=== PATIENT | female | born 1945 | race Caucasian/White ===

== ENCOUNTER → 2016-11-13 | Outpatient (CLI) | payer MEDICARE, BC ==
[~2016-11-13] MED LIST: CATHETER FLUSH 10 ML SYR IV PRN
--- OUTSIDE RECORDS SUMMARY | 2016-11-13 11:45 | XMS REPORT | Continuity of Care Document ---
Author Author [facility] Organization [facility] Address Unknown Phone Unavailable Allergies Active Description Code Type Severity Reaction Onset Reported/Identified Relationship to Patient Clinical Status Yes No Known Drug Allergies [id number] Drug Allergy Unknown N/ A 07/09/2014 Medications Problems Date Dx Coded Attending Type Code Diagnosis Diagnosed By 08/10/2014 CAEASR HOLT MD Ot 786.09 08/10/2014 CAESAR HOLT MD Ot V72.81 12/24/2015 CAESAR HOLT MD Ot 786.09 12/24/2015 CAESAR HOLT MD Ot V72.81 12/24/2015 CARIDAD DE LEÓN MD Ot I73.9 01/15/2016 GENET CARTWRIGHT, CARIDAD Ot I73.9 PERIPHERAL VASCULAR DISEASE, UNSPECIFIED 01/23/2016 CARIDAD DE LEÓN MD Ot I73.9 PERIPHERAL VASCULAR DISEASE, UNSPECIFIED Procedures Results Encounters ACCT No. Visit Date/Time Discharge Status Pt. Type Provider Facility Loc./Unit Complaint [id number] 07/09/2014 07:36:00 2013 23:59:59 CLS Outpatient CAESAR HOLT MD [facility] CARD [id number] 12/24/2015 11:02:00 ACT Outpatient AZUL DE LEÓN MD [facility] RAD
--- NOTE | 2016-11-13 14:14 | Diagnostic Imaging Report ---
Clinical indication: Patient with diarrhea. COMPARISON: None. PROCEDURE: The patient was administered 5.21 millicuries of technetium 99m Choletec. After 60 minutes of the images, one can of Ensure was drink followed by another 60 minutes of imaging. A nuclear medicine hepatobiliary scan with ejection fraction was performed. FINDINGS: There is prompt uptake and excretion of radiotracer by the liver. Activity is visible in the gallbladder by 20 minutes and the small bowel by 70 minutes. Ejection fraction of the gallbladder is calculated at 80% (normal >35%). The gallbladder visibly empties on the scans following the ingestion of Ensure. IMPRESSION: Normal hepatobiliary scan with normal gallbladder ejection fraction. Dictated by: Dictated on workstation # [id number]
== END ==
LOC: CARD 11:42
PROVIDERS: ATTEND Registered Nurse
DX: R19.7 Diarrhea, unspecified (principal); R10.13 Epigastric pain
CPT/HCPCS: 78227

== ENCOUNTER → 2019-10-27 | Outpatient (CLI) | payer MEDICARE, BC ==
[~2019-10-27] MED LIST changes: +HOLD METFORMIN - RECEIVED CONTRAST 20 ML VIAL IV SCH; +IOHEXOL 350 MG/ML 100 ML (OMNIPAQUE 350) VIAL IV ONE; +NS 100 ML (IVPB) BAG IV ONE; +RT-ALBUTEROL SULF 2.5 MG/3 ML PRE-MIX VIAL INH ONE; +RT-ALBUTEROL SULF 2.5 MG/3 ML PRE-MIX VIAL ONE
[2019-10-27 11:27] LABS: BUN/CREATININE RATIO 14; CREATININE SERUM 0.59 MG/DL (0.60-1.30); GFR ESTIMATED > 60
[2019-10-27 12:09] LABS: ABG BASE EXCESS 3.8 MMOL/L (-2.5-2.5); ABG OXYGEN SATURATION 94 % (94-100); ABG PCO2 41 MMHG (35-45); ABG PH 7.45 (7.37-7.43); ABG PO2 60 MMHG (79-93); ABG TCO2 29.2 MMOL/L (21.0-31.0); ALLENS TEST YES-POS; INSPIRED O2 ROOM AIR; PATIENT TEMP 35.9; VENTILATOR NO
--- NOTE | 2019-10-27 13:03 | NUR ---
Despite several different efforts; RT was unable to perform the O2 qualification due to the patients extremely cold extremities. Poor perfusion at this time; Patricia Palacios said that we would try the test at her next appointment.
--- NOTE | 2019-10-27 14:48 | Diagnostic Imaging Report ---
PROCEDURE: CT chest with contrast only. TECHNIQUE: Multiple contiguous axial images were obtained through the chest after administration of intravenous contrast. Auto Exposure Controls were utilized during the CT exam to meet ALARA standards for radiation dose reduction. DATE: October 27, 2019. COMPARISON: None. INDICATION: 74-year-old female, history of chronic obstructive pulmonary disease. Dyspnea. FINDINGS: There are areas of subcentimeter reticulo-nodularity in the left upper lobe. Comparison CT imaging is not available to assess for possible stability. There is a noncalcified left lower lobe pulmonary nodule measuring 8 mm in size on axial image 102. There is an additional 4 mm left lower lobe pulmonary nodule on axial image 89. There is some subtle subcentimeter reticulo-nodularity in the superior aspect of the left lower lobe. There are predominantly linear opacities in the right upper lobe anteriorly, right middle lobe, and right lower lobe consistent with scarring and/or atelectasis. This is also present in the left lower lobe. There is no additional focal airspace consolidation. There is no pneumothorax. There is nonspecific opacification in the right mainstem bronchus on axial image 76. There is also mild nonspecific opacification along the dependent aspect of the upper trachea on axial image 32 and adjacent sequential images. There is no pneumothorax. There is no pleural effusion. There are coronary artery calcifications and additional areas of atherosclerotic disease. The heart is not enlarged. There is no pericardial effusion. Evaluation for pulmonary embolus is limited given timing of the contrast bolus. There is no large central pulmonary embolus. The main pulmonary artery diameter is within normal limits. There is no identified abnormally enlarged mediastinal, hilar, or axillary lymph node which specifically meets CT size criteria for adenopathy. There is fluid in the distal esophagus. There does appear to be mild wall thickening near the level of the gastroesophageal junction. There is also apparent wall thickening of the proximal stomach. There are degenerative changes of the spine. There is no identified acute bony abnormality. IMPRESSION: CT CHEST. 1. Subcentimeter reticular nodularity in the left upper lobe and superior aspect of the left lower lobe of uncertain exact age. This is nonspecific although may be infectious or inflammatory in etiology. Recommend comparison with prior CT imaging of the chest if available to assess for long-term stability. 2. 8 mm and 4 mm left lower lobe pulmonary nodules. If comparison CT chest imaging is not available to assess for potential long-term stability, follow-up CT chest in 3 months to evaluate for stability is recommended. 3. Nonspecific opacification within the right mainstem bronchus and in the dependent trachea. 4. Wall thickening at the level of the gastroesophageal junction and also at the level of the proximal stomach. This is nonspecific. This could be infectious or inflammatory although a malignant etiology is also considered. Further evaluation with upper endoscopy is suggested. There is some abnormal fluid within the distal esophagus. Dictated by: Dictated on workstation # [id number]
== END ==
LOC: RT 10:08
PROVIDERS: ATTEND Nurse Practitioner Family
DX: J44.9 Chronic obstructive pulmonary disease, unspecified (principal); Z72.0 Tobacco use
CPT/HCPCS: 36415; 36600; 71260; 82565; 82805; 84520; 94060; 94726; 94729

== ENCOUNTER 2019-12-06 05:56 | Outpatient (CLI) | payer MEDICARE, BC ==
[~2019-12-06] VITALS: Ht 162.6 cm; Wt 43.6 kg
[2019-12-06] MEDS ORDERED: EZET10TA17 PO (09:49)
[2019-12-06] MEDS ORDERED: OXYB15TA19 PO (09:49)
[2019-12-06] MEDS ORDERED: ATOR20TA66 PO (09:49)
[2019-12-06] MEDS ORDERED: ASPI-586 PO (09:49)
== END 2019-12-06 09:56 | disposition home or self-care (01) ==
LOC: PREOP 05:56
PROVIDERS: ATTEND Internal Medicine Critical Care Medicine
DX: Z01.818 Encounter for other preprocedural examination (principal)

== ENCOUNTER 2019-12-07 06:58 | Day surgery (SDC) | payer MEDICARE, BC ==
[~2019-12-07] VITALS: Ht 162.6 cm; Wt 43.6 kg
[2019-12-07] VITALS (17 sets, daily range): BP systolic 95–127; BP diastolic 50–68
[~2019-12-07 06:58] MED LIST changes: +ASPI-586 PO; +ATOR20TA66 PO; -CATHETER FLUSH 10 ML SYR IV PRN; +EZET10TA17 PO; -HOLD METFORMIN - RECEIVED CONTRAST 20 ML VIAL IV SCH; -IOHEXOL 350 MG/ML 100 ML (OMNIPAQUE 350) VIAL IV ONE; -NS 100 ML (IVPB) BAG IV ONE; +OXYB15TA19 PO; -RT-ALBUTEROL SULF 2.5 MG/3 ML PRE-MIX VIAL INH ONE; -RT-ALBUTEROL SULF 2.5 MG/3 ML PRE-MIX VIAL ONE
[2019-12-07] MEDS ORDERED: LIDOCAINE JELLY 2% 6 ML SYRINGE MM ONE (06:59)
[2019-12-07] MEDS ORDERED: LIDOCAINE PF 2% 5 ML (XYLOCAINE) VIAL INJ ONE (06:59)
[2019-12-07] MEDS ORDERED: LIDOCAINE PF 1% 2 ML AMP IJ ONE (06:59)
[2019-12-07] MEDS ORDERED: NS IV 500 ML 500 ML ONE (07:11)
[2019-12-07] MEDS ORDERED: NS IV 500 ML 500 ML IV PRN (07:11)
[2019-12-07] MEDS ORDERED: fentaNYL INJECTION 100 MCG/2 ML AMP IVP ONE (07:15)
[2019-12-07] MEDS ORDERED: MIDAZOLAM 5 MG/5 ML (VERSED) VIAL ONE ×2 (07:37)
[2019-12-07] MEDS ORDERED: fentaNYL INJECTION 100 MCG/2 ML AMP ONE ×2 (07:37)
[2019-12-07] MEDS: MIDAZOLAM 5 MG/5 ML (VERSED) VIAL IV PRN ×3 (08:54→09:01)
--- NOTE | 2019-12-07 09:43 | Diagnostic Imaging Report ---
EXAMINATION: Chest 1 view HISTORY: STATUS POST BRONCHOSCOPY COMPARISON: CT chest on 10/27/2019. FINDINGS: The lung volumes are hyperexpanded. Hazy opacities are seen throughout the right lung. No focal consolidations. No prominent pulmonary nodules or pulmonary masses. No large pleural effusion or pneumothorax. The cardiac silhouette is unremarkable. There is calcified aortic atherosclerotic plaque. No acute osseous abnormalities. IMPRESSION: 1. Hazy opacities throughout the right lung, which may represent atelectasis or asymmetric edema. No focal consolidations or pulmonary masses. 2. No large pneumothorax or pleural effusions. 3. Hyperexpanded lungs, which can be seen with COPD. Dictated by: Dictated on workstation # [id number]
--- NOTE | 2019-12-07 10:06 | Pulmonary Procedures ---
Pulmonary Procedures Date of Procedure Date of Service: Dec 07, 2019 Bronch Bronchoscopy with brush of nasra RML bronchoalveolar lavage (BAL), bilateral bronchial washes and, using fleuroscopy a RLL brushes were obtained. Preop DX lung nodule Postop DX: same - No endobronchial mass Complications: none After informed consent obtained and formal time out pt was sedated using Fentanyl and Versed. Bronchoscope was advanced through the nare and vocal cords. 1% lidocaine was used to anesthetize vocal cords, epiglottis, nasra, and left/right main stem bronchus. An anatomical tour was undertaken down to the segmental bronchi bilaterally. No endobronchial lesions noted. Bronchoscopy with brush of nasra RML bronchoalveolar lavage (BAL), bilateral bronchial washes and, using fleuroscopy a RLL brushes were obtained.. Pt tolerated procedure well. No complications noted. Stat CXR is pending. RICKY SMITH DO Dec 07, 2019 10:06
--- OUTSIDE RECORDS SUMMARY | 2019-12-09 03:20 | XMS REPORT ---
Author Author [employer] Organization [employer] Address [address] [address] Care Team Providers Care Bacteriologist Fishery Name Role Phone DE LEÓN, AMINA-MICHAEL Unavailable Unavailable DE LEÓN, AMINA-MICHAEL Unavailable Unavailable DE LEÓN, AMINA-MICHAEL Unavailable Unavailable RENEE, BOOKER Unavailable Unavailable RENEE, BOOKER Unavailable Unavailable RENEE, BOOKER Unavailable Unavailable RENEE, BOOKER Unavailable Unavailable RENEE, BOOKER Unavailable Unavailable RENEE, BOOKER Unavailable Unavailable RENEE, BOOKER H NET LEAD ARCHITECT Unavailable Unavailable KIRIT, CASH Unavailable Unavailable GENET CARTWRIGHT, AMINA-MICHAEL Unavailable Unavailable RENEE HERNANDEZ, BOOKER H Unavailable Unavailable JONATHON CARTWRIGHT, CAESAR Rojas Unavailable Unavailable ARON COATS APRN Unavailable Unavailable Allergies Normalized Allergy Reported Date of Reaction(s) Care Provider Facility Allergy Type classification allergen Allergy Onset DA (2 Unclassified No Known Drug 07-09-2014 - no information BOOKER RENEE Not Available sources.) Allergies (12652) no information Unclassified NO KNOWN DRUG UNKNOWN, NO BOOKER F DEVON Not Available (21 sources.) ALLERGIES KNOWN DRUG ([id number]) ALLERGIES Medications No Information Problems Active Problems Problem Normalized Date of Normalized Normalized Provider Fac ility Classification Problem(s) Problem Problem Problem Sta tus Onset/Resoluti Duration on Acute Acute Episodic Active [facility] bronchitis (18 bronchitis, [facility] of sources.) unspecified [place] Translations: [facility] ([id number]) [ ACUTE BRONCHITIS, ACUTE BRONCHITIS, UNSPECIFIED] Other upper Acute Episodic Active AMINA-MICHAEL DE LEÓN Hospita l respiratory sinusitis, [facility] of infections (9 unspecified [place] sources.) Translations: [facility] (81192) [ ACUTE SINUSITIS, UNSPECIFIED, ACUTE SINUSITIS, UNSPECIFIED] Residual Altered mental Episodic Active AMINA-MICHAEL DE LEÓN Hos pital codes; status [facility] of unclassified [place] (14 sources.) [facility] ([id number]) Chronic Chronic 11-21-2019 - Chronic [facility] obstructive obstructive [facility] of pulmonary pulmonary [place] disease and disease, [facility] (89565) bronchiectasis unspecified (20 sources.) Translations: [ CHRONIC AIRWAY OBSTRUCTION, NOT ELSEWHERE CLASSIFIED, OBSTRUCTIVE CHRONIC BRONCHITIS, WITHOUT EXACERBATION, CHRONIC AIRWAY OBSTRUCTION, NOT ELSEWHERE CLASSIFIED ] Other lower Cough Episodic Active [facility]osp[facility] respiratory [facility] of disease (4 [place] sources.) [facility] ([id number]) Other lower Cough Episodic Active [facility]osp[facility] respiratory [facility] of disease (4 [place] sources.) [facility] (62400) Other Diarrhea, Episodic Active [facility] Via gastrointestin unspecified , [facility] (8 sources.) [place] ([id number]) Other nervous Difficulty in Chronic Active [facility] system walking [facility] of disorders (4 [place] sources.) [facility] (68201) Other nervous Difficulty in Chronic Active [facility] system walking, not [facility] of disorders (4 elsewhere [place] sources.) classified [facility] (51920) Other Encounter for Episodic Active SABRINA BETH Not A vailable aftercare (2 other (02031) sources.) orthopedic aftercare Other Encounter for Episodic Active AMINA-MICHAEL DE LEÓN [facility] ital screening for screening [facility] of suspected mammogram for [place] conditions malignant [facility] (56497) (not mental neoplasm of disorders or breast infectious Translations: disease) (17 [ OTHER sources.) SCREENING MAMMOGRAM, ENCOUNTER FOR SCREENING MAMMOGRAM FOR MALIGNANT NEOPLASM OF BREAST] Abdominal pain Epigastric Episodic Active [facility] Via (8 sources.) pain , [facility] (81523) Other lower Hypoxemia Episodic Active AMINA-MICHAEL DE LEÓN Hospit al respiratory [facility] of disease (9 [place] sources.) [facility] (91795) Other lower Hypoxemia Episodic 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 [facility] of sources.) intraepithelia [place] l lesion on [facility] (99556) cytologic smear of cervix (LGSIL) Translations: [ PAPANICOLAOU SMEAR OF CERVIX WITH LOW GRADE SQUAMOUS INTRAEPITHELIA L LESION (LGSIL), LOW GRADE SQUAMOUS INTRAEPITHELIA L LESION ON CYTOLOGIC SMEAR OF CERVIX (LGSIL)] Mood disorders Major Chronic Active [facility]OOKER DURAN Hosp ital (6 sources.) depressive [facility] of disorder, [place] single [facility] (57292) episode, unspecified Translations: [ DEPRESSIVE DISORDER, NOT ELSEWHERE CLASSIFIED] Substance-rela Nicotine Chronic Active AMINA-MICHAEL DE LEÓN Hosp ital miranda disorders dependence, [facility] of (22 sources.) other tobacco [place] product, [facility] (67600) uncomplicated Translations: [ TOBACCO USE DISORDER, TOBACCO USE DISORDER, NICOTINE DEPENDENCE, UNSPECIFIED, UNCOMPLICATED] Fracture of Nondisplaced Episodic Active AMINA-MICHAEL DE LEÓN Hos pital lower limb (14 bicondylar [facility] of sources.) fracture of [place] left tibia, [facility] (69833) subsequent encounter for closed fracture with routine healing Translations: [ AFTERCARE FOR HEALING TRAUMATIC FRACTURE OF LOWER LEG, NONDISPLACED BICONDYLAR FRACTURE OF LEFT TIBIA, INIT, OTH FRACTURE OF UPPER AND LOWER END OF LEFT FIBULA, INIT, CLOSED FRACTURE OF UPPER END OF FIBULA, CLOSED FRACTURE OF UPPER END OF TIBIA, OTH FX UPR & LOW END L FIBULA, SUBS FOR CLOS FX W ROUTN HEAL, NONDISP BICONDYLAR FX L TIBIA, SUBS FOR CLOS FX W ROUTN HEAL, UNSPECIFIED FRACTURE OF RIGHT LOWER LEG, SUBSEQUENT ENCOUNTER FOR CLOSED FRACTURE WITH ROUTINE HEALING, AFTERCARE FOR HEALING TRAUMATIC FRACTURE OF LOWER LEG] Nonspecific Other chest Episodic Active AMINA-MICHAEL DE LEÓN Hosp ital chest pain (3 pain [facility] of sources.) Translations: [place] [ UNSPECIFIED [facility] (66796) CHEST PAIN] Malaise and Other fatigue Episodic Active AMINA-MICHAEL DE LEÓN Ho spital fatigue (19 Translations: [facility] of sources.) [ OTHER [place] MALAISE AND [facility] (22291) FATIGUE, OTHER MALAISE AND FATIGUE] Other Other Episodic Active SABRINA BETH Not Availa ble aftercare (2 orthopedic (09237) sources.) aftercare Other lower Other Episodic Active [facility] Via respiratory respiratory MD JONATHON Shefali disease (9 abnormalities Hospital - sources.) [place] ([address]) Other Pain in joint, Episodic Active MAINA-MICHAEL DE LEÓN Hos pital non-traumatic lower leg [facility] of joint [place] disorders (2 County ([address]) sources.) Other Pain in left Episodic Active AMINA-MICHAEL DE LEÓN Hospi amairani non-traumatic knee [facility] of joint [place] disorders (2 [place] (86209) sources.) 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 , MD Meehan atherosclerosi disease, Hospital - s (6 sources.) unspecified [place] ([address]) Other lower Shortness of Episodic Active BOOKER RENEE Hos pital respiratory breath [facility] of disease (8 [place] sources.) [facility] (97363) Other lower Shortness of Episodic Active BOOKER RENEE Hos pital respiratory breath [facility] of disease (5 [place] sources.) [facility] (42172) Residual Tobacco use 11-21-2019 - Episodic Active BOOKER ELIEZER A Hospital codes; [facility] of unclassified [place] (5 sources.) [facility] (13631) Viral Zoster without Episodic Active [facility] Hos pital infection (4 complications [facility] of sources.) Translations: [place] [ HERPES [facility] (88389) ZOSTER WITHOUT MENTION OF COMPLICATION] Past or Other Problems Problem Normalized Date of Normalized Normalized Provider Fac ility Classification Problem(s) Problem Problem Problem Sta tus Onset/Resoluti Duration on Unclassified Chest pain no information no information [facility] (2 sources.) [facility] of [facility] (22557) Mood disorders Major no information no information [facility] (14 sources.) depressive [facility] of disorder, [place] single [facility] (12495) episode, unspecified Procedures No Information Immunizations No Information Results Test Name Value Interpretation Reference Range Date Time Fa cility (Normalized) (Normalized) (Medline Reference) No panel information on 2019-08-31 Albumin BCG dye 4.0 (no code) 08-31-2019 Hospital [Mass/Vol] 05:220500 [facility] (81637) ALP [Catalytic 64 U/L (no code) 44 - 147 U/L 08-31-2019 Hosp ital activity/Vol] 05:220500 [facility] of [facility] (53556) ALT [Catalytic 17 U/L (no code) 4 - 40 U/L 08-31-2019 Hospit al activity/Vol] 05:22-0500 [facility] (13600) Anion gap 13 mmol/L (no code) 3 - 11 mmol/L 08-31-2019 Hospital [Moles/Vol] 05:22-0500 [facility] of [facility] (82568) AST [Catalytic 30 U/L (no code) 10 - 34 U/L 08-31-2019 Hospi amairani activity/Vol] 05: [facility] (11310) Basophils (Bld) 0.1 10*3/uL (no code) 0 - 0.3 10*3/uL 08-31-2019 Hospital [#/Vol] 05: [facility] (06901) Basophils/100 0.90 % (no code) 0.5 - 1 % 08-31-2019 Hospital WBC (Bld) 05: [facility] (51130) Bilirubin 0.6 mg/dL (no code) 0.1 - 1.2 mg/dL 08-31-2019 Hospit al [Mass/Vol] 05: [facility] (68986) Calcium 10.0 mg/dL (no code) 8.5 - 10.2 mg/dL 08-31-2019 Hosp ital [Mass/Vol] 05: [facility] (88784) Chloride 103 mmol/L (no code) 95 - 106 mmol/L 08-31-2019 Hospi amairani [Moles/Vol] 05: [facility] (39408) Cholesterol 161 mg/dL (no code) 180 - 200 mg/dL 08-31-2019 Hosp ital [Mass/Vol] 05: [facility] (52480) Cholesterol in 70 mg/dL (no code) 08-31-2019 Hospital HDL [Mass/Vol] 05: [facility] (71912) Cholesterol in 77 mg/dL (no code) 0 - 100 mg/dL 08-31-2019 Hos pital LDL [Mass/Vol] 05: [facility] (06430) Cholesterol in 14 mg/dL (no code) 08-31-2019 Hospital VLDL [Mass/Vol] 05: [facility] (59650) Cholesterol.tota 2.3 {ratio} (L) 08-31-2019 Hospital l/Cholesterol in 05: [facility] of HDL [Mass ratio] [facility] (06500) Creatinine 0.62 mg/dL (no code) 08-31-2019 Hospital [Mass/Vol] 05: [facility] (98381) Electrocardiogra Complete (no code) 08-31-2019 Hospital ms recorded 05: [facility] (56607) Eosinophils 0.1 10*3/uL (no code) 0.05 - 0.5 08-31-2019 Hospita l (Bld) [#/Vol] 10*3/uL 05: [facility] (47344) Eosinophils/100 1.6 % (no code) 1 - 4 % 08-31-2019 Hospit al WBC (Bld) 05: [facility] (02937) Erythrocyte 13.6 % (no code) 11.6 - 14.6 % 08-31-2019 Hospit al distribution 05: [facility] of width (RBC) [facility] [Ratio] (12893) GFR/1.73 sq 94 (no code) 90 - 120 08-31-2019 Hospital M.predicted MDRD mL/min/{1.73_m2} mL/min/{1.73_m2} 05: [facility] of (S/P/Bld) [Vol [facility] rate/Area] (83416) Globulin (S) 3.1 g/dL (no code) 2 - 3.5 g/dL 08-31-2019 Hospit al [Mass/Vol] 05: [facility] (64835) Glucose 101 mg/dL (no code) 60 - 125 mg/dL 08-31-2019 Hospita l [Mass/Vol] 05: [facility] (98794) HCO3 (P) 30 (no code) 08-31-2019 Hospital [Moles/Vol] 05: [facility] #1 [facility] (08338) Hematocrit (Bld) 43.7 % (no code) 36.1 - 50.3 % 08-31-2019 H ospital [Volume 05: [facility] of fraction] [facility] (96082) Hemoglobin (Bld) 14.6 g/dL (no code) 12.1 - 17.2 g/dL 08-31-2019 Hospital [Mass/Vol] 05: [facility] (34803) Lymphocytes 1.09 10*3/uL (no code) 0.9 - 2.9 08-31-2019 Hospita l (Bld) [#/Vol] 10*3/uL 05: [facility] (27394) Lymphocytes/100 19.7 % (no code) 20 - 40 % 08-31-2019 Hospit al WBC (Bld) 05: [facility] (06335) MCH (RBC) 32.9 pg (H) 27 - 31 pg 08-31-2019 Hospital [Entitic mass] 05: [facility] (95672) MCHC (RBC) 33.4 g/dL (no code) 32 - 36 g/dL 08-31-2019 Hospital [Mass/Vol] 05: [facility] (89026) MCV (RBC) 98.4 fL (H) 80 - 100 fL 08-31-2019 Hospital [Entitic vol] 05: [facility] (06151) Monocytes (Bld) 0.6 10*3/uL (no code) 0.3 - 0.9 08-31-2019 Hosp ital [#/Vol] 10*3/uL 05: [facility] (11534) Monocytes/100 11.2 % (no code) 2 - 8 % 08-31-2019 Hospital WBC (Bld) 05: [facility] (38769) Neutrophils 3.67 10*3/uL (no code) 1.7 - 7 10*3/uL 08-31-2019 H ospital (Bld) [#/Vol] 05: [facility] (03248) Neutrophils/100 66.6 % (no code) 40 - 60 % 08-31-2019 Hospit al WBC (Bld) 05: [facility] (91827) Osmolality Calc 290 (no code) 08-31-2019 Hospital [Osmolality] 05: [facility] (33665) Platelet mean 9.3 fL (no code) 7.2 - 11.7 fL 08-31-2019 Hosp ital volume (Bld) 05: [facility] of [Entitic vol] [facility] (80937) Platelets (Bld) 189 10*3/uL (no code) 150 - 450 08-31-2019 Hosp ital [#/Vol] 10*3/uL 05: [facility] (47297) Potassium 4.5 mmol/L (no code) 3.7 - 5.2 mmol/L 08-31-2019 Hosp ital [Moles/Vol] 05: [facility] (36037) Protein 7.1 g/dL (no code) 6.4 - 8.3 g/dL 08-31-2019 Hospita l [Mass/Vol] 05: [facility] (57772) RBC (Bld) 4.44 10*6/uL (no code) 4.2 - 6.1 08-31-2019 Hospital [#/Vol] 10*6/uL 05: [facility] (03663) Sodium 141 mmol/L (no code) 135 - 145 mmol/L 08-31-2019 Hosp ital [Moles/Vol] 05: [facility] (88803) Triglyceride 72 mg/dL (no code) 0 - 150 mg/dL 08-31-2019 Hospi amairani [Mass/Vol] 05: [facility] (78194) TSH Qn 2.02 (no code) 08-31-2019 Hospital 05: [facility] (34516) Urea nitrogen 8 mg/dL (no code) 7 - 20 mg/dL 08-31-2019 Hospi amairani [Mass/Vol] 05: [facility] (92108) WBC (Bld) 5.52 10*3/uL (no code) 3.5 - 10.5 08-31-2019 Hospital [#/Vol] 10*3/uL 05:220500 [facility] (68720) No panel information on 2018-06-15 Human papilloma no information (no code) 06-15-2018 [facility] ([id number]) virus 22:56-0400 16+18+31+33+35+3 9+45+51+52+56+58 +59+66+68 DNA [Presence] in Cervix by Probe with signal amplification No panel information on 2018-06-13 [employer] Cyto Comment (no code) 06-13-2018 [facility] (0 0000) stain ID Nom [id number] (Cervical or vaginal smear or scraping) Cytology report TNP (no code) 06-13-2018 [facility] (0 0000) Cyto stain.thin 19:04-0400 prep Doc (Cervical or vaginal smear or scraping) Diagnosis ICD Comment (no code) 06-13-2018 [facility] (000 00) code [id number] [Identifier] Microscopic . (no code) 06-13-2018 [facility] ([id number] ) observation 19:04-0400 [Identifier] in Unspecified specimen by Other stain Note: Comment (no code) 06-13-2018 [facility] ([id number] ) 19:04-0400 Pathology report Comment (no code) 06-13-2018 [facility] ( 72643) final diagnosis 19:04-0400 Narrative Statement of Comment (no code) 06-13-2018 [facility] (0000 0) adequacy Cyto 19:04-0400 stain Interp (Cervical or vaginal smear or scraping) No panel information on 2018-06-09 Albumin mass 4.2 g/dL (no code) 3.4 - 5.4 g/dL 06-09-2018 no i nformation conc 09:50-0400 ALP enzyme 57 U/L (no code) 44 - 147 U/L 06-09-2018 no infor mation act/vol 09:50-0400 ALT enzyme 16 U/L (no code) 4 - 40 U/L 06-09-2018 no informa tion act/vol 09:50-0400 Anion gap 3 14 mmol/L (no code) 3 - 11 mmol/L 06-09-2018 no inf ormation molar conc 09:50-0400 AST enzyme 27 U/L (no code) 10 - 34 U/L 06-09-2018 no inform ation act/vol 09:50-0400 Basophils Auto 0.1 10*3/uL (no code) 0 - 0.3 10*3/uL 06-09-2018 no information #/vol (Bld) 09:50-0400 Basophils/100 1.00 % (no code) 0.5 - 1 % 06-09-2018 no infor mation WBC Auto (Bld) 09:50-0400 Bilirubin Ql (U) 0.5 (no code) 06-09-2018 no inform ation 09:50-0400 Calcium mass 9.8 mg/dL (no code) 8.5 - 10.2 mg/dL 06-09-2018 no information conc 09:50-0400 Chloride molar 103 mmol/L (no code) 95 - 106 mmol/L 06-09-2018 no information conc 09:50-0400 Cholesterol in 66 mg/dL (no code) 06-09-2018 no informat ion HDL mass conc 09:50-0400 Cholesterol in 80 mg/dL (no code) 0 - 100 mg/dL 06-09-2018 no information LDL mass conc 09:50-0400 Cholesterol in 14 mg/dL (no code) 06-09-2018 no informat ion VLDL mass conc 09:50-0400 Cholesterol mass 160 mg/dL (no code) 180 - 200 mg/dL 06-09-2018 no information conc 09:50-0400 Cholesterol.tota 2.4 {ratio} (L) 06-09-2018 no inform ation l/Cholesterol in 09:50-0400 HDL mass ratio CO2 molar conc 27 mmol/L (no code) 23 - 29 mmol/L 06-09-2018 no information 09:50-0400 Creatinine mass 0.62 mg/dL (no code) 06-09-2018 no informa tion conc 09:50-0400 Eosinophils Auto 0.1 10*3/uL (no code) 0.05 - 0.5 06-09-2018 no information #/vol (Bld) 10*3/uL 09:50-0400 Eosinophils/100 2.0 % (no code) 1 - 4 % 06-09-2018 no inf ormation WBC Auto (Bld) 09:50-0400 Erythrocyte 14.3 % (no code) 11.6 - 14.6 % 06-09-2018 no inf ormation distribution 09:50-0400 width Auto Ratio (RBC) GFR/1.73 sq M 94 (no code) 90 - 120 06-09-2018 no infor mation predicted among mL/min/{1.73_m2} mL/min/{1.73_m2} 09:50-040 0 non-blacks MDRD vol rate/area (S/P/Bld) Globulin 3.1 g/dL (no code) 2 - 3.5 g/dL 06-09-2018 no inform ation Calculated mass 09:50-040 conc (S) Glucose mass 97 mg/dL (no code) 60 - 125 mg/dL 06-09-2018 no i nformation conc 09:50-0400 Hematocrit Auto 44.0 % (no code) 36.1 - 50.3 % 06-09-2018 no information Volume Fraction 09:50-0400 (Bld) Hemoglobin mass 14.7 g/dL (no code) 12.1 - 17.2 g/dL 06-09-2018 no information conc (Bld) 09:50-0400 Lymphocytes Auto 2.14 10*3/uL (no code) 0.9 - 2.9 06-09-2018 no information #/vol (Bld) 10*3/uL 09:50-0400 Lymphocytes/100 31.0 % (no code) 20 - 40 % 06-09-2018 no inf ormation WBC Auto (Bld) 09:50-0400 MCH Auto Entitic 31.6 pg (H) 27 - 31 pg 06-09-2018 no i nformation mass (RBC) 09:50-0400 MCHC Auto mass 33.4 g/dL (no code) 32 - 36 g/dL 06-09-2018 no i nformation conc (RBC) 09:50-0400 MCV Auto Entitic 94.6 fL (no code) 80 - 100 fL 06-09-2018 no information volume (RBC) 09:50-0400 Monocytes Auto 0.6 10*3/uL (no code) 0.3 - 0.9 06-09-2018 no in formation #/vol (Bld) 10*3/uL 09:50-0400 Monocytes/100 9.3 % (no code) 2 - 8 % 06-09-2018 no infor mation WBC Auto (Bld) 09:50-0400 Neutrophils Auto 3.91 10*3/uL (no code) 1.7 - 7 10*3/uL 06-09-20 18 no information #/vol (Bld) 09:50-0400 Neutrophils/100 56.7 % (no code) 40 - 60 % 06-09-2018 no inf ormation WBC Auto (Bld) 09:50-040 Osmolality 289 mosm/kg (no code) 275 - 295 06-09-2018 no inform ation mosm/kg 09:50-040 Platelet mean 9.2 fL (no code) 7.2 - 11.7 fL 06-09-2018 no i nformation volume Auto 09:50-0400 Entitic volume (Bld) Platelets Auto 180 10*3/uL (no code) 150 - 450 06-09-2018 no in formation #/vol (Bld) 10*3/uL 09:50040 Potassium molar 4.2 mmol/L (no code) 3.7 - 5.2 mmol/L 06-09-2018 no information conc 09:50040 Protein mass 7.3 g/dL (no code) 6.4 - 8.3 g/dL 06-09-2018 no i nformation conc 09:50-040 RBC Auto #/vol 4.65 10*6/uL (no code) 4.2 - 6.1 06-09-2018 no i nformation (Bld) 10*6/uL 09:50040 Sodium molar 140 mmol/L (no code) 135 - 145 mmol/L 06-09-2018 n o information conc 09:50-0400 T4 free mass 0.95 ng/dL (no code) 0.9 - 2.2 ng/dL 06-09-2018 no information conc 09:50-040 Thyrotropin Qn 4.32 (no code) 06-09-2018 no informat ion 09:50-040 Triglyceride 71 mg/dL (no code) 0 - 150 mg/dL 06-09-2018 no in formation mass conc 09:50-040 Urea nitrogen 11 mg/dL (no code) 7 - 20 mg/dL 06-09-2018 no in formation mass conc 09:50-0400 WBC Auto #/vol 6.90 10*3/uL (no code) 3.5 - 10.5 06-09-2018 no information (Bld) 10*3/uL 09:50-0400 No panel information on 2016-11-17 Occult blood no information (no code) 11-17-2016 Not Availa ble panel - Stool by 10:22-0500 ([id number]) Immunoassay Vital Signs No Information Interventions No Information Plan of Treatment No Information Goals No Information Social History No Information Functional Status No Information Mental Status No Information Encounters Encounter Normalized Encounter Encounter Diagnosis Care Provi barak Organization Date Type 06-09-2018 Patient encounter no information no name (no phone) no organization name - (no phone) 06-10-2018 06-08-2018 Patient encounter no information no name (no phone) no organization name - (no phone) 06-09-2018 02-14-2018 Patient encounter no information no name (no phone) no organization name - (no phone) 03-22-2018 12-27-2017 Patient encounter no information no name (no phone) no organization name - (no phone) 02-08-2018 12-24-2017 Patient encounter no information no name (no phone) no organization name - (no phone) 12-26-2017 10-27-2019 Patient encounter no information [facility] Via Shefali procedure [employer]IDENT [employer]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 (no phone) [facility] (no phone) 10-03-2019 Patient encounter no information no name (no phone) no organization name - procedure (no phone) 10-03-2019 09-08-2019 Patient encounter no information no name (no phone) no organization name - procedure (no phone) 09-08-2019 08-31-2019 Patient encounter no information no name (no phone) no organization name - procedure (no phone) 08-31-2019 08-29-2019 Patient encounter no information no name (no phone) no organization name - procedure (no phone) 08-29-2019 10-03-2018 Patient encounter no information no name (no phone) no organization name - procedure (no phone) 10-04-2018 09-30-2018 Patient encounter no information no name (no phone) no organization name - procedure (no phone) 10-01-2018 03-09-2018 Patient encounter no information no name (no phone) no organization name - procedure (no phone) 03-10-2018 01-26-2018 Patient encounter no information no name (no phone) no organization name - procedure (no phone) 01-27-2018 01-12-2018 Patient encounter no information no name (no phone) no organization name - procedure (no phone) 01-13-2018 01-05-2018 Patient encounter no information no name (no phone) no organization name - procedure (no phone) 01-06-2018 11-17-2016 Patient encounter no information no name (no phone) no organization name - procedure (no phone) 11-18-2016 11-13-2016 Patient encounter no information no name (no phone) no organization name procedure (no phone) 11-13-2016 Patient encounter no information no name (no phone) no organization name procedure (no phone) 10-29-2016 Patient encounter no information no name (no phone) no organization name - procedure (no phone) 10-30-2016 12-24-2015 Patient encounter no information no name (no phone) no organization name procedure (no phone) 07-09-2014 Patient encounter no information no name (no phone) no organization name procedure (no phone) no information Pre-operative no name (no phone) no organiza tion name cardiovascular (no phone) examination Medical Equipment No Information Payers Normalized Payer Value Medicare no information Additional Source Comments This clinical document has been generated using [employer] software that has been certified by the Office of the National Coordinator for Health Information Technology (ONC [id number]) and the National Committee for Python Web Developer (NCQA, as an eMeasure certified technology). FOR RECORDS PERTAINING TO PATIENTS WHO ARE OR HAVE BEEN ENROLLED IN A CHEMICAL D EPENDENCY/SUBSTANCE ABUSE PROGRAM, SOME INFORMATION MAY BE OMITTED. This clinica l summary was aggregated from multiple sources. Caution should be exercised in using it in the provision of clinical care. This summary normalizes information from multiple sources, and as a consequence, information in this document may ma terially change the coding, format and clinical context of patient data. In rachel tion, data may be omitted in some cases. CLINICAL DECISIONS SHOULD BE BASED ON T HE PRIMARY CLINICAL RECORDS. [employer] provides no warranty or guara ntee of the accuracy or completeness of information in this document.The [facility] information is based on time limited clinical information
--- OUTSIDE RECORDS SUMMARY | 2019-12-09 03:20 | XMS REPORT | Continuity of Care Document ---
Author Organization Unknown Address Unknown Phone Unavailable Allergies Active Description Code Type Severity Reaction Onset Reported/Identified Relationship to Patient Clinical Status Yes No Known Drug Allergies [id number] Drug Allergy Unknown N/A 07/09/2014 Medications There is no data. Problems Date Dx Coded Attending Type Code Diagnosis Diagnosed By 08/10/2014 CAESAR HOLT MD Ot 786.09 08/10/2014 CAESAR HOLT MD Ot V72.81 12/24/2015 CAESAR HOLT MD Ot 786.09 12/24/2015 CAESAR HOLT MD Ot V72.81 12/24/2015 GENET CARTWRIGHT, CARIDAD Ot I73.9 01/15/2016 GENET CARTWRIGHT, CARIDAD Ot I73.9 PERIPHERAL VASCULAR DISEASE, UNSPECIFIED 01/23/2016 GENET CARTWRIGHT, CARIDAD Ot I73.9 PERIPHERAL VASCULAR DISEASE, UNSPECIFIED 11/13/2016 JONATHON CARTWRIGHT, CAESAR Rojas Ot 786.09 RESPIRATORY ABNORM NEC 11/13/2016 JONATHON CARTWRIGHT, CAESAR Rojas Ot V72.81 TXVJ-GLL-PMAROVCQH CARDIOVASCULAR 11/13/2016 GENET CARTWRIGHT, CARIDAD Ot I73.9 PERIPHERAL VASCULAR DISEASE, UNSPECIFIED 11/16/2016 RENEE, BOOKER H ACADEMIC MANAGER Ot R10.13 EPIGASTRIC PAIN 11/16/2016 RENEE, BOOKER H ACADEMIC MANAGER Ot R19.7 DIARRHEA, UNSPECIFIED 11/17/2016 RENEE, BOOKER H ACADEMIC MANAGER Ot R10.13 EPIGASTRIC PAIN 11/17/2016 RENEE, BOOKER H ACADEMIC MANAGER Ot R19.7 DIARRHEA, UNSPECIFIED 12/04/2016 RENEE, BOOKER H ACADEMIC MANAGER Ot R10.13 EPIGASTRIC PAIN 12/04/2016 RENEE, BOOKER H ACADEMIC MANAGER Ot R19.7 DIARRHEA, UNSPECIFIED 12/09/2016 RENEE, BOOKER H ACADEMIC MANAGER Ot R10.13 EPIGASTRIC PAIN 12/09/2016 RENEE, BOOKER H ACADEMIC MANAGER Ot R19.7 DIARRHEA, UNSPECIFIED 2019 CAESAR HOLT MD P Ot 786.09 RESPIRATORY ABNORM NEC 2019 JONATHON CARTWRIGHT, CAESAR P Ot V72.81 NNMP-NIO-VVIVQEJEY CARDIOVASCULAR 2019 GENET CARTWRIGHT, CARIDAD Ot I73.9 PERIPHERAL VASCULAR DISEASE, UNSPECIFIED 2019 RENEE, BOOKER H ACADEMIC MANAGER Ot R10.13 EPIGASTRIC PAIN 2019 RENEE, BOOKER H ACADEMIC MANAGER Ot R19.7 DIARRHEA, UNSPECIFIED 10/26/2019 JONATHON CARTWRIGHT, CAESAR P Ot 786.09 RESPIRATORY ABNORM NEC 10/26/2019 JONATHON CARTWRIGHT, CAESAR P Ot V72.81 GCRX-MYI-AYKGRPXEV CARDIOVASCULAR 10/26/2019 GENET CARTWRIGHT, CARIDAD Ot I73.9 PERIPHERAL VASCULAR DISEASE, UNSPECIFIED 10/26/2019 RENEE, BOOKER H ACADEMIC MANAGER Ot R10.13 EPIGASTRIC PAIN 10/26/2019 RENEE, BOOKER H ACADEMIC MANAGER Ot R19.7 DIARRHEA, UNSPECIFIED 10/26/2019 JONATHON CARTWRIGHT, CAESAR P Ot 786.09 RESPIRATORY ABNORM NEC 10/26/2019 JONATHON CARTWRIGHT, CAESAR P Ot V72.81 HFPM-RUL-PWRGWVLWJ CARDIOVASCULAR 10/26/2019 GENET CARTWRIGHT, CARIDAD Ot I73.9 PERIPHERAL VASCULAR DISEASE, UNSPECIFIED 10/26/2019 RENEE, BOOKER H ACADEMIC MANAGER Ot R10.13 EPIGASTRIC PAIN 10/26/2019 RENEE, BOOKER H ACADEMIC MANAGER Ot R19.7 DIARRHEA, UNSPECIFIED 10/27/2019 JONATHON CARTWRIGHT, CAESAR P Ot 786.09 RESPIRATORY ABNORM NEC 10/27/2019 JONATHON CARTWRIGHT, CAESAR P Ot V72.81 INID-GER-BSYBTWGHG CARDIOVASCULAR 10/27/2019 GENET CARTWRIGHT, CARIDAD Ot I73.9 PERIPHERAL VASCULAR DISEASE, UNSPECIFIED 10/27/2019 RENEE, BOOKER H ACADEMIC MANAGER Ot R10.13 EPIGASTRIC PAIN 10/27/2019 RENEE, BOOKER H ACADEMIC MANAGER Ot R19.7 DIARRHEA, UNSPECIFIED 10/27/2019 JONATHON CARTWRIGHT, CAESAR P Ot 786.09 RESPIRATORY ABNORM NEC 10/27/2019 JONATHON CARTWRIGHT, CAESAR P Ot V72.81 TOFT-AXS-JHJWCWZWR CARDIOVASCULAR 10/27/2019 CARIDAD DE LEÓN MD Ot I73.9 PERIPHERAL VASCULAR DISEASE, UNSPECIFIED 10/27/2019 RENEE, BOOKER H ACADEMIC MANAGER Ot R10.13 EPIGASTRIC PAIN 10/27/2019 RENEE, BOOKER Fofana ACADEMIC MANAGER Ot R19.7 DIARRHEA, UNSPECIFIED 10/30/2019 JONATHON CARTWRIGHT, CAESAR Rojas Ot 786.09 RESPIRATORY ABNORM NEC 10/30/2019 JONATHON CARTWRIGHT, CAESAR Rojas Ot V72.81 JUOT-DSQ-LIJBLAMOB CARDIOVASCULAR 10/30/2019 GENET CARTWRIGHT, CARIDAD Ot I73.9 PERIPHERAL VASCULAR DISEASE, UNSPECIFIED 10/30/2019 BOOKER DURAN ACADEMIC MANAGER Ot R10.13 EPIGASTRIC PAIN 10/30/2019 BOOKER DURAN ACADEMIC MANAGER Ot R19.7 DIARRHEA, UNSPECIFIED 11/01/2019 ARON COATS APRN Ot J44.9 CHRONIC OBSTRUCTIVE PULMONARY DISEASE, U 11/01/2019 ARON COATS APRN Ot Z72.0 TOBACCO USE 11/21/2019 ARON COATS APRN Ot J44.9 CHRONIC OBSTRUCTIVE PULMONARY DISEASE, U 11/21/2019 ARON COATS APRN Ot Z72.0 TOBACCO USE Procedures There is no data. Results Test Result Range Arterial blood gas measurement - 0 12:03 Blood pCO2 41 mm[Hg] 35-45 Blood pO2 60 mm[Hg] 79-93 Arterial blood bicarbonate measurement (moles/volume) 28 mmol/L 23-27 Arterial blood base excess by calculation 3.8 mmol /L -2.5-2.5 Arterial blood oxygen saturation measurement 94 % 94-100 * Inhaled oxygen flow rate ROOM AIR NRG Arterial blood pH measurement with patient temperature correction 7.45 7.37-7.43 Arterial blood carbon dioxide, total measurement (mole s/volume) 29.2 mmol/L 21.0-31.0 Body site RT RAD NRG Assessment of wrist artery patency prior to arterial p uncture YES-POS NRG Setting of ventilation mode NO NR G Measurement of body temperature 35.9 NRG Sputum Gram stain - 12/07/19 09:08 Sputum Gram stain NO BACTERIA SEEN NRG Bacteria identification in bronchial spe cimen by aerobe culture - 12/07/19 09:08 QUANTITY OF GROWTH . NRG Bacteria identification in bronchial specimen by aerob e culture USUAL RESP NRG FTX;REPORTABLE 10,000 CFU/ML NRG Mycobacterium species detection by organ ism specific culture - 12/07/19 09:08 Encounters ACCT No. Visit Date/Time Discharge Status Pt. Type Provider Facility Loc./Unit Complaint [id number] 12/07/2019 06:58:00 020 10:40:00 DIS Outpatient RICKY SMITH DO [facility] ENDO DYSPNEA/HYPOXEMIA/COPD [id number] 12/06/2019 05:56:00 09:56:00 DIS Outpatient RICKY SMITH DO [facility] PREOP BRONCHOSCOPY [id number] 10/27/2019 10:08:00 020 23:59:59 CLS Outpatient ARON COATS APRN [facility] RT COPD,DYSPNEA,HYPOXEMIA,TOBACCO USER [id number] 11/13/2016 11:42:00 017 23:59:59 CLS Outpatient BOOKER DURAN [facility] CARD DIARRHEA [id number] 12/24/2015 11:02:00 016 23:59:59 CLS Outpatient GENET CARTWRIGHT, CARIDAD [facility] RAD PVD, [id number] 07/09/2014 07:36:00 014 23:59:59 CLS Outpatient JONATHON CARTWRIGHT, CAESAR Rojas [facility] CARD PREOP CLEARANCE ,DYSPNEA
== END 2019-12-07 10:40 | disposition home or self-care (01) ==
LOC: ENDO 06:58
PROVIDERS: ATTEND Internal Medicine Critical Care Medicine
DX: R91.8 Other nonspecific abnormal finding of lung field (principal); J43.9 Emphysema, unspecified; R06.00 Dyspnea, unspecified; R09.02 Hypoxemia; Z79.899 Other long term (current) drug therapy; Z79.82 Long term (current) use of aspirin; F17.290 Nicotine dependence, other tobacco product, uncomplicated
CPT/HCPCS: 71045; 87015; 87070; 87101; 87116; 87205; 87206; 88112; 88305; 88312

== ENCOUNTER 2020-07-09 05:07 | Inpatient (IN) | payer MEDICARE, BC ==
[~2020-07-09] VITALS: Ht 165 cm; Wt 51.9 kg
[~2020-07-09 05:07] MED LIST changes: +ACETAMINOPHEN 500 MG TAB (TYLENOL) PO PRN; +ALPRAZolam 0.25 MG (XANAX) TAB PO PRN; +BISACODYL 10 MG SUPP (DULCOLAX) PR PRN; +CALCIUM CARBONATE 500 MG (TUMS) TAB.CHEW PO PRN; +DOCUSATE SODIUM 100 MG (COLACE) CAP PO PRN; +FLEET ENEMA ADULT 1 EA BTL PR PRN; +HYDROcodone/APAP 5 MG/325 MG (LORTAB) TAB PO PRN; +LACTULOSE SYRUP 10GM/15ML (ENULOSE) 30ML UDC PO PRN; +LOPERAMIDE 2 MG (IMODIUM) TABLET PO PRN; +MELATONIN 3 MG TABLET PO PRN; +ONDANSETRON 4 MG (ZOFRAN) ORAL DISSOLVE TAB PO PRN; +diphenhydrAMINE 25 MG TAB (BENADRYL) PO PRN; +guaiFENesin/CODEINE (ROBITUSSIN AC) 10ML UDC PO PRN
[2020-07-09] MEDS ORDERED: SENNA W/DOCUSATE (SENOKOT S) TABLET PO SCH (09:00)
[2020-07-09] MEDS ORDERED: DOCUSATE SODIUM 100 MG (COLACE) CAP PO SCH (09:00)
[2020-07-09] MEDS ORDERED: polyethylene glycoL POWDER 17 GM (MIRALAX) PACK PO SCH (09:00)
--- NOTE | 2020-07-09 10:00 | NUR ---
TO ROOM 224 PER W/C FROM [facility] PER PRIVATE CAR. PT. STATES " MY HIP HURT SO BAD GETTING INTO THE CAR TO COME HERE." PT HERE AND ASSESSED PT. DR. NICOLE NOTIFIED OF PTS. COMPLAINT.
--- NOTE | 2020-07-09 10:47 | NUR ---
PORTABLE X-RAY DONE OF RIGHT HIP.
[2020-07-09] MEDS ORDERED: OXYC-556 PO (11:20)
[2020-07-09] MEDS ORDERED: ASPI-999 PO (11:20)
[2020-07-09] MEDS ORDERED: POTA-53 PO (11:20)
[2020-07-09] MEDS ORDERED: POLY17PO6 PO (11:20)
[2020-07-09] MEDS ORDERED: BACL5TAB PO (11:20)
[2020-07-09] MEDS ORDERED: NICO-533 TD (11:20)
[2020-07-09] MEDS ORDERED: LACT20SO2 PO (11:20)
[2020-07-09] MEDS ORDERED: SERT50TA9 PO (11:23)
[2020-07-09] MEDS ORDERED: ACETAMINOPHEN 325 MG TABLET PO PRN (11:30)
--- NOTE | 2020-07-09 11:42 | NUR ---
THE MED REC HAS BEEN ENTERED USING THE DISCHARGE ORDERS FROM [facility]
--- NOTE | 2020-07-09 12:14 | NUR ---
C/O OF PAIN IN RIGHT HIP AND RIGHT BACK AREA. LORTAB 5MG/325MG AND XANAX 0.25 MG GIVEN PO FOR PAIN AND ANXIETY.
[2020-07-09 12:30] VITALS: BP 114/55
[2020-07-09] MEDS ORDERED: HYDROmorphone 2 MG/ML VIAL (DILAUDID) IVP ONE (12:30)
--- NOTE | 2020-07-09 12:30 | NUR ---
[place] CATH INSERTED WITH # 16 . CELESTE. WELL. 200 CC CLEAR LIGHT VERONICA URINE RETURNED.
--- NOTE | 2020-07-09 12:45 | NUR ---
REPORT CALLED TO RIGO CHATMAN AT [facility].
[2020-07-09] MEDS ORDERED: HYDROmorphone 2 MG/ML VIAL (DILAUDID) ONE (12:54)
--- NOTE | 2020-07-09 12:58 | Progress Note ---
ARON MACKENZIE MED STUDENT 07/09/20 1258: Progress Note HPI: Jessica Ornelas is a 74 YO female transferred to inpatient rehab from [place] s/p right hip replacement on 07/04. The day before, pt was walking down the steps in her garage when she missed a step, fell, and hit her head and right hip. CT head was negative, but hip x-ray showed right intertrochanteric fracture. Pt had ORIF by Dr. Chávez. Pt transferred to rehab today to improve strength and mobility. However, pt had difficulty transferring to her wheelchair in [place] and now feels worsened pain in her right hip. She says before, she was able to ambulate with a walker with no difficulty, but can now hardly move her right leg without having pain. Denies any other complaints or pain; no SOB, CP, or abdominal pain. Prior to her fall, pt lived alone and had no problems getting around. Her house is one floor, but has steps in the garage and leading up to the porch. PMHx: COPD, HLD, depression PE: alert, WD/WN, no acute distress, heart RRR, no respiratory distress, abdomen soft and nontender, RLE is shortened compared to LLE, right knee is swollen com pared to left, has pain with right hip abduction Assessment: S/p right hip fracture with ORIF pelvis x-ray obtained, pt's right hip is dislocated Plan: Pain management Consult Dr. Chávez for hip dislocation CHERRI NICOLE DO 07/09/202046: Supervisory-Addendum Brief Verification & Attestation Participated in pt care: history, MDM, physical Personally performed: exam, history, MDM, supervision of care Care discussed with: Medical Student Procedures: n/a Results interpretation: Verified all documentation Verification and Attestation of Medical Student E/M Service A medical student performed and documented this service in my presence. I reviewed and verified all information documented by the medical student and made modifications to such information, when appropriate. I personally performed the physical exam and medical decision making. Cherri Nicole, Jul 09, 2020,20:47 ARON MACKENZIE MED STUDENT Jul 09, 2020 12:58 CHERRI NICOLE DO Jul 09, 2020 20:47
[2020-07-09] MEDS ORDERED: ENOXAPARIN 40 MG/0.4 ML (LOVENOX) SYR SC SCH (13:00)
--- NOTE | 2020-07-09 13:04 | NUR ---
SALINE LOCK STARTED WITH # 24 ANGIO AFTER X 4 ATTEMPT'S , DILAUDID 0.25 GIVEN IV SLOWLY FOR CONT. PAIN IN RIGHT HIP. Addendum: 07/09/20 at 1454 by SHLOMO BARCLAY RN SALINE LOCK TO RIGHT WRIST
--- NOTE | 2020-07-09 13:08 | Occupational Therapy Eval ---
OT Evaluation-General/PLF Medical Diagnosis Admission Date Jul 09, 2020 at 10:00 Medical Diagnosis: s/p R MARTY Onset Date: Jul 04, 2020 Therapy Diagnosis Therapy Diagnosis: weakness, decreased functional mobility, decreased ADL status Height/Weight Height (Feet): 5 Height (Inches): 6.00 Weight (Pounds): 120 Precautions Precautions/Isolations: Standard Precautions Weight Bear Status Weight Bearing Restriction: Weight Bearing/Tolerated Location Restriction: R LE Referral Physician: Jonathon Referral Reason: Evaluation/Treatment Medical History Additional Medical History hiatal hernia with repair, hysterectomy, hyperlipidemia, overactive bladder, depression Current History pt missed a step in the garage while taking out the trash, she landed on her R hip and fell back on the concrete hitting her forehead, no LOC. X-ray shows intertrochanteric fx, surgical repair 07/04/2020 Reviewed History: Yes Social History Home: Single Level Current Living Status: Alone Entry Into Home: Stairs With Railing Steps Into Home: 3 ADL-Prior Level of Function SCALE: Activities may be completed with or without assistive devices. 1-Luflazbhnq-knsrggf completes the activity by him/herself with no assistance from a helper. 5-Set-up or Clean-up Assistance-helper sets up or cleans up; patient completes activity. Carlos assists only prior to or following the activity. 4-Supervision or Touching Assistance-helper provides verbal cues and/or touching/steadying and/or contact guard assistance as patient completes activity. Assistance may be provided throughout the activity or intermittently. 3-Partial/Moderate Assistance-helper does LESS THAN HALF the effort. Carlos lifts, holds or supports trunk or limbs, but provides less than half the effort. 2-Substantial/Maximal Assistance-helper does MORE THAN HALF the effort. Carlos lifts or holds trunk or limbs and provides more than half the effort. 0-Nfxhrxvnv-cujaif does ALL the effort. Patient does none of the effort to complete the activity. Or, the assistance of 2 or more helpers is required for the patient to complete the activity. If activity was not attempted, code reason: 7-Patient Refused. 9-Not Applicable-not attempted and the patient did not perform the activity before the current illness, exacerbation or injury. 10-Not Attempted due to Environmental Limitations-(lack of equipment, weather restraints, etc.). 88-Not Attempted due to Medical Conditions or Safety Concerns. ADL PLOF Comments Pt indicates she was independent with all ADLS and functional mobility at [facility], she lives alone but her granddaughter lives next door and she has family around who are able to help her if needed. Pt owns a BSC, w/c, and FWW but did not use at [facility] Self Care: Independent Functional Cognition: Independent DME/Equipment: Bath Chair, Shower DME/Equipment Comments BSC, w/c, FWW OT Current Status Subjective Pt agreeable to OT evaluation and tx. She reports 7/10 hip pain in R side, indicating she "tweaked" it as she was getting into the w/c at [place], prior to transferring into the car for transfer. Pt indicates she feels like she sat on something hard in the w/c. Mental Status/Objective Patient Orientation: Person, Place, Time, Situation Current Glasses/Contacts: Yes Hearing Aids: Yes Dentures/Partials: No Hand Dominance: Right Upper Extremity ROM WFL, BUE shoulder flexion to approx 160 degrees, pt able to touch back of head Upper Extremity Coordination WFL Upper Extremity Sensation WFL, pt reports occasional tingling in fingertips. Upper Extremity Strength grossly 4-/5 ADL-Treatment Eating (QC): 6 (pt reports no difficulty with eating) Oral Hygiene (QC): 7 Shower/Bathe Self (QC): 7 Upper Body Dressing (QC): 7 Lower Body Dressing (QC): 7 On/Off Footwear (QC): 1 (Based on clinical judgement and hip precautions, pt would require total assist donning/doffing footwear.) Toileting Hygiene (QC): 7 Other Treatments Pt transferred from car to w/c with 2 person assistance. Pt reports she feels like she "tweaked" her hip/leg as she was getting into the w/c in [place] prior to transfer to [facility]. Pt indicates she has been able to walk pretty well and to put some weight through her RLE, but is now unable to. Pt taken to her room on ARU. OT educated pt about ARU expectations and the rehab process as well as the purpose and benefits of OT. Pt verbalized understanding. Pt's nurse present to take vitals. Nurse indicates pt's BP was low, asking for pt to transfer to bed. Pt stated she felt somewhat dizzy, but would like to go to the bathroom and participate in ADL session. OT informed pt about low BP, encouraging pt to transfer to bed. Pt required assist x2 to transfer into bed, with assistance moving R foot. Max A transfer sit to supine. Pt indicates she feels better laying down. OT assisted pt with locating her phone and various objects out of bags and to position to comfort. Post OT tx, pt laying in bed, call light in reach and all needs met, nurse present. Education OT Patient Education: Correct positioning, Modified ADL techniques, Progress toward Goal/Update tx plan, Purpose of tx/functional activities, Rehab process, Safety issues, Transfer techniques Teaching Recipient: Patient Teaching Methods: Discussion Response to Teaching: Verbalize Understanding OT Ware Finisher Goals Ware Finisher Goals Time Frame: Aug 02, 2020 Eating (QC): 6 Oral Hygiene (QC): 6 Toileting Hygiene (QC): 6 Shower/Bathe Self (QC): 6 Upper Body Dressing (QC): 6 Lower Body Dressing (QC): 6 On/Off Footwear (QC): 6 Additional Goals: 1-Demonstrate ADL Tasks, 2-Verbalize Understanding, 3- ImproveStrength/Latosha 1=Demonstrate adherence to instructed precautions during ADL tasks. 2=Patient will verbalize/demonstrate understanding of assistive devices/modifications for ADL. 3=Patient will improve strength/tolerance for activity to enable patient to perform ADL's. OT Education/Plan Problem List/Assessment Assessment: Decreased Activ Tolerance, Decreased UE Strength, Dependent Transfers, Impaired Bed Mobility, Impaired Funct Balance, Impaired I ADL's, Impaired Self-Care Skills Discharge Recommendations Plan/Recommendations: Continue POC Equpiment Recommendations-D/C: Hip Kit Treatment Plan/Plan of Care Treatment,Training & Education: Yes Patient would benefit from OT for education, treatment and training to promote independence in ADL's, mobility, safety and/or upper extremity function for ADL's. Plan of Care: ADL Retraining, Functional Mobility, Group Exercise/Act as Ind, UE Funct Exercise/Act Treatment Duration: Aug 02, 2020 Frequency: At least 5 of 7 days/Wk (IRF) Estimated Hrs Per Day: 1.5 hours per day Time/GCodes Start Time: 10:00 Stop Time: 10:50 Total Time Billed (hr/min): 50 Billed Treatment Time 1, EVM (20'), FA 2 (30') ENA CHAVIRA OT Jul 09, 2020 13:08
--- NOTE | 2020-07-09 13:10 | NUR ---
EMS NOTIFIED TO TRANSFER PT.
--- NOTE | 2020-07-09 13:30 | NUR ---
CONT. TO C/O OF PAIN IN RIGHT HIP. PT. STATES " I THINK IT'S WORSE THAN IT WAS WHEN I BROKE IT."
--- NOTE | 2020-07-09 13:42 | Diagnostic Imaging Report ---
INDICATION: Pain COMPARISON: None available TECHNIQUE: 3 radiographs of the pelvis and right hip dated 07/09/2020. FINDINGS: A longstem right total hip arthroplasty is in place. There is superior and posterior dislocation of the prosthetic right hip. No acute fracture. Moderate degenerative changes within the left hip. Additional scattered osseous degenerative changes. The colon appears dilated with gas. Soft tissue gas is noted within the medial right thigh soft tissues. Surgical clips are overlying the right hip. IMPRESSION: Superior and posterior dislocation of a prosthetic right total hip arthroplasty. Scattered degenerative changes, including moderate degenerative changes within the left hip. Gas dilated bowel. This is only partially visualized. Ileus or bowel obstruction not totally excluded. Recommend clinical correlation. If there is clinical concern for the bowel or gastrointestinal tract, then dedicated radiographs of abdomen would be recommended. Report was faxed/called to Stephanie/aviation ordnance officer of Dr. Holt by ivana at 1:40PM. Dictated by: Dictated on workstation # [id number]
--- NOTE | 2020-07-09 13:45 | NUR ---
TRANSFERRED TO [facility] PER EMS.
--- NOTE | 2020-07-09 14:31 | Physical Therapy Evaluation ---
PT Evaluation-General Medical Diagnosis Admission Date Jul 09, 2020 at 10:00 Medical Diagnosis: s/p R MARTY Onset Date: Jul 04, 2020 Therapy Diagnosis Therapy Diagnosis: Impaired mobility, strength, and ROM Height/Weight Height (Feet): 5 Height (Inches): 6.00 Weight (Pounds): 120 Precautions Precautions/Isolations: Standard Precautions Weight Bear Status Left Lower Extremity: Left Full Weight Bearing Referral Physician: Jonathon Reason for Referral: Evaluation/Treatment Medical History Pertinent Medical History: COPD Additional Medical History depression, HLD Reviewed History: Yes Social History Home: Single Level Current Living Status: Alone Entry Into Home: Stairs With Railing PT Steps Into Home: 3 Prior Prior Level of Function SCALE: Activities may be completed with or without assistive devices. 4-Uuvwyhxnbg-cjedsni completes the activity by him/herself with no assistance from a helper. 5-Set-up or Clean-up Assistance-helper sets up or cleans up; patient completes activity. [place] assists only prior to or following the activity. 4-Supervision or Touching Assistance-helper provides verbal cues and/or touching/steadying and/or contact guard assistance as patient completes activity. Assistance may be provided throughout the activity or intermittently. 3-Partial/Moderate Assistance-helper does LESS THAN HALF the effort. [place] lifts, holds or supports trunk or limbs, but provides less than half the effort. 2-Substantial/Maximal Assistance-helper does MORE THAN HALF the effort. [place] lifts or holds trunk or limbs and provides more than half the effort. 2-Cfftwezsj-rxbwei does ALL the effort. Patient does none of the effort to complete the activity. Or, the assistance of 2 or more helpers is required for the patient to complete the activity. If activity was not attempted, code reason: 7-Patient Refused. 9-Not Applicable-not attempted and the patient did not perform the activity before the current illness, exacerbation or injury. 10-Not Attempted due to Environmental Limitations-(lack of equipment, weather restraints, etc.). 88-Not Attempted due to Medical Conditions or Safety Concerns. Bed Mobility: 6 Transfers (B,C,W/C): 6 Gait: 6 Stairs: 6 Wheelchair Mobility: 9 Indoor Mobility (Ambulation): Independent Stairs: Independent Prior Devices Use: None PT Evaluation-Current Subjective Pt present laying supine in bed. Pt agrees to PT. Pt reports unrated pain in R hip, that becomes unbearable with movement. Pt/Family Goals Return home Objective Patient Orientation: Person, Place, Time, Eyes Open, Situation ROM/Strength ROM Lower Extremities Unable to assess due to pain Strength Lower Extremities LLE knee ext/flex 4+/5 in supine RLE unable to assess due to pain Sensory Vision: Wears Glasses Hearing: Functional Hand Dominance: Right Sensation Right Lower Extremit: Intact Sensation Left Lower Extremity: Intact Sensation Lower Extremities BLE sensation intact to light touch L2-S2 Transfers Roll Left to Right (QC): 2 Sit to Lying (QC): 88 Lying to Sitting/Side of Bed(Q: 88 Sit to Stand (QC): 88 Chair/Ggy-hy-Lcahb Xfer(QC): 88 Toilet Transfer (QC): 88 Car Transfer (QC): 88 Pt required max assist to roll to side. Pt unable to sit EOB due to pain. Gait Does the Patient Walk?: No and Walking Goal IS indicated Walk 10 feet (QC): 88 Walk 50 ft with 2 Turns(QC): 88 Walk 150 ft (QC): 88 Walking 10ft/uneven surface-QC: 88 Wheelchair Training Does the Pt Use a Wheelchair?: No Wheel 50 ft with 2 turns (QC): 88 Wheel 150 ft (QC): 88 Stairs 1 Step (curb) (QC): 88 4 Steps (QC): 88 12 Steps (QC): 88 Balance Picking up an Object (QC): 88 Treatment B supine quad sets and ankle pumps x20 Assessment/Needs Pt reports feeling a "twinge" when transferring into the car to come to this facility from another hospital; pt has been feeling increased pain since. Pt is unable to withstand pain in R hip with PROM, due to this patient remained supine throughout evaluation. X-ray was taken to check for possible shifting of artifi cial hip, a full PT evaluation was determined to be safer to complete after X- ray images are evaluated. Patient ended up having a displaced total hip and has to go back to the facility where she had surgery. Patient will be discharged at this time. Rehab Potential: Poor PT Doughnut Maker Goals Nursing Home Goals Roll Left & Right (QC): 88 Sit to Lying (QC): 88 Lying-Sitting on Side/Bed(QC): 88 Sit to Stand (QC): 88 Chair/Ajt-ex-Sqczu Xfer(QC): 88 Toilet Transfer (QC): 88 Car Transfer (QC): 88 Does the Patient Walk: No and Walking Goal NOT indicated Walk 10 feet (QC): 88 Walk 50ft with 2 Turns (QC): 88 Walk 150 ft (QC): 88 Walking 10ft on Uneven Surface: 88 1 Step (curb) (QC): 88 4 Steps (QC): 88 12 Steps (QC): 88 Picking up an Object (QC): 88 Wheel 50 feet with 2 turns (QC: 88 Wheel 150 feet: 88 PT Plan Problem List Problem List: Activity Tolerance, Functional Strength, Safety, Balance, Gait, Transfer, Bed Mobility, ROM Treatment/Plan Treatment Plan: Discontinue PT Treatment Duration: Jul 09, 2020 Frequency: Estimated Hrs Per Day: Other Patient and/or Family Agrees t: Yes Safety Risks/Education Patient Education: Reviewed Precautions, Correct Positioning, Safety Issues Teaching Recipient: Patient Teaching Methods: Demonstration, Discussion Response to Teaching: Reinforcement Needed Discharge Recommendations Plan DC Time/GCodes Time In: 1100 Time Out: 1145 Total Billed Treatment Time: 45 Total Billed Treatment 1 visit NIYAH 15' FA 30' LISA GUTIERREZ PT Jul 09, 2020 14:31
--- NOTE | 2020-07-09 20:41 | PM&R Post Admission Assessment ---
PM&R HP Date of Visit: Jul 09, 2020 Time of Visit: 10:15 History of Present Illness CC: Right hip fracture with debility HPI: This is a 74yoWF clinic patient of Tita Conti who presents to the IRF for recovery following right hip fracture s/p repair by Dr Chávez. Patient had an uneventful ride over from [facility] to [facility] in private vehicle but somehow had a bit of pain when getting out of the car and it appeared that her right leg was shorter and rotated per PT who requested an xray and confirmed dislocation. Patient was transferred back to [facility] to Dr Chávez. I updated daughter. HPI: Jessica Ornelas is a 74 YO female transferred to inpatient rehab from [place] s/p right hip replacement on 07/04. The day before, pt was walking down the steps in her garage when she missed a step, fell, and hit her head and right hip. CT head was negative, but hip x-ray showed right intertrochanteric fracture. Pt had ORIF by Dr. Chávez. Pt transferred to rehab today to improve strength and mobility. However, pt had difficulty transferring to her wheelchair in [place] and now feels worsened pain in her right hip. She says before, she was able to ambulate with a walker with no difficulty, but can now hardly move her right leg without having pain. Denies any other complaints or pain; no SOB, CP, or abdominal pain. Prior to her fall, pt lived alone and had no problems getting around. Her house is one floor, but has steps in the garage and leading up to the porch. PMHx: COPD, HLD, depression PE: alert, WD/WN, no acute distress, heart RRR, no respiratory distress, abdomen soft and nontender, RLE is shortened compared to LLE, right knee is swollen compared to left, has pain with right hip abduction Assessment: S/p right hip fracture with ORIF pelvis x-ray obtained, pt's right hip is dislocated Plan: Pain management Consult Dr. Chávez for hip dislocation ARON MACKENZIE MED STUDENT Past Ooyihkm-Nvwaxy-Szdhdd Hx Past Med/Social Hx: Reviewed Nursing Past Med/Soc Hx, Reviewed and Corrections made Patient Social History Marrital Status: Employed/Student: retired Alcohol Use: Denies Use Alcohol Beverage of Choice: Beer Recreational Drug Use: No Smoking Status: Current Everyday Smoker Type Used: Cigarettes 2nd Hand Smoke Exposure: No Physical Abuse Screen: No Sexual Abuse: No Recent Foreign Travel: No Contact w/other who traveled: No Recent Hopitalizations: No Recent Infectious Disease Expo: No Immunizations Up To Date Date of Pneumonia Vaccine: Jun 27, 2018 Date of Influenza Vaccine: Jun 27, 2019 Seasonal Allergies Seasonal Allergies: No Past Medical History Surgeries: Hysterectomy Respiratory: COPD Cardiac: High Cholesterol Musculoskeletal: Arthritis Psychosocial: Anxiety, Depression History of Blood Disorders: No Prior Level of Function Bed Mobility: 6 Transfers: 6 Gait: 6 Stairs: 6 Wheelchair Mobility: 9 Indoor Mobility (Ambulation): Independent Stairs: Independent Prior Devices Use: None Self Care: Independent Functional Cognition: Independent Current Level of Fuctioning Roll Left to Right: 2 Sit to Lyin Lying to Sitting/Side of Bed: 88 Sit to Stand: 88 Chair/Cqc-gi-Sohmw Xfer: 88 Car Transfer: 88 Does the Patient Walk: No and Walking Goal IS indicated Walk 10 feet: 88 Walk 50 ft with 2 Turns: 88 Walk 150 ft: 88 Walking 10ft on uneven surface: 88 Does the Pt Use a Wheelchair: No Wheel 50 ft with 2 turns: 88 Wheel 150 ft: 88 1 Step (curb): 88 4 Steps: 88 12 Steps: 88 Picking up an Object: 88 Eatin (pt reports no difficulty with eating) Oral Hygiene: 7 Shower/Bathe Self: 7 Upper Body Dressin Lower Body Dressin On/Off Footwear: 1 (Based on clinical judgement and hip precautions, pt would require total assist donning/doffing footwear.) Toileting Hygiene: 7 PM&R Allergy/Meds/Data Review Allergies Coded Allergies: No Known Drug Allergies (Unverified , 07/09/14) Home Medications Scheduled Aspirin (Aspirin), 81 MG PO DAILY, (Reported) Atorvastatin Calcium (Atorvastatin Calcium), 20 MG PO 1200, (Reported) Ezetimibe (Zetia), 10 MG PO HS, (Reported) Lactulose (Lactulose), 20 GM PO BID, (Reported) Nicotine (Nicotine Patch), 14 MG TD DAILY, (Reported) Oxybutynin Chloride (Oxybutynin Chloride ER), 15 MG PO 1200, (Reported) Polyethylene Glycol 3350 (Miralax), 17 GM PO DAILY, (Reported) Potassium Chloride (K-Tab ER), 20 MEQ PO BID, (Reported) Sertraline HCl (Sertraline HCl), 100 MG PO 1200, (Reported) Scheduled PRN Baclofen (Baclofen), 5 MG PO Q6H PRN for MUSCLE SPASMS, (Reported) Oxycodone HCl/Acetaminophen (Oxycodone-Acetaminophen 10-325), 1 EACH PO Q4H PRN for PAIN-MODERATE (5-7), (Reported) Current Medications Current Medications Reviewed Review of Systems Constitutional: see HPI Musculoskeletal: joint pain Physical Exam Physical Exam Vital Signs Vital Signs - First Documented 07/09/20 07/09/20 10:30 12:30 Temp 37.7 Pulse 82 Resp 18 B/P (MAP) 114/55 Pulse Ox 92 O2 Delivery Room Air Capillary Refill : Height, Weight, BMI Height: 5'6.00" Weight: 120lbs. oz. 54.088136yf; 19.06 BMI Method: General Appearance: No Apparent Distress, WD/WN, Anxious Eyes: Bilateral Eye Normal Inspection, Bilateral Eye PERRL HEENT: PERRL/EOMI, Normal ENT Inspection, Pharynx Normal Neck: Full Range of Motion, Normal Inspection, Non Tender, Supple, Carotid Bruit Respiratory: Chest Non Tender, Lungs Clear, Normal Breath Sounds, No Accessory Muscle Use, No Respiratory Distress Cardiovascular: Regular Rate, Rhythm, No Edema, No Gallop, No JVD, No Murmur, Normal Peripheral Pulses Gastrointestinal: Normal Bowel Sounds, No Organomegaly, No Pulsatile Mass, Non Tender, Soft Back: Normal Inspection, No CVA Tenderness, No Vertebral Tenderness Extremity: Normal Capillary Refill, Normal Inspection, Normal Range of Motion (right leg with rotation noted and shortened), Non Tender, No Calf Tenderness, No Pedal Edema Neurologic/Psychiatric: Alert, Oriented x3, No Motor/Sensory Deficits, Normal Mood/Affect Skin: Normal Color, Warm/Dry Lymphatic: No Adenopathy PM&R Medical Assessment & Plan REHAB/MEDICAL ASSESSMENT AND PLAN: REHAB IMPAIRMENT GROUP: Right hip fracture ETIOLOGIC DIAGNOSIS: Right hip fracture The comorbidities that impact the patients function and/or functional outcome by: dislocated right hip requires transfer back to [facility] REHAB PLAN: The patient is being admitted to our comprehensive inpatient rehabilitation faci lity and can tolerate the intensity of service consisting of at least: 180 minutes of therapy a day, 5 out of 7 days a week Rehab treatment will consist of: dislocated right hip requires transfer back to [facility] The patient/family has a good understanding of our discharge process and will benefit from an interdisciplinary inpatient rehabilitation program. The patient has potential to make improvement and is in need of at least two of the following multidisciplinary therapies including but not limited to physical, occupational, speech, and prosthetics and orthotics. Additionally the patient will need services from respiratory, nutritional services, wound care, psychology, etc. (Customize this to each patient). Given the patients complex condition and risk of further medical complications, rehabilitation services cannot be safely or effectively provided at a lower level of care such as a fpc facility. BARRIERS TO DISCHARGE: dislocated right hip requires transfer back to [facility] ESTIMATED LOS: dislocated right hip requires transfer back to [facility] DISPOSITION: dislocated right hip requires transfer back to [facility] RELEVANT CHANGES SINCE PREADMISSION SCREENING: I have compared the patients medical and functional status at the time of the preadmission screening and there are: no changes PROGNOSIS: REHABILITATION GOALS: 1. dislocated right hip requires transfer back to [facility] All the above goals were reviewed with the patient and he/she is in agreement. By signing this document, I acknowledge that I have personally performed a full physical examination on this patient within 24 hours of admission to this inpatient rehabilitation facility and have determined the patient to be able to tolerate the above course of treatment at an intensive level for a reasonable period of time. I will be completing a detailed individualized Plan of Care for this patient by day #4 of the patients stay based upon the Preadmission Screen, the Post-Admission Evaluation, and the therapy evaluations. Admission Dx/Comorbidities: (1) Hip dislocation, right ICD Codes: S73.004A - Unspecified dislocation of right hip, initial encounter (2) Closed right hip fracture ICD Codes: S72.001A - Fracture of unspecified part of neck of right femur, initial encounter for closed fracture AVANI NICOLE DO Jul 09, 2020 20:40
== END 2020-07-09 13:45 | disposition critical access hospital (66) | DRG 560 ==
PROVIDERS: ADMIT Internal Medicine; ATTEND Internal Medicine
DX: S72.141D Displaced intertrochanteric fracture of right femur, subsequent encounter for closed fracture with routine healing (principal); T84.020A Dislocation of internal right hip prosthesis, initial encounter; J44.9 Chronic obstructive pulmonary disease, unspecified; E78.5 Hyperlipidemia, unspecified; E78.00 Pure hypercholesterolemia, unspecified; F32.9 Major depressive disorder, single episode, unspecified; F17.210 Nicotine dependence, cigarettes, uncomplicated; M19.91 Primary osteoarthritis, unspecified site; F41.9 Anxiety disorder, unspecified; Z90.710 Acquired absence of both cervix and uterus; W10.9XXD Fall (on) (from) unspecified stairs and steps, subsequent encounter; Y92.008 Other place in unspecified non-institutional (private) residence as the place of occurrence of the external cause

== ENCOUNTER 2020-07-12 09:40 | Inpatient (IN) | payer MEDICARE, BC ==
[~2020-07-12] VITALS: Ht 162 cm; Wt 50.5 kg
[~2020-07-12 09:40] MED LIST changes: -ALPRAZolam 0.25 MG (XANAX) TAB PO PRN; +ASPI-999 PO; +BACL5TAB PO; -HYDROcodone/APAP 5 MG/325 MG (LORTAB) TAB PO PRN; +LACT20SO2 PO; -MELATONIN 3 MG TABLET PO PRN; +NICO-533 TD; +OXYC-556 PO; +POLY17PO6 PO; +POTA-53 PO; +SERT50TA9 PO
--- NOTE | 2020-07-12 09:40 | NUR ---
VENUS VELASQUEZ admitted to room 224-1, with an admitting diagnosis of RIGHT HIP FRACTURE , on 07/12/20 from [facility] via EMS, accompanied by EMS STAFF. VENUS VELASQUEZ introduced to surroundings, call light, bed controls, phone, TV, temperature control, lights, meal times, smoking policy, visitor policy, side rail policy, bathrooms and showers. Patient Rights given to patient in the handbook.VENUS VELASQUEZ verbalizes understanding that [facility] is not responsible for the loss or damage to any personal effects or valuables that are kept in the patients posession during their hospitalization. The following Patient Care Plans were discussed with the PATIENT: Discharge Planning, FALLS and FRACTURES. VENUS VELASQUEZ verbalizes understanding of Interdisciplinary Patient Education. Patient and/or family were informed about the Rapid Response Team and its purpose. Patient received Patient Rights Booklet, which includes Privacy Act Statement and Data Collection Information Summary.
[2020-07-12] MEDS: ALPRAZolam 0.25 MG (XANAX) TAB PO PRN ×2 (09:55→16:57)
[2020-07-12 09:56] VITALS: BP 160/69
--- NOTE | 2020-07-12 10:44 | PM&R Post Admission Assessment ---
PM&R Date of Visit: Jul 12, 2020 Time of Visit: 10:45 History of Present Illness CC: Right hip fracture s/p repair then dislocation of hardware transferring out of car upon arrival to IRF HPI: This is a 74yoWF clinic patient of Tita Conti who once again was admitted to [facility] IRF from [facility] after she suffered a right hip hardware dislocation upon arrival to IRF on Wednesday thus requiring transfer back to [facility] to Dr Chávez who was able to reduce the dislocation in the ER without any incision or open procedure. She once again suffered from hypotension requiring aggressive IVF administration then hgb checked 6 hours after surgery revealing hgb 5.9 requiring 1 unit of blood that evening of 07/09 then another the following morning 07/10. She did have overload at [facility] due to fluid administration requiring 1 dose of Lasix 20mg IV with good UOP. Upon arrival she began coughing and experiencing productive sputum and hypoxia and CXR revealed bilateral PNA with pulmonary edema with elevated BNP prompting consult to Dr Guicho myers ECHO revealed nl EF but increased PAP at [address] Brewster who ordered CT angiogram and USG right leg with no evidence of PE or DVT respectively. IV abx ad ministered without IVF due to overload status and the fact no sepsis noted with normal PCT and Lactic acid. Heavy smoking history is a huge factor in frail status and lung compromise. CC/HPI: from 07/09/20 before transferred back to [facility] CC: Right hip fracture with debility HPI: This is a 74yoWF clinic patient of Tita Conti who presents to the IRF for recovery following right hip fracture s/p repair by Dr Chávez. Patient had an uneventful ride over from [facility] to [facility] in private vehicle but somehow had a bit of pain when getting out of the car and it appeared that her right leg was shorter and rotated per PT who requested an xray and confirmed dislocation. Patient was transferred back to [facility] to Dr Chávez. I updated daughter. HPI: Jessica Ornelas is a 74 YO female transferred to inpatient rehab from [place] s/p right hip replacement on 07/04. The day before, pt was walking down the steps in her garage when she missed a step, fell, and hit her head and right hip. CT head was negative, but hip x-ray showed right intertrochanteric fracture. Pt had ORIF by Dr. Chávez. Pt transferred to rehab today to improve strength and mobility. However, pt had difficulty transferring to her wheelchair in [place] and now feels worsened pain in her right hip. She says before, she was able to ambulate with a walker with no difficulty, but can now hardly move her right leg without having pain. Denies any other complaints or pain; no SOB, CP, or abdominal pain. Prior to her fall, pt lived alone and had no problems getting around. Her house is one floor, but has steps in the garage and leading up to the porch. PMHx: COPD, HLD, depression PE: alert, WD/WN, no acute distress, heart RRR, no respiratory distress, abdomen soft and nontender, RLE is shortened compared to LLE, right knee is swollen compared to left, has pain with right hip abduction Assessment: S/p right hip fracture with ORIF pelvis x-ray obtained, pt's right hip is dislocated Plan: Pain management Consult Dr. Chávez for hip dislocation ARON MACKENZIE MED STUDENT Past Skqehuq-Kjnewk-Wielep Hx Past Med/Social Hx: Reviewed Nursing Past Med/Soc Hx, Reviewed and Corrections made Patient Social History Marrital Status: Employed/Student: retired Alcohol Use: Occasionally Uses Alcohol Beverage of Choice: Beer Smoking Status: Current Everyday Smoker Type Used: Cigarettes 2nd Hand Smoke Exposure: No Recent Foreign Travel: No Contact w/other who traveled: No Recent Hopitalizations: No Recent Infectious Disease Expo: No Immunizations Up To Date Date of Pneumonia Vaccine: Jun 27, 2018 Date of Influenza Vaccine: Jun 27, 2019 Seasonal Allergies Seasonal Allergies: No Past Medical History Surgeries: Hysterectomy Respiratory: COPD Cardiac: High Cholesterol Musculoskeletal: Arthritis Psychosocial: Anxiety, Depression History of Blood Disorders: No PM&R Allergy/Meds/Data Review Allergies Coded Allergies: No Known Drug Allergies (Unverified , 07/09/14) Home Medications Scheduled Aspirin (Aspirin), 81 MG PO DAILY, (Reported) Atorvastatin Calcium (Atorvastatin Calcium), 20 MG PO 1200, (Reported) Ezetimibe (Zetia), 10 MG PO HS, (Reported) Lactulose (Lactulose), 20 GM PO BID, (Reported) Nicotine (Nicotine Patch), 14 MG TD DAILY, (Reported) Oxybutynin Chloride (Oxybutynin Chloride ER), 15 MG PO 1200, (Reported) Polyethylene Glycol 3350 (Miralax), 17 GM PO DAILY, (Reported) Potassium Chloride (K-Tab ER), 20 MEQ PO BID, (Reported) Sertraline HCl (Sertraline HCl), 100 MG PO 1200, (Reported) Scheduled PRN Baclofen (Baclofen), 5 MG PO Q6H PRN for MUSCLE SPASMS, (Reported) Oxycodone HCl/Acetaminophen (Oxycodone-Acetaminophen 10-325), 1 EACH PO Q4H PRN for PAIN-MODERATE (5-7), (Reported) Current Medications Current Medications Reviewed Review of Systems Constitutional: see HPI, malaise, weakness Respiratory: cough, dyspnea on exertion, short of breath, wheezing Musculoskeletal: joint pain Psychiatric/Neurological: Anxiety Physical Exam Physical Exam Vital Signs Vital Signs - First Documented 07/12/20 09:56 Temp 36.1 Pulse 94 Resp 22 B/P (MAP) 160/69 Pulse Ox 91 O2 Flow Rate 5.00 Capillary Refill : Height, Weight, BMI Height: 5'6.00" Weight: 120lbs. oz. [id number]; 23.05 BMI Method: General Appearance: WD/WN, Anxious, Chronically ill, Mild Distress, Thin Eyes: Bilateral Eye Normal Inspection, Bilateral Eye PERRL HEENT: PERRL/EOMI, Normal ENT Inspection, Pharynx Normal Neck: Full Range of Motion, Normal Inspection, Non Tender, Supple, Carotid Bruit Respiratory: Chest Non Tender, No Accessory Muscle Use, No Respiratory Distress, Decreased Breath Sounds Cardiovascular: Regular Rate, Rhythm, No Edema, No Gallop, No JVD, No Murmur, Normal Peripheral Pulses Gastrointestinal: Normal Bowel Sounds, No Organomegaly, No Pulsatile Mass, Non Tender, Soft Back: Normal Inspection, No CVA Tenderness, No Vertebral Tenderness Extremity: Normal Capillary Refill, Normal Inspection, Normal Range of Motion, Non Tender, No Calf Tenderness, No Pedal Edema Neurologic/Psychiatric: Alert, Oriented x3, No Motor/Sensory Deficits, Normal Mood/Affect, chiller tender II-XII Norm as Tested, Abnormal Gait Skin: Normal Color, Warm/Dry Lymphatic: No Adenopathy PM&R Medical Assessment & Plan REHAB/MEDICAL ASSESSMENT AND PLAN: REHAB IMPAIRMENT GROUP: Right hip fracture then right hip hardware dislocation ETIOLOGIC DIAGNOSIS: Right hip fracture then right hip hardware dislocation The comorbidities that impact the patients function and/or functional outcome by: acute pneumonia with hypoxia upon arrival to IRF, volume overload, frail status, transfusion 4 units blood REHAB PLAN: The patient is being admitted to our comprehensive inpatient rehabilitation facility and can tolerate the intensity of service consisting of at least: 180 minutes of therapy a day, 5 out of 7 days a week Rehab treatment will consist of: PT OT will initiate aggressive therapy but monitor for dislocation of the hardware at same time while increasing independence of ADL's The patient/family has a good understanding of our discharge process and will be nefit from an interdisciplinary inpatient rehabilitation program. The patient has potential to make improvement and is in need of at least two of the following multidisciplinary therapies including but not limited to physical, occupational, speech, and prosthetics and orthotics. Additionally the patient will need services from respiratory, nutritional services, wound care, psychol ogy, etc. (Customize this to each patient). Given the patients complex condition and risk of further medical complications, rehabilitation services cannot be safely or effectively provided at a lower level of care such as a fdc facility. BARRIERS TO DISCHARGE: Frail status and pulmonary compromise ESTIMATED LOS: 7 days DISPOSITION: Home RELEVANT CHANGES SINCE PREADMISSION SCREENING: I have compared the patients medical and functional status at the time of the preadmission screening and there are: no changes PROGNOSIS: Good REHABILITATION GOALS: 1. PT OT will initiate aggressive therapy but monitor for dislocation of the hardware at same time while increasing independence of ADL's All the above goals were reviewed with the patient and he/she is in agreement. By signing this document, I acknowledge that I have personally performed a full physical examination on this patient within 24 hours of admission to this inpatient rehabilitation facility and have determined the patient to be able to tolerate the above course of treatment at an intensive level for a reasonable period of time. I will be completing a detailed individualized Plan of Care for this patient by day #4 of the patients stay based upon the Preadmission Screen, the Post-Admission Evaluation, and the therapy evaluations. Admission Dx/Comorbidities: (1) Closed right hip fracture ICD Codes: S72.001A - Fracture of unspecified part of neck of right femur, initial encounter for closed fracture (2) Pneumonia ICD Codes: J18.9 - Pneumonia, unspecified organism (3) Pulmonary edema ICD Codes: J81.1 - Chronic pulmonary edema (4) Pulmonary hypertension ICD Codes: I27.20 - Pulmonary hypertension, unspecified (5) Anxiety ICD Codes: F41.9 - Anxiety disorder, unspecified (6) Osteoporosis ICD Codes: M81.0 - Age-related osteoporosis without current pathological fracture (7) Hyperlipemia ICD Codes: E78.5 - Hyperlipidemia, unspecified (8) Frailty ICD Codes: R54 - Age-related physical debility (9) Elevated brain natriuretic peptide (BNP) level ICD Codes: R79.89 - Other specified abnormal findings of blood chemistry (10) COPD (chronic obstructive pulmonary disease) ICD Codes: J44.9 - Chronic obstructive pulmonary disease, unspecified (11) Hypoxia ICD Codes: R09.02 - Hypoxemia (12) Anemia due to acute blood loss ICD Codes: D62 - Acute posthemorrhagic anemia (13) Transfusion history ICD Codes: Z92.89 - Personal history of other medical treatment (14) Gallagher catheter in place ICD Codes: Z97.8 - Presence of other specified devices (15) Hip dislocation, right ICD Codes: S73.004A - Unspecified dislocation of right hip, initial encounter (16) Dyspnea ICD Codes: R06.00 - Dyspnea, unspecified Assessment/Plan Assessment and Plan Assess & Plan/Chief Complaint Assessment: s/p right hip fracture 07/04/20 s/p repair by Dr Chávez then dislocation of hardware 07/09/20 requiring transfer back to [facility] s/p spinal anesthesia but reduction only required Acute blood loss anemia s/p 2 units transfused 07/05/20 then again 07/09/20 Severe hypotension due to volume depletion requiring aggressive IVF administration at [facility] Acute pneumonia upon arrival to IRF today requiring septic w/u which was negative and empiric abx for HAP COPD Current and heavy smoker 60 years Osteoporosis HLP Gallagher cath in place due to inability to ambulate with hip brace to prevent dislocation Pulmonary HTN 90 on ECHO negative USG right leg and negative PE on CT angiogram Anxiety Plan: IRF protocol Empiric abx Cardiology and Pulmonology appreciated Very frail status Anxiety treatment AVANI NICOLE DO Jul 12, 2020 10:44
[2020-07-12] MEDS: DOCUSATE SODIUM 100 MG (COLACE) CAP PO SCH ×2 (10:48→21:36)
[2020-07-12] MEDS: SENNA W/DOCUSATE (SENOKOT S) TABLET PO SCH ×2 (10:48→21:37)
[2020-07-12] MEDS: polyethylene glycoL POWDER 17 GM (MIRALAX) PACK PO SCH ×2 (10:48→21:30)
[2020-07-12 11:02] LABS: BASOPHILS % (AUTO) 0 % (0-10); EOSINOPHILS % (AUTO) 0 % (0-10); HEMATOCRIT 30 % (35-52); HEMOGLOBIN 9.6 g/dL (11.5-16.0); LYMPHOCYTES # (AUTO) 0.3 10^3/uL (1.0-4.0); LYMPHOCYTES % (AUTO) 2 % (12-44); MEAN CORPUSCULAR HEMOGLOBIN 31 pg (25-34); MEAN CORPUSCULAR HGB CONC 32 g/dL (32-36); MEAN CORPUSCULAR VOLUME 98 fL (80-99); MEAN PLATELET VOLUME 8.6 fL (9.0-12.2); MONOCYTES # (AUTO) 0.5 10^3/uL (0.0-1.0); MONOCYTES % (AUTO) 3 % (0-12); NEUTROPHILS # (AUTO) 14.7 10^3/uL (1.8-7.8); NEUTROPHILS % (AUTO) 94 % (42-75); PLATELET COUNT 392 10^3/uL (130-400); WHITE BLOOD COUNT 15.7 10^3/uL (4.3-11.0)
[2020-07-12 11:16] LABS: ALBUMIN 2.6 GM/DL (3.2-4.5); CHLORIDE 95 MMOL/L (98-107); POTASSIUM 4.4 MMOL/L (3.6-5.0); SODIUM 136 MMOL/L (135-145)
[2020-07-12 11:18] LABS: CALCIUM 8.1 MG/DL (8.5-10.1)
[2020-07-12 11:19] LABS: GLUCOSE 119 MG/DL (70-105); TOTAL PROTEIN 5.4 GM/DL (6.4-8.2)
[2020-07-12 11:20] LABS: ANISOCYTOSIS SLIGHT; BAND NEUTROPHILS 4 %; BASOPHILS % (MANUAL) 0 %; BILIRUBIN,TOTAL 0.8 MG/DL (0.1-1.0); CARBON DIOXIDE 34 MMOL/L (21-32); EOSINOPHILS % (MANUAL) 0 %; LYMPHOCYTES % (MANUAL) 2 %; MONOCYTES % (MANUAL) 3 %; NEUTROPHILS % (MANUAL) 91 %; POLYCHROMASIA SLIGHT
[2020-07-12 11:22] LABS: ALKALINE PHOSPHATASE 59 U/L (40-136); CREATININE SERUM 0.46 MG/DL (0.60-1.30); GFR ESTIMATED > 60
[2020-07-12 11:23] LABS: BUN/CREATININE RATIO 22
[2020-07-12 11:25] LABS: ALANINE AMINOTRANSFERASE 24 U/L (0-55)
[2020-07-12] MEDS ORDERED: SALIVA STIMULANT MOUTH SPRAY (BIOTENE) 1.5 OZ MM PRN (11:30)
--- NOTE | 2020-07-12 11:45 | Diagnostic Imaging Report ---
INDICATION: Hypoxia. Time of exam: 11:29 AM Comparison is made with prior chest from 12/07/2019. Patient has developed bibasilar infiltrates, greatest on the left, completely obscuring the left hemidiaphragm. There appears to be a small amount of pleural fluid in the left base as well. Mid and upper lung browne are clear. There is no pneumothorax. IMPRESSION: Development of bibasilar infiltrates and left effusion since examination from 12/07/2019. Dictated by: Dictated on workstation # [id number]
[2020-07-12 12:00] VITALS: BP 101/53
[2020-07-12] MEDS ORDERED: VANCOMYCIN INJECTION 0.1 MG in NS (IVPB) 250 ML IV SCH (12:00)
[2020-07-12] MEDS ORDERED: NS IV 1000 ML 1,000 ML IV SCH (12:00)
[2020-07-12] MEDS ORDERED: NS IV ONE (12:00)
--- NOTE | 2020-07-12 12:00 | Physical Therapy Evaluation ---
PT Evaluation-General Medical Diagnosis Admission Date Jul 12, 2020 at 09:40 Medical Diagnosis: R MARTY Onset Date: Jul 04, 2020 Therapy Diagnosis Therapy Diagnosis: Impaired mobility Height/Weight Height (Feet): 5 Height (Inches): 6.00 Weight (Pounds): 120 Precautions Precautions/Isolations: Standard Precautions Weight Bear Status Right Lower Extremity: Right Weight Bearing/Tolerated Referral Physician: Jonathon Reason for Referral: Evaluation/Treatment Medical History Pertinent Medical History: COPD Additional Medical History depression, HLD Reviewed History: Yes Social History Home: Single Level Current Living Status: Alone Entry Into Home: Stairs With Railing PT Steps Into Home: 3 Prior Prior Level of Function SCALE: Activities may be completed with or without assistive devices. 1-Umfubqkajh-eluqnbs completes the activity by him/herself with no assistance from a helper. 5-Set-up or Clean-up Assistance-helper sets up or cleans up; patient completes activity. [place] assists only prior to or following the activity. 4-Supervision or Touching Assistance-helper provides verbal cues and/or touching/steadying and/or contact guard assistance as patient completes activity. Assistance may be provided throughout the activity or intermittently. 3-Partial/Moderate Assistance-helper does LESS THAN HALF the effort. [place] lifts, holds or supports trunk or limbs, but provides less than half the effort. 2-Substantial/Maximal Assistance-helper does MORE THAN HALF the effort. [place] l ifts or holds trunk or limbs and provides more than half the effort. 9-Dootfmbta-qtfaov does ALL the effort. Patient does none of the effort to complete the activity. Or, the assistance of 2 or more helpers is required for the patient to complete the activity. If activity was not attempted, code reason: 7-Patient Refused. 9-Not Applicable-not attempted and the patient did not perform the activity before the current illness, exacerbation or injury. 10-Not Attempted due to Environmental Limitations-(lack of equipment, weather restraints, etc.). 88-Not Attempted due to Medical Conditions or Safety Concerns. Bed Mobility: 6 Transfers (B,C,W/C): 6 Gait: 6 Stairs: 6 Indoor Mobility (Ambulation): Independent Stairs: Independent PT Evaluation-Current Subjective Pt presents supine in bed alongside OT working on bathing. Pt agrees to PT. Pt reports 3/10 pain in right hip. Will be co-treating with OT after PT evaluation due to poor patient mobility, strength, endurance, the need to coordinate UE and LE during activity. Patient now has a brace on her right leg and torso that has to stay on all the time except for bathing, has it due to a dislocation after her MARTY, and it limits her hip mobility. Pt/Family Goals Return home Objective Patient Orientation: Person, Place, Time, Eyes Open, Situation Attachments: Oxygen Hip brace ROM/Strength ROM Lower Extremities WFL Hip precautions; hip not to flex past 70 degrees Strength Lower Extremities R Hip not assessed due to precautions B Knee flex/ext: 5/5 Sensory Vision: Wears Glasses Hearing: Functional Sensation Right Lower Extremit: Intact Sensation Left Lower Extremity: Intact Sensation Lower Extremities BLE sensation intact to light touch L2-S2 Transfers Roll Left & Right (QC): 3 Sit to Lying (QC): 2 Lying to Sitting/Side of Bed(Q: 3 Sit to Stand (QC): 3 Chair/Fge-gi-Onfvh Xfer(QC): 3 Toilet Transfer (QC): 3 Car Transfer (QC): 88 (Unable to assess due to hip flexion precautions) Gait Does the Patient Walk?: Yes Mode of Locomotion: Walk Anticipated Mode of Locomotion: Both Walk 10 feet (QC): 4 Walk 50 ft with 2 Turns(QC): 4 Walk 150 ft (QC): 88 Walking 10ft/uneven surface-QC: 4 Distance: 120'x2 Gait Assistive Device: FWW Comments/Gait Description Pt has antalgic gait. Pt moves slowly but is able to surpass previous walking distance on her last admission. Wheelchair Training Does the Pt Use a Wheelchair?: Yes Distance: 150' Wheel 50 ft with 2 turns (QC): 4 Wheel 150 ft (QC): 4 Type of Wheelchair: Manual SBA, patient is able to maneuver around tight corners in wheelchair. Stairs #of Steps: 1 1 Step (curb) (QC): 3 4 Steps (QC): 88 12 Steps (QC): 88 Walking Assistive Device: Walker Pt is aware of step-to pattern to ascend/descend stairs properly. Pt requires min assist with step; pt struggles to reach foot onto top of step and then needed min assist to lift weight onto step. Balance Sitting Static: Normal Sitting Dynamic: Good Standing Static: Good Standing Dynamic: Good Picking up an Object (QC): 88 Treatment Bathing, ADL's. PT performed bed mobility and transfers, ambulation, WC mobility, standing and balance during ADL's, positioning and safety during bathing and dressing, OT performed bathing, dressing, ADL's, assist with UE positioning and safety during activity. Assessment/Needs Pt is limited in mobility by R hip; pt wearing brace to prevent dislocation. Pt ambulating, but is antalgic and needs cueing on proper weight shifting. Pt struggles with bed mobility as she is unable to activate movement in LEs. Co-treated with OT due to patient's limitation in mobility, strength, ability to coordinated UE and LE movements and follow precautions. Rehab Potential: Fair PT Short Term Goals Short Term Goals Time Frame: Jul 19, 2020 Roll Left & Right: 3 Sit to lyin Lying to sitting on side of be: 3 Chair/vzs-qh-ihevp transfer: 3 Walk 10 feet: 4 Walk 50 feet with two turns: 4 Walk 150 feet: 4 1 step (curb): 3 PT Group Home Goals Data Reporting Analyst Goals PT Group Home Goals Time Frame: Jul 26, 2020 Roll Left & Right (QC): 4 Sit to Lying (QC): 4 Lying-Sitting on Side/Bed(QC): 4 Sit to Stand (QC): 4 Chair/Sus-lc-Gcgow Xfer(QC): 4 Toilet Transfer (QC): 4 Car Transfer (QC): 88 Does the Patient Walk: Yes Walk 10 feet (QC): 5 Walk 50ft with 2 Turns (QC): 5 Walk 150 ft (QC): 5 Walking 10ft on Uneven Surface: 5 1 Step (curb) (QC): 4 4 Steps (QC): 4 12 Steps (QC): 88 Picking up an Object (QC): 88 Does the Pt use WC or Scooter?: Yes Wheel 50 feet with 2 turns (QC: 6 Type: Manual Wheel 150 feet: 6 PT Plan Problem List Problem List: Activity Tolerance, Functional Strength, Safety, Balance, Gait, Transfer, Bed Mobility, ROM Treatment/Plan Treatment Plan: Continue Plan of Care Treatment Plan: Bed Mobility, Education, Functional Activity Lat[place]ha, Functional Strength, Group Therapy, Gait, Safety, Therapeutic Exercise, Transfers Treatment Duration: Jul 26, 2020 Frequency: At least 5 of 7 days/Wk (IRF) Estimated Hrs Per Day: 1.5 hours per day Patient and/or Family Agrees t: Yes Safety Risks/Education Patient Education: Gait Training, Transfer Techniques, Steps, Reviewed Precautions, Correct Positioning, W/C Management, Reviewed Don/Doff Brace, Safety Issues Teaching Recipient: Patient Teaching Methods: Demonstration, Discussion Response to Teaching: Reinforcement Needed Discharge Recommendations Plan Pt will work on bed mobility, gait and balance training, transfers, therapeutic exercises to improve strength and ROM Therapy Discharge Recommendati: Scheduled Assistance Time/GCodes Time In: 1100 Time Out: 1199 Total Billed Treatment Time: 60 Total Billed Treatment 1visit EVM 10' GT 20' FA 30' Evaluated [id number], co-treated with OT [id number]. PT assisted patient with transfers, gait, and balance, while OT assisted with dressing, bathing, and ADLs. LISA GUTIERREZ PT Jul 12, 2020 12:00
--- NOTE | 2020-07-12 12:19 | NUR ---
CR 0.46; CR CL ~42; WT 60.5 KG; PHARMACY TO DOSE VANCO X 3 DAYS; START VANCO 1250 MG IV Q24H X 3 DAYS Addendum: 07/12/20 at 1229 by JEOVANY SAUCEDA [facility] HOU VANCO 25 MG/KG IV BOLUS; WILL CHANGE VANCO TO 1500 MG IV BOLUS THEN 1250 MG IV Q24H
[2020-07-12 12:27] LABS: ABG BASE EXCESS 8.1 MMOL/L (-2.5-2.5); ABG OXYGEN SATURATION 93 % (94-100); ABG PCO2 49 MMHG (35-45); ABG PH 7.44 (7.37-7.43); ABG PO2 62 MMHG (79-93); ABG TCO2 34.4 MMOL/L (21.0-31.0)
[2020-07-12] MEDS ORDERED: VANCOMYCIN 1500 MG/NS 500 ML IVPB IV NR ×2 (12:30)
[2020-07-12] MEDS ORDERED: VANCOMYCIN 1250 MG/NS 250 ML IVPB IV SCH ×2 (12:30)
[2020-07-12 12:34] LABS: ALLENS TEST YES-POS; INSPIRED O2 4L; PATIENT TEMP 96.3; VENTILATOR NO
--- NOTE | 2020-07-12 12:44 | Occupational Therapy Eval ---
OT Evaluation-General/PLF Medical Diagnosis Admission Date Jul 12, 2020 at 09:40 Medical Diagnosis: R MARTY Onset Date: Jul 04, 2020 Therapy Diagnosis Therapy Diagnosis: decreased ADL status, impaired functional mobility, weakness Height/Weight Height (Feet): 5 Height (Inches): 6.00 Weight (Pounds): 120 Precautions Precautions/Isolations: Standard Precautions Comments Hip abduction brace on at all times except bathing Weight Bear Status Weight Bearing Restriction: Weight Bearing/Tolerated Location Restriction: R LE Referral Physician: Jonathon Referral Reason: Evaluation/Treatment Medical History Pertinent Medical History: COPD Additional Medical History hyperlipidemia, overactive bladder, depression, hiatal hernia repair, hy sterectomy, cataract sx, Hysterectomy, COPD, high cholesterol, arthritis, anxiety/depression Current History 07/04/2020 s/p R MARTY. Pt transferred to [facility] 07/09, pt found to have dislocated prosthesis in R hip, transferred back to [facility]. 07/09 pt had closed reduction surgery on hip. Reviewed History: Yes Social History Home: Single Level Current Living Status: Alone Entry Into Home: Stairs With Railing Steps Into Home: 3 ADL-Prior Level of Function SCALE: Activities may be completed with or without assistive devices. 0-Kjzdmahevl-uthqint completes the activity by him/herself with no assistance from a helper. 5-Set-up or Clean-up Assistance-helper sets up or cleans up; patient completes activity. [place] assists only prior to or following the activity. 4-Supervision or Touching Assistance-helper provides verbal cues and/or touchin g/steadying and/or contact guard assistance as patient completes activity. Assistance may be provided throughout the activity or intermittently. 3-Partial/Moderate Assistance-helper does LESS THAN HALF the effort. [place] lifts, holds or supports trunk or limbs, but provides less than half the effort. 2-Substantial/Maximal Assistance-helper does MORE THAN HALF the effort. [place] lifts or holds trunk or limbs and provides more than half the effort. 1-Mqbeheygx-wdtkrl does ALL the effort. Patient does none of the effort to complete the activity. Or, the assistance of 2 or more helpers is required for the patient to complete the activity. If activity was not attempted, code reason: 7-Patient Refused. 9-Not Applicable-not attempted and the patient did not perform the activity before the current illness, exacerbation or injury. 10-Not Attempted due to Environmental Limitations-(lack of equipment, weather restraints, etc.). 88-Not Attempted due to Medical Conditions or Safety Concerns. ADL PLOF Comments Pt reports being independent with all ADLs and functional mobility at OF, without AD/AE. Pt owns a walker, w/c, and BSC but did not use them at prior level. Pt has a walk in shower and a shower chair. She has a granddaughter that lives next door to her and family close by that can assist her if needed. Self Care: Independent Functional Cognition: Independent DME/Equipment: Bath Chair, Bedside Commode, Reachers, Shower, Sock Aid DME/Equipment Comments Pt owns w/c, BSC, FWW, sock aide, long handled shoe horn, technician biological health OT Current Status Subjective Pt laying in bed at start of session, agreeable to OT evaluation and tx. Pt indicates she has "minimal" pain in her R hip but does not verbalize a pain rating. Mental Status/Objective Patient Orientation: Person, Place, Time, Situation Attachments: Gallagher Catheter Current Glasses/Contacts: Yes Hearing Aids: No Dentures/Partials: Yes Hand Dominance: Right Upper Extremity ROM WFL, BUE shoulder flexion to approx 160 degrees Upper Extremity Coordination WFL Upper Extremity Sensation pt reports occasional tingling in fingertips, especially when cold Upper Extremity Strength grossly 4-/5 MMT ADL-Treatment Eating (QC): 6 (Pt reports independence with eating, no difficulties using utensils, bringing food to mouth, and eating.) Oral Hygiene (QC): 4 (CGA standing at sink) Shower/Bathe Self (QC): 2 (Max A, pt able to wash BUEs, chest and periarea, required assistance with buttocks, and LEs.) Upper Body Dressing (QC): 2 (Max A to don/doff sinker puller shirt and manage around brace) Lower Body Dressing (QC): 2 (Pt able to assist with pant hike in stand at FWW, but requires assist for thoroughness, assist with threading BLEs into pants due to hip precautions) On/Off Footwear (QC): 1 (Pt unable to don/doff gripper socks due to hip precautions) Toileting Hygiene (QC): 2 (Pt able to manage pants down/up, but assistance still required due to pants/underwear getting caught on brace, Pt able to complete pericare but assist with buttocks.) increase time required with all ADLs. Other Treatments [id number] OT evaluation/tx: Pt laying in bed, OT educated pt on benefits/purpose of OT, she verbalized understanding. Pt then participates in UE screening and provides information about PLOF and home setup. Pt agreeable to completing sponge bath, requiring assistance doffing shirt in order to wash/dry upper body. Pt then required assistance with donning sinker puller shirt. Pt able to recall 1/3 hip precautions stating she cannot bend too far forward. Pt states she is not supposed to bend forward past 70 degrees instead of the previous 90 degree restriction. OT educated pt on all hip precautions. [id number] OT/PT cotreat: OT/PT cotreat due to skill of 2 clinicians which a facility rehab director cannot perform in order to coordinate UE/LEs with tasks, decrease fall risk, and skilled cues in order for pt to maintain hip precautions. OT focused on ADLs, UE placement, cues for sequencing and safety while PT focused on LE placement, transfers, gross overall movements, and safety. Pt transferred supine to sit EOB with max A, requiring assistance with bringing both legs out of bed, and slight assistance with trunk. Pt then stood from EOB in order to complete lower body dressing/bathing. Pt used FWW to perform functional mobility towards therapy gym, [facility], requiring a couple of standing rest breaks. Pt ambulated with slow gait. Once in gym, pt sat at edge of mat, requesting a rest break and a drink of water. X-ray arrived for chest x-ray, pt transferred from mat to w/c and taken back to room. OT/PT assisted pt with positioning in w/c for x-ray. Then pt self-propelled w/c into restroom, stood at FWW and stood at sink to complete oral care, pt indicates fatigue with task. Pt used FWW to return to bed, then transferred supine with max A. Pt required assistance with BLEs and assistance with trunk positioning. Post OT/PT cotreat, pt laying in bed, call light in reach and all needs met, nurse present. Education OT Patient Education: Correct positioning, Energy conservation, Modified ADL techniques, Progress toward Goal/Update tx plan, Purpose of tx/functional activities, Reviewed precautions, Rehab process Teaching Recipient: Patient Teaching Methods: Discussion Response to Teaching: Verbalize Understanding OT Short Term Goals Short Term Goals Time Frame: Jul 24, 2020 Toileting hygiene: 3 Shower/bathe self: 3 Upper body dressin Lower body dressin OT Smocking Machine Operator Goals Longterm Goals Time Frame: Aug 02, 2020 Eating (QC): 6 Oral Hygiene (QC): 6 Toileting Hygiene (QC): 6 Shower/Bathe Self (QC): 6 Upper Body Dressing (QC): 6 Lower Body Dressing (QC): 6 On/Off Footwear (QC): 6 Additional Goals: 1-Demonstrate ADL Tasks, 2-Verbalize Understanding, 3- ImproveStrength/Latosha 1=Demonstrate adherence to instructed precautions during ADL tasks. 2=Patient will verbalize/demonstrate understanding of assistive devices/modifications for ADL. 3=Patient will improve strength/tolerance for activity to enable patient to perform ADL's. OT Education/Plan Problem List/Assessment Assessment: Decreased Activ Tolerance, Decreased UE Strength, Impaired Bed Mobility, Impaired Funct Balance, Impaired I ADL's, Impaired Self-Care Skills Pt would benefit from skilled OT in order to increase safety and independence with ADLs and functional mobility, and for education on AE for lower body dressing. Discharge Recommendations Plan/Recommendations: Continue POC Treatment Plan/Plan of Care Treatment,Training & Education: Yes Patient would benefit from OT for education, treatment and training to promote independence in ADL's, mobility, safety and/or upper extremity function for ADL's. Plan of Care: ADL Retraining, Functional Mobility, Group Exercise/Act as Ind, UE Funct Exercise/Act Treatment Duration: Aug 02, 2020 Frequency: At least 5 of 7 days/Wk (IRF) Estimated Hrs Per Day: 1.5 hours per day Rehab Potential: Good Time/GCodes Start Time: 10:20 Stop Time: 12:00 Total Time Billed (hr/min): 90 Billed Treatment Time 5912-0807 OT evaluation/tx (40') [id number] PT evaluation [id number] OT/PT cotreat (50') 1, EVM (10'), ADL3 (45'), FA 2 (35') ENA CHAVIRA OT Jul 12, 2020 12:44
[2020-07-12] MEDS ORDERED: FUROSEMIDE 40 MG/4 ML INJ (LASIX) IVP NR (12:45)
[2020-07-12] MEDS: CEFEPIME INJECTION 1,000 MG in WATER (STERILE) FOR INJECTION 10 ML IV SCH ×2 (14:15→21:36)
--- NOTE | 2020-07-12 14:21 | ST Cognitive Linguistic Eval ---
Speech Evaluation-General Medical Diagnosis R MARTY Onset Date: Jul 04, 2020 Therapy Diagnosis Therapy Diagnosis: Cognitive-communication Referral Referring Physician: Dr. Holt Medical History Pertinent Medical History: COPD Reviewed History: No Social History Current Living Status: Alone Speech PLF-Current Status Prior Level of Function Patient lives alone where she is independent for her daily needs. Subjective Patient was pleasant and cooperative with the cognitive assessment. Language Eval: Auditory Comprehends Simple Yes/No Ques: Functional Indent/Objects Multiple Paula: Functional Ident/Pics in Multiple Paula: Functional Follows 1-Step Commands: Functional Follows Complex Directions: Functional Follows General Conversations: Functional Language Eval: Verbal Language Completes Spontaneous Greeting: Functional Produces Auto, Serial Info: Functional Imitates Simple Words/Phrases: Functional Word Finding: Functional Requests Basic Needs: Functional States Basic Personal Info: Functional Expresses Complex Ideas: Functional Objective Cognitive Domain Attention: WNL Memory: Mild Problem Solving: Functional Executive Functions: WNL Visuospatial Skills: WNL Composite Severity Rating: WNL Clock Drawing Severity Rating: WNL Objective Formal/Standardized Tests [facility] Mental Status ([facility]) Results 27/30, within normal range of function Oral Motor/Speech Production Within normal limits Impression Patient is a pleasant 74 y/o woman who was admitted to the ARU s/p fractured hip. Patient was given the UMS at bedside with a score of 27/30 obtained. The patient does not require further ST services at this time. Speech Patient Assess Expression of Ideas/Wants: Expression (4) Understanding Verbal Content: Understands (4) Brief Interview-Mental Status: Yes Repetition of Three Words: Three (3) Temporal Orientation: Year: Correct (3) Temporal Orientation: Month: Accurate within 5 days(2) Temporal Orientation: Day: Correct (1) Recall : Wear to say "Sock": Yes,after cueing (1) Recall : Color: Yes, after cueing (1) Recall : Bed: Yes,after cueing (1) Memory/Recall Ability: Current season, That he or she is in a hsp/hsp unit Speech-Plan Patient/Family Goals Patient/Family Goals: Patient plans on returning to her home with services for support of her of her daily needs. Treatment Plan Speech Therapy Treatment Plan: Discontinue ST Treatment Duration: Jul 12, 2020 Frequency: 1 time per week Estimated Hrs Per Day: .25 hour per day Rehab Potential: Fair Barriers to Learning: Patient's recent change in health, age Pt/Family Agrees to Plan: Yes Safety Risks/Education Teaching Recipient: Patient Teaching Methods: Discussion Response to Teaching: Verbalize Understanding Education Topics Provided: Safety within her room, communication of wants/needs Time Speech Therapy Time In: 14:00 Speech Therapy Time Out: 14:15 Total Billed Time: 15 Billed Treatment Time 1, ALYX Garcia Jul 12, 2020 14:20
--- NOTE | 2020-07-12 14:49 | Consultation-Cardiology ---
HPI-Cardiology Cardiology Consultation: Date of Consultation 07/12/20 Time Seen by a Provider: 14:30 Date of Admission 07-12-2020 Attending Physician Cherri Nicole DO Admitting Physician Amarilis,Local Physician Consulting Physician ROMULO NG HPI: Chief Complaint: Dyspnea Elevated BNP HTN Ms. Velasquez is a 74 year old female who has been admitted to IRF 224 from [facility]. She reports she missed a step at home causing her to fall and break her right hip. She denies any syncope or near syncope. She reports chronic dyspnea, which is somewhat worse today. She reports she has COPD and wears oxygen at night. Review of Systems-Cardiology Review of Systems Constitutional: No chills, No fever, No malaise Eyes: No vision change Ears/Nose/Throat: No recent hearing loss Respiratory: As described under HPI Cardiovascular: As described under HPI Gastrointestinal: no symptoms reported Genitourinary: no symptoms reported Musculoskeletal: other (right hip fracture) Skin: No rash on exposed areas, No ulcerations on exposed areas Psychiatric/Neurological: anxiety; No focal weakness, No syncope Hematologic: No bleeding abnormalities BUW-Qdzkcg-Sikueg Hx Patient Social History Type Used: Cigarettes 2nd Hand Smoke Exposure: No Recent Foreign Travel: No Recent Infectious Disease Expo: No Immunizations Up To Date Date of Pneumonia Vaccine: Jun 27, 2018 Date of Influenza Vaccine: Jun 27, 2019 Past Medical History PMH As described under Assessment. Family Medical History Family Medical History: Reported family h/o father having CAD and mother having a CVA. Allergies and Home Medications Allergies Coded Allergies: No Known Drug Allergies (Unverified , 07/09/14) Home Medications Aspirin 81 Mg Tab.chew, 81 MG PO DAILY, (Reported) Atorvastatin Calcium 20 Mg Tablet, 20 MG PO 1200, (Reported) Baclofen 5 Mg Tablet, 5 MG PO Q6H PRN for MUSCLE SPASMS, (Reported) Ezetimibe 10 Mg Tablet, 10 MG PO HS, (Reported) Lactulose 20 Gm/30 Ml Solution, 20 GM PO BID, (Reported) HOLD FOR LOOSE STOOLS Nicotine 1 Each Patch.dysq, 14 MG TD DAILY, (Reported) Oxybutynin Chloride 15 Mg Tab.er.24, 15 MG PO 1200, (Reported) Oxycodone HCl/Acetaminophen 1 Each Tablet, 1 EACH PO Q4H PRN for PAIN-MODERATE (5-7), (Reported) Polyethylene Glycol 3350 17 Gm Powd.pack, 17 GM PO DAILY, (Reported) HOLD FOR LOOSE STOOLS Potassium Chloride 20 Meq Tablet.er, 20 MEQ PO BID, (Reported) Sertraline HCl 50 Mg Tablet, 100 MG PO 1200, (Reported) TAKES 2 (50MG) TABS Patient Home Medication List Home Medication List Reviewed: Yes Physical Exam-Cardiology Physical Exam Vital Signs/I&O 07/15/20 06:15 Temp 36.1 Pulse 71 Resp 14 B/P (MAP) 104/54 (71) Pulse Ox 95 O2 Delivery Nasal Cannula O2 Flow Rate 4.00 07/15/20 00:00 Intake Total 2212 ml Output Total 2325 ml Balance -113 ml Capillary Refill : Constitutional: AAO x 3, well-developed, other (thin) HEENT: PERRL, hearing is well preserved, oral hygience is good Neck: No carotid bruit; carotid pulses are 2 + bilaterally Respiratory: No accessory muscle use, No respiratory distress; chest expansion is symmetric, chest is bilaterally symmetric, crackles (bi-basilar), rhonchi (scattered), other (prolonged expiratory phase) Cardiovascular: regular rate-rhythm; No JVD; S1 and S2, systolic murmur, other (bounding heart tones) Gastrointestinal: No tender; soft, round, audible bowel sounds Extremities: other (mild RLE swelling) Neurologic/Psychiatric: oriented x 3, grossly intact (moves extremities) Skin: No rash on exposed areas, No ulcerations on exposed areas Data Review Labs Laboratory Tests 07/15/20 05:49: White Blood Count 13.6H, Red Blood Count 2.39L, Hemoglobin 7.4L, Hematocrit 23L, Mean Corpuscular Volume 98, Mean Corpuscular Hemoglobin 31, Mean Corpuscular Hemoglobin Concent 32, Red Cell Distribution Width 14.5, Platelet Count 422H, Mean Platelet Volume 8.6L, Immature Granulocyte % (Auto) 1, Neutrophils (%) (Auto) 82H, Lymphocytes (%) (Auto) 8L, Monocytes (%) (Auto) 7, Eosinophils (%) (Auto) 2, Basophils (%) (Auto) 1, Neutrophils # (Auto) 11.1H, Lymphocytes # (Auto) 1.1, Monocytes # (Auto) 0.9, Eosinophils # (Auto) 0.2, Basophils # (Auto) 0.1, Immature Granulocyte # (Auto) 0.2H, Sodium Level 139, Potassium Level 3.7, Chloride Level 96L, Carbon Dioxide Level 37H, Anion Gap 6, Blood Urea Nitrogen 12, Creatinine 0.40L, Estimat Glomerular Filtration Rate > 60, BUN/Creatinine Ratio 30, Glucose Level 81, Calcium Level 8.2L, Corrected Calcium 9.7, Total Bilirubin 0.6, Aspartate Amino Transf (AST/SGOT) 42H, Alanine Aminotransferase (ALT/SGPT) 25, Alkaline Phosphatase 55, Total Protein 4.6L, Albumin 2.1L Microbiology 07/12/20 Gram Stain - Final, Resulted 07/12/20 Sputum Culture - Preliminary, Resulted Haemophilus influenza Usual upper respiratory [place] 07/12/20 Blood Culture - Preliminary, Resulted No growth Radiology NAME: VENUS VELASQUEZ MED REC#: [id number] PT STATUS: ADM IN : 1945 PHYSICIAN: CHERRI NICOLE DO ADMIT DATE: 07/12/20/[facility] Draft Date of Exam:07/12/20 CHEST 1 VIEW, AP/PA ONLY INDICATION: Hypoxia. Time of exam: 11:29 AM Comparison is made with prior chest from 12/07/2019. Patient has developed bibasilar infiltrates, greatest on the left, completely obscuring the left hemidiaphragm. There appears to be a small amount of pleural fluid in the left base as well. Mid and upper lung browne are clear. There is no pneumothorax. IMPRESSION: Development of bibasilar infiltrates and left effusion since examination from 12/07/2019. Dictated on workstation # [id number] Dict: 07/12/20 1142 Trans: 07/12/20 1145 DENISHA [id number] Interpreted by: AMARI GODWIN MD Electronically signed by: A/P-Cardiology Assessment/Admission Diagnosis Progressive dyspnea of undetermined etiology S/P non-syncopal fall leading to right hip fracture - s/p repair by Dr. Chávez at [facility] COPD HLD Tobaccoism - cessation advised Oxygen dependant Post op anemia - improved Anxiety Discussion and Recomendations BP at time of admission was elevated, spoke with nurse and BP has improved to 100 systolic, which is her normal baseline Echocardiogram to eval structure and function Monitor lab and treat electrolytes as indicated Continue home medications Further recs will be based on her hospital course We would like to thank Dr. Nicole for this consult Continue PT/OT Clinical Quality Measures DVT/VTE Risk/Contraindication: Contraindications-Pharm: Other *list below* Other: severe anemia requiring blood transfusions ROMULO STORY Jul 12, 2020 14:49
--- NOTE | 2020-07-12 14:52 | Physical Therapy Daily Note ---
PT Daily Note-Current Subjective Pt presents supine in bed with nurse present in room. Pt agrees to PT. Pt reports 2/10 pain in R hip. Appearance At conclusion of PT treatment pt remains in bed with access to call button, needs met, and nurse present in room. Mental Status Patient Orientation: Person, Place, Time, Eyes Open, Situation Attachments: Gallagher Catheter, IV Transfers SCALE: Activities may be completed with or without assistive devices. 8-Okdiawpkbq-vrdsest completes the activity by him/herself with no assistance from a helper. 5-Set-up or Clean-up Assistance-helper sets up or cleans up; patient completes activity. [place] assists only prior to or following the activity. 4-Supervision or Touching Assistance-helper provides verbal cues and/or touching/steadying and/or contact guard assistance as patient completes activity. Assistance may be provided throughout the activity or intermittently. 3-Partial/Moderate Assistance-helper does LESS THAN HALF the effort. [place] lifts, holds or supports trunk or limbs, but provides less than half the effort. 2-Substantial/Maximal Assistance-helper does MORE THAN HALF the effort. [place] lifts or holds trunk or limbs and provides more than half the effort. 1-Bvvvcorac-nzqdyx does ALL the effort. Patient does none of the effort to complete the activity. Or, the assistance of 2 or more helpers is required for the patient to complete the activity. If activity was not attempted, code reason: 7-Patient Refused. 9-Not Applicable-not attempted and the patient did not perform the activity before the current illness, exacerbation or injury. 10-Not Attempted due to Environmental Limitations-(lack of equipment, weather restraints, etc.). 88-Not Attempted due to Medical Conditions or Safety Concerns. Weight Bearing Right Lower Extremity: Right Weight Bearing/Tolerated Exercises Supine Ex: Ankle pumps, Glut sets, Short Arc Quads Supine Reps: 20 Treatments LE strengthening Assessment Current Status: Good Progress Pt had difficulty lifting knee off of bed, but once pillow placed under knee is able to complete SAQs. Pt is fatigued by 20 reps on R side. PT Short Term Goals Short Term Goals Time Frame: Jul 19, 2020 Roll Left & Right: 3 Sit to lyin Lying to sitting on side of be: 3 Chair/aos-ef-hxukx transfer: 3 Walk 10 feet: 4 Walk 50 feet with two turns: 4 Walk 150 feet: 4 1 step (curb): 3 PT Labor Contractor Goals Labor Contractor Goals PT Labor Contractor Goals Time Frame: Jul 26, 2020 Roll Left & Right (QC): 4 Sit to Lying (QC): 4 Lying-Sitting on Side/Bed(QC): 4 Sit to Stand (QC): 4 Chair/Htw-gu-Lnsmq Xfer(QC): 4 Toilet Transfer (QC): 4 Car Transfer (QC): 88 Does the Patient Walk: Yes Walk 10 feet (QC): 5 Walk 50ft with 2 Turns (QC): 5 Walk 150 ft (QC): 5 Walking 10ft on Uneven Surface: 5 1 Step (curb) (QC): 4 4 Steps (QC): 4 12 Steps (QC): 88 Picking up an Object (QC): 88 Does the Pt use WC or Scooter?: Yes Wheel 50 feet with 2 turns (QC: 6 Type: Manual Wheel 150 feet: 6 PT Plan Problem List Problem List: Activity Tolerance, Functional Strength, Safety, Balance, Gait, Transfer, Bed Mobility, ROM Treatment/Plan Treatment Plan: Continue Plan of Care Treatment Plan: Bed Mobility, Education, Functional Activity Latosha, Functional Strength, Group Therapy, Gait, Safety, Therapeutic Exercise, Transfers Treatment Duration: Jul 26, 2020 Frequency: At least 5 of 7 days/Wk (IRF) Estimated Hrs Per Day: 1.5 hours per day Patient and/or Family Agrees t: Yes Safety Risks/Education Patient Education: Reviewed Precautions, Correct Positioning, Safety Issues Teaching Recipient: Patient Teaching Methods: Demonstration, Discussion Response to Teaching: Reinforcement Needed Time/GCodes Time In: 1430 Time Out: 1445 Total Billed Treatment Time: 15 Total Billed Treatment 1 visit EX LISA HURST PT Jul 12, 2020 14:52
[2020-07-12] MEDS ORDERED: CATHETER FLUSH 10 ML SYR IV PRN (15:00)
[2020-07-12] MEDS ORDERED: APIXABAN 5 MG (ELIQUIS) TABLET PO ONE (15:30)
--- NOTE | 2020-07-12 15:58 | Consultation-Cardiology ---
HPI-Cardiology Cardiology Consultation: Date of Consultation 07/12/20 Time Seen by a Provider: 15:45 Date of Admission Attending Physician Cherri Holt DO Admitting Physician No,Local Physician Consulting Physician PERICO PARK MD, MA, FACP, FACC, [facility] [place], CCDS Physician requesting consult: Dr Holt HPI: Chief Complaint: Reason for cardiology consultation: Elevated BNP HPI Ms. Ornelas is a 74 year old female who has been [place] to [facility] [place] [facility] [place] She reports she missed a step at home causing her to fall and break her right hip. She denies any syncope or near syncope. She reports chronic dyspnea that has brooks worsening for the last 2 or 3 weeks. She reports she has COPD and wears oxygen at night. She does not report cp Review of Systems-Cardiology Review of Systems Constitutional: No chills, No fever, No malaise Eyes: No vision change Ears/Nose/Throat: No recent hearing loss Respiratory: As described under HPI Cardiovascular: As described under HPI Gastrointestinal: no symptoms reported Genitourinary: no symptoms reported Musculoskeletal: other (right hip fracture) Skin: No rash on exposed areas, No ulcerations on exposed areas Psychiatric/Neurological: anxiety; No focal weakness, No syncope Hematologic: No bleeding abnormalities NIA-Vwazbx-Qzzjxi Hx Patient Social History Type Used: Cigarettes 2nd Hand Smoke Exposure: No Recent Foreign Travel: No Recent Infectious Disease Expo: No Immunizations Up To Date Date of Pneumonia Vaccine: Jun 27, 2018 Date of Influenza Vaccine: Jun 27, 2019 Past Medical History PMH As described under Assessment. Family Medical History Family Medical History: Reported family h/o father having CAD and mother having a CVA. Allergies and Home Medications Allergies Coded Allergies: No Known Drug Allergies (Unverified , 07/09/14) Home Medications Aspirin 81 Mg Tab.chew, 81 MG PO DAILY, (Reported) Atorvastatin Calcium 20 Mg Tablet, 20 MG PO 1200, (Reported) Baclofen 5 Mg Tablet, 5 MG PO Q6H PRN for MUSCLE SPASMS, (Reported) Ezetimibe 10 Mg Tablet, 10 MG PO HS, (Reported) Lactulose 20 Gm/30 Ml Solution, 20 GM PO BID, (Reported) HOLD FOR LOOSE STOOLS Nicotine 1 Each Patch.dysq, 14 MG TD DAILY, (Reported) Oxybutynin Chloride 15 Mg Tab.er.24, 15 MG PO 1200, (Reported) Oxycodone HCl/Acetaminophen 1 Each Tablet, 1 EACH PO Q4H PRN for PAIN-MODERATE (5-7), (Reported) Polyethylene Glycol 3350 17 Gm Powd.pack, 17 GM PO DAILY, (Reported) HOLD FOR LOOSE STOOLS Potassium Chloride 20 Meq Tablet.er, 20 MEQ PO BID, (Reported) Sertraline HCl 50 Mg Tablet, 100 MG PO 1200, (Reported) TAKES 2 (50MG) TABS Patient Home Medication List Home Medication List Reviewed: Yes Physical Exam-Cardiology Physical Exam Vital Signs/I&O 07/12/20 07/12/20 09:56 12:00 Temp 36.1 36.0 Pulse 94 94 Resp 22 22 B/P (MAP) 160/69 101/53 (69) Pulse Ox 91 91 O2 Flow Rate 5.00 4.00 Capillary Refill : Constitutional: AAO x 3, well-developed, other (thin) HEENT: PERRL, hearing is well preserved, oral hygience is good Neck: No carotid bruit; carotid pulses are 2 + bilaterally Respiratory: No accessory muscle use, No respiratory distress; chest expansion is symmetric, chest is bilaterally symmetric, crackles (bi-basilar), rhonchi (scattered), other (prolonged expiratory phase) Cardiovascular: regular rate-rhythm; No JVD; S1 and S2, systolic murmur (3/6 MSM, worse with Valsalva), other (bounding heart tones) Gastrointestinal: No tender; soft, round, audible bowel sounds Extremities: other (mild RLE swelling) Neurologic/Psychiatric: oriented x 3, grossly intact (moves extremities) Skin: No rash on exposed areas, No ulcerations on exposed areas Data Review Labs Laboratory Tests 07/12/20 10:56: White Blood Count 15.7H, Red Blood Count 3.06L, Hemoglobin 9.6L, Hematocrit 30L, Mean Corpuscular Volume 98, Mean Corpuscular Hemoglobin 31, Mean Corpuscular Hemoglobin Concent 32, Red Cell Distribution Width 14.7H, Platelet Count 392, Mean Platelet Volume 8.6L, Immature Granulocyte % (Auto) 1, Neutrophils (%) (Auto) 94H, Lymphocytes (%) (Auto) 2L, Monocytes (%) (Auto) 3, Eosinophils (%) (Auto) 0, Basophils (%) (Auto) 0, Neutrophils # (Auto) 14.7H, Lymphocytes # (Auto) 0.3L, Monocytes # (Auto) 0.5, Eosinophils # (Auto) 0.0, Basophils # (Auto) 0.0, Immature Granulocyte # (Auto) 0.1, Neutrophils % (Manual) 91, Lymphocytes % (Manual) 2, Monocytes % (Manual) 3, Eosinophils % (Manual) 0, Basophils % (Manual) 0, Band Neutrophils 4, Polychromasia SLIGHT, Anisocytosis SLIGHT, Sodium Level 136, Potassium Level 4.4, Chloride Level 95L, Carbon Dioxide Level 34H, Anion Gap 7, Blood Urea Nitrogen 10, Creatinine 0.46L, Estimat Glomerular Filtration Rate > 60, BUN/Creatinine Ratio 22, Glucose Level 119H, Calcium Level 8.1L, Corrected Calcium 9.2, Total Bilirubin 0.8, Aspartate Amino Transf (AST/SGOT) 41H, Alanine Aminotransferase (ALT/SGPT) 24, Alkaline Phosphatase 59, B-Type Natriuretic Peptide 259.3H, Total Protein 5.4L, Albumin 2.6L, Procalcitonin 0.04 07/12/20 12:07: Lactic Acid Level 1.65 07/12/20 12:18: Blood Gas Puncture Site RR, Blood Gas Patient Temperature 96.3, Arterial Blood pH 7.44H, Arterial Blood Partial Pressure CO2 49H, Arterial Blood Partial Pressure O2 62L, Arterial Blood HCO3 33H, Arterial Blood Total CO2 34.4H, Arterial Blood Oxygen Saturation 93L, Arterial Blood Base Excess 8.1H, Payam Test YES-POS, Blood Gas Ventilator Setting NO, Blood Gas Inspired Oxygen 4L A/P-Cardiology Assessment/Admission Diagnosis Progressive shortness of breath, multifactorial (see below) Pulmonary hypertension, moderately severe, etiology undetermined, cannot exclude perioperative PE (following recent hip surgery) LVOT obstruction. Echo of 07/12/20 shows: mild LVH, systolic anterior motion of mitral valve apparatus, LVOT tract gradient of 110 mmHg, grade 2 diastolic dysfunction, LVEF 55-65%, PASP 85-90 mmHg S/P non-syncopal fall leading to right hip fracture - s/[place]. Chávez [place] [facility] R leg swelling after hip surgery of Jun 2020 COPD, oxygen dependent HLD Tobaccoism - cessation advised Post op anemia - improved Anxiety Discussion and Recomendations R leg venous Doppler to eval for DVT Eliquis for DVT prophylaxis CCB for HCM, if tolerated by bp We would like to thank Dr. Holt for this consult Continue PT/OT I had a detailed discussion with the pt regarding her CV issues and our treatment plan Clinical Quality Measures DVT/VTE Risk/Contraindication: Contraindications-Pharm: Other *list below* Other: severe anemia requiring blood transfusions PERICO PARK MD [facility] Jul 12, 2020 15:58
[2020-07-12] MEDS: RT-ALBUTEROL SULF 2.5 MG/3 ML PRE-MIX VIAL INH SCH ×2 (16:04→19:32)
--- NOTE | 2020-07-12 16:07 | NUR ---
PATIENT DID NOT GET HER 1400 SCHEDULED TX BECAUSE SHE WAS BUSY HAVING A TEST PERFORMED AT THIS TIME
--- NOTE | 2020-07-12 16:25 | Pulmonary Consultation ---
History of Present Illness History of Present Illness Date Seen by Provider: Jul 12, 2020 Time Seen by Provider: 16:25 Date of Admission History of Present Illness 74yo with hx of COPD ( uses oxygen at night) and heavy tobacco use admitted to IRF after hip fracture s/p repair, hardware dislocation s/p repair. Pt was dx with acute pneumonia and placed on Abx. I am consulted for pulmonary management. Allergies and Home Medications Allergies Coded Allergies: No Known Drug Allergies (Unverified , 07/09/14) Home Medications Aspirin 81 Mg Tab.chew, 81 MG PO DAILY, (Reported) Atorvastatin Calcium 20 Mg Tablet, 20 MG PO 1200, (Reported) Baclofen 5 Mg Tablet, 5 MG PO Q6H PRN for MUSCLE SPASMS, (Reported) Ezetimibe 10 Mg Tablet, 10 MG PO HS, (Reported) Lactulose 20 Gm/30 Ml Solution, 20 GM PO BID, (Reported) HOLD FOR LOOSE STOOLS Nicotine 1 Each Patch.dysq, 14 MG TD DAILY, (Reported) Oxybutynin Chloride 15 Mg Tab.er.24, 15 MG PO 1200, (Reported) Oxycodone HCl/Acetaminophen 1 Each Tablet, 1 EACH PO Q4H PRN for PAIN-MODERATE (5-7), (Reported) Polyethylene Glycol 3350 17 Gm Powd.pack, 17 GM PO DAILY, (Reported) HOLD FOR LOOSE STOOLS Potassium Chloride 20 Meq Tablet.er, 20 MEQ PO BID, (Reported) Sertraline HCl 50 Mg Tablet, 100 MG PO 1200, (Reported) TAKES 2 (50MG) TABS Past Molvpww-Apelkx-Tkthmi Hx Patient Social History Alcohol Beverage of Choice: Beer Type Used: Cigarettes 2nd Hand Smoke Exposure: No Recent Foreign Travel: No Contact w/Someone Who Travel: No Recent Infectious Disease Expo: No Recent Hopitalizations: No Immunizations Up To Date Date of Pneumonia Vaccine: Jun 27, 2018 Date of Influenza Vaccine: Jun 27, 2019 Seasonal Allergies Seasonal Allergies: No Past Medical History Surgeries: Yes (hiatal hernia,abd. hernia repair) Hysterectomy Respiratory: Yes (Hypoxemia, WEARS 02 AT NIGHT) Pneumonia, COPD Cardiac: Yes High Cholesterol Neurological: No Genitourinary: No Gastrointestinal: No Musculoskeletal: Yes Arthritis Endocrine: No HEENT: No (cataracts removed, detentures) Cancer: No Psychosocial: No Anxiety, Depression Integumentary: No Blood Disorders: No Review of Systems Time Seen by Provider: 07:05 Sepsis Event Evaluation Height, Weight, BMI Height: 5'6.00" Weight: 120lbs. oz. 54.390540sx; 23.05 BMI Method: Exam Exam Vital Signs Date Time Temp Pulse Resp B/P (MAP) Pulse Ox O2 Delivery O2 Flow Rate FiO2 07/12/20 12:00 36.0 94 22 101/53 (69) 91 4.00 07/12/20 09:56 36.1 94 22 160/69 91 5.00 Height & Weight Height: 5'6.00" Weight: 120lbs. oz. 54.698157ok; 23.05 BMI Method: General Appearance: Anxious HEENT: PERRL/EOMI, Normal ENT Inspection Neck: Full Range of Motion, Normal Inspection, Non Tender Respiratory: Chest Non Tender, No Accessory Muscle Use, No Respiratory Distress, Decreased Breath Sounds Capillary Refill: Less Than 3 Seconds Gastrointestinal: normal bowel sounds, non tender, soft Extremity: Normal Capillary Refill, Normal Inspection, No Pedal Edema Neurologic/Psychiatric: Alert, Oriented x3 Skin: Normal Color, Warm/Dry Lymphatic: No Adenopathy Results Lab Laboratory Tests 07/12/20 10:56 Assessment/Plan Assessment/Plan S/p Right hip fracture 07/04/20 -s/p dislocation of hardware 07/09/20 and repair Acute blood loss s/p total 4 units Acute pneumonia -Continue Abx COPD hx HX of heavy tobacco use Pulmonary HTN per echo -CTA of chest -- negative for PE however does show bilateral infiltrates and effusions. RICKY SMITH DO Jul 12, 2020 16:25
--- NOTE | 2020-07-12 16:40 | Diagnostic Imaging Report ---
EXAMINATION: US Right Lower Extremity Venous Duplex. TECHNIQUE: Multiple real-time grayscale images were obtained over the right lower extremity in various projections. Additional spectral analysis and color Doppler duplex images were also obtained. HISTORY: Right lower extremity edema. COMPARISON: None available. FINDINGS: The right common femoral vein, deep femoral vein, superficial femoral vein and popliteal vein are patent with normal mi scale and doppler appearance. There is normal respiratory variation and augmentation. IMPRESSION: 1. No DVT of the right lower extremity. Dictated by: Dictated on workstation # [id number]
[2020-07-12] MEDS ORDERED: BACLOFEN 10 MG (LIORESAL) TAB PO PRN (17:00)
[2020-07-12] MEDS ORDERED: IOHEXOL 350 MG/ML 100 ML (OMNIPAQUE 350) VIAL IV ONE (17:15)
[2020-07-12] MEDS ORDERED: NS 100 ML (IVPB) BAG IV ONE (17:15)
[2020-07-12] MEDS ORDERED: HOLD METFORMIN - RECEIVED CONTRAST 20 ML VIAL IV SCH (17:15)
--- NOTE | 2020-07-12 17:29 | Diagnostic Imaging Report ---
PROCEDURE: CT angiography of the chest with contrast. TECHNIQUE: Multiple contiguous axial images were obtained through the chest after uneventful bolus administration of intravenous contrast. 3D reconstructed CTA MIP acquisitions were also performed. Auto Exposure Controls were utilized during the CT exam to meet ALARA standards for radiation dose reduction. INDICATION: Shortness of breath. FINDINGS: There are bilateral pleural effusions layering out to depths of 3 cm. There is bilateral basilar atelectasis and/or infiltrate, greater on the left than on the right. There is no right ventricular strain. Pulmonary emboli. There is some aortic atherosclerosis but no aneurysm or dissection. IMPRESSION: Bilateral pleural effusions with bibasilar infiltrate and/or atelectasis. No evidence for a pulmonary embolism. Dictated by: Dictated on workstation # [id number]
[2020-07-12 17:30] VITALS: BP 133/58
[2020-07-12] MEDS: oxyCODONE/APAP 10/325MG (PERCOCET 10) TABLET PO PRN (18:19)
[2020-07-12] MEDS: ACETAMINOPHEN 325 MG TABLET PO PRN (18:20)
[2020-07-12] MEDS: LACTOBACILLUS ACIDOPHILUS (PROBIOTIC) CAPSULE PO SCH (18:23)
[2020-07-12] MEDS: LACTULOSE SYRUP 10GM/15ML (ENULOSE) 30ML UDC PO SCH (21:30)
[2020-07-12] MEDS: OXYBUTYNIN (DITROPAN) 5 MG TAB PO SCH (21:37)
[2020-07-12] MEDS: eZETimibe 10 MG (ZETIA) TABLET PO SCH (21:37)
[2020-07-12] MEDS: APIXABAN 5 MG (ELIQUIS) TABLET PO SCH (21:37)
[2020-07-13] MEDS: CEFEPIME INJECTION 1,000 MG in WATER (STERILE) FOR INJECTION 10 ML IV SCH ×3 (04:27→20:03)
[2020-07-13 06:15] VITALS: BP 105/54
--- NOTE | 2020-07-13 07:05 | PM&R Progress Note ---
Subjective HPI/CC On Admission Date Seen by Provider: Jul 13, 2020 Time Seen by Provider: 12:00 Subjective/Events-last exam Baseline is usually SBP 95 IV Lasix given today with good UOP by Dr Brewster No worsened hypotension from IV Lasix noted Up in chair today and much improved Elevated wbc noted and covered for PNA currently broad spectrum for HAP COVID swabbed negative COughing up purulent sputum, sputum culture pending Acapella helping BM extra large Checked meds and labs Conferred with RN Reviewed therapy notes Review of Systems General: Fatigue Pulmonary: Dyspnea, Cough Musculoskeletal: leg pain Neurological: Weakness Focused Exam Lactate Level 07/12/20 12:07: Lactic Acid Level 1.65 Objective Exam Vital Signs Vital Signs Date Time Temp Pulse Resp B/P (MAP) Pulse Ox O2 Delivery O2 Flow Rate FiO2 07/14/20 07:11 91 Nasal Cannula 4.00 07/14/20 05:20 37.0 72 16 98/51 (67) Capillary Refill : Less Than 3 SecondsLess Than 3 Seconds General Appearance: No Apparent Distress, WD/WN, Anxious, Chronically ill, Thin HEENT: PERRL/EOMI, Normal ENT Inspection, Pharynx Normal Neck: Full Range of Motion, Normal Inspection, Non Tender, Supple, Carotid Bruit Respiratory: Chest Non Tender, No Accessory Muscle Use, No Respiratory Distress, Decreased Breath Sounds Cardiovascular: Regular Rate, Rhythm, No Edema, No Gallop, No JVD, No Murmur, Normal Peripheral Pulses Gastrointestinal: Normal Bowel Sounds, No Organomegaly, No Pulsatile Mass, Non Tender, Soft Back: Normal Inspection, No CVA Tenderness, No Vertebral Tenderness Extremity: Normal Capillary Refill, Normal Inspection, Normal Range of Motion, Non Tender, No Calf Tenderness, No Pedal Edema Neurologic/Psychiatric: Alert, Oriented x3, No Motor/Sensory Deficits, Normal 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 FIM Transfers Therapy Code Descriptions/Definitions Functional Apison Measure: 0=Not Assessed/NA 4=Minimal Assistance 1=Total Assistance 5=Supervision or Setup 2=Maximal Assistance 6=Modified Apison 3=Moderate Assistance 7=Complete IndependenceSCALE: Activities may be completed with or without assistive devices. 1-Orvulyrlte-manjcbh completes the activity by him/herself with no assistance from a helper. 5-Set-up or Clean-up Assistance-helper sets up or cleans up; patient completes activity. Reading assists only prior to or following the activity. 4-Supervision or Touching Assistance-helper provides verbal cues and/or touching/steadying and/or contact guard assistance as patient completes activity. Assistance may be provided throughout the activity or intermittently. 3-Partial/Moderate Assistance-helper does LESS THAN HALF the effort. Reading lifts, holds or supports trunk or limbs, but provides less than half the effort. 2-Substantial/Maximal Assistance-helper does MORE THAN HALF the effort. Reading lifts or holds trunk or limbs and provides more than half the effort. 8-Rypqctoze-aquhbi does ALL the effort. Patient does none of the effort to complete the activity. Or, the assistance of 2 or more helpers is required for the patient to complete the activity. If activity was not attempted, code reason: 7-Patient Refused. 9-Not Applicable-not attempted and the patient did not perform the activity before the current illness, exacerbation or injury. 10-Not Attempted due to Environmental Limitations-(lack of equipment, weather restraints, etc.). 88-Not Attempted due to Medical Conditions or Safety Concerns. Roll Left to Right (QC): 3 Sit to Lying (QC): 2 Sit to Stand (QC): 3 Chair/Zng-ns-Rrewi Xfer(QC): 3 Car Transfer (QC): 88 (Unable to assess due to hip flexion precautions) Gait Training Does the Patient Walk?: Yes Walk 10 feet (QC): 4 Walk 50 ft with 2 Turns(QC): 4 Walk 150 ft (QC): 88 Walking 10ft/uneven surface-QC: 4 Gait Assistive Device: FWW Wheelchair Training Does the Pt Use a Wheelchair?: Yes Distance: 150' Wheel 50 ft with 2 turns (QC): 4 Wheel 150 ft (QC): 4 Type of Wheelchair: Manual Stair Training #of Steps: 1 1 Step (curb) (QC): 3 4 Steps (QC): 88 12 Steps (QC): 88 Balance Picking up an Object (QC): 88 ADL-Treatment Eating (QC): 6 (Pt reports independence with eating, no difficulties using utensils, bringing food to mouth, and eating.) Oral Hygiene (QC): 4 (CGA standing at sink) Shower/Bathe Self (QC): 2 (Max A, pt able to wash BUEs, chest and periarea, required assistance with buttocks, and LEs.) Upper Body Dressing (QC): 2 (Max A to don/doff basting puller shirt and manage around brace) Lower Body Dressing (QC): 2 (Pt able to assist with pant hike in stand at FWW, but requires assist for thoroughness, assist with threading BLEs into pants due to hip precautions) On/Off Footwear (QC): 1 (Pt unable to don/doff gripper socks due to hip precautions) Toileting Hygiene (QC): 2 (Pt able to manage pants down/up, but assistance still required due to pants/underwear getting caught on brace, Pt able to complete pericare but assist with buttocks.) Assessment/Plan Assessment and Plan Assess & Plan/Chief Complaint Assessment: s/p right hip fracture 07/04/20 s/p repair by Dr Chávez then dislocation of hardware 07/09/20 requiring [place] [facility] [place]/p spinal anesthesia but reduction only required Acute blood loss anemia s/p 2 units transfused 07/05/20 then again 07/09/20 Severe hypotension due to volume depletion requiring aggressive IVF administration at [facility] [place] Acute pneumonia upon arrival to IRF today requiring septic w/u which was negative and empiric abx for HAP COPD Current and heavy smoker 60 years Osteoporosis HLP Gallagher cath in place due to inability to ambulate with hip brace to prevent dislocation Pulmonary HTN 90 on ECHO negative USG right leg and negative PE on CT angiogram Anxiety Plan: IRF protocol Empiric abx Cardiology and Pulmonology appreciated Very frail status Anxiety treatment 07/13/20: Abx for HAP COVID negative IV Lasix (1) Closed right hip fracture (2) Pneumonia (3) Pulmonary edema (4) Pulmonary hypertension (5) Anxiety (6) Osteoporosis (7) Hyperlipemia (8) Frailty (9) Elevated brain natriuretic peptide (BNP) level (10) COPD (chronic obstructive pulmonary disease) (11) Hypoxia (12) Anemia due to acute blood loss (13) Transfusion history (14) Gallagher catheter in place (15) Hip dislocation, right (16) Dyspnea AVANI NICOLE DO Jul 13, 2020 07:05
--- NOTE | 2020-07-13 07:05 | Individualized Plan of Care ---
Individualized Plan of Care Rehab Nursing IPOC Order Admission Date Jul 12, 2020 at 09:40 Current Orders Orders Admission Order(Inpt,Obs,Sdc) (07/12/20 05:37) Vital Signs: Per Unit Policy ( 08,16,00 (07/12/20 05:37) López Silver 09,21 (07/12/20 05:37) Sequential Compression Device Q4H (07/12/20 05:37) Instrumentation Instructor-Inpt Rehab Con (07/12/20 05:37) Rehab Nursing Orders-Ipoc (07/12/20 05:37) Physical Therapy Rehab Orders (07/12/20 05:37) Occupational Therapy Rehab Ord (07/12/20 05:37) Speech Therapy Rehab Orders (07/12/20 05:37) Cbc With Automated Diff (07/13/20 06:00) Comprehensive Metabolic Panel (07/13/20 06:00) General/Regular (07/12/20 Breakfast) Intake & Output 06,14,22 (07/12/20 05:37) Precautions (Aru) (07/12/20 05:37) Rehab-Intensity Of Therapy (07/12/20 05:37) Initiate Admission Nursing Pro .admission (07/12/20 05:37) Acetaminophen Tablet (Tylenol Tablet) (07/12/20 05:45) Alprazolam Tablet (Xanax Tablet) (07/12/20 05:45) Calcium Carbonate Chew Tablet (Antacid C (07/12/20 05:45) Diphenhydramine Tablet (Benadryl Tablet) (07/12/20 05:45) Docusate Sodium Capsule (Colace Capsule) (07/12/20 09:00) Docusate Sodium Capsule (Colace Capsule) (07/12/20 05:45) Bisacodyl Suppository (Dulcolax Supposit (07/12/20 05:45) Lactulose Oral Solution (Enulose Oral So (07/12/20 05:45) Na Phos/Na Biphos Enema (Fleet Enema Daniel (07/12/20 05:45) Guaifenesin/Codeine Syrup (Robitussin Ac (07/12/20 05:45) Loperamide Tablet (Imodium Tablet) (07/12/20 05:45) Melatonin Tablet (Melatonin Tablet) (07/12/20 05:45) Polyethylene Glycol Powder Pkt (Miralax (07/12/20 09:00) Ondansetron Oral Dissolve Tab (Zofran (07/12/20 05:45) Senna S Tablet (Senokot S Tablet) (07/12/20 09:00) Code/Resuscitation (07/12/20 05:37) Initiate Admission Nursing Pro .admission (07/12/20 05:37) Vte Contraindication (07/12/20 05:37) Admission Arrival Bed Request (07/12/20 09:45) Acetaminophen Tablet/Caplet (Tylenol T (07/12/20 10:00) Albuterol Pre-Mix Nebs (Rt) (Proventil (07/12/20 10:45) Chest 1 View, Ap/Pa Only (07/12/20 10:41) Cbc With Automated Diff (07/12/20 10:41) Comprehensive Metabolic Panel (07/12/20 10:41) BNP (07/12/20 10:41) Arterial Blood Gas (07/12/20 12:18) Arterial Blood Draw (07/12/20 10:41) Svn Small Volume Nebulizer (07/12/20 10:41) Manual Differential (07/12/20 10:56) Echo W Doppler/Color Flow (07/12/20 11:04) Procalcitonin (Pct) (07/12/20 11:05) Blood Culture (07/12/20 11:05) Saliva Stimulant Mouth Disney (Biotene Mo (07/12/20 11:30) Consult Cardiology (07/12/20 11:40) Lactic Acid Analyzer (07/12/20 11:45) Vital Signs Adult Sepsis Patie Q15M (07/12/20 11:48) Ns Iv 1000 Ml (Sodium Chloride 0.9%) (07/12/20 12:00) Remove Rings In Anticipation O (07/12/20 11:48) Add [facility] Sepsis Care Plan .admit (07/12/20 11:48) Vancomycin Injection (Vancomycin Injecti (07/12/20 12:00) Cefepime Injection (Maxipime Injection) (07/12/20 12:00) Ns Iv 1000 Ml (Sodium Chloride 0.9%) (07/12/20 12:00) Venous Access Request Order (07/12/20 11:55) Sputum Culture (07/12/20 11:55) Arterial Blood Draw (07/12/20 ) Vancomycin Injection (Vancomycin Injecti (07/12/20 12:30) Vancomycin Injection (Vancomycin Injecti (07/13/20 14:30) Ensure High Protein (07/12/20 Lunch) Furosemide Injection (Lasix Injection) (07/12/20 12:45) Amb Us Guide Vascular Access (07/12/20 ) Patient Visit (07/12/20 ) Speech Sound Lang Comp (07/12/20 ) General/Regular (07/12/20 Lunch) Sodium Chloride Flush (Catheter Flush Sy (07/12/20 15:00) Patient Visit (07/12/20 ) Pt Eval Moderate Complexity (07/12/20 ) Gait Training, Ea 15 Min (07/12/20 ) Functional Activities, Ea 15 (07/12/20 ) Dys2 Mechanically Altered (07/12/20 Dinner) Apixaban Tablet (Eliquis Tablet) (07/12/20 15:30) Apixaban Tablet (Eliquis Tablet) (07/12/20 21:00) Us Venous Lower Ext Rt (07/12/20 15:28) Diltiazem Cd 24 Hr Capsule (Cardizem Cd (07/13/20 09:00) Ct Angio Chest W (07/12/20 15:49) Staple/Suture Removal (07/18/20 16:42) Aspirin Chewable Tablet (Baby Aspirin Ch (07/13/20 09:00) Atorvastatin Tablet (Lipitor Tablet) (07/13/20 12:00) Ezetimibe Tablet (Zetia Tablet) (07/12/20 21:00) Lactulose Oral Solution (Enulose Oral So (07/12/20 21:00) Oxycodone/Acet 10/325mg Tablet (Percocet (07/12/20 17:00) Polyethylene Glycol Powder Pkt (Miralax (07/13/20 09:00) Sertraline Tablet (Zoloft Tablet) (07/13/20 12:00) Baclofen Tablet (Lioresal Tablet) (07/12/20 17:00) Nicotine Patch (Nicoderm Patch) (07/13/20 09:00) Patch Removal (Patch Removal) (07/13/20 08:59) Oxybutynin Tablet (Ditropan Tablet) (07/12/20 21:00) Iohexol Injection (Omnipaque 350 Mg/Ml 1 (07/12/20 17:15) Received Contrast (Hold Metformin- Contr (07/12/20 17:15) Ns (Ivpb) (Sodium Chloride 0.9% Ivpb Bag (07/12/20 17:15) Lactobacillus Acidophilus Cap (Acidophil (07/12/20 18:00) Ambulate 08,12,20 (07/12/20 18:46) Dvt/Vte Risk - Notifiy Physici Q4H (07/12/20 18:46) Edu Tobacco/Smoking Cessation .prn (07/12/20 19:45) Furosemide Injection (Lasix Injection) (07/13/20 09:00) Manual Differential (07/13/20 06:49) Chest 1 View, Ap/Pa Only (07/13/20 08:14) Exercise Therap, Ea 15 Min (07/12/20 ) Patient Visit (07/13/20 ) Gait Training, Ea 15 Min (07/13/20 ) Covid 19 Inhouse Test (07/13/20 11:52) Cbc With Automated Diff (07/14/20 07:58) Comprehensive Metabolic Panel (07/14/20 07:58) Iron Test (Fe) (07/14/20 08:57) Rehab Nursing Orders: Ongoing Assess. of Cognitive Status, Ongoing Assess. of Function Status, Bladder Management, Bladder Scan, Bladder Training, Bowel Management, Bowel Training, Disease Management & Educaiton, DVT Prophylaxis, Fall Prevention, Fluid/Electrolyte/Nutrition Mgmt, Infection Prevention, Medication Management & Education, Management of Risks & Complications, Management of Skin Intergrity, Nutrition Management, Pain Management, Patient/ Family Support, Safety Management Intensity of Therapy to be met Patient to be seen: Min.3h per day/5 of 7d PT IPOC Problem List: Activity Tolerance, Functional Strength, Safety, Balance, Gait, Transfer, Bed Mobility, ROM Treatment Plan: Continue Plan of Care Bed Mobility, Education, Functional Activity Latosha, Functional Strength, Group Therapy, Gait, Safety, Therapeutic Exercise, Transfers Treatment Duration: Jul 26, 2020 Frequency: At least 5 of 7 days/Wk (IRF) Estimated Hrs Per Day: 1.5 hours per day OT IPOC Problems: Decreased Activ Tolerance, Decreased UE Strength, Impaired Bed Mobility, Impaired Funct Balance, Impaired I ADL's, Impaired Self-Care Skills OT Treatment, Training and Edu: Yes OT Problems Pt would benefit from skilled OT in order to increase safety and independence with ADLs and functional mobility, and for education on AE for lower body dressing. Plan of Care: ADL Retraining, Functional Mobility, Group Exercise/Act as Ind, UE Funct Exercise/Act Treatment Duration: Aug 02, 2020 Frequency: At least 5 of 7 days/Wk (IRF) Estimated Hrs Per Day: 1.[address] IPOC Speech Therapy Treatment Plan: Discontinue ST Treatment Duration: Jul 12, 2020 Frequency: 1 time per week Estimated Hrs Per Day: .25 hour per day Instrumentation Instructor/Case Mgmt Instrumentation Instructor/Case Managemen: Discharge Planning Dietitian/Printing Specialist Dietitian/Printing Specialist to monitor nutritional status and make changes and/or recommendations as needed and work with speech pathology on dietary upgrades as the occur. Physician IPOC Medical Issues being managed closely and that require the 24 hour availability of a physician: Complex case considering PHTN with PNA HAP requiring close monitoring of hypoxia and IV diuresis with Cardiology and Pulmonology consultation. Medical Issues: Bowel/Bladder Function, DVT Prophylaxis, Falls Precautions, Fluid/Electrolyte/Nutrition Balance, Infection Protection, Pain Management Brief Synthesis of Preadmission Screen, Post-Admission Evaluation, and Therapy Evaluations: PT OT will slowly help regain function of ambulation and fall risk prevention in order to prevent right hip dislocation recurrence in order to return to live independently Medical Prognosis: Good Anticipated Length of Stay: 14 days AVANI NICOLE DO Jul 13, 2020 07:05
--- NOTE | 2020-07-13 07:09 | Pulmonary Progress Note ---
Subjective Time Seen by a Provider: 07:08 Subjective/Events-last exam No complications noted. Sepsis Event Evaluation Height, Weight, BMI Height: 5'6.00" Weight: 120lbs. oz. 54.929861nk; 23.05 BMI Method: Focused Exam Lactate Level 07/12/20 12:07: Lactic Acid Level 1.65 Exam Exam Vital Signs Date Time Temp Pulse Resp B/P (MAP) Pulse Ox O2 Delivery O2 Flow Rate FiO2 07/12/20 20:00 95 Nasal Cannula 4.00 07/12/20 19:54 95 Nasal Cannula 4.00 07/12/20 19:32 95 Nasal Cannula 4.00 07/12/20 18:50 36.4 07/12/20 18:20 38.2 07/12/20 17:30 38.2 99 16 133/58 (83) 94 07/12/20 12:00 36.0 94 22 101/53 (69) 91 4.00 07/12/20 09:56 36.1 94 22 160/69 91 5.00 l I & O 07/13/20 07:00 Intake Total 640 ml Output Total 850 ml Balance -210 ml Height & Weight Height: 5'6.00" Weight: 120lbs. oz. 54.345770vl; 23.05 BMI Method: General Appearance: Anxious HEENT: PERRL/EOMI, Normal ENT Inspection Neck: Full Range of Motion, Normal Inspection, Non Tender Respiratory: Chest Non Tender, No Accessory Muscle Use, No Respiratory Distress, Decreased Breath Sounds Cardiovascular: Regular Rate, Rhythm, No Edema, No Gallop, No JVD, No Murmur, Normal Peripheral Pulses Capillary Refill: Less Than 3 Seconds Gastrointestinal: normal bowel sounds, non tender, soft Extremity: Normal Capillary Refill, Normal Inspection, No Pedal Edema Neurologic/Psychiatric: Alert, Oriented x3 Skin: Normal Color, Warm/Dry Lymphatic: No Adenopathy Results Lab Laboratory Tests 07/12/20 10:56 Assessment/Plan Assessment/Plan S/p Right hip fracture 07/04/20 -s/p dislocation of hardware 07/09/20 and repair Acute blood loss s/p total 4 units Acute pneumonia -Continue Abx stage 2 diastolic disfunction with acute pulmonary edema -LVOT obstruction. Echo of 07/12/20 shows: mild LVH, systolic anterior motion of mitral valve apparatus, LVOT tract gradient of 110 mmHg, grade 2 diastolic dysfunction, LVEF 55-65%, PASP 85-90 mmHg Bilateral pleural effusions with elevated BNP -Start Lasix daily COPD hx HX of heavy tobacco use Pulmonary HTN per echo -CTA of chest -- negative for PE however does show bilateral infiltrates and effusions. RICKY SMITH DO Jul 13, 2020 07:09
[2020-07-13 07:22] LABS: BASOPHILS # (AUTO) 0.1 10^3/uL (0.0-0.1); BASOPHILS % (AUTO) 0 % (0-10); EOSINOPHILS # (AUTO) 0.1 10^3/uL (0.0-0.3); EOSINOPHILS % (AUTO) 0 % (0-10); HEMATOCRIT 29 % (35-52); HEMOGLOBIN 9.6 g/dL (11.5-16.0); LYMPHOCYTES # (AUTO) 0.8 10^3/uL (1.0-4.0); LYMPHOCYTES % (AUTO) 4 % (12-44); MEAN CORPUSCULAR HEMOGLOBIN 32 pg (25-34); MEAN CORPUSCULAR HGB CONC 33 g/dL (32-36); MEAN CORPUSCULAR VOLUME 98 fL (80-99); MEAN PLATELET VOLUME 8.8 fL (9.0-12.2); MONOCYTES # (AUTO) 0.9 10^3/uL (0.0-1.0); MONOCYTES % (AUTO) 4 % (0-12); NEUTROPHILS % (AUTO) 91 % (42-75); PLATELET COUNT 404 10^3/uL (130-400)
[2020-07-13 07:30] LABS: ALBUMIN 2.5 GM/DL (3.2-4.5); CHLORIDE 96 MMOL/L (98-107); POTASSIUM 3.9 MMOL/L (3.6-5.0); SODIUM 136 MMOL/L (135-145)
[2020-07-13 07:31] LABS: CALCIUM 8.3 MG/DL (8.5-10.1)
[2020-07-13 07:32] LABS: GLUCOSE 79 MG/DL (70-105); TOTAL PROTEIN 5.3 GM/DL (6.4-8.2)
[2020-07-13 07:33] LABS: CARBON DIOXIDE 31 MMOL/L (21-32)
[2020-07-13 07:36] LABS: ALKALINE PHOSPHATASE 61 U/L (40-136); CREATININE SERUM 0.43 MG/DL (0.60-1.30); GFR ESTIMATED > 60
[2020-07-13 07:37] LABS: BUN/CREATININE RATIO 23
[2020-07-13 07:39] LABS: ALANINE AMINOTRANSFERASE 22 U/L (0-55)
[2020-07-13 08:07] LABS: BAND NEUTROPHILS 6 %; LYMPHOCYTES % (MANUAL) 5 %; MONOCYTES % (MANUAL) 4 %; NEUTROPHILS % (MANUAL) 82 %; RBC MORPH NORMAL
[2020-07-13 08:30] VITALS: BP 95/51
[2020-07-13] MEDS: LACTOBACILLUS ACIDOPHILUS (PROBIOTIC) CAPSULE PO SCH ×3 (08:49→18:49)
[2020-07-13] MEDS: DOCUSATE SODIUM 100 MG (COLACE) CAP PO SCH ×2 (08:50→20:06)
[2020-07-13] MEDS: FUROSEMIDE 40 MG/4 ML INJ (LASIX) IVP SCH (08:50)
[2020-07-13] MEDS: OXYBUTYNIN (DITROPAN) 5 MG TAB PO SCH ×3 (08:50→20:06)
[2020-07-13] MEDS: APIXABAN 5 MG (ELIQUIS) TABLET PO SCH ×2 (08:50→20:06)
[2020-07-13] MEDS: ASPIRIN 81 MG CHEW (CHILDREN'S ASA) PO SCH (08:50)
[2020-07-13] MEDS: SENNA W/DOCUSATE (SENOKOT S) TABLET PO SCH ×2 (08:50→20:10)
[2020-07-13] MEDS: NICOTINE PATCH REMOVAL TP SCH (08:51)
[2020-07-13] MEDS: NICOTINE 14 MG (NICODERM) PATCH TD SCH (08:51)
[2020-07-13] MEDS: ALPRAZolam 0.25 MG (XANAX) TAB PO PRN (08:57)
[2020-07-13] MEDS: oxyCODONE/APAP 10/325MG (PERCOCET 10) TABLET PO PRN ×2 (08:57→18:55)
[2020-07-13] MEDS: polyethylene glycoL POWDER 17 GM (MIRALAX) PACK PO SCH ×3 (09:00→20:10)
[2020-07-13] MEDS: dilTIAZem120 MG (CARDIZEM CD) CAP PO SCH (09:08)
[2020-07-13] MEDS: LACTULOSE SYRUP 10GM/15ML (ENULOSE) 30ML UDC PO SCH ×2 (09:08→20:10)
--- NOTE | 2020-07-13 09:15 | Diagnostic Imaging Report ---
Indication: Dyspnea, follow-up pneumonia. Comparison: 07/12/2020. Discussion: Single portable upright view of the chest was obtained. Small right pleural effusion is slightly increased. Moderate left pleural effusion is stable. Nonspecific infiltrates within the lung bases are stable on the left and increased on the right. No pneumothorax or osseous abnormality. Heart borders are obscured. Impression: 1. Moderate left pleural effusion is stable. Right pleural effusion is increased though still remains small. 2. Worsening right basilar infiltrates. Dictated by: Dictated on workstation # [id number]
[2020-07-13] MEDS: RT-ALBUTEROL SULF 2.5 MG/3 ML PRE-MIX VIAL INH SCH ×3 (09:33→21:00)
--- NOTE | 2020-07-13 10:49 | Physical Therapy Daily Note ---
PT Daily Note-Current Subjective Agrees to PT. Agrees to sit up in the chair. Mental Status Patient Orientation: Person, Place, Time, Situation Transfers SCALE: Activities may be completed with or without assistive devices. 8-Gcihnwazis-kjjchvt completes the activity by him/herself with no assistance from a helper. 5-Set-up or Clean-up Assistance-helper sets up or cleans up; patient completes activity. [place] assists only prior to or following the activity. 4-Supervision or Touching Assistance-helper provides verbal cues and/or touching/steadying and/or contact guard assistance as patient completes activity. Assistance may be provided throughout the activity or intermittently. 3-Partial/Moderate Assistance-helper does LESS THAN HALF the effort. [place] lifts, holds or supports trunk or limbs, but provides less than half the effort. 2-Substantial/Maximal Assistance-helper does MORE THAN HALF the effort. [place] lifts or holds trunk or limbs and provides more than half the effort. 7-Lrmartiwl-cpylhs does ALL the effort. Patient does none of the effort to complete the activity. Or, the assistance of 2 or more helpers is required for the patient to complete the activity. If activity was not attempted, code reason: 7-Patient Refused. 9-Not Applicable-not attempted and the patient did not perform the activity before the current illness, exacerbation or injury. 10-Not Attempted due to Environmental Limitations-(lack of equipment, weather restraints, etc.). 88-Not Attempted due to Medical Conditions or Safety Concerns. Lying to Sitting/Side of Bed(Q: 4 Sit to Stand (QC): [address] throughout entire treatment. Weight Bearing Right Lower Extremity: Right Weight Bearing/Tolerated Gait Training Walk 150 ft (QC): 4 Gait Assistive Device: FWW Slow gait with decresed step length; safe and steady without LOB noted. Treatments Pt up in chair post treatment, placed cushion in chair for comfort and to elevate seat. Oxygen in situ during and post treatment. Needs met post treatment. Assessment Current Status: Good Progress Improved transfers. Gait progressing as well. Tolerated well. PT Short Term Goals Short Term Goals Time Frame: Jul 19, 2020 Roll Left & Right: 3 Sit to lyin Lying to sitting on side of be: 3 Chair/kvv-xs-bbtuv transfer: 3 Walk 10 feet: 4 Walk 50 feet with two turns: 4 Walk 150 feet: 4 1 step (curb): 3 PT Longterm Goals Butcher All Round Goals PT Butcher All Round Goals Time Frame: Jul 26, 2020 Roll Left & Right (QC): 4 Sit to Lying (QC): 4 Lying-Sitting on Side/Bed(QC): 4 Sit to Stand (QC): 4 Chair/Fqz-yc-Isffz Xfer(QC): 4 Toilet Transfer (QC): 4 Car Transfer (QC): 88 Does the Patient Walk: Yes Walk 10 feet (QC): 5 Walk 50ft with 2 Turns (QC): 5 Walk 150 ft (QC): 5 Walking 10ft on Uneven Surface: 5 1 Step (curb) (QC): 4 4 Steps (QC): 4 12 Steps (QC): 88 Picking up an Object (QC): 88 Does the Pt use WC or Scooter?: Yes Wheel 50 feet with 2 turns (QC: 6 Type: Manual Wheel 150 feet: 6 PT Plan Problem List Problem List: Activity Tolerance, Functional Strength, Safety Treatment/Plan Treatment Plan: Continue Plan of Care Treatment Plan: Bed Mobility, Education, Functional Activity Latosha, Functional Strength, Group Therapy, Gait, Safety, Therapeutic Exercise, Transfers Treatment Duration: Jul 26, 2020 Frequency: At least 5 of 7 days/Wk (IRF) Estimated Hrs Per Day: 1.5 hours per day Patient and/or Family Agrees t: Yes Safety Risks/Education Patient Education: Safety Issues Teaching Recipient: Patient Teaching Methods: Discussion Response to Teaching: Reinforcement Needed Discharge Recommendations Therapy Discharge Recommendati: Post Acute PT Time/GCodes Time In: 1020 Time Out: 1045 Total Billed Treatment Time: 25 Total Billed Treatment visit GT 25 MARILIN CENTENO PT Jul 13, 2020 10:49
--- NOTE | 2020-07-13 11:53 | Progress Note - Cardiology ---
Cardiology SOAP Progress Note Subjective: No cp or palp or syncope Shortness of breath with mild to mod activity No focal weakness Gen weakness R leg swelling since surgery No n/v/d Objective: I&O/Vital Signs 07/13/20 07/13/20 06:15 09:33 Temp 36.8 Pulse 75 Resp 20 B/P (MAP) 105/54 (71) Pulse Ox 97 92 O2 Delivery Nasal Cannula Nasal Cannula O2 Flow Rate 4.00 4.00 07/13/20 00:00 Intake Total 640 ml Output Total 850 ml Balance -210 ml Weight (Pounds): 120 Weight (Calculated Kilograms): 54.428864 Constitutional: AAO x 3, well-developed, other (thin) Respiratory: No accessory muscle use, No respiratory distress; chest expansion is symmetric, chest is bilaterally symmetric, crackles (bi-basilar), rhonchi (scattered), other (prolonged expiratory phase) Cardiovascular: regular rate-rhythm; No JVD; S1 and S2, systolic murmur (3/6 MSM, worse with Valsalva), other (bounding heart tones) Gastrointestional: No tender; soft, round, audible bowel sounds Extremities: other (mild RLE swelling) Neurologic/Psychiatric: oriented x 3, grossly intact (moves extremities) Skin: No rash on exposed areas, No ulcerations on exposed areas Results/Procedures: Labs Laboratory Tests 07/12/20 12:07: Lactic Acid Level 1.65 07/12/20 12:18: Blood Gas Puncture Site RR, Blood Gas Patient Temperature 96.3, Arterial Blood pH 7.44H, Arterial Blood Partial Pressure CO2 49H, Arterial Blood Partial P ressure O2 62L, Arterial Blood HCO3 33H, Arterial Blood Total CO2 34.4H, Arterial Blood Oxygen Saturation 93L, Arterial Blood Base Excess 8.1H, Payam Test YES-POS, Blood Gas Ventilator Setting NO, Blood Gas Inspired Oxygen 4L 07/13/20 06:49: White Blood Count 23.0H, Red Blood Count 2.98L, Hemoglobin 9.6L, Hematocrit 29L, Mean Corpuscular Volume 98, Mean Corpuscular Hemoglobin 32, Mean Corpuscular Hemoglobin Concent 33, Red Cell Distribution Width 14.7H, Platelet Count 404H, Mean Platelet Volume 8.8L, Immature Granulocyte % (Auto) 1, Neutrophils (%) (Auto) 91H, Lymphocytes (%) (Auto) 4L, Monocytes (%) (Auto) 4, Eosinophils (%) (Auto) 0, Basophils (%) (Auto) 0, Neutrophils # (Auto) 21.0H, Lymphocytes # (Auto) 0.8L, Monocytes # (Auto) 0.9, Eosinophils # (Auto) 0.1, Basophils # (Auto) 0.1, Immature Granulocyte # (Auto) 0.2H, Neutrophils % (Manual) 82, Lymphocytes % (Manual) 5, Monocytes % (Manual) 4, Band Neutrophils 6, Blood Morphology Comment NORMAL, Sodium Level 136, Potassium Level 3.9, Chloride Level 96L, Carbon Dioxide Level 31, Anion Gap 9, Blood Urea Nitrogen 10, Creatinine 0.43L, Estimat Glomerular Filtration Rate > 60, BUN/Creatinine Ratio 23, Glucose Level 79, Calcium Level 8.3L, Corrected Calcium 9.5, Total Bilirubin 1.0, Aspartate Amino Transf (AST/SGOT) 40H, Alanine Aminotransferase (ALT/SGPT) 22, Alkaline Phosphatase 61, Total Protein 5.3L, Albumin 2.5L Microbiology 07/12/20 Gram Stain - Final, Resulted 07/12/20 Sputum Culture, Resulted Pending A/P: Assessment: Progressive shortness of breath, multifactorial (see below) Pulmonary hypertension, moderately severe, etiology undetermined, no evidence of PE on pulm CT angio of 07/12/20 LVOT obstruction. Echo of 07/12/20 shows: mild LVH, systolic anterior motion of mitral valve apparatus, LVOT tract gradient of 110 mmHg, grade 2 diastolic dysfunction, LVEF 55-65%, PASP 85-90 mmHg S/P non-syncopal fall leading to right hip fracture - s/p repair by Dr. Chávez at [facility] in Jun 2020 R leg swelling after hip surgery of Jun 2020, no evidence of DVT on leg venous Doppler of 07/12/20 COPD, oxygen dependent HLD Tobaccoism - cessation advised Post op anemia - improved Anxiety Plan: * I reviewed and discussed her CV issues with the patient and with Dr Holt * Continue CCB for HCM and LVOT obstruction * Continue apixaban for DVT prophylaxis * Pulm consult for pulm htn * Diuretics as needed * Monitor labs [facility] PARK [facility] Jul 13, 2020 11:53
[2020-07-13] MEDS: SERTRALINE 50 MG (ZOLOFT) TABLET PO SCH (12:15)
[2020-07-13] MEDS: VANCOMYCIN 1250 MG/NS 250 ML IVPB IV SCH ×2 (15:27)
[2020-07-13 17:38] VITALS: BP 91/54
[2020-07-13] MEDS: ACETAMINOPHEN 325 MG TABLET PO PRN (18:57)
--- NOTE | 2020-07-13 19:20 | NUR ---
bedside report received from [facility]AT[facility], assume care of pt
[2020-07-13 20:00] VITALS: BP 98/53
--- NOTE | 2020-07-13 20:03 | NUR ---
pt took Colace & refused Senokot, miralax & Enulose, v/s 36.3-71-20-95%-98/53, states feel better today than yesterday
[2020-07-13] MEDS: eZETimibe 10 MG (ZETIA) TABLET PO SCH (20:06)
[2020-07-14] MEDS: CEFEPIME INJECTION 1,000 MG in WATER (STERILE) FOR INJECTION 10 ML IV SCH ×3 (04:14→20:05)
[2020-07-14 05:20] VITALS: BP 98/51
[2020-07-14] MEDS: RT-ALBUTEROL SULF 2.5 MG/3 ML PRE-MIX VIAL INH SCH ×3 (07:08→19:56)
[2020-07-14 08:44] LABS: BASOPHILS # (AUTO) 0.1 10^3/uL (0.0-0.1); BASOPHILS % (AUTO) 0 % (0-10); EOSINOPHILS # (AUTO) 0.1 10^3/uL (0.0-0.3); EOSINOPHILS % (AUTO) 1 % (0-10); HEMATOCRIT 25 % (35-52); HEMOGLOBIN 8.1 g/dL (11.5-16.0); LYMPHOCYTES % (AUTO) 6 % (12-44); MEAN CORPUSCULAR HEMOGLOBIN 31 pg (25-34); MEAN CORPUSCULAR HGB CONC 32 g/dL (32-36); MEAN CORPUSCULAR VOLUME 98 fL (80-99); MEAN PLATELET VOLUME 8.4 fL (9.0-12.2); MONOCYTES # (AUTO) 0.8 10^3/uL (0.0-1.0); MONOCYTES % (AUTO) 5 % (0-12); NEUTROPHILS # (AUTO) 15.5 10^3/uL (1.8-7.8); NEUTROPHILS % (AUTO) 88 % (42-75); PLATELET COUNT 396 10^3/uL (130-400); WHITE BLOOD COUNT 17.6 10^3/uL (4.3-11.0)
--- NOTE | 2020-07-14 08:57 | PM&R Progress Note ---
Subjective HPI/CC On Admission Date Seen by Provider: Jul 14, 2020 Time Seen by Provider: 12:30 Subjective/Events-last exam 07/14/20: Coughing is productive 0945 she was dyspneic but received her Lasix and now doing well Anxiety is an issue Declines Lactulose Large BM when she goes QOD Updated daughter on the phone when I saw her today as I have daily Baseline is usually SBP 95 IV Lasix given today with good UOP by Dr Brewster No worsened hypotension from IV Lasix noted Up in chair today and much improved Elevated wbc noted and covered for PNA currently broad spectrum for HAP COVID swabbed negative COughing up purulent sputum, sputum culture pending Acapella helping BM extra large Checked meds and labs Conferred with RN Reviewed therapy notes Review of Systems Pulmonary: Dyspnea, Cough Musculoskeletal: leg pain Focused Exam Lactate Level 07/12/20 12:07: Lactic Acid Level 1.65 Objective Exam Vital Signs Vital Signs Date Time Temp Pulse Resp B/P (MAP) Pulse Ox O2 Delivery O2 Flow Rate FiO2 07/14/20 09:00 Nasal Cannula 4.00 07/14/20 07:11 91 07/14/20 05:20 37.0 72 16 98/51 (67) Capillary Refill : Less Than 3 SecondsLess Than 3 Seconds General Appearance: No Apparent Distress, WD/WN, Anxious, Chronically ill, Thin HEENT: PERRL/EOMI, Normal ENT Inspection, Pharynx Normal Neck: Full Range of Motion, Normal Inspection, Non Tender, Supple, Carotid Bruit Respiratory: Chest Non Tender, No Accessory Muscle Use, No Respiratory Distres s, Decreased Breath Sounds Cardiovascular: Regular Rate, Rhythm, No Edema, No Gallop, No JVD, No Murmur, Normal Peripheral Pulses Gastrointestinal: Normal Bowel Sounds, No Organomegaly, No Pulsatile Mass, Non Tender, Soft Back: Normal Inspection, No CVA Tenderness, No Vertebral Tenderness Extremity: Normal Capillary Refill, Normal Inspection, Normal Range of Motion, Non Tender, No Calf Tenderness, No Pedal Edema Neurologic/Psychiatric: Alert, Oriented x3, No Motor/Sensory Deficits, Normal Mood/Affect, curing oven tender II-XII Norm as Tested, Abnormal Gait Skin: Normal Color, Warm/Dry Lymphatic: No Adenopathy Results/Procedures Lab Laboratory Tests 07/14/20 08:33 Patient resulted labs reviewed. FIM Transfers Therapy Code Descriptions/Definitions Functional [place] Measure: 0=Not Assessed/NA 4=Minimal Assistance 1=Total Assistance 5=Supervision or Setup 2=Maximal Assistance 6=Modified [place] 3=Moderate Assistance 7=Complete IndependenceSCALE: Activities may be completed with or without assistive devices. 2-Xfgdjpwfzh-eazfoou completes the activity by him/herself with no assistance from a helper. 5-Set-up or Clean-up Assistance-helper sets up or cleans up; patient completes activity. [place] assists only prior to or following the activity. 4-Supervision or Touching Assistance-helper provides verbal cues and/or touching/steadying and/or contact guard assistance as patient completes activity. Assistance may be provided throughout the activity or intermittently. 3-Partial/Moderate Assistance-helper does LESS THAN HALF the effort. [place] lifts, holds or supports trunk or limbs, but provides less than half the effort. 2-Substantial/Maximal Assistance-helper does MORE THAN HALF the effort. [place] lifts or holds trunk or limbs and provides more than half the effort. 8-Fqgrtywus-cufwtf does ALL the effort. Patient does none of the effort to complete the activity. Or, the assistance of 2 or more helpers is required for the patient to complete the activity. If activity was not attempted, code reason: 7-Patient Refused. 9-Not Applicable-not attempted and the patient did not perform the activity before the current illness, exacerbation or injury. 10-Not Attempted due to Environmental Limitations-(lack of equipment, weather restraints, etc.). 88-Not Attempted due to Medical Conditions or Safety Concerns. Roll Left to Right (QC): 3 Sit to Lying (QC): 2 Sit to Stand (QC): 4 Chair/Cyz-ql-Sdmas Xfer(QC): 3 Car Transfer (QC): 88 (Unable to assess due to hip flexion precautions) Gait Training Does the Patient Walk?: Yes Walk 10 feet (QC): 4 Walk 50 ft with 2 Turns(QC): 4 Walk 150 ft (QC): 4 Walking 10ft/uneven surface-QC: 4 Gait Assistive Device: FWW Wheelchair Training Does the Pt Use a Wheelchair?: Yes Distance: 150' Wheel 50 ft with 2 turns (QC): 4 Wheel 150 ft (QC): 4 Type of Wheelchair: Manual Stair Training #of Steps: 1 1 Step (curb) (QC): 3 4 Steps (QC): 88 12 Steps (QC): 88 Balance Picking up an Object (QC): 88 ADL-Treatment Eating (QC): 6 (Pt reports independence with eating, no difficulties using utensils, bringing food to mouth, and eating.) Oral Hygiene (QC): 4 (CGA standing at sink) Shower/Bathe Self (QC): 2 (Max A, pt able to wash BUEs, chest and periarea, required assistance with buttocks, and LEs.) Upper Body Dressing (QC): 2 (Max A to don/doff caul puller shirt and manage around brace) Lower Body Dressing (QC): 2 (Pt able to assist with pant hike in stand at FWW, but requires assist for thoroughness, assist with threading BLEs into pants due to hip precautions) On/Off Footwear (QC): 1 (Pt unable to don/doff gripper socks due to hip precautions) Toileting Hygiene (QC): 2 (Pt able to manage pants down/up, but assistance still required due to pants/underwear getting caught on brace, Pt able to complete pericare but assist with buttocks.) Assessment/Plan Assessment and Plan Assess & Plan/Chief Complaint Assessment: s/p right hip fracture 07/04/20 s/p repair by Dr Chávez then dislocation of hardware 07/09/20 requiring transfer back [place] [facility] [place]/p spinal anesthesia but reduction only required Acute blood loss anemia s/p 2 units transfused 07/05/20 then again 07/09/20 Severe hypotension due to volume depletion requiring aggressive IVF administration at [facility] [place] Acute pneumonia upon arrival to [facility] today requiring septic w/u which was negative and empiric abx for HAP COPD Current and heavy smoker 60 years Osteoporosis HLP Gallagher cath in place due to inability to ambulate with hip brace to prevent dislocation Pulmonary HTN 90 on ECHO negative USG right leg and negative PE on CT angiogram Anxiety Plan: IRF protocol Empiric abx Cardiology and Pulmonology appreciated Very frail status Anxiety treatment 07/13/20: Abx for HAP COVID negative IV Lasix 07/14/20: IV Lasix IV abx O2 Nebs COVID negative BM regimen (1) Closed right hip fracture (2) Pneumonia (3) Pulmonary edema (4) Pulmonary hypertension (5) Anxiety (6) Osteoporosis (7) Hyperlipemia (8) Frailty (9) Elevated brain natriuretic peptide (BNP) level (10) COPD (chronic obstructive pulmonary disease) (11) Hypoxia (12) Anemia due to acute blood loss (13) Transfusion history (14) Gallagher catheter in place (15) Hip dislocation, right (16) Dyspnea AVANI NICOLE DO Jul 14, 2020 08:57
[2020-07-14 08:58] LABS: ALBUMIN 2.3 GM/DL (3.2-4.5)
[2020-07-14 08:59] LABS: CHLORIDE 93 MMOL/L (98-107); POTASSIUM 3.7 MMOL/L (3.6-5.0); SODIUM 135 MMOL/L (135-145)
[2020-07-14 09:01] LABS: GLUCOSE 126 MG/DL (70-105)
[2020-07-14 09:02] LABS: CARBON DIOXIDE 33 MMOL/L (21-32)
[2020-07-14 09:03] LABS: BILIRUBIN,TOTAL 0.7 MG/DL (0.1-1.0)
[2020-07-14 09:04] LABS: ALKALINE PHOSPHATASE 55 U/L (40-136)
[2020-07-14 09:05] LABS: CREATININE SERUM 0.48 MG/DL (0.60-1.30); GFR ESTIMATED > 60
[2020-07-14 09:06] LABS: BUN/CREATININE RATIO 25
[2020-07-14 09:07] LABS: ALANINE AMINOTRANSFERASE 22 U/L (0-55)
[2020-07-14] MEDS: LACTOBACILLUS ACIDOPHILUS (PROBIOTIC) CAPSULE PO SCH ×3 (09:49→17:34)
[2020-07-14] MEDS: dilTIAZem120 MG (CARDIZEM CD) CAP PO SCH (09:50)
[2020-07-14] MEDS: FUROSEMIDE 40 MG/4 ML INJ (LASIX) IVP SCH (09:50)
[2020-07-14] MEDS: ASPIRIN 81 MG CHEW (CHILDREN'S ASA) PO SCH (09:50)
[2020-07-14] MEDS: SENNA W/DOCUSATE (SENOKOT S) TABLET PO SCH ×2 (09:50→20:16)
[2020-07-14] MEDS: APIXABAN 5 MG (ELIQUIS) TABLET PO SCH (09:51)
[2020-07-14] MEDS: DOCUSATE SODIUM 100 MG (COLACE) CAP PO SCH ×2 (09:51→20:06)
[2020-07-14] MEDS: OXYBUTYNIN (DITROPAN) 5 MG TAB PO SCH ×3 (09:51→20:05)
[2020-07-14] MEDS: polyethylene glycoL POWDER 17 GM (MIRALAX) PACK PO SCH ×3 (09:52→20:16)
[2020-07-14] MEDS: LACTULOSE SYRUP 10GM/15ML (ENULOSE) 30ML UDC PO SCH ×2 (09:52→20:16)
[2020-07-14] MEDS: NICOTINE 14 MG (NICODERM) PATCH TD SCH (09:53)
[2020-07-14] MEDS: NICOTINE PATCH REMOVAL TP SCH (10:13)
--- NOTE | 2020-07-14 12:22 | Progress Note - Cardiology ---
Cardiology SOAP Progress Note Subjective: Weakness, malaise, tiredness Shortness of breath with mild activity No cp or palp or syncope Objective: I&O/Vital Signs 07/14/20 07/14/20 05:20 07:11 Temp 37.0 Pulse 72 Resp 16 B/P (MAP) 98/51 (67) Pulse Ox 92 91 O2 Delivery Nasal Cannula Nasal Cannula O2 Flow Rate 4.00 4.00 07/14/20 00:00 Intake Total 1747 ml Output Total 2750 ml Balance -1003 ml Weight (Pounds): 120 Weight (Calculated Kilograms): 54.356427 Constitutional: AAO x 3, well-developed, other (thin) Respiratory: No accessory muscle use, No respiratory distress; chest expansion is symmetric, chest is bilaterally symmetric, crackles (bi-basilar), rhonchi (scattered), other (prolonged expiratory phase) Cardiovascular: regular rate-rhythm; No JVD; S1 and S2, systolic murmur (3/6 MSM, worse with Valsalva), other (bounding heart tones) Gastrointestional: No tender; soft, round, audible bowel sounds Extremities: other (mild RLE swelling) Neurologic/Psychiatric: oriented x 3, grossly intact (moves extremities) Skin: No rash on exposed areas, No ulcerations on exposed areas Results/Procedures: Labs Laboratory Tests 07/13/20 13:45: Coronavirus 2019 ([facility]) Negative 07/14/20 08:33: White Blood Count 17.6H, Red Blood Count 2.58L, Hemoglobin 8.1L, Hematocrit 25L, Mean Corpuscular Volume 98, Mean Corpuscular Hemoglobin 31, Mean Corpuscular Hemoglobin Concent 32, Red Cell Distribution Width 14.6H, Platelet Count 396, Mean Platelet Volume 8.4L, Immature Granulocyte % (Auto) 1, Neutrophils (%) (Auto) 88H, Lymphocytes (%) (Auto) 6L, Monocytes (%) (Auto) 5, Eosinophils (%) (Auto) 1, Basophils (%) (Auto) 0, Neutrophils # (Auto) 15.5H, Lymphocytes # (Auto) 1.0, Monocytes # (Auto) 0.8, Eosinophils # (Auto) 0.1, Basophils # (Auto) 0.1, Immature Granulocyte # (Auto) 0.2H, Sodium Level 135, Potassium Level 3.7, Chloride Level 93L, Carbon Dioxide Level 33H, Anion Gap 9, Blood Urea Nitrogen 12, Creatinine 0.48L, Estimat Glomerular Filtration Rate > 60, BUN/Creatinine Ratio 25, Glucose Level 126H, Calcium Level 8.0L, Corrected Calcium 9.4, Total Bilirubin 0.7, Aspartate Amino Transf (AST/SGOT) 36H, Alanine Aminotransferase (ALT/SGPT) 22, Alkaline Phosphatase 55, Total Protein 5.0L, Albumin 2.3L Microbiology 07/12/20 Gram Stain - Final, Resulted 07/12/20 Sputum Culture - Preliminary, Resulted Haemophilus influenza Usual upper respiratory [place] 07/12/20 Blood Culture - Preliminary, Resulted No growth Laboratory Tests 07/13/20 06:49 07/14/20 08:33 A/P: Assessment: Progressive shortness of breath, multifactorial (see below) Pulmonary hypertension, moderately severe, etiology undetermined, no evidence of PE on pulm CT angio of 07/12/20 LVOT obstruction. Echo of 07/12/20 shows: mild LVH, systolic anterior motion of mitral valve apparatus, LVOT tract gradient of 110 mmHg, grade 2 diastolic dysfunction, LVEF 55-65%, PASP 85-90 mmHg S/P non-syncopal fall leading to right hip fracture - s/p repair by Dr. Chávez [place] [facility] [place] Post op anemia - worsening R leg swelling after hip surgery of Jun 2020, no evidence of DVT on leg venous Doppler of 07/12/20 COPD, oxygen dependent HLD Tobaccoism - cessation advised Anxiety Plan: * Reduce apixaban because of worsening anemia. Consider transfusion of H&H continue to worsen. Anemia being evaluated and managed by Dr Holt * Monitor labs PERICO PARK MD FACP [facility] Jul 14, 2020 12:22
[2020-07-14] MEDS: SERTRALINE 50 MG (ZOLOFT) TABLET PO SCH (14:16)
[2020-07-14] MEDS: VANCOMYCIN 1250 MG/NS 250 ML IVPB IV SCH ×2 (15:15)
[2020-07-14] MEDS: ALPRAZolam 0.25 MG (XANAX) TAB PO PRN (15:15)
[2020-07-14 18:11] VITALS: BP 104/56
--- NOTE | 2020-07-14 19:13 | NUR ---
bedside report received from IGGY CHATMAN, assume care of pt
[2020-07-14] MEDS: eZETimibe 10 MG (ZETIA) TABLET PO SCH (20:05)
--- NOTE | 2020-07-14 20:05 | NUR ---
pt took Colace, refused Senokot, miralax & Enulose, c/o rt hip pain level 7/10 on numeric scale, Percocet 10 1 tab given
[2020-07-14] MEDS: APIXABAN 2.5 MG (ELIQUIS) TABLET PO SCH (20:06)
[2020-07-14] MEDS: oxyCODONE/APAP 10/325MG (PERCOCET 10) TABLET PO PRN (20:07)
--- NOTE | 2020-07-14 21:00 | NUR ---
resting quietly in bed, pain level 0/10 on CNPI scale
[2020-07-15] MEDS: CEFEPIME INJECTION 1,000 MG in WATER (STERILE) FOR INJECTION 10 ML IV SCH ×3 (04:09→20:39)
[2020-07-15 06:06] LABS: BASOPHILS # (AUTO) 0.1 10^3/uL (0.0-0.1); BASOPHILS % (AUTO) 1 % (0-10); EOSINOPHILS # (AUTO) 0.2 10^3/uL (0.0-0.3); EOSINOPHILS % (AUTO) 2 % (0-10); HEMATOCRIT 23 % (35-52); HEMOGLOBIN 7.4 g/dL (11.5-16.0); LYMPHOCYTES # (AUTO) 1.1 10^3/uL (1.0-4.0); LYMPHOCYTES % (AUTO) 8 % (12-44); MEAN CORPUSCULAR HEMOGLOBIN 31 pg (25-34); MEAN CORPUSCULAR HGB CONC 32 g/dL (32-36); MEAN CORPUSCULAR VOLUME 98 fL (80-99); MEAN PLATELET VOLUME 8.6 fL (9.0-12.2); MONOCYTES # (AUTO) 0.9 10^3/uL (0.0-1.0); MONOCYTES % (AUTO) 7 % (0-12); NEUTROPHILS # (AUTO) 11.1 10^3/uL (1.8-7.8); NEUTROPHILS % (AUTO) 82 % (42-75); PLATELET COUNT 422 10^3/uL (130-400); WHITE BLOOD COUNT 13.6 10^3/uL (4.3-11.0)
[2020-07-15 06:15] VITALS: BP 104/54
[2020-07-15 06:18] LABS: ALBUMIN 2.1 GM/DL (3.2-4.5); CHLORIDE 96 MMOL/L (98-107); POTASSIUM 3.7 MMOL/L (3.6-5.0); SODIUM 139 MMOL/L (135-145)
[2020-07-15 06:20] LABS: CALCIUM 8.2 MG/DL (8.5-10.1)
[2020-07-15 06:21] LABS: GLUCOSE 81 MG/DL (70-105); TOTAL PROTEIN 4.6 GM/DL (6.4-8.2)
[2020-07-15 06:22] LABS: CARBON DIOXIDE 37 MMOL/L (21-32)
[2020-07-15 06:23] LABS: BILIRUBIN,TOTAL 0.6 MG/DL (0.1-1.0)
[2020-07-15 06:24] LABS: ALKALINE PHOSPHATASE 55 U/L (40-136); GFR ESTIMATED > 60
[2020-07-15 06:25] LABS: BUN/CREATININE RATIO 30
[2020-07-15 06:27] LABS: ALANINE AMINOTRANSFERASE 25 U/L (0-55)
--- NOTE | 2020-07-15 07:36 | Pulmonary Progress Note ---
Subjective Time Seen by a Provider: 07:33 Subjective/Events-last exam No complications noted. Sepsis Event Evaluation Height, Weight, BMI Height: 5'6.00" Weight: 120lbs. oz. 54.337770jo; 23.05 BMI Method: Focused Exam Lactate Level 07/12/20 12:07: Lactic Acid Level 1.65 Exam Exam Vital Signs Date Time Temp Pulse Resp B/P (MAP) Pulse Ox O2 Delivery O2 Flow Rate FiO2 07/15/20 06:15 36.1 71 14 104/54 (71) 95 Nasal Cannula 4.00 07/14/20 20:10 Nasal Cannula 4.00 07/14/20 20:00 37.2 07/14/20 19:56 92 Nasal Cannula 4.00 07/14/20 18:11 37.0 84 20 104/56 (72) 95 Nasal Cannula 4.00 07/14/20 09:00 Nasal Cannula 4.00 I & O 07/15/20 07:00 Intake Total 2762 ml Output Total 3475 ml Balance -713 ml Height & Weight Height: 5'6.00" Weight: 120lbs. oz. 54.830421ay; 23.05 BMI Method: General Appearance: No Apparent Distress, WD/WN, Anxious, Chronically ill, Thin HEENT: PERRL/EOMI, Normal ENT Inspection, Pharynx Normal Neck: Full Range of Motion, Normal Inspection, Non Tender, Supple, Carotid Bruit Respiratory: Chest Non Tender, No Accessory Muscle Use, No Respiratory Distress, Decreased Breath Sounds Cardiovascular: Regular Rate, Rhythm, No Edema, No Gallop, No JVD, No Murmur, Normal Peripheral Pulses Capillary Refill: Less Than 3 Seconds Gastrointestinal: normal bowel sounds, non tender, soft Extremity: Normal Capillary Refill, Normal Inspection, Normal Range of Motion, Non Tender, No Calf Tenderness, No Pedal Edema Neurologic/Psychiatric: Alert, Oriented x3, No Motor/Sensory Deficits, Normal Mood/Affect, check services clerk II-XII Norm as Tested, Abnormal Gait Skin: Normal Color, Warm/Dry Lymphatic: No Adenopathy Results Lab Laboratory Tests 07/14/20 08:33 07/15/20 05:49 Assessment/Plan Assessment/Plan S/p Right hip fracture 07/04/20 -s/p dislocation of hardware 07/09/20 and repair Acute blood loss s/p total 4 units Acute pneumonia with H Influenza -Currently on Omnicef -CXR reviewed stage 2 diastolic disfunction with acute pulmonary edema -LVOT obstruction. Echo of 07/12/20 shows: mild LVH, systolic anterior motion of mitral valve apparatus, LVOT tract gradient of 110 mmHg, grade 2 diastolic dysfunction, LVEF 55-65%, PASP 85-90 mmHg Bilateral pleural effusions with elevated BNP -Lasix daily Anemia -Check occult stool COPD hx HX of heavy tobacco use Pulmonary HTN per echo -CTA of chest -- negative for PE however does show bilateral infiltrates and effusions. RICKY SMITH DO Jul 15, 2020 07:36
[2020-07-15 08:07] VITALS: BP 102/52
--- NOTE | 2020-07-15 08:07 | NUR ---
DR. SMITH HERE NEW ORDERS TO START TITRATING O2, KEEP O2 SATS BETWEEN 90-94%.
--- NOTE | 2020-07-15 08:11 | PM&R Progress Note ---
Subjective HPI/CC On Admission Date Seen by Provider: Jul 15, 2020 Time Seen by Provider: 10:00 Subjective/Events-last exam 07/15/20: Hemoccult is pending WC 13.6, Hgb 7.4, Iron level at 20 so will initiate IV iron infusions Albumin at 2.1 Titrating down O2 at 96% today so can titrate down After rounds she had bleeding from the surgical site and considering hgb 7.4 Dr Chávez contacted and he wanted Bactrim but already on broad spectrum abx no need for that and 2 units of blood and considering how overloaded she has been will give 1 unit and I updated Dr Chávez on all of these changes. 07/14/20: Coughing is productive 0945 she was dyspneic but received her Lasix and now doing well Anxiety is an issue Declines Lactulose Large BM when she goes QOD Updated daughter on the phone when I saw her today as I have daily Baseline is usually SBP 95 IV Lasix given today with good UOP by Dr Brewster No worsened hypotension from IV Lasix noted Up in chair today and much improved Elevated wbc noted and covered for PNA currently broad spectrum for HAP COVID swabbed negative COughing up purulent sputum, sputum culture pending Acapella helping BM extra large Checked meds and labs Conferred with RN Reviewed therapy notes Review of Systems General: Fatigue, Malaise Neurological: Weakness Focused Exam Lactate Level Objective Exam Vital Signs Vital Signs Date Time Temp Pulse Resp B/P (MAP) Pulse Ox O2 Delivery O2 Flow Rate FiO2 07/15/20 20:30 93 Nasal Cannula 2.00 07/15/20 19:26 37.1 78 22 98/51 Capillary Refill : Less Than 3 SecondsLess Than 3 Seconds General Appearance: No Apparent Distress, WD/WN, Anxious, Chronically ill, Thin HEENT: PERRL/EOMI, Normal ENT Inspection, Pharynx Normal Neck: Full Range of Motion, Normal Inspection, Non Tender, Supple, Carotid Bruit Respiratory: Chest Non Tender, No Accessory Muscle Use, No Respiratory Distress, Decreased Breath Sounds Cardiovascular: Regular Rate, Rhythm, No Edema, No Gallop, No JVD, No Murmur, Normal Peripheral Pulses Gastrointestinal: Normal Bowel Sounds, No Organomegaly, No Pulsatile Mass, Non Tender, Soft Back: Normal Inspection, No CVA Tenderness, No Vertebral Tenderness Extremity: Normal Capillary Refill, Normal Inspection, Normal Range of Motion, Non Tender, No Calf Tenderness, No Pedal Edema Neurologic/Psychiatric: Alert, Oriented x3, No Motor/Sensory Deficits, Normal Mood/Affect, operator helper II-XII Norm as Tested, Abnormal Gait Skin: Normal Color, Warm/Dry Lymphatic: No Adenopathy Results/Procedures Lab Laboratory Tests 07/15/20 05:49 Patient resulted labs reviewed. FIM Transfers Therapy Code Descriptions/Definitions Functional [place] Measure: 0=Not Assessed/NA 4=Minimal Assistance 1=Total Assistance 5=Supervision or Setup 2=Maximal Assistance 6=Modified [place] 3=Moderate Assistance 7=Complete IndependenceSCALE: Activities may be completed with or without assistive devices. 7-Srikmgyqwy-oodzdrv completes the activity by him/herself with no assistance from a helper. 5-Set-up or Clean-up Assistance-helper sets up or cleans up; patient completes activity. [place] assists only prior to or following the activity. 4-Supervision or Touching Assistance-helper provides verbal cues and/or touching/steadying and/or contact guard assistance as patient completes activity. Assistance may be provided throughout the activity or intermittently. 3-Partial/Moderate Assistance-helper does LESS THAN HALF the effort. [place] lifts, holds or supports trunk or limbs, but provides less than half the effort. 2-Substantial/Maximal Assistance-helper does MORE THAN HALF the effort. [place] lifts or holds trunk or limbs and provides more than half the effort. 0-Hagmvrqxj-ttgcsp does ALL the effort. Patient does none of the effort to complete the activity. Or, the assistance of 2 or more helpers is required for the patient to complete the activity. If activity was not attempted, code reason: 7-Patient Refused. 9-Not Applicable-not attempted and the patient did not perform the activity before the current illness, exacerbation or injury. 10-Not Attempted due to Environmental Limitations-(lack of equipment, weather restraints, etc.). 88-Not Attempted due to Medical Conditions or Safety Concerns. Roll Left to Right (QC): 3 Sit to Lying (QC): 2 Sit to Stand (QC): 4 Chair/Qxp-ev-Flbac Xfer(QC): 3 Car Transfer (QC): 88 (Unable to assess due to hip flexion precautions) Gait Training Does the Patient Walk?: Yes Walk 10 feet (QC): 4 Walk 50 ft with 2 Turns(QC): 4 Walk 150 ft (QC): 4 Walking 10ft/uneven surface-QC: 4 Gait Assistive Device: FWW Wheelchair Training Does the Pt Use a Wheelchair?: Yes Distance: 150' Wheel 50 ft with 2 turns (QC): 4 Wheel 150 ft (QC): 4 Type of Wheelchair: Manual Stair Training #of Steps: 1 1 Step (curb) (QC): 3 4 Steps (QC): 88 12 Steps (QC): 88 Balance Picking up an Object (QC): 88 ADL-Treatment Eating (QC): 6 (Pt reports independence with eating, no difficulties using utensils, bringing food to mouth, and eating.) Oral Hygiene (QC): 4 (CGA standing at sink) Shower/Bathe Self (QC): 2 (Max A, pt able to wash BUEs, chest and periarea, required assistance with buttocks, and LEs.) Upper Body Dressing (QC): 2 (Max A to don/doff candy puller shirt and manage around brace) Lower Body Dressing (QC): 2 (Pt able to assist with pant hike in stand at FWW, but requires assist for thoroughness, assist with threading BLEs into pants due to hip precautions) On/Off Footwear (QC): 1 (Pt unable to don/doff gripper socks due to hip precautions) Toileting Hygiene (QC): 2 (Pt able to manage pants down/up, but assistance still required due to pants/underwear getting caught on brace, Pt able to complete pericare but assist with buttocks.) Assessment/Plan Assessment and Plan Assess & Plan/Chief Complaint Assessment: s/p right hip fracture 07/04/20 s/p repair by Dr Chávez then dislocation of mckeon rdware 07/09/20 requiring transfer back to [facility] [place] s/p spinal anesthesia but reduction only required Acute blood loss anemia s/p 2 units transfused 07/05/20 then again 07/09/20 Severe hypotension due to volume depletion requiring aggressive IVF administration at [facility] [place] Acute pneumonia upon arrival to IRF today requiring septic w/u which was negative and empiric abx for HAP COPD Current and heavy smoker 60 years Osteoporosis HLP Gallagher cath in place due to inability to ambulate with hip brace to prevent d islocation Pulmonary HTN 90 on ECHO negative USG right leg and negative PE on CT angiogram Anxiety Plan: IRF protocol Empiric abx Cardiology and Pulmonology appreciated Very frail status Anxiety treatment 07/13/20: Abx for HAP COVID negative IV Lasix 07/14/20: IV Lasix IV abx O2 Nebs COVID negative BM regimen 07/15/20: Check stools for blood Hemoglobin 7.4 monitor closely IV iron infusions Increase nutrition Titrate oxygen down Transfuse 1 unit of blood today Hold OAC (1) Closed right hip fracture (2) Pneumonia (3) Pulmonary edema (4) Pulmonary hypertension (5) Anxiety (6) Osteoporosis (7) Hyperlipemia (8) Frailty (9) Elevated brain natriuretic peptide (BNP) level (10) COPD (chronic obstructive pulmonary disease) (11) Hypoxia (12) Anemia due to acute blood loss (13) Transfusion history (14) Gallagher catheter in place (15) Hip dislocation, right (16) Dyspnea AVANI NICOLE DO Jul 15, 2020 08:10
[2020-07-15] MEDS: SENNA W/DOCUSATE (SENOKOT S) TABLET PO SCH ×2 (08:42→20:38)
[2020-07-15] MEDS: IRON SUCROSE 200 MG/10 ML (VENOFER) VIAL IV SCH (08:42)
[2020-07-15] MEDS: PANTOPRAZOLE 40 MG (PROTONIX) TAB PO SCH (08:42)
[2020-07-15] MEDS: APIXABAN 2.5 MG (ELIQUIS) TABLET PO SCH (08:42)
[2020-07-15] MEDS: DOCUSATE SODIUM 100 MG (COLACE) CAP PO SCH ×2 (08:42→20:39)
[2020-07-15] MEDS: ASPIRIN 81 MG CHEW (CHILDREN'S ASA) PO SCH (08:42)
[2020-07-15] MEDS: OXYBUTYNIN (DITROPAN) 5 MG TAB PO SCH ×3 (08:42→20:39)
[2020-07-15] MEDS: FUROSEMIDE 40 MG/4 ML INJ (LASIX) IVP SCH (08:42)
[2020-07-15] MEDS: LACTULOSE SYRUP 10GM/15ML (ENULOSE) 30ML UDC PO SCH ×2 (08:43→20:35)
[2020-07-15] MEDS: LACTOBACILLUS ACIDOPHILUS (PROBIOTIC) CAPSULE PO SCH ×3 (08:43→17:19)
[2020-07-15] MEDS: NICOTINE PATCH REMOVAL TP SCH (08:43)
[2020-07-15] MEDS: polyethylene glycoL POWDER 17 GM (MIRALAX) PACK PO SCH ×3 (08:43→20:35)
[2020-07-15] MEDS: dilTIAZem120 MG (CARDIZEM CD) CAP PO SCH (08:43)
[2020-07-15] MEDS: NICOTINE 14 MG (NICODERM) PATCH TD SCH (08:44)
[2020-07-15] MEDS: oxyCODONE/APAP 10/325MG (PERCOCET 10) TABLET PO PRN ×2 (08:55→18:51)
[2020-07-15] MEDS: ALPRAZolam 0.25 MG (XANAX) TAB PO PRN ×2 (08:55→17:19)
--- NOTE | 2020-07-15 09:44 | Progress Note - Cardiology ---
Cardiology SOAP Progress Note Subjective: Sitting up in recliner at the bedside. Feels SOB is unchanged from before. No c/o CP. Objective: I&O/Vital Signs 07/15/20 07/15/20 07/15/20 07/15/20 06:15 08:07 08:55 09:00 Temp 36.1 Pulse 71 74 Resp 14 B/P (MAP) 104/54 (71) 102/52 (69) Pulse Ox 95 94 92 O2 Delivery Nasal Cannula Nasal Cannula Nasal Cannula Nasal Cannula O2 Flow Rate 4.00 3.00 2.00 2.00 07/15/20 07/15/20 07/15/20 07/15/20 09:50 12:00 14:21 16:04 Temp 37.5 Pulse 78 Resp 20 B/P (MAP) 91/50 (64) Pulse Ox 93 91 92 94 O2 Delivery Nasal Cannula Nasal Cannula Nasal Cannula O2 Flow Rate 2.00 2.00 2.00 07/14/20 23:59 Intake Total 2212 ml Output Total 2325 ml Balance -113 ml Weight (Pounds): 120 Weight (Calculated Kilograms): 54.661850 Constitutional: AAO x 3, well-developed, other (thin) Respiratory: No accessory muscle use, No respiratory distress; chest expansion is symmetric, chest is bilaterally symmetric, crackles (bi-basilar), rhonchi (scattered), other (prolonged expiratory phase) Cardiovascular: regular rate-rhythm; No JVD; S1 and S2, systolic murmur (3/6 MSM, worse with Valsalva), other (bounding heart tones) Gastrointestional: No tender; soft, round, audible bowel sounds Extremities: other (mild RLE swelling) Neurologic/Psychiatric: oriented x 3, grossly intact (moves extremities) Skin: No rash on exposed areas, No ulcerations on exposed areas Results/Procedures: Labs Laboratory Tests 07/15/20 05:49: White Blood Count 13.6H, Red Blood Count 2.39L, Hemoglobin 7.4L, Hematocrit 23L, Mean Corpuscular Volume 98, Mean Corpuscular Hemoglobin 31, Mean Corpuscular Hemoglobin Concent 32, Red Cell Distribution Width 14.5, Platelet Count 422H, Mean Platelet Volume 8.6L, Immature Granulocyte % (Auto) 1, Neutrophils (%) (Auto) 82H, Lymphocytes (%) (Auto) 8L, Monocytes (%) (Auto) 7, Eosinophils (%) (Auto) 2, Basophils (%) (Auto) 1, Neutrophils # (Auto) 11.1H, Lymphocytes # (Auto) 1.1, Monocytes # (Auto) 0.9, Eosinophils # (Auto) 0.2, Basophils # (Auto) 0.1, Immature Granulocyte # (Auto) 0.2H, Sodium Level 139, Potassium Level 3.7, Chloride Level 96L, Carbon Dioxide Level 37H, Anion Gap 6, Blood Urea Nitrogen 12, Creatinine 0.40L, Estimat Glomerular Filtration Rate > 60, BUN/Creatinine Ratio 30, Glucose Level 81, Calcium Level 8.2L, Corrected Calcium 9.7, Total Bilirubin 0.6, Aspartate Amino Transf (AST/SGOT) 42H, Alanine Aminotransferase (ALT/SGPT) 25, Alkaline Phosphatase 55, Total Protein 4.6L, Albumin 2.1L Microbiology 07/12/20 Gram Stain - Final, Resulted 07/12/20 Sputum Culture - Preliminary, Resulted Haemophilus influenza Staphylococcus aureus Usual upper respiratory [place] 07/12/20 Blood Culture - Preliminary, Resulted No growth A/P: Assessment: Progressive shortness of breath, multifactorial (see below) Pulmonary hypertension, moderately severe, etiology undetermined, no evidence of PE on pulm CT angio of 07/12/20 LVOT obstruction. Echo of 07/12/20 shows: mild LVH, systolic anterior motion of mitral valve apparatus, LVOT tract gradient of 110 mmHg, grade 2 diastolic dysfunction, LVEF 55-65%, PASP 85-90 mmHg S/P non-syncopal fall leading to right hip fracture - s/p repair by Dr. Chávez at [facility] [place] in Jun 2020 Post op anemia - worsening R leg swelling after hip surgery of Jun 2020, no evidence of DVT on leg venous Doppler of 07/12/20 COPD, oxygen dependent HLD Tobaccoism - cessation advised Anxiety Plan: * Continue reduced apixaban because of worsening anemia. * Consider transfusion of H&H continue to worsen. Anemia being evaluated and managed by Dr oHlt - receiving iron infusion today * Monitor labs ROMULO STORY Jul 15, 2020 09:44
[2020-07-15] MEDS: RT-ALBUTEROL SULF 2.5 MG/3 ML PRE-MIX VIAL INH SCH ×3 (09:49→18:34)
--- NOTE | 2020-07-15 09:58 | Physical Therapy Daily Note ---
PT Daily Note-Current Subjective Pt. up in recliner and states her pain is better right at this moment but she has "really been through it". Pt. c/o of SOB with mask on and requests no mask for this Rx. Nurse present, initiating iron infusion and states hgb is 7.4. Upon standing pt. c/o some dizziness and in reclined position in attempt to do there ex in chair pt. c/o SOB with O2 sats dropping from 94% to 84% Pain Location: No Pain Reported Appearance pitting edema bilat LEs Mental Status Patient Orientation: Normal For Age Attachments: Oxygen (2L), Gallagher Catheter, Other-See Comments (right hip immo blizer , infusion pump) Transfers SCALE: Activities may be completed with or without assistive devices. 6-Typezpwxwd-tminsrq completes the activity by him/herself with no assistance from a helper. 5-Set-up or Clean-up Assistance-helper sets up or cleans up; patient completes activity. [place] assists only prior to or following the activity. 4-Supervision or Touching Assistance-helper provides verbal cues and/or touching/steadying and/or contact guard assistance as patient completes activity. Assistance may be provided throughout the activity or intermittently. 3-Partial/Moderate Assistance-helper does LESS THAN HALF the effort. [place] lifts, holds or supports trunk or limbs, but provides less than half the effort. 2-Substantial/Maximal Assistance-helper does MORE THAN HALF the effort. [place] lifts or holds trunk or limbs and provides more than half the effort. 7-Ltlvayizs-cbcmjz does ALL the effort. Patient does none of the effort to complete the activity. Or, the assistance of 2 or more helpers is required for the patient to complete the activity. If activity was not attempted, code reason: 7-Patient Refused. 9-Not Applicable-not attempted and the patient did not perform the activity before the current illness, exacerbation or injury. 10-Not Attempted due to Environmental Limitations-(lack of equipment, weather restraints, etc.). 88-Not Attempted due to Medical Conditions or Safety Concerns. Sit to Stand (QC): 5 (x4 trials) Weight Bearing Right Lower Extremity: Right Weight Bearing/Tolerated Gait Training Does the Patient Walk?: Yes Walk 10 feet (QC): 4 Gait Persons Needed: 1 Gait Assistive Device: FWW short bouts in room chair to bed as pt. has low hgb and declines wearing mask at this time. gait CGA slow, heavy wt bearing on FWW Exercises Supine Ex: Ankle pumps, Quad Set, Glut sets, Heel Slides (left only), Scooting (up in chair using LLE and UEs x 3 trials), Straight leg raise (assisted on left only), Hip abd/add (left only ) Supine Reps: 12 Seated Therapy Exercises: Ankle pumps, Sit to stand, Long arc quads, Hip flexion (left only), Hip abd/add (left only) Seated Reps: 12 Treatments sit to stands, LE exercises, positioning educ and seated and reclined LLE exercises. O2 sats sitting at 2L 98%, pt. in reclined position at approx 40deg had low O2 sats at 82% and was sat back up with sats raising to 97% quickly Assessment Current Status: Fair Progress poor tolerance for reclined position, dizzy with standing PT Short Term Goals Short Term Goals Time Frame: Jul 19, 2020 Roll Left & Right: 3 Sit to lyin Lying to sitting on side of be: 3 Chair/qxw-sg-rvjey transfer: 3 Walk 10 feet: 4 Walk 50 feet with two turns: 4 Walk 150 feet: 4 1 step (curb): 3 PT Longterm Goals Longterm Goals PT Longterm Goals Time Frame: Jul 26, 2020 Roll Left & Right (QC): 4 Sit to Lying (QC): 4 Lying-Sitting on Side/Bed(QC): 4 Sit to Stand (QC): 4 Chair/Cvn-nn-Bzuqe Xfer(QC): 4 Toilet Transfer (QC): 4 Car Transfer (QC): 88 Does the Patient Walk: Yes Walk 10 feet (QC): 5 Walk 50ft with 2 Turns (QC): 5 Walk 150 ft (QC): 5 Walking 10ft on Uneven Surface: 5 1 Step (curb) (QC): 4 4 Steps (QC): 4 12 Steps (QC): 88 Picking up an Object (QC): 88 Does the Pt use WC or Scooter?: Yes Wheel 50 feet with 2 turns (QC: 6 Type: Manual Wheel 150 feet: 6 PT Plan Treatment/Plan Treatment Plan: Continue Plan of Care Treatment Plan: Bed Mobility, Education, Functional Activity Latosha, Functional Strength, Group Therapy, Gait, Safety, Therapeutic Exercise, Transfers Treatment Duration: Jul 26, 2020 Frequency: At least 5 of 7 days/Wk (IRF) Estimated Hrs Per Day: 1.5 hours per day Patient and/or Family Agrees t: Yes Safety Risks/Education Patient Education: Gait Training, Transfer Techniques, Correct Positioning, Disease Process, Safety Issues Teaching Recipient: Patient Teaching Methods: Demonstration, Discussion Response to Teaching: Verbalize Understanding, Return Demonstration, Reinforcement Needed Time/GCodes Time In: 900 Time Out: 1000 Total Billed Treatment Time: 60 Total Billed Treatment 1,EX20m,FA40m SOHAIL DOWD PTA Jul 15, 2020 09:58
--- NOTE | 2020-07-15 11:27 | Occupational Ther Daily Note ---
OT Current Status-Daily Note Subjective Pt was sitting in chair. Pt no c/o pain. Pt agreed to therapy. Mental Status/Objective Patient Orientation: Person, Place, Time, Situation Attachments: IV, Other-See Comments (abductor brace) ADL-Treatment Pt was sitting in chair. Pt refused shower, stating maybe tomorrow. Pt agreed to sponge bath in chair. Pt educated on using lower body dressing equipment. Min A with don/doff UE/LE clothing, used dressing stick to doff socks. Pt performed washing upper body by self after set. Pt used long handle sponge to wash LE and feet, by self after set up. SBA while washing buttocks, perineal area. Pt used ice cream dispenser to thread underwear over feet with min cues, SBA in standing while pt attempted to pull underwear over hips, assist given when underwear caught on brace. Pt used sock aid to thread socks on feet with min cues. Pt stated she wanted to brush hair. Nursing came to change out padding on hip. Pt stated she wanted new coffee. Pt call light/phone in reach. All needs met. Therapy Code Descriptions/Definitions Functional [place] Measure: 0=Not Assessed/NA 4=Minimal Assistance 1=Total Assistance 5=Supervision or Setup 2=Maximal Assistance 6=Modified [place] 3=Moderate Assistance 7=Complete IndependenceSCALE: Activities may be completed with or without assistive devices. 0-Yftbivrkct-iavivul completes the activity by him/herself with no assistance from a helper. 5-Set-up or Clean-up Assistance-helper sets up or cleans up; patient completes activity. [place] assists only prior to or following the activity. 4-Supervision or Touching Assistance-helper provides verbal cues and/or touching/steadying and/or contact guard assistance as patient completes activity. Assistance may be provided throughout the activity or intermittently. 3-Partial/Moderate Assistance-helper does LESS THAN HALF the effort. [place] lifts, holds or supports trunk or limbs, but provides less than half the effort. 2-Substantial/Maximal Assistance-helper does MORE THAN HALF the effort. [place] lifts or holds trunk or limbs and provides more than half the effort. 7-Cembaxreb-savoly does ALL the effort. Patient does none of the effort to complete the activity. Or, the assistance of 2 or more helpers is required for the patient to complete the activity. If activity was not attempted, code reason: 7-Patient Refused. 9-Not Applicable-not attempted and the patient did not perform the activity before the current illness, exacerbation or injury. 10-Not Attempted due to Environmental Limitations-(lack of equipment, weather restraints, etc.). 88-Not Attempted due to Medical Conditions or Safety Concerns. Bathing Location: L Arm, R Arm, L Upper Leg, R Upper Leg, L Lower Leg (including foot), R Lower Leg (including foot), Chest, Abdomen, Buttocks, Perineal Area Shower/Bathe Self (QC): 5 Upper Body Dressing (QC): 4 Lower Body Dressing (QC): 4 On/Off Footwear: 4 Education OT Patient Education: Modified ADL techniques, Use of adapted equipment Teaching Recipient: Patient Teaching Methods: Demonstration, Discussion Response to Teaching: Verbalize Understanding, Return Demonstration, Reinforcement Needed OT Short Term Goals Short Term Goals Time Frame: Jul 24, 2020 Toileting hygiene: 3 Shower/bathe self: 3 Upper body dressin Lower body dressin OT Assisted Goals Dining Room Coordinator Goals Time Frame: Aug 02, 2020 Eating (QC): 6 Oral Hygiene (QC): 6 Toileting Hygiene (QC): 6 Shower/Bathe Self (QC): 6 Upper Body Dressing (QC): 6 Lower Body Dressing (QC): 6 On/Off Footwear (QC): 6 Additional Goals: 1-Demonstrate ADL Tasks, 2-Verbalize Understanding, 3- ImproveStrength/[place]ha 1=Demonstrate adherence to instructed precautions during ADL tasks. 2=Patient will verbalize/demonstrate understanding of assistive devices/modifications for ADL. 3=Patient will improve strength/tolerance for activity to enable patient to perform ADL's. OT Education/Plan Problem List/Assessment Assessment: Decreased Activ Tolerance, Decreased UE Strength, Impaired Funct Balance, Impaired I ADL's, Impaired Self-Care Skills Pt would benefit from skilled OT in order to increase safety and independence with ADLs and functional mobility, and for education on AE for lower body dressing. Discharge Recommendations Plan/Recommendations: Continue POC Treatment Plan/Plan of Care Patient would benefit from OT for education, treatment and training to promote independence in ADL's, mobility, safety and/or upper extremity function for ADL's. Plan of Care: ADL Retraining, Functional Mobility, Group Exercise/Act as Ind, UE Funct Exercise/Act Treatment Duration: Aug 02, 2020 Frequency: At least 5 of 7 days/Wk (IRF) Estimated Hrs Per Day: 1.5 hours per day Rehab Potential: Fair Time/GCodes Start Time: 10:00 Stop Time: 11:30 Total Time Billed (hr/min): 90 Billed Treatment Time 1 visit- ADL 6 (90 min) MARILIN CASIANO Jul 15, 2020 11:27
--- NOTE | 2020-07-15 12:40 | NUR ---
DR. PARK HERE TO SEE PT, NEW ORDERS OBTAINED TO HOLD ELIQUIS.
--- NOTE | 2020-07-15 13:03 | Progress Note - Cardiology ---
Cardiology SOAP Progress Note Subjective: No cp or palp or syncope Weakness and exertional shortness of breath unchanged No n/v/d Objective: I&O/Vital Signs 07/15/20 07/15/20 07/15/20 06:15 09:00 09:50 Temp 36.1 Pulse 71 Resp 14 B/P (MAP) 104/54 (71) Pulse Ox 95 93 O2 Delivery Nasal Cannula Nasal Cannula Nasal Cannula O2 Flow Rate 4.00 2.00 2.00 07/15/20 00:00 Intake Total 2212 ml Output Total 2325 ml Balance -113 ml Weight (Pounds): 120 Weight (Calculated Kilograms): 54.807588 Constitutional: AAO x 3, well-developed, other (thin) Respiratory: No accessory muscle use, No respiratory distress; chest expansion is symmetric, chest is bilaterally symmetric, crackles (bi-basilar), rhonchi (scattered), other (prolonged expiratory phase) Cardiovascular: regular rate-rhythm; No JVD; S1 and S2, systolic murmur (3/6 MSM, worse with Valsalva), other (bounding heart tones) Gastrointestional: No tender; soft, round, audible bowel sounds Extremities: other (mild RLE swelling) Neurologic/Psychiatric: oriented x 3, grossly intact (moves extremities) Skin: No rash on exposed areas, No ulcerations on exposed areas Results/Procedures: Labs Laboratory Tests 07/15/20 05:49: White Blood Count 13.6H, Red Blood Count 2.39L, Hemoglobin 7.4L, Hematocrit 23L, Mean Corpuscular Volume 98, Mean Corpuscular Hemoglobin 31, Mean Corpuscular Hemoglobin Concent 32, Red Cell Distribution Width 14.5, Platelet Count 422H, Mean Platelet Volume 8.6L, Immature Granulocyte % (Auto) 1, Neutrophils (%) (Auto) 82H, Lymphocytes (%) (Auto) 8L, Monocytes (%) (Auto) 7, Eosinophils (%) (Auto) 2, Basophils (%) (Auto) 1, Neutrophils # (Auto) 11.1H, Lymphocytes # (Auto) 1.1, Monocytes # (Auto) 0.9, Eosinophils # (Auto) 0.2, Basophils # (Auto) 0.1, Immature Granulocyte # (Auto) 0.2H, Sodium Level 139, Potassium Level 3.7, Chloride Level 96L, Carbon Dioxide Level 37H, Anion Gap 6, Blood Urea Nitrogen 12, Creatinine 0.40L, Estimat Glomerular Filtration Rate > 60, BUN/Creatinine Ratio 30, Glucose Level 81, Calcium Level 8.2L, Corrected Calcium 9.7, Total Bilirubin 0.6, Aspartate Amino Transf (AST/SGOT) 42H, Alanine Aminotransferase (ALT/SGPT) 25, Alkaline Phosphatase 55, Total Protein 4.6L, Albumin 2.1L Microbiology 07/12/20 Gram Stain - Final, Resulted 07/12/20 Sputum Culture - Preliminary, Resulted Haemophilus influenza Usual upper respiratory [place] 07/12/20 Blood Culture - Preliminary, Resulted No growth Laboratory Tests 07/14/20 08:33 07/15/20 05:49 A/P: Assessment: Progressive shortness of breath, multifactorial (see below) Pulmonary hypertension, moderately severe, etiology undetermined, no evidence of PE on pulm CT angio of 07/12/20 LVOT obstruction. Echo of 07/12/20 shows: mild LVH, systolic anterior motion of mitral valve apparatus, LVOT tract gradient of 110 mmHg, grade 2 diastolic dysfunction, LVEF 55-65%, PASP 85-90 mmHg S/P non-syncopal fall leading to right hip fracture - s/p repair by Dr. Chávez at [facility] [place] in Jun 2020 Post op anemia - worsening. Hematuria and oozing from operative site on 07/15/20 R leg swelling after hip surgery of Jun 2020, no evidence of DVT on leg venous Doppler of 07/12/20 COPD, oxygen dependent HLD Tobaccoism - cessation advised Anxiety Plan: * Hold apixaban because of worsening anemia and active bleeding * Consider transfusion of H&H continue to worsen. Anemia being evaluated and managed by Dr Holt - receiving iron infusion today * Monitor labs [facility] Jul 15, 2020 13:02
[2020-07-15] MEDS: SERTRALINE 50 MG (ZOLOFT) TABLET PO SCH (13:49)
--- NOTE | 2020-07-15 14:15 | Physical Therapy Daily Note ---
PT Daily Note-Current Subjective Patient reports fatigue but agrees to PT. Pain Numeric Pain Scale: 5-Moderate Pain Location: Right Location Body Site: Hip Pain Description: Acute Mental Status Patient Orientation: Normal For Age Attachments: Oxygen, Gallagher Catheter Transfers SCALE: Activities may be completed with or without assistive devices. 6-Emdfeishfj-inctlxu completes the activity by him/herself with no assistance from a helper. 5-Set-up or Clean-up Assistance-helper sets up or cleans up; patient completes activity. [place] assists only prior to or following the activity. 4-Supervision or Touching Assistance-helper provides verbal cues and/or touching/steadying and/or contact guard assistance as patient completes activity. Assistance may be provided throughout the activity or intermittently. 3-Partial/Moderate Assistance-helper does LESS THAN HALF the effort. [place] lifts, holds or supports trunk or limbs, but provides less than half the effort. 2-Substantial/Maximal Assistance-helper does MORE THAN HALF the effort. [place] lifts or holds trunk or limbs and provides more than half the effort. 7-Xduqjfjcd-kidfuc does ALL the effort. Patient does none of the effort to complete the activity. Or, the assistance of 2 or more helpers is required for the patient to complete the activity. If activity was not attempted, code reason: 7-Patient Refused. 9-Not Applicable-not attempted and the patient did not perform the activity before the current illness, exacerbation or injury. 10-Not Attempted due to Environmental Limitations-(lack of equipment, weather restraints, etc.). 88-Not Attempted due to Medical Conditions or Safety Concerns. Sit to Lying (QC): 2 Sit to Stand (QC): 3 Chair/Rkk-yl-Toyte Xfer(QC): 3 (with bed elevated for comfort and precautions) Weight Bearing Right Lower Extremity: Right Weight Bearing/Tolerated Gait Training Does the Patient Walk?: Yes Distance: 25' x 2 Walk 10 feet (QC): 3 Gait Assistive Device: FWW slow, step to gait sequence Exercises Supine Ex: Ankle pumps (R and L), Quad Set (right and left), Heel Slides (left only), Straight leg raise (left only with AAROM), Hip abd/add (left only with AAROM) Supine Reps: 12 Seated Therapy Exercises: Ankle pumps, Long arc quads Seated Reps: 15 (2 sets) Assessment Patient requires time to complete all functional tasks and returned to bed with needs met. Patient reports she plans to increase her activity tomorrow and is highly motivated. PT Short Term Goals Short Term Goals Time Frame: Jul 19, 2020 Roll Left & Right: 3 Sit to lyin Lying to sitting on side of be: 3 Chair/zfh-fq-phgzu transfer: 3 Walk 10 feet: 4 Walk 50 feet with two turns: 4 Walk 150 feet: 4 1 step (curb): 3 PT Stove Refinisher Goals Stove Refinisher Goals PT Detention Goals Time Frame: Jul 26, 2020 Roll Left & Right (QC): 4 Sit to Lying (QC): 4 Lying-Sitting on Side/Bed(QC): 4 Sit to Stand (QC): 4 Chair/Peb-qp-Gotqx Xfer(QC): 4 Toilet Transfer (QC): 4 Car Transfer (QC): 88 Does the Patient Walk: Yes Walk 10 feet (QC): 5 Walk 50ft with 2 Turns (QC): 5 Walk 150 ft (QC): 5 Walking 10ft on Uneven Surface: 5 1 Step (curb) (QC): 4 4 Steps (QC): 4 12 Steps (QC): 88 Picking up an Object (QC): 88 Does the Pt use WC or Scooter?: Yes Wheel 50 feet with 2 turns (QC: 6 Type: Manual Wheel 150 feet: 6 PT Plan Treatment/Plan Treatment Plan: Continue Plan of Care Treatment Plan: Bed Mobility, Education, Functional Activity Latosha, Functional Strength, Group Therapy, Gait, Safety, Therapeutic Exercise, Transfers Treatment Duration: Jul 26, 2020 Frequency: At least 5 of 7 days/Wk (IRF) Estimated Hrs Per Day: 1.5 hours per day Patient and/or Family Agrees t: Yes Time/GCodes Time In: 1330 Time Out: 1400 Total Billed Treatment Time: 30 Total Billed Treatment 1 visit GT 12 min EX 18 min DONNY MARION PT Jul 15, 2020 14:15
--- NOTE | 2020-07-15 14:16 | NUR ---
RD ASSESSMENT PMHx: COPD; HLD; PT INTERACTION: Pt was awake and pleasant during nutrition assessment. Pt states current appetite is "not the best." Note avg PO intake 67% x3d, per chart review. Pt states following a regular diet at home, and has no issues with chewing/swallowing food. Pt states occasional issues with constipation and diarrhea. Note last BM was 07/14, and pt currently on bowel regimen of colace BID; senna BID; and miralax BID, per chart review. Pt states no recent wt changes. Note recent 35# wt gain x7mon, per chart review. ABNORMAL NUTRITION-RELATED LAB VALUES LOW: Cl 96; cr 0.40; Ca 8.2; Po 4.6; alb 2.1 HIGH: AST 42 Est. kcal needs: 1500 kcal | 25 kcal/kg Est. Pro needs: 71 g Pro | 1.2 g Pro/kg PES STATEMENT: Inadequate oral intake (NI-2.1) related to loss of appetite | constipation | diarrhea as evidenced by pt interview | avg PO intake 67% x3d INTERVENTION: Continue with current diet order of DYS2 Mechanically Altered diet. Add Ensure Enlive (vary) to meals TID, for increased kcal and protein intake. Provides 350 kcal and 20 g Pro per serving. Encouraged pt to eat when able. Will continue to follow and reassess as pt needs, intake, and status change. Edward Workman, MS RD LD
--- NOTE | 2020-07-15 14:39 | NUR ---
SPOKE WITH THE PT, WENT THRU THE EXT MED HISTORY, AND GOT A MED LIST FROM [facility] TO COMPLETE THE MED REC MEDICATIONS THAT HAVE BEEN REMOVED DUE TO PT NOT TAKING PRIOR TO [facility]: POTASSIUM BACLOFEN NICOTINE PATCH OXYCODONE/APAP 10/325MG LACTULOSE MIRALAX
[2020-07-15] MEDS ORDERED: NS IV 500 ML 500 ML IV SCH (15:00)
[2020-07-15 16:04] VITALS: BP 91/50
[2020-07-15] MEDS ORDERED: NS IV 500 ML 500 ML ONE (16:22)
[2020-07-15 16:44] VITALS: BP 106/54
[2020-07-15 17:06] VITALS: BP 99/55
--- NOTE | 2020-07-15 17:15 | NUR ---
Visited with pt about smoking cessation. Pt states, "tried to quit before, but I would like to try again." Enc. given. Offered [place] quit information/number and mentioned [facility] classes at the hospital once again when we are given the go-ahead to begin classes once again. Handout on smoking cessation given. patient appreciative of information. will con't to monitor.
[2020-07-15 19:26] VITALS: BP 98/51
[2020-07-15] MEDS: eZETimibe 10 MG (ZETIA) TABLET PO SCH (20:38)
[2020-07-15] MEDS: MELATONIN 3 MG TABLET PO PRN (20:39)
[2020-07-16] MEDS: CEFEPIME INJECTION 1,000 MG in WATER (STERILE) FOR INJECTION 10 ML IV SCH ×3 (04:26→20:14)
[2020-07-16 05:55] LABS: BASOPHILS # (AUTO) 0.1 10^3/uL (0.0-0.1); BASOPHILS % (AUTO) 1 % (0-10); EOSINOPHILS # (AUTO) 0.2 10^3/uL (0.0-0.3); EOSINOPHILS % (AUTO) 2 % (0-10); HEMATOCRIT 29 % (35-52); HEMOGLOBIN 9.4 g/dL (11.5-16.0); LYMPHOCYTES % (AUTO) 8 % (12-44); MEAN CORPUSCULAR HEMOGLOBIN 31 pg (25-34); MEAN CORPUSCULAR HGB CONC 33 g/dL (32-36); MEAN CORPUSCULAR VOLUME 95 fL (80-99); MEAN PLATELET VOLUME 8.6 fL (9.0-12.2); MONOCYTES # (AUTO) 1.1 10^3/uL (0.0-1.0); MONOCYTES % (AUTO) 9 % (0-12); NEUTROPHILS # (AUTO) 9.8 10^3/uL (1.8-7.8); NEUTROPHILS % (AUTO) 80 % (42-75); PLATELET COUNT 460 10^3/uL (130-400); WHITE BLOOD COUNT 12.3 10^3/uL (4.3-11.0)
[2020-07-16 06:00] VITALS: BP 113/58
[2020-07-16 06:08] LABS: ALBUMIN 2.2 GM/DL (3.2-4.5); CHLORIDE 95 MMOL/L (98-107); POTASSIUM 3.7 MMOL/L (3.6-5.0); SODIUM 137 MMOL/L (135-145)
[2020-07-16 06:09] LABS: CALCIUM 8.2 MG/DL (8.5-10.1)
[2020-07-16 06:10] LABS: GLUCOSE 80 MG/DL (70-105)
[2020-07-16 06:11] LABS: TOTAL PROTEIN 4.9 GM/DL (6.4-8.2)
[2020-07-16 06:12] LABS: BILIRUBIN,TOTAL 0.8 MG/DL (0.1-1.0); CARBON DIOXIDE 34 MMOL/L (21-32)
[2020-07-16 06:14] LABS: ALKALINE PHOSPHATASE 50 U/L (40-136); CREATININE SERUM 0.42 MG/DL (0.60-1.30); GFR ESTIMATED > 60
[2020-07-16 06:15] LABS: BUN/CREATININE RATIO 26
[2020-07-16 06:17] LABS: ALANINE AMINOTRANSFERASE 29 U/L (0-55)
--- NOTE | 2020-07-16 08:30 | PM&R Progress Note ---
Subjective HPI/CC On Admission Date Seen by Provider: Jul 16, 2020 Time Seen by Provider: 10:00 Subjective/Events-last exam 07/16/20: Hgb 9.4 after one unit of blood yesterday and 5 units total she she received 4 units at [place], two during each admission Iron infusions maintained Hemoccult was negative Holding blood thinner because of profound bleeding form incision site that could put her at risk for infection Updated daughter 07/15/20: Hemoccult is pending WC 13.6, Hgb 7.4, Iron level at 20 so will initiate IV iron infusions Albumin at 2.1 Titrating down O2 at 96% today so can titrate down After rounds she had bleeding from the surgical site and considering hgb 7.4 Dr Chávez contacted and he wanted Bactrim but already on broad spectrum abx no need for that and 2 units of blood and considering how overloaded she has been will give 1 unit and I updated Dr Chávez on all of these changes. 07/14/20: Coughing is productive 0945 she was dyspneic but received her Lasix and now doing well Anxiety is an issue Declines Lactulose Large BM when she goes QOD Updated daughter on the phone when I saw her today as I have daily Baseline is usually SBP 95 IV Lasix given today with good UOP by Dr Brewster No worsened hypotension from IV Lasix noted Up in chair today and much improved Elevated wbc noted and covered for PNA currently broad spectrum for HAP COVID swabbed negative COughing up purulent sputum, sputum culture pending Acapella helping BM extra large Checked meds and labs Conferred with RN Reviewed therapy notes Review of Systems General: Fatigue, Malaise Pulmonary: Dyspnea, Cough Neurological: Weakness Objective Exam Vital Signs Vital Signs Date Time Temp Pulse Resp B/P (MAP) Pulse Ox O2 Delivery O2 Flow Rate FiO2 07/16/20 20:16 Nasal Cannula 2.00 07/16/20 18:54 92 07/16/20 16:11 36.8 81 16 109/52 (71) Capillary Refill : Less Than 3 SecondsLess Than 3 Seconds General Appearance: No Apparent Distress, WD/WN, Anxious, Chronically ill, Thin HEENT: PERRL/EOMI, Normal ENT Inspection, Pharynx Normal Neck: Full Range of Motion, Normal Inspection, Non Tender, Supple, Carotid Bruit Respiratory: Chest Non Tender, No Accessory Muscle Use, No Respiratory Distress, Decreased Breath Sounds Cardiovascular: Regular Rate, Rhythm, No Edema, No Gallop, No JVD, No Murmur, Normal Peripheral Pulses Gastrointestinal: Normal Bowel Sounds, No Organomegaly, No Pulsatile Mass, Non Tender, Soft Back: Normal Inspection, No CVA Tenderness, No Vertebral Tenderness Extremity: Normal Capillary Refill, Normal Inspection, Normal Range of Motion, Non Tender, No Calf Tenderness, No Pedal Edema Neurologic/Psychiatric: Alert, Oriented x3, No Motor/Sensory Deficits, Normal Mood/Affect, automotive light mechanic II-XII Norm as Tested, Abnormal Gait Skin: Normal Color, Warm/Dry Lymphatic: No Adenopathy Results/Procedures Lab Laboratory Tests 07/17/20 04:30 Patient resulted labs reviewed. FIM Transfers Therapy Code Descriptions/Definitions Functional [place] Measure: 0=Not Assessed/NA 4=Minimal Assistance 1=Total Assistance 5=Supervision or Setup 2=Maximal Assistance 6=Modified [place] 3=Moderate Assistance 7=Complete IndependenceSCALE: Activities may be completed with or without assistive devices. 0-Wplrzedyqm-xtccrqt completes the activity by him/herself with no assistance from a helper. 5-Set-up or Clean-up Assistance-helper sets up or cleans up; patient completes activity. [place] assists only prior to or following the activity. 4-Supervision or Touching Assistance-helper provides verbal cues and/or touching/steadying and/or contact guard assistance as patient completes activity. Assistance may be provided throughout the activity or intermittently. 3-Partial/Moderate Assistance-helper does LESS THAN HALF the effort. [place] lifts, holds or supports trunk or limbs, but provides less than half the effort. 2-Substantial/Maximal Assistance-helper does MORE THAN HALF the effort. [place] lifts or holds trunk or limbs and provides more than half the effort. 2-Niqkwcpxm-rwhrmk does ALL the effort. Patient does none of the effort to complete the activity. Or, the assistance of 2 or more helpers is required for the patient to complete the activity. If activity was not attempted, code reason: 7-Patient Refused. 9-Not Applicable-not attempted and the patient did not perform the activity before the current illness, exacerbation or injury. 10-Not Attempted due to Environmental Limitations-(lack of equipment, weather restraints, etc.). 88-Not Attempted due to Medical Conditions or Safety Concerns. Roll Left to Right (QC): 3 Sit to Lying (QC): 2 Sit to Stand (QC): 3 Chair/Sdi-ho-Hzfxy Xfer(QC): 3 (with bed elevated for comfort and precautions) Car Transfer (QC): 88 (Unable to assess due to hip flexion precautions) Gait Training Does the Patient Walk?: Yes Distance: 25' x 2 Walk 10 feet (QC): 3 Walk 50 ft with 2 Turns(QC): 4 Walk 150 ft (QC): 4 Walking 10ft/uneven surface-QC: 4 Gait Persons Needed: 1 Gait Assistive Device: FWW Wheelchair Training Does the Pt Use a Wheelchair?: Yes Distance: 150' Wheel 50 ft with 2 turns (QC): 4 Wheel 150 ft (QC): 4 Type of Wheelchair: Manual Stair Training #of Steps: 1 1 Step (curb) (QC): 3 4 Steps (QC): 88 12 Steps (QC): 88 Balance Picking up an Object (QC): 88 ADL-Treatment Eating (QC): 6 (Pt reports independence with eating, no difficulties using utensils, bringing food to mouth, and eating.) Oral Hygiene (QC): 4 (CGA standing at sink) Bathing Location: L Arm, R Arm, L Upper Leg, R Upper Leg, L Lower Leg (including foot), R Lower Leg (including foot), Chest, Abdomen, Buttocks, Perineal Area Shower/Bathe Self (QC): 5 Upper Body Dressing (QC): 4 Lower Body Dressing (QC): 4 On/Off Footwear (QC): 4 Toileting Hygiene (QC): 2 (Pt able to manage pants down/up, but assistance still required due to pants/underwear getting caught on brace, Pt able to complete pericare but assist with buttocks.) Assessment/Plan Assessment and Plan Assess & Plan/Chief Complaint Assessment: s/p right hip fracture 07/04/20 s/p repair by Dr Chávez then dislocation of hardware 07/09/20 requiring transfer back to [facility] s/p spinal anesthesia but reduction only required Acute blood loss anemia s/p 2 units transfused 07/05/20 then again 07/09/20 Severe hypotension due to volume depletion requiring aggressive IVF administration at [facility] Acute pneumonia upon arrival to [facility] today requiring septic w/u which was negative and empiric abx for HAP COPD Current and heavy smoker 60 years Osteoporosis HLP Gallagher cath in place due to inability to ambulate with hip brace to prevent dislocation Pulmonary HTN 90 on ECHO negative USG right leg and negative PE on CT angiogram Anxiety Plan: IRF protocol Empiric abx Cardiology and Pulmonology appreciated Very frail status Anxiety treatment 07/13/20: Abx for HAP COVID negative IV Lasix 07/14/20: IV Lasix IV abx O2 Nebs COVID negative BM regimen 07/15/20: Check stools for blood Hemoglobin 7.4 monitor closely IV iron infusions Increase nutrition Titrate oxygen down Transfuse 1 unit of blood today Hold OAC 07/16/20: Monitor hemoglobin Hold anticoagulation due to severe anemia Monitor closely (1) Closed right hip fracture (2) Pneumonia (3) Pulmonary edema (4) Pulmonary hypertension (5) Anxiety (6) Osteoporosis (7) Hyperlipemia (8) Frailty (9) Elevated brain natriuretic peptide (BNP) level (10) COPD (chronic obstructive pulmonary disease) (11) Hypoxia (12) Anemia due to acute blood loss (13) Transfusion history (14) Gallagher catheter in place (15) Hip dislocation, right (16) Dyspnea AVANI NICOLE DO Jul 16, 2020 08:30
--- NOTE | 2020-07-16 08:39 | NUR ---
OB STOOL ORDERED X2... [address] SMITH [address] NICOLE. OB STOOL SENT DOWN THIS AM WITH NEGATIVE RESULTS. DR. NICOLE INFORMED. ORDERS TO DC SECOND OB STOOL PER DR. NICOLE.
[2020-07-16] MEDS: LACTOBACILLUS ACIDOPHILUS (PROBIOTIC) CAPSULE PO SCH ×3 (09:24→17:12)
[2020-07-16] MEDS: dilTIAZem120 MG (CARDIZEM CD) CAP PO SCH (09:25)
[2020-07-16] MEDS: ASPIRIN 81 MG CHEW (CHILDREN'S ASA) PO SCH (09:25)
[2020-07-16] MEDS: PANTOPRAZOLE 40 MG (PROTONIX) TAB PO SCH (09:25)
[2020-07-16] MEDS: OXYBUTYNIN (DITROPAN) 5 MG TAB PO SCH ×3 (09:25→20:14)
[2020-07-16] MEDS: NICOTINE 14 MG (NICODERM) PATCH TD SCH (09:25)
[2020-07-16] MEDS: FUROSEMIDE 40 MG/4 ML INJ (LASIX) IVP SCH (09:26)
[2020-07-16] MEDS: NICOTINE PATCH REMOVAL TP SCH (09:34)
[2020-07-16] MEDS: DOCUSATE SODIUM 100 MG (COLACE) CAP PO SCH ×2 (09:35→20:20)
[2020-07-16 09:36] VITALS: BP 121/57
[2020-07-16] MEDS: polyethylene glycoL POWDER 17 GM (MIRALAX) PACK PO SCH ×2 (09:38→20:20)
[2020-07-16] MEDS: SENNA W/DOCUSATE (SENOKOT S) TABLET PO SCH ×2 (09:38→20:21)
[2020-07-16] MEDS: LACTULOSE SYRUP 10GM/15ML (ENULOSE) 30ML UDC PO SCH ×2 (09:38→20:20)
[2020-07-16] MEDS: RT-ALBUTEROL SULF 2.5 MG/3 ML PRE-MIX VIAL INH SCH ×3 (10:03→18:53)
--- NOTE | 2020-07-16 10:06 | NUR ---
JHONATANAIMA HERE. WOULD LIKE TO RESTART ELIQUIS IF OK WITH DR. NICOLE. DR. NICOLE INFORMED WITH ORDERS TO CONTINUE TO HOLD FOR NOW.
--- NOTE | 2020-07-16 10:11 | Progress Note - Cardiology ---
Cardiology SOAP Progress Note Subjective: Sitting up in the recliner at the bedside. C/O bilat LE swelling. Feels breathing is better today. No c/o CP. Objective: I&O/Vital Signs 07/16/20 07/16/20 07/16/20 07/16/20 06:00 09:36 09:58 10:03 Temp 36.4 Pulse 77 73 Resp 20 B/P (MAP) 113/58 (76) 121/57 (78) Pulse Ox 92 92 O2 Delivery Nasal Cannula Nasal Cannula Nasal Cannula O2 Flow Rate 2.00 2.00 2.00 07/16/20 00:00 Intake Total 1600 ml Output Total 2000 ml Balance -400 ml Weight (Pounds): 120 Weight (Calculated Kilograms): 54.777606 Constitutional: AAO x 3, well-developed, other (thin) Respiratory: No accessory muscle use, No respiratory distress; chest expansion is symmetric, chest is bilaterally symmetric, crackles (bi-basilar), rhonchi (scattered), other (prolonged expiratory phase) Cardiovascular: regular rate-rhythm; No JVD; S1 and S2, systolic murmur (3/6 MSM, worse with Valsalva), other (bounding heart tones) Gastrointestional: No tender; soft, round, audible bowel sounds Extremities: other (bilat LE swelling 2+) Neurologic/Psychiatric: oriented x 3, grossly intact (moves extremities) Skin: No rash on exposed areas, No ulcerations on exposed areas Results/Procedures: Labs Laboratory Tests 07/16/20 05:40: White Blood Count 12.3H, Red Blood Count 3.01L, Hemoglobin 9.4#L, Hematocrit 29L , Mean Corpuscular Volume 95, Mean Corpuscular Hemoglobin 31, Mean Corpuscular Hemoglobin Concent 33, Red Cell Distribution Width 14.9H, Platelet Count 460H, Mean Platelet Volume 8.6L, Immature Granulocyte % (Auto) 2, Neutrophils (%) (Auto) 80H, Lymphocytes (%) (Auto) 8L, Monocytes (%) (Auto) 9, Eosinophils (%) (Auto) 2, Basophils (%) (Auto) 1, Neutrophils # (Auto) 9.8H, Lymphocytes # (Auto) 1.0, Monocytes # (Auto) 1.1H, Eosinophils # (Auto) 0.2, Basophils # (Auto) 0.1, Immature Granulocyte # (Auto) 0.2H, Sodium Level 137, Potassium Level 3.7, Chloride Level 95L, Carbon Dioxide Level 34H, Anion Gap 8, Blood Urea Nitrogen 11, Creatinine 0.42L, Estimat Glomerular Filtration Rate > 60, BUN/Creatinine Ratio 26, Glucose Level 80, Calcium Level 8.2L, Corrected Calcium 9.6, Total Bilirubin 0.8, Aspartate Amino Transf (AST/SGOT) 40H, Alanine Aminotransferase (ALT/SGPT) 29, Alkaline Phosphatase 50, Total Protein 4.9L, Albumin 2.2L 07/16/20 06:30: Stool Occult Blood Immunoassay NEGATIVE Microbiology 07/12/20 Gram Stain - Final, Complete 07/12/20 Sputum Culture - Final, Complete Haemophilus influenza Staphylococcus aureus Usual upper respiratory [place] 07/12/20 Blood Culture - Preliminary, Resulted No growth A/P: Assessment: Progressive shortness of breath, multifactorial (see below) Pulmonary hypertension, moderately severe, etiology undetermined, no evidence of PE on pulm CT angio of 07/12/20 LVOT obstruction. Echo of 07/12/20 shows: mild LVH, systolic anterior motion of mitral valve apparatus, LVOT tract gradient of 110 mmHg, grade 2 diastolic dysfunction, LVEF 55-65%, PASP 85-90 mmHg S/P non-syncopal fall leading to right hip fracture - s/p repair by Dr. Chávez at [facility] in Jun 2020 Post op anemia - worsening. Hematuria and oozing from operative site on 07/15/20 R leg swelling after hip surgery of Jun 2020, no evidence of DVT on leg venous Doppler of 07/12/20 COPD, oxygen dependent HLD Tobaccoism - cessation advised Anxiety Plan: * Apixaban being held because of worsening anemia and active bleeding - received transfusion yesterday * Anemia being evaluated and managed by Dr Holt - receiving iron infusion * Worsening bilat LE swelling possibly secondary to venous insufficiency and/or calcium channel lupe * Monitor labs ROMULO STORY Jul 16, 2020 10:11
[2020-07-16] MEDS ORDERED: FUROSEMIDE 40 MG/4 ML INJ (LASIX) IVP NR (10:18)
--- NOTE | 2020-07-16 10:32 | Occupational Ther Daily Note ---
OT Current Status-Daily Note Subjective Pt was in recliner upon arrival. Pt no c/o pain. Pt agreed to therapy. Mental Status/Objective Patient Orientation: Person, Place, Time, Situation Attachments: IV ADL-Treatment Pt stated she needed to use restroom. Pt transferred with Min A to commode. Pt required Min A and verbal cues to use adaptive equipment to doff underwear, due to pt fatigue assisted with lower body dressing. Pt agreed to taking shower. Pt performed upper body washing with Min A required cues to initiate. Pt used LH sponge to wash B LE and feet. Pt demonstrated drying off body with Min A. Pt transferred to wheelchair to dry thoroughly then stood to get Abduction brace on (max A). Pt requests continued use of hospital gown due to brace. Pt declined brushing teeth. Pt used FWW, SBA getting to recliner. Pt stated she wanted to brush her hair, new coffee. Pt took increased time to complete all tasks due to low activity tolerance requiring multiple breaks and slow movements. After therapy, pt sitting in recliner with call light/phone in reach. All needs met in room. Therapy Code Descriptions/Definitions Functional [place] Measure: 0=Not Assessed/NA 4=Minimal Assistance 1=Total Assistance 5=Supervision or Setup 2=Maximal Assistance 6=Modified [place] 3=Moderate Assistance 7=Complete IndependenceSCALE: Activities may be completed with or without assistive devices. 8-Igmnhbgtxr-osggsqw completes the activity by him/herself with no assistance from a helper. 5-Set-up or Clean-up Assistance-helper sets up or cleans up; patient completes activity. [place] assists only prior to or following the activity. 4-Supervision or Touching Assistance-helper provides verbal cues and/or touching/steadying and/or contact guard assistance as patient completes activity. Assistance may be provided throughout the activity or intermittently. 3-Partial/Moderate Assistance-helper does LESS THAN HALF the effort. [place] lifts, holds or supports trunk or limbs, but provides less than half the effort. 2-Substantial/Maximal Assistance-helper does MORE THAN HALF the effort. [place] lifts or holds trunk or limbs and provides more than half the effort. 7-Pqmzoknic-kyncfe does ALL the effort. Patient does none of the effort to complete the activity. Or, the assistance of 2 or more helpers is required for the patient to complete the activity. If activity was not attempted, code reason: 7-Patient Refused. 9-Not Applicable-not attempted and the patient did not perform the activity before the current illness, exacerbation or injury. 10-Not Attempted due to Environmental Limitations-(lack of equipment, weather restraints, etc.). 88-Not Attempted due to Medical Conditions or Safety Concerns. Bathing Location: L Arm, R Arm, L Upper Leg, R Upper Leg, L Lower Leg (including foot) (washing with LH sponge then assist to dry), R Lower Leg (including foot) (washing with LH sponge then assist to dry), Chest, Abdomen, Perineal Area Shower/Bathe Self (QC): 3 Toileting Hygiene (QC): 2 (Assist to manipulate clothing and assist to cleanse after BM to assure cleanliness.) Toilet Transfer (QC): 3 OT Short Term Goals Short Term Goals Time Frame: Jul 24, 2020 Toileting hygiene: 3 Shower/bathe self: 3 Upper body dressin Lower body dressin OT Assisted Goals Activity Assistant Goals Time Frame: Aug 02, 2020 Eating (QC): 6 Oral Hygiene (QC): 6 Toileting Hygiene (QC): 6 Shower/Bathe Self (QC): 6 Upper Body Dressing (QC): 6 Lower Body Dressing (QC): 6 On/Off Footwear (QC): 6 Additional Goals: 1-Demonstrate ADL Tasks, 2-Verbalize Understanding, 3- ImproveStrength/[place] 1=Demonstrate adherence to instructed precautions during ADL tasks. 2=Patient will verbalize/demonstrate understanding of assistive devices/modifications for ADL. 3=Patient will improve strength/tolerance for activity to enable patient to perform ADL's. OT Education/Plan Problem List/Assessment Assessment: Decreased Activ Tolerance, Decreased UE Strength, Impaired Self- Care Skills Pt would benefit from skilled OT in order to increase safety and independence with ADLs and functional mobility, and for education on AE for lower body dressing. Discharge Recommendations Plan/Recommendations: Continue POC Treatment Plan/Plan of Care Patient would benefit from OT for education, treatment and training to promote independence in ADL's, mobility, safety and/or upper extremity function for ADL's. Plan of Care: ADL Retraining, Functional Mobility, Group Exercise/Act as Ind, UE Funct Exercise/Act Treatment Duration: Aug 02, 2020 Frequency: At least 5 of 7 days/Wk (IRF) Estimated Hrs Per Day: 1.5 hours per day Rehab Potential: Fair Time/GCodes Start Time: 07:30 Stop Time: 09:00 Total Time Billed (hr/min): 90 Billed Treatment Time 1 visit-ADL 6 (90 min) MARILIN CASIANO Jul 16, 2020 10:32
--- NOTE | 2020-07-16 11:07 | Physical Therapy Daily Note ---
PT Daily Note-Current Subjective Pt sitting in recliner upon arrival. Pt agrees to PT. Nurse present & giving meds. Pain Numeric Pain Scale: 7 Location: Right Location Body Site: Hip Pain Description: Ache Mental Status Patient Orientation: Person, Place, Time, Situation Attachments: Oxygen, Other-See Comments (R hip Immobilizer) Transfers SCALE: Activities may be completed with or without assistive devices. 3-Qdaqxedkss-dkjjdsd completes the activity by him/herself with no assistance from a helper. 5-Set-up or Clean-up Assistance-helper sets up or cleans up; patient completes activity. [place] assists only prior to or following the activity. 4-Supervision or Touching Assistance-helper provides verbal cues and/or touching/steadying and/or contact guard assistance as patient completes activity. Assistance may be provided throughout the activity or intermittently. 3-Partial/Moderate Assistance-helper does LESS THAN HALF the effort. [place] lifts, holds or supports trunk or limbs, but provides less than half the effort. 2-Substantial/Maximal Assistance-helper does MORE THAN HALF the effort. [place] lifts or holds trunk or limbs and provides more than half the effort. 0-Rwuexawkn-xdxvfb does ALL the effort. Patient does none of the effort to complete the activity. Or, the assistance of 2 or more helpers is required for the patient to complete the activity. If activity was not attempted, code reason: 7-Patient Refused. 9-Not Applicable-not attempted and the patient did not perform the activity before the current illness, exacerbation or injury. 10-Not Attempted due to Environmental Limitations-(lack of equipment, weather restraints, etc.). 88-Not Attempted due to Medical Conditions or Safety Concerns. Sit to Stand (QC): 4 Weight Bearing Right Lower Extremity: Right Weight Bearing/Tolerated Gait Training Does the Patient Walk?: Yes Distance: 150' Walk 10 feet (QC): 4 Walk 50 ft with 2 Turns(QC): 4 Walk 150 ft (QC): 4 Gait Persons Needed: 1 Gait Assistive Device: FWW Exercises Seated Therapy Exercises: Ankle pumps, Long arc quads, Hip flexion, Kicking activity, Glut set Seated Reps: 15 Treatments TF to standing, amb. in hallway, RB as needed. Completes Seated Ex, returns to room and uses BR. All needs met, call light in hand. Assessment Current Status: Good Progress BP to start tx 121/57, P- 73. Movement is slow but steady. PT Short Term Goals Short Term Goals Time Frame: Jul 19, 2020 Roll Left & Right: 3 Sit to lyin Lying to sitting on side of be: 3 Chair/fmu-ws-duzmh transfer: 3 Walk 10 feet: 4 Walk 50 feet with two turns: 4 Walk 150 feet: 4 1 step (curb): 3 PT Fdc Goals Bingo Cashier Goals PT Bingo Cashier Goals Time Frame: Jul 26, 2020 Roll Left & Right (QC): 4 Sit to Lying (QC): 4 Lying-Sitting on Side/Bed(QC): 4 Sit to Stand (QC): 4 Chair/Ceg-vl-Mdobq Xfer(QC): 4 Toilet Transfer (QC): 4 Car Transfer (QC): 88 Does the Patient Walk: Yes Walk 10 feet (QC): 5 Walk 50ft with 2 Turns (QC): 5 Walk 150 ft (QC): 5 Walking 10ft on Uneven Surface: 5 1 Step (curb) (QC): 4 4 Steps (QC): 4 12 Steps (QC): 88 Picking up an Object (QC): 88 Does the Pt use WC or Scooter?: Yes Wheel 50 feet with 2 turns (QC: 6 Type: Manual Wheel 150 feet: 6 PT Plan Problem List Problem List: Activity Tolerance, Functional Strength, Safety Treatment/Plan Treatment Plan: Continue Plan of Care Treatment Plan: Bed Mobility, Education, Functional Activity [place], Functional Strength, Group Therapy, Gait, Safety, Therapeutic Exercise, Transfers Treatment Duration: Jul 26, 2020 Frequency: At least 5 of 7 days/Wk (IRF) Estimated Hrs Per Day: 1.5 hours per day Patient and/or Family Agrees t: Yes Safety Risks/Education Patient Education: Gait Training, Transfer Techniques, Correct Positioning, Safety Issues Teaching Recipient: Patient Teaching Methods: Discussion Response to Teaching: Verbalize Understanding Time/GCodes Time In: 900 Time Out: 1000 Total Billed Treatment Time: 60 Total Billed Treatment 1, GT x2 (30m) & Ex x2 (30m) MICKY BYNUM HOIST CYLINDER LOADER Jul 16, 2020 11:07
[2020-07-16] MEDS: SERTRALINE 50 MG (ZOLOFT) TABLET PO SCH (12:03)
--- NOTE | 2020-07-16 12:25 | Progress Note - Cardiology ---
Cardiology SOAP Progress Note Subjective: No cp or palp or syncope Shortness of breath is better Weakness persistent No focal weakness No n/v/d Objective: I&O/Vital Signs 07/16/20 07/16/20 07/16/20 07/16/20 06:00 09:36 09:58 10:03 Temp 36.4 Pulse 77 73 Resp 20 B/P (MAP) 113/58 (76) 121/57 (78) Pulse Ox 92 92 O2 Delivery Nasal Cannula Nasal Cannula Nasal Cannula O2 Flow Rate 2.00 2.00 2.00 07/16/20 00:00 Intake Total 1600 ml Output Total 2000 ml Balance -400 ml Weight (Pounds): 120 Weight (Calculated Kilograms): 54.330414 Constitutional: AAO x 3, well-developed, other (thin) Respiratory: No accessory muscle use, No respiratory distress; chest expansion is symmetric, chest is bilaterally symmetric, crackles (bi-basilar), rhonchi (scattered), other (prolonged expiratory phase) Cardiovascular: regular rate-rhythm; No JVD; S1 and S2, systolic murmur (3/6 MSM, worse with Valsalva), other (bounding heart tones) Gastrointestional: No tender; soft, round, audible bowel sounds Extremities: other (bilat LE swelling 2+) Neurologic/Psychiatric: oriented x 3, grossly intact (moves extremities) Skin: No rash on exposed areas, No ulcerations on exposed areas Results/Procedures: Labs Laboratory Tests 07/16/20 05:40: White Blood Count 12.3H, Red Blood Count 3.01L, Hemoglobin 9.4#L, Hematocrit 29L , Mean Corpuscular Volume 95, Mean Corpuscular Hemoglobin 31, Mean Corpuscular Hemoglobin Concent 33, Red Cell Distribution Width 14.9H, Platelet Count 460H, Mean Platelet Volume 8.6L, Immature Granulocyte % (Auto) 2, Neutrophils (%) (Auto) 80H, Lymphocytes (%) (Auto) 8L, Monocytes (%) (Auto) 9, Eosinophils (%) (Auto) 2, Basophils (%) (Auto) 1, Neutrophils # (Auto) 9.8H, Lymphocytes # (Auto) 1.0, Monocytes # (Auto) 1.1H, Eosinophils # (Auto) 0.2, Basophils # (Auto) 0.1, Immature Granulocyte # (Auto) 0.2H, Sodium Level 137, Potassium Level 3.7, Chloride Level 95L, Carbon Dioxide Level 34H, Anion Gap 8, Blood Urea Nitrogen 11, Creatinine 0.42L, Estimat Glomerular Filtration Rate > 60, BUN/Creatinine Ratio 26, Glucose Level 80, Calcium Level 8.2L, Corrected Calcium 9.6, Total Bilirubin 0.8, Aspartate Amino Transf (AST/SGOT) 40H, Alanine Aminotransferase (ALT/SGPT) 29, Alkaline Phosphatase 50, Total Protein 4.9L, Albumin 2.2L 07/16/20 06:30: Stool Occult Blood Immunoassay NEGATIVE Microbiology 07/12/20 Gram Stain - Final, Complete 07/12/20 Sputum Culture - Final, Complete Haemophilus influenza Staphylococcus aureus Usual upper respiratory [place] 07/12/20 Blood Culture - Preliminary, Resulted No growth Laboratory Tests 07/15/20 05:49 07/16/20 05:40 A/P: Assessment: Progressive shortness of breath, multifactorial (see below) Pulmonary hypertension, moderately severe, etiology undetermined, no evidence of PE on pulm CT angio of 07/12/20 LVOT obstruction. Echo of 07/12/20 shows: mild LVH, systolic anterior motion of mitral valve apparatus, LVOT tract gradient of 110 mmHg, grade 2 diastolic dysfunction, LVEF 55-65%, PASP 85-90 mmHg S/P non-syncopal fall leading to right hip fracture - s/p repair by Dr. Chávez at [facility] [place] in Jun 2020 Post op anemia - worsening. Hematuria and oozing from operative site on 07/15/20. S/p transfusion on 07/15/20. Dr Jonathon noblein R leg swelling after hip surgery of Jun 2020, no evidence of DVT on leg venous Doppler of 07/12/20 COPD, oxygen dependent HLD Tobaccoism - cessation advised Anxiety Plan: * Apixaban being held because of worsening anemia and active bleeding - received transfusion yesterday * Anemia being evaluated and managed by Dr Holt - receiving iron infusion * We recommend reinitiation of apixaban, Dr Holt to decide on the appropriate timing of this * Worsening bilat LE swelling possibly secondary to venous insufficiency and/or calcium channel lupe * Monitor labs PERICO PARK MD FACP [facility] Jul 16, 2020 12:25
--- NOTE | 2020-07-16 14:19 | NUR ---
SMALL RED AREA NOTED ON LEFT HEEL. ALLEVYN APPLIED. STATES, EARS HURT FROM OXYGEN TUBING. DEUTSCH EAR CUSHIONS APPLIED. RIGHT HIP DRESSING CHANGED. INCISION IS WELL APPROXIMATED WITH LUANNE INTACT. SCANT DRAINAGE NOTED.
--- NOTE | 2020-07-16 14:59 | NUR ---
COUGHING NOTED AFTER TAKING PILLS. WILL TRY PILLS WHOLE IN APPLESAUCE OR PUDDING. WILL CRUSH IF NEEDED.
--- NOTE | 2020-07-16 15:24 | Physical Therapy Daily Note ---
PT Daily Note-Current Subjective Pt laying Supine in bed upon arrival. Pt agrees to PT. Pain Numeric Pain Scale: 6 Location: Right Location Body Site: Hip Pain Description: Ache, Tightness Mental Status Patient Orientation: Person, Place, Situation Attachments: Other-See Comments (R Hip Immobilizer) Transfers SCALE: Activities may be completed with or without assistive devices. 0-Wrxdnsuwvb-yyuwhjx completes the activity by him/herself with no assistance from a helper. 5-Set-up or Clean-up Assistance-helper sets up or cleans up; patient completes activity. [place] assists only prior to or following the activity. 4-Supervision or Touching Assistance-helper provides verbal cues and/or touching/steadying and/or contact guard assistance as patient completes activity . Assistance may be provided throughout the activity or intermittently. 3-Partial/Moderate Assistance-helper does LESS THAN HALF the effort. [place] lifts, holds or supports trunk or limbs, but provides less than half the effort. 2-Substantial/Maximal Assistance-helper does MORE THAN HALF the effort. [place] lifts or holds trunk or limbs and provides more than half the effort. 2-Oehwtfhgg-fkouzz does ALL the effort. Patient does none of the effort to complete the activity. Or, the assistance of 2 or more helpers is required for the patient to complete the activity. If activity was not attempted, code reason: 7-Patient Refused. 9-Not Applicable-not attempted and the patient did not perform the activity before the current illness, exacerbation or injury. 10-Not Attempted due to Environmental Limitations-(lack of equipment, weather restraints, etc.). 88-Not Attempted due to Medical Conditions or Safety Concerns. Weight Bearing Right Lower Extremity: Right Weight Bearing/Tolerated Exercises Supine Ex: Ankle pumps, Quad Set, Glut sets, Heel Slides, Straight leg raise, Hip abd/add Supine Reps: 15 Treatments Completes Supine Ex with instruction and assistance as needed (barby. Heel Slide). Pt reports tightness at L heel so OIL AND GAS LEASE PUMPER removes DAMIR wrap and notifies Nurse a pink spot on heel and floated heel to prevent pressure sore. All needs met, call light in hand. Assessment Current Status: Good Progress Continuing to work on strengthening thru EX. PT Short Term Goals Short Term Goals Time Frame: Jul 19, 2020 Roll Left & Right: 3 Sit to lyin Lying to sitting on side of be: 3 Chair/omx-hq-lvvnr transfer: 3 Walk 10 feet: 4 Walk 50 feet with two turns: 4 Walk 150 feet: 4 1 step (curb): 3 PT Hi Ranger Operator Goals Fdc Goals PT Hi Ranger Operator Goals Time Frame: Jul 26, 2020 Roll Left & Right (QC): 4 Sit to Lying (QC): 4 Lying-Sitting on Side/Bed(QC): 4 Sit to Stand (QC): 4 Chair/Kah-at-Ecqlv Xfer(QC): 4 Toilet Transfer (QC): 4 Car Transfer (QC): 88 Does the Patient Walk: Yes Walk 10 feet (QC): 5 Walk 50ft with 2 Turns (QC): 5 Walk 150 ft (QC): 5 Walking 10ft on Uneven Surface: 5 1 Step (curb) (QC): 4 4 Steps (QC): 4 12 Steps (QC): 88 Picking up an Object (QC): 88 Does the Pt use WC or Scooter?: Yes Wheel 50 feet with 2 turns (QC: 6 Type: Manual Wheel 150 feet: 6 PT Plan Problem List Problem List: Activity Tolerance, Functional Strength Treatment/Plan Treatment Plan: Continue Plan of Care Treatment Plan: Bed Mobility, Education, Functional Activity Latosha, Functional Strength, Group Therapy, Gait, Safety, Therapeutic Exercise, Transfers Treatment Duration: Jul 26, 2020 Frequency: At least 5 of 7 days/Wk (IRF) Estimated Hrs Per Day: 1.5 hours per day Patient and/or Family Agrees t: Yes Safety Risks/Education Patient Education: Correct Positioning, Safety Issues Teaching Recipient: Patient Teaching Methods: Discussion Response to Teaching: Verbalize Understanding Time/GCodes Time In: 1330 Time Out: 1400 Total Billed Treatment Time: 30 Total Billed Treatment 1, EX x2 (30m) MISAMICKY OIL AND GAS LEASE PUMPER Jul 16, 2020 15:24
[2020-07-16 16:11] VITALS: BP 109/52
--- NOTE | 2020-07-16 19:11 | NUR ---
bedside report received from ESTEBAN, assume care of pt
[2020-07-16] MEDS: MELATONIN 3 MG TABLET PO PRN (20:14)
--- NOTE | 2020-07-16 20:14 | NUR ---
refused Colace, Senokot & miralax , melatonin 3mg given with pudding
[2020-07-16] MEDS: eZETimibe 10 MG (ZETIA) TABLET PO SCH (20:18)
[2020-07-17] MEDS: CEFEPIME INJECTION 1,000 MG in WATER (STERILE) FOR INJECTION 10 ML IV SCH (04:03)
[2020-07-17 04:56] LABS: HEMOGLOBIN 9.1 g/dL (11.5-16.0); MEAN PLATELET VOLUME 8.7 fL (9.0-12.2); WHITE BLOOD COUNT 11.9 10^3/uL (4.3-11.0)
[2020-07-17 05:07] LABS: CHLORIDE 95 MMOL/L (98-107); POTASSIUM 3.3 MMOL/L (3.6-5.0); SODIUM 136 MMOL/L (135-145)
[2020-07-17 05:08] LABS: CALCIUM 8.2 MG/DL (8.5-10.1); GLUCOSE 96 MG/DL (70-105)
[2020-07-17 05:10] LABS: CARBON DIOXIDE 34 MMOL/L (21-32)
[2020-07-17 05:12] LABS: CREATININE SERUM 0.47 MG/DL (0.60-1.30); GFR ESTIMATED > 60
[2020-07-17 05:13] LABS: BUN/CREATININE RATIO 21
[2020-07-17 05:14] LABS: MAGNESIUM 1.6 MG/DL (1.6-2.4)
[2020-07-17 05:32] VITALS: BP 110/54
--- NOTE | 2020-07-17 06:23 | PM&R Progress Note ---
Subjective HPI/CC On Admission Date Seen by Provider: Jul 17, 2020 Time Seen by Provider: 09:00 Subjective/Events-last exam 07/17/20: Hgb 9.4 Overall very improved Weaned off oxygen DAMRI wraps will be maintained for lower extremity edema Cefepime maintained as antibiotics for pneumonia changing to PO abx During exertion she required oxygen Updated her daughter 07/16/20: Hgb 9.4 after one unit of blood yesterday and 5 units total she she received 4 units at [place], two during each admission Iron infusions maintained Hemoccult was negative Holding blood thinner because of profound bleeding form incision site that could put her at risk for infection Updated daughter 07/15/20: Hemoccult is pending WC 13.6, Hgb 7.4, Iron level at 20 so will initiate IV iron infusions Albumin at 2.1 Titrating down O2 at 96% today so can titrate down After rounds she had bleeding from the surgical site and considering hgb 7.4 Dr Chávez contacted and he wanted Bactrim but already on broad spectrum abx no need for that and 2 units of blood and considering how overloaded she has been will give 1 unit and I updated Dr Chávez on all of these changes. 07/14/20: Coughing is productive 0945 she was dyspneic but received her Lasix and now doing well Anxiety is an issue Declines Lactulose Large BM when she goes QOD Updated daughter on the phone when I saw her today as I have daily Baseline is usually SBP 95 IV Lasix given today with good UOP by Dr Brewster No worsened hypotension from IV Lasix noted Up in chair today and much improved Elevated wbc noted and covered for PNA currently broad spectrum for HAP COVID swabbed negative COughing up purulent sputum, sputum culture pending Acapella helping BM extra large Checked meds and labs Conferred with RN Reviewed therapy notes Review of Systems Pulmonary: Dyspnea, Cough Musculoskeletal: leg pain Objective Exam Vital Signs Vital Signs Date Time Temp Pulse Resp B/P (MAP) Pulse Ox O2 Delivery O2 Flow Rate FiO2 07/17/20 18:00 37.2 78 16 106/54 (71) 91 Nasal Cannula 1.00 Capillary Refill : Less Than 3 SecondsLess Than 3 Seconds General Appearance: No Apparent Distress, WD/WN, Anxious, Chronically ill, Thin HEENT: PERRL/EOMI, Normal ENT Inspection, Pharynx Normal Neck: Full Range of Motion, Normal Inspection, Non Tender, Supple, Carotid Bruit Respiratory: Chest Non Tender, No Accessory Muscle Use, No Respiratory Distress, Decreased Breath Sounds Cardiovascular: Regular Rate, Rhythm, No Edema, No Gallop, No JVD, No Murmur, Normal Peripheral Pulses Gastrointestinal: Normal Bowel Sounds, No Organomegaly, No Pulsatile Mass, Non Tender, Soft Back: Normal Inspection, No CVA Tenderness, No Vertebral Tenderness Extremity: Normal Capillary Refill, Normal Inspection, Normal Range of Motion, Non Tender, No Calf Tenderness, No Pedal Edema Neurologic/Psychiatric: Alert, Oriented x3, No Motor/Sensory Deficits, Normal Mood/Affect, management expert II-XII Norm as Tested, Abnormal Gait Skin: Normal Color, Warm/Dry Lymphatic: No Adenopathy Results/Procedures Lab Laboratory Tests 07/17/20 04:30 Patient resulted labs reviewed. FIM Transfers Therapy Code Descriptions/Definitions Functional [place] Measure: 0=Not Assessed/NA 4=Minimal Assistance 1=Total Assistance 5=Supervision or Setup 2=Maximal Assistance 6=Modified [place] 3=Moderate Assistance 7=Complete IndependenceSCALE: Activities may be completed with or without assistive devices. 0-Nebwilraan-lfghwre completes the activity by him/herself with no assistance from a helper. 5-Set-up or Clean-up Assistance-helper sets up or cleans up; patient completes activity. [place] assists only prior to or following the activity. 4-Supervision or Touching Assistance-helper provides verbal cues and/or touching/steadying and/or contact guard assistance as patient completes activi ty. Assistance may be provided throughout the activity or intermittently. 3-Partial/Moderate Assistance-helper does LESS THAN HALF the effort. [place] lifts, holds or supports trunk or limbs, but provides less than half the effort. 2-Substantial/Maximal Assistance-helper does MORE THAN HALF the effort. [place] lifts or holds trunk or limbs and provides more than half the effort. 3-Xoadvebut-kkauob does ALL the effort. Patient does none of the effort to complete the activity. Or, the assistance of 2 or more helpers is required for the patient to complete the activity. If activity was not attempted, code reason: 7-Patient Refused. 9-Not Applicable-not attempted and the patient did not perform the activity before the current illness, exacerbation or injury. 10-Not Attempted due to Environmental Limitations-(lack of equipment, weather restraints, etc.). 88-Not Attempted due to Medical Conditions or Safety Concerns. Roll Left to Right (QC): 3 Sit to Lying (QC): 2 Sit to Stand (QC): 4 Chair/Syv-cb-Soqyq Xfer(QC): 3 (with bed elevated for comfort and precautions) Car Transfer (QC): 88 (Unable to assess due to hip flexion precautions) Gait Training Does the Patient Walk?: Yes Distance: 150' Walk 10 feet (QC): 4 Walk 50 ft with 2 Turns(QC): 4 Walk 150 ft (QC): 4 Walking 10ft/uneven surface-QC: 4 Gait Persons Needed: 1 Gait Assistive Device: FWW Wheelchair Training Does the Pt Use a Wheelchair?: Yes Distance: 150' Wheel 50 ft with 2 turns (QC): 4 Wheel 150 ft (QC): 4 Type of Wheelchair: Manual Stair Training #of Steps: 1 1 Step (curb) (QC): 3 4 Steps (QC): 88 12 Steps (QC): 88 Balance Picking up an Object (QC): 88 ADL-Treatment Eating (QC): 6 (Pt reports independence with eating, no difficulties using utensils, bringing food to mouth, and eating.) Oral Hygiene (QC): 4 (CGA standing at sink) Bathing Location: L Arm, R Arm, L Upper Leg, R Upper Leg, L Lower Leg (including foot) (washing with LH sponge then assist to dry), R Lower Leg ( including foot) (washing with LH sponge then assist to dry), Chest, Abdomen, Perineal Area Shower/Bathe Self (QC): 3 Upper Body Dressing (QC): 4 Lower Body Dressing (QC): 4 On/Off Footwear (QC): 4 Toileting Hygiene (QC): 2 (Assist to manipulate clothing and assist to cleanse after BM to assure cleanliness.) Toilet Transfer (QC): 3 Assessment/Plan Assessment and Plan Assess & Plan/Chief Complaint Assessment: s/p right hip fracture 07/04/20 s/p repair by Dr Chávez then dislocation of hardware 07/09/20 requiring transfer back to [facility] [place] s/p spinal anesthesia but reduction only required Acute blood loss anemia s/p 2 units transfused 07/05/20 then again 07/09/20 Severe hypotension due to volume depletion requiring aggressive IVF administration at [facility] Acute pneumonia upon arrival to [facility] today requiring septic w/u which was ne gative and empiric abx for HAP COPD Current and heavy smoker 60 years Osteoporosis HLP Gallagher cath in place due to inability to ambulate with hip brace to prevent dislocation Pulmonary HTN 90 on ECHO negative USG right leg and negative PE on CT angiogram Anxiety Plan: IRF protocol Empiric abx Cardiology and Pulmonology appreciated Very frail status Anxiety treatment 07/13/20: Abx for HAP COVID negative IV Lasix 07/14/20: IV Lasix IV abx O2 Nebs COVID negative BM regimen 07/15/20: Check stools for blood Hemoglobin 7.4 monitor closely IV iron infusions Increase nutrition Titrate oxygen down Transfuse 1 unit of blood today Hold OAC 07/16/20: Monitor hemoglobin Hold anticoagulation due to severe anemia Monitor closely 07/17/20: Hold OAC due to severe anemia requiring 5 units of blood since hip fracture repair PO abx transition Wean O2 (1) Closed right hip fracture (2) Pneumonia (3) Pulmonary edema (4) Pulmonary hypertension (5) Anxiety (6) Osteoporosis (7) Hyperlipemia (8) Frailty (9) Elevated brain natriuretic peptide (BNP) level (10) COPD (chronic obstructive pulmonary disease) (11) Hypoxia (12) Anemia due to acute blood loss (13) Transfusion history (14) Gallagher catheter in place (15) Hip dislocation, right (16) Dyspnea AVANI NICOLE DO Jul 17, 2020 06:23
[2020-07-17] MEDS: RT-ALBUTEROL SULF 2.5 MG/3 ML PRE-MIX VIAL INH SCH ×3 (06:32→21:52)
[2020-07-17] MEDS: LACTOBACILLUS ACIDOPHILUS (PROBIOTIC) CAPSULE PO SCH ×3 (07:41→18:41)
[2020-07-17] MEDS: oxyCODONE/APAP 10/325MG (PERCOCET 10) TABLET PO PRN ×3 (07:41→20:47)
[2020-07-17 08:00] VITALS: BP 94/51
--- NOTE | 2020-07-17 08:41 | Cardiology Progress Note ---
Subjective Date Seen by Provider: Jul 17, 2020 Time Seen by Provider: 08:10 Subjective/Events-last exam Patient is sitting up in chair, no new complaints. Denies any chest pain or dyspnea. Review of Systems General: Fatigue, Malaise HEENT: No Head Aches, No Visual Changes, No Eye Pain, No Ear Pain, No Dysphasia, No Sinus Congestion, No Post Nasal Drip, No Sore Throat, No Other Pulmonary: No Dyspnea, No Cough, No Pleuritic Chest Pain, No Other Cardiovascular: No: Chest Pain, Palpitations, Orthopnea, Paroxysmal Noc. Dysp martín, Edema, Lt Headedness, Other Objective-Cardiology Exam Last Set of Vital Signs Vital Signs 07/17/20 07/17/20 05:32 15:28 Temp 36.8 Pulse 75 Resp 16 B/P (MAP) 110/54 (72) Pulse Ox 92 O2 Delivery Nasal Cannula O2 Flow Rate 2.00 Capillary Refill : Less Than 3 SecondsLess Than 3 Seconds I&O Intake and Output 07/17/20 00:00 Intake Total 2880 ml Output Total 5450 ml Balance -2570 ml Intake Oral 2870 ml IV Total 10 ml Output Urine Total 5450 ml # Bowel Movements 1 General: Alert, Oriented X3, Cooperative HEENT: Atraumatic, PERRLA Neck: Supple, No JVD, No Thyromegaly Lungs: Clear to Auscultation, Normal Air Movement Heart: Regular Rate, Normal S1, Normal S2, No Murmurs Abdomen: Normal Bowel Sounds, Soft, No Tenderness, No Hepatosplenomegaly, No Masses Extremities: No Clubbing, No Cyanosis, No Tenderness/Swelling, Other ( BLE edema) Skin: No Rashes, No Breakdown, No Significant Lesion Neuro: Normal Speech, Strength at 5/5 X4 Ext Results Lab Laboratory Tests 07/17/20 04:30 A/P-Cardiology Admission Diagnosis Right hip fracture Dyspnea COPD LVOT HTP Assessment/Plan Progressive shortness of breath, multifactorial (see below) Pulmonary hypertension, moderately severe, etiology undetermined, no evidence of PE on pulm CT angio of 07/12/20 LVOT obstruction. Echo of 07/12/20 shows: mild LVH, systolic anterior motion of mitral valve apparatus, LVOT tract gradient of 110 mmHg, grade 2 diastolic dysf unction, LVEF 55-65%, PASP 85-90 mmHg S/P non-syncopal fall leading to right hip fracture - s/p repair by Dr. Chávez at [facility] [place] in Jun [place] Post op anemia - worsening. Hematuria and oozing from operative site on 07/15/20. S/p transfusion on 07/15/20. Margo Florentino currently on hold R leg swelling after hip surgery of Jun 2020, no evidence of DVT on leg venous Doppler of 07/12/20 COPD, oxygen dependent, follow with Dr. Narcisa HINES, continue to monitor as outpatient Tobaccoism - cessation advised Anxiety Patient was seen and evaluated with Daphne, examination performed, management plan was discussed, agree with the current scribed note, I made few changes to the note using Italic font Patient is reporting improvement, no new symptoms. Continue to monitor. No changes are recommended Clinical Quality Measures DVT/VTE Risk/Contraindication: Risk Factor Score Per Nursin RFS Level Per Nursing on Admit: 4+=Very High Contraindications-Pharm: Other *list below* Other: severe anemia requiring blood transfusions DAPHNE DEVINE Jul 17, 2020 08:41 SERENA HUGHES MD Jul 17, 2020 16:17
[2020-07-17] MEDS: NICOTINE PATCH REMOVAL TP SCH (08:42)
[2020-07-17] MEDS: ASPIRIN 81 MG CHEW (CHILDREN'S ASA) PO SCH (08:44)
[2020-07-17] MEDS: OXYBUTYNIN (DITROPAN) 5 MG TAB PO SCH ×3 (08:44→20:47)
[2020-07-17] MEDS: NICOTINE 14 MG (NICODERM) PATCH TD SCH (08:44)
[2020-07-17] MEDS: PANTOPRAZOLE 40 MG (PROTONIX) TAB PO SCH (08:44)
[2020-07-17] MEDS: dilTIAZem120 MG (CARDIZEM CD) CAP PO SCH (08:44)
[2020-07-17] MEDS: IRON SUCROSE 200 MG/10 ML (VENOFER) VIAL IV SCH (08:45)
[2020-07-17] MEDS: FUROSEMIDE 40 MG/4 ML INJ (LASIX) IVP SCH (08:45)
[2020-07-17] MEDS: DOCUSATE SODIUM 100 MG (COLACE) CAP PO SCH ×2 (08:45→20:54)
[2020-07-17] MEDS: LACTULOSE SYRUP 10GM/15ML (ENULOSE) 30ML UDC PO SCH ×2 (08:46→20:55)
[2020-07-17] MEDS: polyethylene glycoL POWDER 17 GM (MIRALAX) PACK PO SCH ×2 (08:46→20:55)
[2020-07-17] MEDS: SENNA W/DOCUSATE (SENOKOT S) TABLET PO SCH ×2 (08:47→20:55)
--- NOTE | 2020-07-17 08:56 | Occupational Ther Daily Note ---
OT Current Status-Daily Note Subjective Pt was in chair. Pt no c/o pain. Pt agreed to therapy. Mental Status/Objective Patient Orientation: Person, Place, Time, Situation Attachments: IV, Oxygen (1 L), Other-See Comments (Abductor brace) ADL-Treatment Pt was sitting in chair upon arrival. Pt stated needed to use restroom, transferred with FWW, SBA to use BSC. Pt don/doff LE clothing, pt requested h ospital gown due to brace. Pt performed lower body dressing using cogeneration operator to thread underwear on over feet. Pt used FWW, SBA to place underwear over hips. Pt had ankle/lower legs wrapped to reduce swelling. Pt used sock aid to thread socks onto feet with verbal cues. Pt stated wanting to brush teeth, transferred to restroom with FWW, SBA. Pt used sink to stabilize while brushing teeth, brushing hair. Pt used FWW, SBA back to recliner to work on UE strength exercise. Pt was educated on B UE therapy exercise, completed 2 sets 5 reps with light resistance theraband. Skilled instructions to complete theraband exercises for correct technique and modification. Nursing came pt left with nursing. All needs met. Therapy Code Descriptions/Definitions Functional [place] Measure: 0=Not Assessed/NA 4=Minimal Assistance 1=Total Assistance 5=Supervision or Setup 2=Maximal Assistance 6=Modified [place] 3=Moderate Assistance 7=Complete IndependenceSCALE: Activities may be completed with or without assistive devices. 0-Ieignbraap-tyesrep completes the activity by him/herself with no assistance from a helper. 5-Set-up or Clean-up Assistance-helper sets up or cleans up; patient completes activity. [place] assists only prior to or following the activity. 4-Supervision or Touching Assistance-helper provides verbal cues and/or touching/steadying and/or contact guard assistance as patient completes activity. Assistance may be provided throughout the activity or intermittently. 3-Partial/Moderate Assistance-helper does LESS THAN HALF the effort. [place] lifts, holds or supports trunk or limbs, but provides less than half the effort. 2-Substantial/Maximal Assistance-helper does MORE THAN HALF the effort. [place] lifts or holds trunk or limbs and provides more than half the effort. 4-Dodjuyjip-qgumzv does ALL the effort. Patient does none of the effort to complete the activity. Or, the assistance of 2 or more helpers is required for the patient to complete the activity. If activity was not attempted, code reason: 7-Patient Refused. 9-Not Applicable-not attempted and the patient did not perform the activity before the current illness, exacerbation or injury. 10-Not Attempted due to Environmental Limitations-(lack of equipment, weather restraints, etc.). 88-Not Attempted due to Medical Conditions or Safety Concerns. Oral Hygiene (QC): 4 (clsoe SBA ) Lower Body Dressing (QC): 4 On/Off Footwear: 4 Toileting Hygiene (QC): 4 Toilet Transfer (QC): 4 OT Short Term Goals Short Term Goals Time Frame: Jul 24, 2020 Toileting hygiene: 3 Shower/bathe self: 3 Upper body dressin Lower body dressin OT Furniture Designer Goals Furniture Designer Goals Time Frame: Aug 02, 2020 Eating (QC): 6 Oral Hygiene (QC): 6 Toileting Hygiene (QC): 6 Shower/Bathe Self (QC): 6 Upper Body Dressing (QC): 6 Lower Body Dressing (QC): 6 On/Off Footwear (QC): 6 Additional Goals: 1-Demonstrate ADL Tasks, 2-Verbalize Understanding, 3- ImproveStrength/[place]ha 1=Demonstrate adherence to instructed precautions during ADL tasks. 2=Patient will verbalize/demonstrate understanding of assistive devices/modifications for ADL. 3=Patient will improve strength/tolerance for activity to enable patient to perform ADL's. OT Education/Plan Problem List/Assessment Assessment: Decreased Activ Tolerance, Decreased UE Strength, Impaired Funct Balance, Impaired Self-Care Skills Pt would benefit from skilled OT in order to increase safety and independence with ADLs and functional mobility, and for education on AE for lower body dressing. Discharge Recommendations Plan/Recommendations: Continue POC Treatment Plan/Plan of Care Patient would benefit from OT for education, treatment and training to promote independence in ADL's, mobility, safety and/or upper extremity function for ADL's. Plan of Care: ADL Retraining, Functional Mobility, Group Exercise/Act as Ind, UE Funct Exercise/Act Treatment Duration: Aug 02, 2020 Frequency: At least 5 of 7 days/Wk (IRF) Estimated Hrs Per Day: 1.5 hours per day Rehab Potential: Fair Time/GCodes Start Time: 07:30 Stop Time: 09:00 Total Time Billed (hr/min): 90 Billed Treatment Time 1 visit- 5 ADL ( 70 min), EX (20 min) MARILIN CASIANO Jul 17, 2020 08:56
--- NOTE | 2020-07-17 11:29 | Physical Therapy Daily Note ---
PT Daily Note-Current Subjective Pt sitting in recliner upon arrival. Pt agrees to PT. Pain Numeric Pain Scale: 6 Location: Right Location Body Site: Hip Pain Description: Ache Mental Status Patient Orientation: Person, Place, Situation Attachments: Oxygen (Had been lowered to 1L then to .5L with Therapy) Transfers SCALE: Activities may be completed with or without assistive devices. 2-Rwmmpokfbe-xdrcnsi completes the activity by him/herself with no assistance from a helper. 5-Set-up or Clean-up Assistance-helper sets up or cleans up; patient completes activity. [place] assists only prior to or following the activity. 4-Supervision or Touching Assistance-helper provides verbal cues and/or touching/steadying and/or contact guard assistance as patient completes ac tivity. Assistance may be provided throughout the activity or intermittently. 3-Partial/Moderate Assistance-helper does LESS THAN HALF the effort. [place] lifts, holds or supports trunk or limbs, but provides less than half the effort. 2-Substantial/Maximal Assistance-helper does MORE THAN HALF the effort. [place] lifts or holds trunk or limbs and provides more than half the effort. 7-Cfxnpwpuq-wuzmdw does ALL the effort. Patient does none of the effort to complete the activity. Or, the assistance of 2 or more helpers is required for the patient to complete the activity. If activity was not attempted, code reason: 7-Patient Refused. 9-Not Applicable-not attempted and the patient did not perform the activity before the current illness, exacerbation or injury. 10-Not Attempted due to Environmental Limitations-(lack of equipment, weather restraints, etc.). 88-Not Attempted due to Medical Conditions or Safety Concerns. Sit to Stand (QC): 5 Weight Bearing Right Lower Extremity: Right Weight Bearing/Tolerated Gait Training Does the Patient Walk?: Yes Distance: 75' x2 Walk 10 feet (QC): 5 Walk 50 ft with 2 Turns(QC): 5 Gait Persons Needed: 1 Gait Assistive Device: FWW Pt attempted to walk w/o O2 at Nursing observation since O2 started at 96%, dropped to 80% after 75' so O2 used at .5L during tx. Exercises Supine Ex: Ankle pumps, Quad Set, Glut sets, Heel Slides, Straight leg raise, Hip abd/add Supine Reps: 15 Treatments After Nursing completes Iron, pt completes Supine Ex in chair. TF to standing, Nursing checks brace and incisional wound on R side. Pt uses BR then amb. in hallway. RB then returns to room to rest, all needs met & call light in hand. Assessment Current Status: Good Progress Pt is able to maintain O2 levels at rest but not while working w/Therapy so will use O2 at this time. PT Short Term Goals Short Term Goals Time Frame: Jul 19, 2020 Roll Left & Right: 3 Sit to lyin Lying to sitting on side of be: 3 Chair/uiu-ep-nhxtc transfer: 3 Walk 10 feet: 4 Walk 50 feet with two turns: 4 Walk 150 feet: 4 1 step (curb): 3 PT Usp Goals Refinery Pipeline Operator Goals PT Usp Goals Time Frame: Jul 26, 2020 Roll Left & Right (QC): 4 Sit to Lying (QC): 4 Lying-Sitting on Side/Bed(QC): 4 Sit to Stand (QC): 4 Chair/Omj-ga-Fupwj Xfer(QC): 4 Toilet Transfer (QC): 4 Car Transfer (QC): 88 Does the Patient Walk: Yes Walk 10 feet (QC): 5 Walk 50ft with 2 Turns (QC): 5 Walk 150 ft (QC): 5 Walking 10ft on Uneven Surface: 5 1 Step (curb) (QC): 4 4 Steps (QC): 4 12 Steps (QC): 88 Picking up an Object (QC): 88 Does the Pt use WC or Scooter?: Yes Wheel 50 feet with 2 turns (QC: 6 Type: Manual Wheel 150 feet: 6 PT Plan Problem List Problem List: Activity Tolerance, Functional Strength Treatment/Plan Treatment Plan: Continue Plan of Care Treatment Plan: Bed Mobility, Education, Functional Activity Lat[place]ha, Functional Strength, Group Therapy, Gait, Safety, Therapeutic Exercise, Transfers Treatment Duration: Jul 26, 2020 Frequency: At least 5 of 7 days/Wk (IRF) Estimated Hrs Per Day: 1.5 hours per day Patient and/or Family Agrees t: Yes Safety Risks/Education Patient Education: Gait Training, Correct Positioning, Safety Issues Teaching Recipient: Patient Teaching Methods: Discussion Response to Teaching: Verbalize Understanding Time/GCodes Time In: 900 Time Out: 1005 Total Billed Treatment Time: 65 Total Billed Treatment 1, GT (20m), EX (20m) & FA x2 (25m) MICKY BYNUM SENIOR DEVELOPER Jul 17, 2020 11:29
[2020-07-17] MEDS: SERTRALINE 50 MG (ZOLOFT) TABLET PO SCH (12:16)
--- NOTE | 2020-07-17 14:12 | Physical Therapy Daily Note ---
PT Daily Note-Current Subjective Pt is laying supine in bed upon arrival. Pt agrees to PT. RADIO STATION OPERATOR takes O2 level to start tx due to pt on no O2 at Nurse's trial. Transfers SCALE: Activities may be completed with or without assistive devices. 5-Zhljnzesid-cqkmfmu completes the activity by him/herself with no assistance from a helper. 5-Set-up or Clean-up Assistance-helper sets up or cleans up; patient completes activity. [place] assists only prior to or following the activity. 4-Supervision or Touching Assistance-helper provides verbal cues and/or touching/steadying and/or contact guard assistance as patient completes activity. Assistance may be provided throughout the activity or intermittently. 3-Partial/Moderate Assistance-helper does LESS THAN HALF the effort. [place] lifts, holds or supports trunk or limbs, but provides less than half the effort. 2-Substantial/Maximal Assistance-helper does MORE THAN HALF the effort. [place] lifts or holds trunk or limbs and provides more than half the effort. 2-Srkakkeod-dawyoq does ALL the effort. Patient does none of the effort to complete the activity. Or, the assistance of 2 or more helpers is required for the patient to complete the activity. If activity was not attempted, code reason: 7-Patient Refused. 9-Not Applicable-not attempted and the patient did not perform the activity before the current illness, exacerbation or injury. 10-Not Attempted due to Environmental Limitations-(lack of equipment, weather restraints, etc.). 88-Not Attempted due to Medical Conditions or Safety Concerns. Lying to Sitting/Side of Bed(Q: 4 Sit to Stand (QC): 5 Toilet Transfer (QC): 5 Weight Bearing Right Lower Extremity: Right Weight Bearing/Tolerated Gait Training Does the Patient Walk?: Yes Distance: 15' x2 Walk 10 feet (QC): 5 Gait Persons Needed: 1 Gait Assistive Device: FWW Treatments O2 level is monitored to start tx. O2 starts at 87% then RADIO STATION OPERATOR turns O2 to 0.5L and O2 increases to 93% but as soon as pt doozes off then O2 drops again. Pursed Lip Breathing technique taught. Pt transfers to standing and uses BR then returns to bed. O2 increased to 2L at rest/sleep. All needs met, call light in hand. Assessment Current Status: Fair Progress Pt fatigues easily this afternoon. O2 is monitored. PT Short Term Goals Short Term Goals Time Frame: Jul 19, 2020 Roll Left & Right: 3 Sit to lyin Lying to sitting on side of be: 3 Chair/cgp-wa-jeifl transfer: 3 Walk 10 feet: 4 Walk 50 feet with two turns: 4 Walk 150 feet: 4 1 step (curb): 3 PT Halfway Goals Grinder Set Up Operator Jig Goals PT Halfway Goals Time Frame: Jul 26, 2020 Roll Left & Right (QC): 4 Sit to Lying (QC): 4 Lying-Sitting on Side/Bed(QC): 4 Sit to Stand (QC): 4 Chair/Fmu-ga-Hwbfx Xfer(QC): 4 Toilet Transfer (QC): 4 Car Transfer (QC): 88 Does the Patient Walk: Yes Walk 10 feet (QC): 5 Walk 50ft with 2 Turns (QC): 5 Walk 150 ft (QC): 5 Walking 10ft on Uneven Surface: 5 1 Step (curb) (QC): 4 4 Steps (QC): 4 12 Steps (QC): 88 Picking up an Object (QC): 88 Does the Pt use WC or Scooter?: Yes Wheel 50 feet with 2 turns (QC: 6 Type: Manual Wheel 150 feet: 6 PT Plan Problem List Problem List: Activity Tolerance, Functional Strength Treatment/Plan Treatment Plan: Continue Plan of Care Treatment Plan: Bed Mobility, Education, Functional Activity [place], Functional Strength, Group Therapy, Gait, Safety, Therapeutic Exercise, Transfers Treatment Duration: Jul 26, 2020 Frequency: At least 5 of 7 days/Wk (IRF) Estimated Hrs Per Day: 1.5 hours per day Patient and/or Family Agrees t: Yes Safety Risks/Education Patient Education: Correct Positioning, Safety Issues Teaching Recipient: Patient Teaching Methods: Discussion Response to Teaching: Verbalize Understanding Time/GCodes Time In: 1310 Time Out: 1345 Total Billed Treatment Time: 35 Total Billed Treatment 1, FA x2 (35m) MICKY BYNUM PTA Jul 17, 2020 14:12
[2020-07-17 18:00] VITALS: BP 106/54
--- NOTE | 2020-07-17 19:10 | NUR ---
bedside report received from [facility]AT[facility], assume care of pt
[2020-07-17] MEDS: MELATONIN 3 MG TABLET PO PRN (20:46)
[2020-07-17] MEDS: CEFDINIR 300 MG (OMNICEF) CAP PO SCH (20:46)
[2020-07-17] MEDS: eZETimibe 10 MG (ZETIA) TABLET PO SCH (20:47)
--- NOTE | 2020-07-17 20:47 | NUR ---
refused Colace, Enulose, miralax & Senokot, c/o rt hip pain, level 5/10 on numeric scale, Percocet 10/325 1 tab with pudding
--- NOTE | 2020-07-17 21:30 | NUR ---
rates pain level 2/10 on numeric scale
[2020-07-18] MEDS: ACETAMINOPHEN 325 MG TABLET PO PRN (03:35)
--- NOTE | 2020-07-18 03:35 | NUR ---
C/O rt hip pain 5/10 on numeric scale, TYLENOL 650mg given
--- NOTE | 2020-07-18 04:10 | NUR ---
resting quietly in bed, pain level 0/10 on CNPI SCALE
[2020-07-18 05:09] VITALS: BP 116/58
[2020-07-18 05:55] LABS: BASOPHILS # (AUTO) 0.1 10^3/uL (0.0-0.1); BASOPHILS % (AUTO) 1 % (0-10); EOSINOPHILS # (AUTO) 0.2 10^3/uL (0.0-0.3); EOSINOPHILS % (AUTO) 2 % (0-10); HEMATOCRIT 28 % (35-52); HEMOGLOBIN 8.8 g/dL (11.5-16.0); LYMPHOCYTES # (AUTO) 1.1 10^3/uL (1.0-4.0); LYMPHOCYTES % (AUTO) 11 % (12-44); MEAN CORPUSCULAR HEMOGLOBIN 31 pg (25-34); MEAN CORPUSCULAR HGB CONC 32 g/dL (32-36); MEAN CORPUSCULAR VOLUME 98 fL (80-99); MEAN PLATELET VOLUME 8.8 fL (9.0-12.2); MONOCYTES # (AUTO) 0.9 10^3/uL (0.0-1.0); MONOCYTES % (AUTO) 9 % (0-12); NEUTROPHILS # (AUTO) 7.6 10^3/uL (1.8-7.8); NEUTROPHILS % (AUTO) 76 % (42-75); PLATELET COUNT 496 10^3/uL (130-400)
[2020-07-18 06:24] LABS: ALANINE AMINOTRANSFERASE 29 U/L (0-55); ALBUMIN 2.3 GM/DL (3.2-4.5); ALKALINE PHOSPHATASE 56 U/L (40-136); BILIRUBIN,TOTAL 0.6 MG/DL (0.1-1.0); BUN/CREATININE RATIO 19; CALCIUM 8.4 MG/DL (8.5-10.1); CARBON DIOXIDE 35 MMOL/L (21-32); CHLORIDE 97 MMOL/L (98-107); CREATININE SERUM 0.47 MG/DL (0.60-1.30); GFR ESTIMATED > 60; GLUCOSE 77 MG/DL (70-105); POTASSIUM 3.6 MMOL/L (3.6-5.0); SODIUM 139 MMOL/L (135-145); TOTAL PROTEIN 5.2 GM/DL (6.4-8.2)
[2020-07-18] MEDS: RT-ALBUTEROL SULF 2.5 MG/3 ML PRE-MIX VIAL INH SCH ×3 (07:50→23:01)
--- NOTE | 2020-07-18 07:53 | Cardiology Progress Note ---
Subjective Date Seen by Provider: Jul 18, 2020 Time Seen by Provider: 07:52 Subjective/Events-last exam Patient is sitting up in chair, no new complaints. Denies any chest pain or dyspnea. Review of Systems General: No Chills, No Night Sweats, No Fatigue, No Malaise, No Appetite, No Other HEENT: No Head Aches, No Visual Changes, No Eye Pain, No Ear Pain, No Dysphasi a, No Sinus Congestion, No Post Nasal Drip, No Sore Throat, No Other Pulmonary: No Dyspnea, No Cough, No Pleuritic Chest Pain, No Other Cardiovascular: No: Chest Pain, Palpitations, Orthopnea, Paroxysmal Noc. Dyspnea, Edema, Lt Headedness, Other Objective-Cardiology Exam Last Set of Vital Signs Vital Signs 07/18/20 07/18/20 07/18/20 05:09 07:50 09:47 Temp 37.5 Pulse 72 Resp 16 B/P (MAP) 116/58 (77) Pulse Ox 96 O2 Delivery Nasal Cannula O2 Flow Rate 1.00 Capillary Refill : Less Than 3 SecondsLess Than 3 Seconds I&O Intake and Output 07/18/20 00:00 Intake Total 2360 ml Output Total 350 ml Balance 2010 ml Intake Oral 2350 ml IV Total 10 ml Output Urine Total 350 ml # Voids 10 # Bowel Movements 2 General: Alert, Oriented X3, Cooperative HEENT: Atraumatic, PERRLA Neck: Supple, No JVD, No Thyromegaly Lungs: Clear to Auscultation, Normal Air Movement Heart: Regular Rate, Normal S1, Normal S2, No Murmurs Abdomen: Normal Bowel Sounds, Soft, No Tenderness, No Hepatosplenomegaly, No Masses Extremities: No Clubbing, No Cyanosis, No Tenderness/Swelling, Other ( BLE edema) Skin: No Rashes, No Breakdown, No Significant Lesion Neuro: Normal Speech, Strength at 5/5 X4 Ext Results Lab Laboratory Tests 07/18/20 05:30 A/P-Cardiology Admission Diagnosis Right hip fracture Dyspnea COPD LVOT HTP Assessment/Plan Progressive shortness of breath, multifactorial (see below), improving. Pulmonary hypertension, moderately severe, etiology undetermined, no evidence of PE on pulm CT angio of 07/12/20 LVOT obstruction. Echo of 07/12/20 shows: mild LVH, systolic anterior motion of mitral valve apparatus, LVOT tract gradient of 110 mmHg, grade 2 diastolic dy sfunction, LVEF 55-65%, PASP 85-90 mmHg S/P non-syncopal fall leading to right hip fracture - s/[place] [facility] [place] anemia - worsening. Hematuria and oozing from operative site on 07/15/20. S/p [facility] 07[facility]15/20. [facility], continue to monitor H/H R leg swelling after hip surgery of Jun 2020, no evidence of DVT on leg venous Doppler of 07/12/20 COPD, oxygen dependent, follow with Dr. Narcisa HINES, continue to monitor as outpatient Tobaccoism - cessation advised Anxiety Patient was seen and evaluated with Daphne, examination performed, management plan was discussed, agree with the current scribed note, I made few changes to the note using Italic font Patient was seen at bedside, sitting comfortably, reporting improvement in her dyspnea, continue to monitor blood pressure No changes are recommended at this time. Clinical Quality Measures DVT/VTE Risk/Contraindication: Risk Factor Score Per Nursin RFS Level Per Nursing on Admit: 4+=Very High Contraindications-Pharm: Other *list below* Other: severe anemia requiring blood transfusions DAPHNE DEVINE Jul 18, 2020 7:53 am SERENA HUGHES MD Jul 18, 2020 11:00 am
[2020-07-18 08:00] VITALS: BP 107/54
[2020-07-18] MEDS: PANTOPRAZOLE 40 MG (PROTONIX) TAB PO SCH (08:24)
[2020-07-18] MEDS: ASPIRIN 81 MG CHEW (CHILDREN'S ASA) PO SCH (08:24)
[2020-07-18] MEDS: OXYBUTYNIN (DITROPAN) 5 MG TAB PO SCH ×3 (08:24→21:19)
[2020-07-18] MEDS: NICOTINE 14 MG (NICODERM) PATCH TD SCH (08:24)
[2020-07-18] MEDS: oxyCODONE/APAP 10/325MG (PERCOCET 10) TABLET PO PRN ×3 (08:24→21:28)
[2020-07-18] MEDS: CEFDINIR 300 MG (OMNICEF) CAP PO SCH ×2 (08:24→21:19)
[2020-07-18] MEDS: FUROSEMIDE 40 MG/4 ML INJ (LASIX) IVP SCH (08:24)
[2020-07-18] MEDS: dilTIAZem120 MG (CARDIZEM CD) CAP PO SCH (08:24)
[2020-07-18] MEDS: LACTOBACILLUS ACIDOPHILUS (PROBIOTIC) CAPSULE PO SCH ×3 (08:29→17:35)
[2020-07-18] MEDS: NICOTINE PATCH REMOVAL TP SCH (08:30)
[2020-07-18] MEDS: polyethylene glycoL POWDER 17 GM (MIRALAX) PACK PO SCH ×2 (08:34→21:20)
[2020-07-18] MEDS: SENNA W/DOCUSATE (SENOKOT S) TABLET PO SCH ×2 (08:34→21:21)
[2020-07-18] MEDS: LACTULOSE SYRUP 10GM/15ML (ENULOSE) 30ML UDC PO SCH ×2 (08:34→21:20)
[2020-07-18] MEDS: DOCUSATE SODIUM 100 MG (COLACE) CAP PO SCH ×2 (08:34→21:19)
--- NOTE | 2020-07-18 11:00 | NUR ---
ADMITS NICOTINE PATCH NOT HELPING MUCH SHE WOULD LIKE. ORDER OBTAINED TO INCREASE NICOTINE TO 21 MG. DAMIR WRAPS APPLIED TO SWOLLEN LEGS. HAS RIGHT LEG PAIN ONLY WITH MOVEMENT. STATES MEDS ARE GOING DOWN MUCH BETTER WITH APPLESAUCE.
--- NOTE | 2020-07-18 11:20 | Occupational Ther Daily Note ---
OT Current Status-Daily Note Subjective Pt was in chair upon arrival. Pt no c/o pain. Pt agreed to therapy. Mental Status/Objective Patient Orientation: Person, Place, Time, Situation Attachments: IV, Oxygen (1 L), Other-See Comments (abductor brace) ADL-Treatment Pt was in recliner. Pt stated she wanted to take shower. Pt used FWW, SBA ambulate to bathroom. Pt SBA getting into shower, required verbal cues during upper body washing. Pt performed lower body washing using LH sponge to get lower legs, feet. Pt sit to stand using grab bars to stabilize while washing perineal area and buttocks, CGA in standing. Pt ambulated using FWW, SBA into wheelchair. Sit to stand with FWW, SBA nursing changed bandage out, HUITRON placed abductor brace on. Pt used adaptive equipment with verbal cues to thread underwear on legs, HUITRON hiked underwear over hips. Pt stated she needed to use restroom transferred to toilet FWW, SBA. Pt brushed teeth using sink, FWW SBA to brush teeth and cleanse mouth. Pt took increased time to complete tasks due to low activity tolerance and multiple recovery breaks. Pt ambulated to recliner. Call light/phone in reach. All needs met. Therapy Code Descriptions/Definitions Functional [place] Measure: 0=Not Assessed/NA 4=Minimal Assistance 1=Total Assistance 5=Supervision or Setup 2=Maximal Assistance 6=Modified [place] 3=Moderate Assistance 7=Complete IndependenceSCALE: Activities may be completed with or without assistive devices. 7-Wlcvuivmkn-axhmvju completes the activity by him/herself with no assistance from a helper. 5-Set-up or Clean-up Assistance-helper sets up or cleans up; patient completes activity. [place] assists only prior to or following the activity. 4-Supervision or Touching Assistance-helper provides verbal cues and/or touching/steadying and/or contact guard assistance as patient completes activity. Assistance may be provided throughout the activity or intermittently. 3-Partial/Moderate Assistance-helper does LESS THAN HALF the effort. [place] lifts, holds or supports trunk or limbs, but provides less than half the effort. 2-Substantial/Maximal Assistance-helper does MORE THAN HALF the effort. [place] lifts or holds trunk or limbs and provides more than half the effort. 8-Cjkfvmsff-mkosba does ALL the effort. Patient does none of the effort to complete the activity. Or, the assistance of 2 or more helpers is required for the patient to complete the activity. If activity was not attempted, code reason: 7-Patient Refused. 9-Not Applicable-not attempted and the patient did not perform the activity before the current illness, exacerbation or injury. 10-Not Attempted due to Environmental Limitations-(lack of equipment, weather restraints, etc.). 88-Not Attempted due to Medical Conditions or Safety Concerns. Oral Hygiene (QC): 6 Bathing Location: L Arm, R Arm, L Upper Leg, R Upper Leg, L Lower Leg (including foot), R Lower Leg (including foot), Chest, Abdomen, Buttocks, Perineal Area Shower/Bathe Self (QC): 4 Upper Body Dressing (QC): 7 (Pt wants to continue to wear hospital gown due to brace.) Lower Body Dressing (QC): 4 On/Off Footwear: 4 Toileting Hygiene (QC): 4 Toilet Transfer (QC): 5 OT Short Term Goals Short Term Goals Time Frame: Jul 24, 2020 Toileting hygiene: 3 Shower/bathe self: 3 Upper body dressin Lower body dressin OT Clinical Resource Nurse Goals Clinical Resource Nurse Goals Time Frame: Aug 02, 2020 Eating (QC): 6 Oral Hygiene (QC): 6 Toileting Hygiene (QC): 6 Shower/Bathe Self (QC): 6 Upper Body Dressing (QC): 6 Lower Body Dressing (QC): 6 On/Off Footwear (QC): 6 Additional Goals: 1-Demonstrate ADL Tasks, 2-Verbalize Understanding, 3- ImproveStrength/[place] 1=Demonstrate adherence to instructed precautions during ADL tasks. 2=Patient will verbalize/demonstrate understanding of assistive devices/modifications for ADL. 3=Patient will improve strength/tolerance for activity to enable patient to perform ADL's. OT Education/Plan Problem List/Assessment Assessment: Decreased Activ Tolerance, Decreased UE Strength, Impaired Funct Balance, Impaired I ADL's, Impaired Self-Care Skills Pt would benefit from skilled OT in order to increase safety and independence with ADLs and functional mobility, and for education on AE for lower body dressing. Discharge Recommendations Plan/Recommendations: Continue POC Treatment Plan/Plan of Care Patient would benefit from OT for education, treatment and training to promote independence in ADL's, mobility, safety and/or upper extremity function for ADL's. Plan of Care: ADL Retraining, Functional Mobility, Group Exercise/Act as Ind, UE Funct Exercise/Act Treatment Duration: Aug 02, 2020 Frequency: At least 5 of 7 days/Wk (IRF) Estimated Hrs Per Day: 1.5 hours per day Rehab Potential: Fair Time/GCodes Start Time: 10:00 Stop Time: 11:30 Total Time Billed (hr/min): 90 Billed Treatment Time 1 visit- 6 ADL (90 mins) MARILIN CASIANO Jul 18, 2020 11:20
--- NOTE | 2020-07-18 11:28 | Physical Therapy Daily Note ---
PT Daily Note-Current Subjective Agrees to PT. No complaints this date. Reports she believes she will have family available when she goes home. Mental Status Patient Orientation: Person, Place, Time, Situation Brace in situ throughout entire treatment Transfers SCALE: Activities may be completed with or without assistive devices. 3-Xbhqsirdiq-uuwotbn completes the activity by him/herself with no assistance from a helper. 5-Set-up or Clean-up Assistance-helper sets up or cleans up; patient completes activity. [place] assists only prior to or following the activity. 4-Supervision or Touching Assistance-helper provides verbal cues and/or touching/steadying and/or contact guard assistance as patient completes activity. Assistance may be provided throughout the activity or intermittently. 3-Partial/Moderate Assistance-helper does LESS THAN HALF the effort. [place] lifts, holds or supports trunk or limbs, but provides less than half the effort. 2-Substantial/Maximal Assistance-helper does MORE THAN HALF the effort. [place] lifts or holds trunk or limbs and provides more than half the effort. 8-Qinxqabzg-qczbda does ALL the effort. Patient does none of the effort to complete the activity. Or, the assistance of 2 or more helpers is required for the patient to complete the activity. If activity was not attempted, code reason: 7-Patient Refused. 9-Not Applicable-not attempted and the patient did not perform the activity before the current illness, exacerbation or injury. 10-Not Attempted due to Environmental Limitations-(lack of equipment, weather restraints, etc.). 88-Not Attempted due to Medical Conditions or Safety Concerns. Sit to Stand (QC): 4 (SBA with sit to stand from multiple surfaces. Correct sequencing performed without cues. ) Toilet Transfer (QC): 4 Sit to stand from recliner, standard chair and toilet. Weight Bearing Right Lower Extremity: Right Weight Bearing/Tolerated Gait Training Walk 150 ft (QC): 4 Gait Assistive Device: FWW 150 ft x 2; 50 ft x 2 Stair Training 1 Step (curb) (QC): 4 (CGA for safety ) 4 Steps (QC): 4 (CGA with cues for sequencing and safety) step to steps. Safe and steady Treatments Functional transfers, gait, toileting, and stair training. Reviewed sequencing and safety on steps. Monitored Oxygen saturations throughout treatment. upon arrival to see pt (oxygen in situ) sats were at 94%. Ambulated with oxygen in place and sats remained greater than 90%; when oxygen was removed, her sats at rest or with activity would drop to mid to low 80's with return to 88 with deep breathing and to greater than 90% with oxygen replaced. Oxygen at 1l/m post treatment via nasal cannula. Nursing aware of drop of sats with activity and without oxygen. Assessment Current Status: Good Progress Strength, mobility and safety progressing. Pt aware of hip precautions. She did well on steps today. Steady gait. PT Short Term Goals Short Term Goals Time Frame: Jul 19, 2020 Roll Left & Right: 3 Sit to lyin Lying to sitting on side of be: 3 (met) Chair/lzq-dq-gbbjw transfer: 3 Walk 10 feet: 4 Walk 50 feet with two turns: 4 Walk 150 feet: 4 (met) 1 step (curb): 3 PT [facility] Goals Assisted Goals PT [facility] Goals Time Frame: Jul 26, 2020 Roll Left & Right (QC): 4 Sit to Lying (QC): 4 Lying-Sitting on Side/Bed(QC): 4 Sit to Stand (QC): 4 Chair/Vxn-ux-Xxrkj Xfer(QC): 4 Toilet Transfer (QC): 4 Car Transfer (QC): 88 Does the Patient Walk: Yes Walk 10 feet (QC): 5 Walk 50ft with 2 Turns (QC): 5 Walk 150 ft (QC): 5 Walking 10ft on Uneven Surface: 5 1 Step (curb) (QC): 4 4 Steps (QC): 4 12 Steps (QC): 88 Picking up an Object (QC): 88 Does the Pt use WC or Scooter?: Yes Wheel 50 feet with 2 turns (QC: 6 Type: Manual Wheel 150 feet: 6 PT Plan Treatment/Plan Treatment Plan: Continue Plan of Care Treatment Plan: Bed Mobility, Education, Functional Activity Latosha, Functional Strength, Group Therapy, Gait, Safety, Therapeutic Exercise, Transfers Treatment Duration: Jul 26, 2020 Frequency: At least 5 of 7 days/Wk (IRF) Estimated Hrs Per Day: 1.5 hours per day Patient and/or Family Agrees t: Yes Safety Risks/Education Patient Education: Steps Teaching Recipient: Patient Teaching Methods: Demonstration, Discussion Response to Teaching: Reinforcement Needed Discharge Recommendations Therapy Discharge Recommendati: Post Acute PT Time/GCodes Time In: 900 Time Out: 1000 Total Billed Treatment Time: 60 Total Billed Treatment visit GT 30 FA 30 MARILIN CENTENO PT Jul 18, 2020 11:28
--- NOTE | 2020-07-18 11:39 | PM&R Progress Note ---
Subjective HPI/CC On Admission Date Seen by Provider: Jul 18, 2020 Time Seen by Provider: 12:00 Subjective/Events-last exam 07/18/20: Pt doing very well Pain is well controlled on Percocet [place] wraps to lower extremity edema will be helpful Weaning oxygen Will start multivitamin 07/17/20: Hgb 9.4 Overall very improved Weaned off oxygen JORDAN wraps will be maintained for lower extremity edema Cefepime maintained as antibiotics for pneumonia changing to PO abx During exertion she required oxygen Updated her daughter 07/16/20: Hgb 9.4 after one unit of blood yesterday and 5 units total she she received 4 units at [facility], two during each admission Iron infusions maintained Hemoccult was negative Holding blood thinner because of profound bleeding form incision site that could put her at risk for infection Updated daughter 07/15/20: Hemoccult is pending WC 13.6, Hgb 7.4, Iron level at 20 so will initiate IV iron infusions Albumin at 2.1 Titrating down O2 at 96% today so can titrate down After rounds she had bleeding from the surgical site and considering hgb 7.4 Dr Chávez contacted and he wanted Bactrim but already on broad spectrum abx no need for that and 2 units of blood and considering how overloaded she has been will give 1 unit and I updated Dr Chávez on all of these changes. 07/14/20: Coughing is productive 0945 she was dyspneic but received her Lasix and now doing well Anxiety is an issue Declines Lactulose Large BM when she goes QOD Updated daughter on the phone when I saw her today as I have daily Baseline is usually SBP 95 IV Lasix given today with good UOP by Dr Brewster No worsened hypotension from IV Lasix noted Up in chair today and much improved Elevated wbc noted and covered for PNA currently broad spectrum for HAP COVID swabbed negative COughing up purulent sputum, sputum culture pending Acapella helping BM extra large Checked meds and labs Conferred with RN Reviewed therapy notes Review of Systems General: Fatigue Musculoskeletal: leg pain Objective Exam Vital Signs Vital Signs Date Time Temp Pulse Resp B/P (MAP) Pulse Ox O2 Delivery O2 Flow Rate FiO2 07/18/20 19:57 Nasal Cannula 1.00 07/18/20 17:02 36.0 76 16 100/54 (69) 91 Capillary Refill : Less Than 3 SecondsLess Than 3 Seconds General Appearance: No Apparent Distress, WD/WN, Anxious, Chronically ill, Thin HEENT: PERRL/EOMI, Normal ENT Inspection, Pharynx Normal Neck: Full Range of Motion, Normal Inspection, Non Tender, Supple, Carotid Bruit Respiratory: Chest Non Tender, No Accessory Muscle Use, No Respiratory Distress, Decreased Breath Sounds Cardiovascular: Regular Rate, Rhythm, No Edema, No Gallop, No JVD, No Murmur, Normal Peripheral Pulses Gastrointestinal: Normal Bowel Sounds, No Organomegaly, No Pulsatile Mass, Non Tender, Soft Back: Normal Inspection, No CVA Tenderness, No Vertebral Tenderness Extremity: Normal Capillary Refill, Normal Inspection, Normal Range of Motion, Non Tender, No Calf Tenderness, No Pedal Edema Neurologic/Psychiatric: Alert, Oriented x3, No Motor/Sensory Deficits, Normal Mood/Affect, dispute resolution specialist II-XII Norm as Tested, Abnormal Gait Skin: Normal Color, Warm/Dry Lymphatic: No Adenopathy Results/Procedures Lab Laboratory Tests 07/18/20 05:30 Patient resulted labs reviewed. FIM Transfers Therapy Code Descriptions/Definitions Functional [place] Measure: 0=Not Assessed/NA 4=Minimal Assistance 1=Total Assistance 5=Supervision or Setup 2=Maximal Assistance 6=Modified [place] 3=Moderate Assistance 7=Complete IndependenceSCALE: Activities may be completed with or without assistive devices. 1-Ewoxhyense-tvvuhqb completes the activity by him/herself with no assistance from a helper. 5-Set-up or Clean-up Assistance-helper sets up or cleans up; patient completes activity. [place] assists only prior to or following the activity. 4-Supervision or Touching Assistance-helper provides verbal cues and/or touch ing/steadying and/or contact guard assistance as patient completes activity. Assistance may be provided throughout the activity or intermittently. 3-Partial/Moderate Assistance-helper does LESS THAN HALF the effort. [place] lifts, holds or supports trunk or limbs, but provides less than half the effort. 2-Substantial/Maximal Assistance-helper does MORE THAN HALF the effort. [place] lifts or holds trunk or limbs and provides more than half the effort. 1-Zmguosfkm-tfucwi does ALL the effort. Patient does none of the effort to complete the activity. Or, the assistance of 2 or more helpers is required for the patient to complete the activity. If activity was not attempted, code reason: 7-Patient Refused. 9-Not Applicable-not attempted and the patient did not perform the activity bef ore the current illness, exacerbation or injury. 10-Not Attempted due to Environmental Limitations-(lack of equipment, weather restraints, etc.). 88-Not Attempted due to Medical Conditions or Safety Concerns. Roll Left to Right (QC): 3 Sit to Lying (QC): 2 Sit to Stand (QC): 4 (SBA with sit to stand from multiple surfaces. Correct sequencing performed without cues. ) Chair/Btt-us-Wpbbt Xfer(QC): 3 (with bed elevated for comfort and precautions) Car Transfer (QC): 88 (Unable to assess due to hip flexion precautions) Gait Training Does the Patient Walk?: Yes Distance: 15' x2 Walk 10 feet (QC): 5 Walk 50 ft with 2 Turns(QC): 5 Walk 150 ft (QC): 4 Walking 10ft/uneven surface-QC: 4 Gait Persons Needed: 1 Gait Assistive Device: FWW Wheelchair Training Does the Pt Use a Wheelchair?: Yes Distance: 150' Wheel 50 ft with 2 turns (QC): 4 Wheel 150 ft (QC): 4 Type of Wheelchair: Manual Stair Training #of Steps: 1 1 Step (curb) (QC): 4 (CGA for safety ) 4 Steps (QC): 4 (CGA with cues for sequencing and safety) 12 Steps (QC): 88 Balance Picking up an Object (QC): 88 ADL-Treatment Eating (QC): 6 (Pt reports independence with eating, no difficulties using utensils, bringing food to mouth, and eating.) Oral Hygiene (QC): 6 Bathing Location: L Arm, R Arm, L Upper Leg, R Upper Leg, L Lower Leg (including foot), R Lower Leg (including foot), Chest, Abdomen, Buttocks, Perineal Area Shower/Bathe Self (QC): 4 Upper Body Dressing (QC): 4 Lower Body Dressing (QC): 4 On/Off Footwear (QC): 4 Toileting Hygiene (QC): 4 Toilet Transfer (QC): 5 Assessment/Plan Assessment and Plan Assess & Plan/Chief Complaint Assessment: s/p right hip fracture 07/04/20 s/p repair by Dr Chávez then dislocation of hardware 07/09/20 [address] [facility] s/p spinal anesthesia but reduction only required Acute blood loss anemia s/p 2 units transfused 07/05/20 then again 07/09/20 Severe hypotension due to volume depletion requiring aggressive IVF administration at [facility] Acute pneumonia upon arrival to IRF today requiring septic w/u which was negative and empiric abx for HAP COPD Current and heavy smoker 60 years Osteoporosis HLP Gallagher cath in place due to inability to ambulate with hip brace to prevent dislocation Pulmonary HTN 90 on ECHO negative USG right leg and negative PE on CT angiogram Anxiety Plan: IRF protocol Empiric abx Cardiology and Pulmonology appreciated Very frail status Anxiety treatment 07/13/20: Abx for HAP COVID negative IV Lasix 07/14/20: IV Lasix IV abx O2 Nebs COVID negative BM regimen 07/15/20: Check stools for blood Hemoglobin 7.4 monitor closely IV iron infusions Increase nutrition Titrate oxygen down Transfuse 1 unit of blood today Hold OAC 07/16/20: Monitor hemoglobin Hold anticoagulation due to severe anemia Monitor closely 07/17/20: Hold OAC due to severe anemia requiring 5 units of blood since hip fracture repair PO abx transition Wean O2 07/18/20: Hold OAC Nebs O2 weaning Pain control Improved (1) Closed right hip fracture (2) Pneumonia (3) Pulmonary edema (4) Pulmonary hypertension (5) Anxiety (6) Osteoporosis (7) Hyperlipemia (8) Frailty (9) Elevated brain natriuretic peptide (BNP) level (10) COPD (chronic obstructive pulmonary disease) (11) Hypoxia (12) Anemia due to acute blood loss (13) Transfusion history (14) Gallagher catheter in place (15) Hip dislocation, right (16) Dyspnea AVANI NICOLE DO Jul 18, 2020 11:39
[2020-07-18] MEDS: SERTRALINE 50 MG (ZOLOFT) TABLET PO SCH (12:04)
[2020-07-18] MEDS ORDERED: MULTIVIT W/MINERALS TAB (THERAGRAN M) PO NR (12:15)
--- NOTE | 2020-07-18 13:00 | NUR ---
TALKED TO SURGERY NURSE RE: LEFT FOREARM AND ELBOW SWOLLEN - APPEARS MORE DEPENDENT EDEMA, BUT RIGHT ARM NOT SWOLLEN AT ALL. NO SWELLING ABOVE MIDLINE SITE IN LEFT FOREARM AND FLUSHES WELL. SURGERY NURSE DOES NOT FEEL THAT IT NEEDS CHECKED. WILL CONTINUE TO MONITOR SITE AND LEFT ARM ELEVATED ON PILLOW.
--- NOTE | 2020-07-18 15:00 | Physical Therapy Daily Note ---
PT Daily Note-Current Subjective Pt coming back from upon arrival. Pt agrees to PT. Pain Numeric Pain Scale: 5-Moderate Pain Location: Right Location Body Site: Hip Pain Description: Ache Mental Status Patient Orientation: Person, Place, Time, Situation Attachments: Oxygen (1L while with PT) Transfers SCALE: Activities may be completed with or without assistive devices. 1-Rppevrtrdv-minyjou completes the activity by him/herself with no assistance from a helper. 5-Set-up or Clean-up Assistance-helper sets up or cleans up; patient completes activity. [place] assists only prior to or following the activity. 4-Supervision or Touching Assistance-helper provides verbal cues and/or touching/steadying and/or contact guard assistance as patient completes activity. Assistance may be provided throughout the activity or intermittently. 3-Partial/Moderate Assistance-helper does LESS THAN HALF the effort. [place] lifts, holds or supports trunk or limbs, but provides less than half the effort. 2-Substantial/Maximal Assistance-helper does MORE THAN HALF the effort. [place] lifts or holds trunk or limbs and provides more than half the effort. 1-Xttlrwogg-raqzij does ALL the effort. Patient does none of the effort to complete the activity. Or, the assistance of 2 or more helpers is required for the patient to complete the activity. If activity was not attempted, code reason: 7-Patient Refused. 9-Not Applicable-not attempted and the patient did not perform the activity before the current illness, exacerbation or injury. 10-Not Attempted due to Environmental Limitations-(lack of equipment, weather restraints, etc.). 88-Not Attempted due to Medical Conditions or Safety Concerns. Sit to Lying (QC): 4 Sit to Stand (QC): 5 Weight Bearing Right Lower Extremity: Right Weight Bearing/Tolerated Gait Training Does the Patient Walk?: Yes Distance: 175', 250' Walk 10 feet (QC): 5 Walk 50 ft with 2 Turns(QC): 5 Walk 150 ft (QC): 5 Gait Persons Needed: 1 Gait Assistive Device: FWW RB as needed, focus on O2 management barby. with TF. Treatments Pt amb in hallway, RB as needed. Discuss how to manage O2 then returns to room to rest Supine in bed, all needs met, call light in hand. Assessment Current Status: Good Progress Pt still needing O2 when working with Therapy. PT Short Term Goals Short Term Goals Time Frame: Jul 19, 2020 Roll Left & Right: 3 Sit to lyin Lying to sitting on side of be: 3 (met) Chair/zuv-em-nycym transfer: 3 Walk 10 feet: 4 Walk 50 feet with two turns: 4 Walk 150 feet: 4 (met) 1 step (curb): 3 PT [facility] Goals Locator Goals PT [facility] Goals Time Frame: Jul 26, 2020 Roll Left & Right (QC): 4 Sit to Lying (QC): 4 Lying-Sitting on Side/Bed(QC): 4 Sit to Stand (QC): 4 Chair/Tsb-uj-Etfbs Xfer(QC): 4 Toilet Transfer (QC): 4 Car Transfer (QC): 88 Does the Patient Walk: Yes Walk 10 feet (QC): 5 Walk 50ft with 2 Turns (QC): 5 Walk 150 ft (QC): 5 Walking 10ft on Uneven Surface: 5 1 Step (curb) (QC): 4 4 Steps (QC): 4 12 Steps (QC): 88 Picking up an Object (QC): 88 Does the Pt use WC or Scooter?: Yes Wheel 50 feet with 2 turns (QC: 6 Type: Manual Wheel 150 feet: 6 PT Plan Problem List Problem List: Activity Tolerance Treatment/Plan Treatment Plan: Continue Plan of Care Treatment Plan: Bed Mobility, Education, Functional Activity Lat[place]ha, Functional Strength, Group Therapy, Gait, Safety, Therapeutic Exercise, Transfers Treatment Duration: Jul 26, 2020 Frequency: At least 5 of 7 days/Wk (IRF) Estimated Hrs Per Day: 1.5 hours per day Patient and/or Family Agrees t: Yes Safety Risks/Education Patient Education: Safety Issues Teaching Recipient: Patient Teaching Methods: Discussion Response to Teaching: Verbalize Understanding Time/GCodes Time In: 1300 Time Out: 1330 Total Billed Treatment Time: 30 Total Billed Treatment 1, GT x2 (30m) MICKY BYNUM PTA Jul 18, 2020 15:00
--- NOTE | 2020-07-18 15:39 | NUR ---
CM/SS ADMISSION Patient was admitted to ARU 07/12/20 for right hip fracture. She first transferred to ARU 07/09/20 post op for ORIF 07/[address] Chávez at [facility]; however, patient had difficulty transferring to her wheelchair in [place] and reported feeling worsened pain in her right hip upon ARU arrival. Diagnostic imaging revealed a dislocation, patient was returned to [facility] for reduction. Patient resides alone at her home and was independent of all activities prior to fall with injury. Her house is one floor, but has steps in the garage and leading up to the porch. Her goal is to return home as before. PCP: [facility], [facility]: [facility] [employer], [facility] INSURANCE: Medicare and [employer] Basic DME: Patient has FWW, BSC, toilet riser, cane, transport chair, shower chair in a walk-in shower. BARRIERS TO DISCHARGE PLANNING: Patient had dislocation of hip replacement 5 days after ORIF, corrected by reduction without second surgery. She is now wearing a hip abduction brace for protection. Wearing O2 with exercise, will attempt to wean. Safe functioning within her home is the goal. CONTACTS: Essence London, Daughter [address] [place] [id number] Patient has 8 children, 5 biological and 3 step children. Essence reports she will be the primary contact and will report off to the rest of the family. Essence has 7 brothers, the 3 older step brothers and then she is the middle child girl between 4 brothers. Patient and Essence understand the purpose and process of the weekly patient care conference and that patient was last reviewed July 17, with a target discharge of July 25.
--- NOTE | 2020-07-18 16:35 | NUR ---
CM/SS PATIENT CARE CONFERENCE Visited with patient to review Summary, left for her to read at her leisure. Returned to answer any questions, she identified none. Signed, charted. Patient and daughter Essence understand the target discharge is June. Essence indicates there is a very large family network and if patient needed someone with her to supervise and assist they would make a schedule and this could be provided. Their hope is that patient is at a confident and safe level regarding ambulation and self-care prior to discharge so that intermittent family presence will be adequate. HH: Essence has requested [facility] for post hospital therapies and care. Continue to follow patient progress as it pertains to discharge arrangements.
[2020-07-18 17:02] VITALS: BP 100/54
[2020-07-18] MEDS: CATHETER FLUSH 10 ML SYR IV SCH (21:19)
[2020-07-18] MEDS: eZETimibe 10 MG (ZETIA) TABLET PO SCH (21:19)
[2020-07-18] MEDS: MELATONIN 3 MG TABLET PO PRN (21:28)
[2020-07-19 06:00] VITALS: BP 105/56
[2020-07-19] MEDS: MULTIVIT W/MINERALS TAB (THERAGRAN M) PO SCH (06:43)
[2020-07-19] MEDS: CATHETER FLUSH 10 ML SYR IV SCH ×3 (06:43→21:33)
[2020-07-19 06:58] LABS: BASOPHILS # (AUTO) 0.1 10^3/uL (0.0-0.1); BASOPHILS % (AUTO) 1 % (0-10); EOSINOPHILS # (AUTO) 0.2 10^3/uL (0.0-0.3); EOSINOPHILS % (AUTO) 2 % (0-10); HEMATOCRIT 31 % (35-52); HEMOGLOBIN 9.5 g/dL (11.5-16.0); LYMPHOCYTES # (AUTO) 1.2 10^3/uL (1.0-4.0); LYMPHOCYTES % (AUTO) 15 % (12-44); MEAN CORPUSCULAR HEMOGLOBIN 31 pg (25-34); MEAN CORPUSCULAR HGB CONC 31 g/dL (32-36); MEAN CORPUSCULAR VOLUME 100 fL (80-99); MEAN PLATELET VOLUME 8.8 fL (9.0-12.2); MONOCYTES # (AUTO) 0.7 10^3/uL (0.0-1.0); MONOCYTES % (AUTO) 9 % (0-12); NEUTROPHILS # (AUTO) 5.8 10^3/uL (1.8-7.8); NEUTROPHILS % (AUTO) 72 % (42-75); PLATELET COUNT 549 10^3/uL (130-400); WHITE BLOOD COUNT 8.1 10^3/uL (4.3-11.0)
[2020-07-19 07:23] LABS: ALANINE AMINOTRANSFERASE 28 U/L (0-55); ALBUMIN 2.7 GM/DL (3.2-4.5); ALKALINE PHOSPHATASE 74 U/L (40-136); BILIRUBIN,TOTAL 0.7 MG/DL (0.1-1.0); BUN/CREATININE RATIO 24; CALCIUM 8.7 MG/DL (8.5-10.1); CARBON DIOXIDE 32 MMOL/L (21-32); CHLORIDE 97 MMOL/L (98-107); GFR ESTIMATED > 60; GLUCOSE 64 MG/DL (70-105); POTASSIUM 3.7 MMOL/L (3.6-5.0); SODIUM 138 MMOL/L (135-145); TOTAL PROTEIN 6.1 GM/DL (6.4-8.2)
[2020-07-19] MEDS: RT-ALBUTEROL SULF 2.5 MG/3 ML PRE-MIX VIAL INH SCH ×3 (07:32→21:48)
[2020-07-19] MEDS: oxyCODONE/APAP 10/325MG (PERCOCET 10) TABLET PO PRN ×3 (08:34→21:33)
[2020-07-19] MEDS: CEFDINIR 300 MG (OMNICEF) CAP PO SCH ×2 (08:41→21:34)
[2020-07-19] MEDS: LACTOBACILLUS ACIDOPHILUS (PROBIOTIC) CAPSULE PO SCH ×3 (08:41→17:26)
[2020-07-19] MEDS: OXYBUTYNIN (DITROPAN) 5 MG TAB PO SCH ×3 (08:42→21:38)
[2020-07-19] MEDS: ASPIRIN 81 MG CHEW (CHILDREN'S ASA) PO SCH (08:42)
[2020-07-19] MEDS: NICOTINE 21 MG (NICODERM) PATCH TD SCH (08:42)
[2020-07-19] MEDS: PANTOPRAZOLE 40 MG (PROTONIX) TAB PO SCH (08:42)
[2020-07-19] MEDS: IRON SUCROSE 200 MG/10 ML (VENOFER) VIAL IV SCH (08:43)
[2020-07-19] MEDS: NICOTINE PATCH REMOVAL TP SCH (08:43)
[2020-07-19] MEDS: FUROSEMIDE 40 MG/4 ML INJ (LASIX) IVP SCH (08:43)
[2020-07-19 08:50] VITALS: BP 106/42
[2020-07-19] MEDS: dilTIAZem120 MG (CARDIZEM CD) CAP PO SCH (08:55)
--- NOTE | 2020-07-19 10:03 | PM&R Progress Note ---
Subjective HPI/CC On Admission Date Seen by Provider: Jul 19, 2020 Time Seen by Provider: 10:00 Subjective/Events-last exam 07/19/20: Pt doing extremely well Mara were discontinued today Labs look good IV iron and IV Lasix maintained Lower extremity edema improved Left heal and coccyx with Allevyn on them for decubitus ulcers 07/18/20: Pt doing very well Pain is well controlled on Percocet [place] wraps to lower extremity edema will be helpful Weaning oxygen Will start multivitamin 07/17/20: Hgb 9.4 Overall very improved Weaned off oxygen JORDAN wraps will be maintained for lower extremity edema Cefepime maintained as antibiotics for pneumonia changing to PO abx During exertion she required oxygen Updated her daughter 07/16/20: Hgb 9.4 after one unit of blood yesterday and 5 units total she she received 4 units at [place], two during each admission Iron infusions maintained Hemoccult was negative Holding blood thinner because of profound bleeding form incision site that could put her at risk for infection Updated daughter 07/15/20: Hemoccult is pending WC 13.6, Hgb 7.4, Iron level at 20 so will initiate IV iron infusions Albumin at 2.1 Titrating down O2 at 96% today so can titrate down After rounds she had bleeding from the surgical site and considering hgb 7.4 Dr Chávez contacted and he wanted Bactrim but already on broad spectrum abx no need for that and 2 units of blood and considering how overloaded she has been will give 1 unit and I updated Dr Chávez on all of these changes. 07/14/20: Coughing is productive 0945 she was dyspneic but received her Lasix and now doing well Anxiety is an issue Declines Lactulose Large BM when she goes QOD Updated daughter on the phone when I saw her today as I have daily Baseline is usually SBP 95 IV Lasix given today with good UOP by Dr Brewster No worsened hypotension from IV Lasix noted Up in chair today and much improved Elevated wbc noted and covered for PNA currently broad spectrum for HAP COVID swabbed negative COughing up purulent sputum, sputum culture pending Acapella helping BM extra large Checked meds and labs Conferred with RN Reviewed therapy notes Review of Systems General: Fatigue, Malaise Pulmonary: Dyspnea Objective Exam Vital Signs Vital Signs Date Time Temp Pulse Resp B/P (MAP) Pulse Ox O2 Delivery O2 Flow Rate FiO2 07/19/20 18:56 94 07/19/20 16:30 37.0 76 16 108/52 (70) Nasal Cannula 1.00 Capillary Refill : Less Than 3 SecondsLess Than 3 Seconds General Appearance: No Apparent Distress, WD/WN, Anxious, Chronically ill, Thin HEENT: PERRL/EOMI, Normal ENT Inspection, Pharynx Normal Neck: Full Range of Motion, Normal Inspection, Non Tender, Supple, Carotid Bruit Respiratory: Chest Non Tender, No Accessory Muscle Use, No Respiratory Distress, Decreased Breath Sounds Cardiovascular: Regular Rate, Rhythm, No Gallop, No JVD, No Murmur, Normal Peripheral Pulses Gastrointestinal: Normal Bowel Sounds, No Organomegaly, No Pulsatile Mass, Non Tender, Soft Back: Normal Inspection, No CVA Tenderness, No Vertebral Tenderness Extremity: Normal Capillary Refill, Normal Inspection, Normal Range of Motion, Non Tender, No Calf Tenderness, Pedal Edema Neurologic/Psychiatric: Alert, Oriented x3, No Motor/Sensory Deficits, Normal Mood/Affect, insurance assistant II-XII Norm as Tested, Abnormal Gait Skin: Normal Color, Warm/Dry Lymphatic: No Adenopathy Results/Procedures Lab Laboratory Tests 07/19/20 06:40 Patient resulted labs reviewed. FIM Transfers Therapy Code Descriptions/Definitions Functional [place] Measure: 0=Not Assessed/NA 4=Minimal Assistance 1=Total Assistance 5=Supervision or Setup 2=Maximal Assistance 6=Modified [place] 3=Moderate Assistance 7=Complete IndependenceSCALE: Activities may be completed with or without assistive devices. 9-Aefdrjfmwz-evfvhfm completes the activity by him/herself with no assistance from a helper. 5-Set-up or Clean-up Assistance-helper sets up or cleans up; patient completes activity. [place] assists only prior to or following the activity. 4-Supervision or Touching Assistance-helper provides verbal cues and/or touchin g/steadying and/or contact guard assistance as patient completes activity. Assistance may be provided throughout the activity or intermittently. 3-Partial/Moderate Assistance-helper does LESS THAN HALF the effort. [place] lifts, holds or supports trunk or limbs, but provides less than half the effort. 2-Substantial/Maximal Assistance-helper does MORE THAN HALF the effort. [place] lifts or holds trunk or limbs and provides more than half the effort. 4-Abszfsvzr-kyqlvt does ALL the effort. Patient does none of the effort to complete the activity. Or, the assistance of 2 or more helpers is required for the patient to complete the activity. If activity was not attempted, code reason: 7-Patient Refused. 9-Not Applicable-not attempted and the patient did not perform the activity before the current illness, exacerbation or injury. 10-Not Attempted due to Environmental Limitations-(lack of equipment, weather restraints, etc.). 88-Not Attempted due to Medical Conditions or Safety Concerns. Roll Left to Right (QC): 3 Sit to Lying (QC): 4 Sit to Stand (QC): 5 Chair/Wyt-za-Lmouk Xfer(QC): 3 (with bed elevated for comfort and precautions) Car Transfer (QC): 88 (Unable to assess due to hip flexion precautions) Gait Training Does the Patient Walk?: Yes Distance: 175', 250' Walk 10 feet (QC): 5 Walk 50 ft with 2 Turns(QC): 5 Walk 150 ft (QC): 5 Walking 10ft/uneven surface-QC: 4 Gait Persons Needed: 1 Gait Assistive Device: FWW Wheelchair Training Does the Pt Use a Wheelchair?: Yes Distance: 150' Wheel 50 ft with 2 turns (QC): 4 Wheel 150 ft (QC): 4 Type of Wheelchair: Manual Stair Training #of Steps: 1 1 Step (curb) (QC): 4 (CGA for safety ) 4 Steps (QC): 4 (CGA with cues for sequencing and safety) 12 Steps (QC): 88 Balance Picking up an Object (QC): 88 ADL-Treatment Eating (QC): 6 (Pt reports independence with eating, no difficulties using utensils, bringing food to mouth, and eating.) Oral Hygiene (QC): 6 Bathing Location: L Arm, R Arm, L Upper Leg, R Upper Leg, L Lower Leg (including foot), R Lower Leg (including foot), Chest, Abdomen, Buttocks, Perineal Area Shower/Bathe Self (QC): 4 Upper Body Dressing (QC): 7 (Pt wants to continue to wear hospital gown due to brace.) Lower Body Dressing (QC): 4 On/Off Footwear (QC): 4 Toileting Hygiene (QC): 4 Toilet Transfer (QC): 5 Assessment/Plan Assessment and Plan Assess & Plan/Chief Complaint Assessment: s/p right hip fracture 07/04/20 s/p repair by Dr Chávez then dislocation of hardware 07/09/20 requiring transfer back to [facility] s/p spinal anesthesia but reduction only required Acute blood loss anemia s/p 2 units transfused 07/05/20 then again 07/09/20 Severe hypotension due to volume depletion requiring aggressive IVF administration at [facility] Acute pneumonia upon arrival to [facility] today requiring septic w/u which was negative and empiric abx for HAP COPD Current and heavy smoker 60 years Osteoporosis HLP Gallagher cath in place due to inability to ambulate with hip brace to prevent dislocation Pulmonary HTN 90 on ECHO negative USG right leg and negative PE on CT angiogram Anxiety Plan: IR[facility] protocol Empiric abx Cardiology and Pulmonology appreciated Very frail status Anxiety treatment 07/13/20: Abx for HAP COVID negative IV Lasix 07/14/20: IV Lasix IV abx O2 Nebs COVID negative BM regimen 07/15/20: Check stools for blood Hemoglobin 7.4 monitor closely IV iron infusions Increase nutrition Titrate oxygen down Transfuse 1 unit of blood today Hold OAC 07/16/20: Monitor hemoglobin Hold anticoagulation due to severe anemia Monitor closely 07/17/20: Hold OAC due to severe anemia requiring 5 units of blood since hip fracture repair PO abx transition Wean O2 07/18/20: Hold OAC Nebs O2 weaning Pain control Improved 07/19/20: Monitor lungs O2 saturation monitoring Complete abx (1) Closed right hip fracture (2) Pneumonia (3) Pulmonary edema (4) Pulmonary hypertension (5) Anxiety (6) Osteoporosis (7) Hyperlipemia (8) Frailty (9) Elevated brain natriuretic peptide (BNP) level (10) COPD (chronic obstructive pulmonary disease) (11) Hypoxia (12) Anemia due to acute blood loss (13) Transfusion history (14) Gallagher catheter in place (15) Hip dislocation, right (16) Dyspnea AVANI NICOLE DO Jul 19, 2020 10:03
--- NOTE | 2020-07-19 10:08 | Physical Therapy Daily Note ---
PT Daily Note-Current Subjective Pt. states she feels she is making progress. Agrees to Rx. Pain Location: No Pain Reported Mental Status Patient Orientation: Normal For Age Attachments: Oxygen (1L), Other-See Comments (iron infusion, mask while out of room and hip immoblizer) Transfers SCALE: Activities may be completed with or without assistive devices. 3-Hhgpmdpnre-wdscizd completes the activity by him/herself with no assistance from a helper. 5-Set-up or Clean-up Assistance-helper sets up or cleans up; patient completes activity. [place] assists only prior to or following the activity. 4-Supervision or Touching Assistance-helper provides verbal cues and/or touching/steadying and/or contact guard assistance as patient completes activity. Assistance may be provided throughout the activity or intermittently. 3-Partial/Moderate Assistance-helper does LESS THAN HALF the effort. [place] lifts, holds or supports trunk or limbs, but provides less than half the effort. 2-Substantial/Maximal Assistance-helper does MORE THAN HALF the effort. [place] lifts or holds trunk or limbs and provides more than half the effort. 7-Eelazpvki-bvamzv does ALL the effort. Patient does none of the effort to complete the activity. Or, the assistance of 2 or more helpers is required for the patient to complete the activity. If activity was not attempted, code reason: 7-Patient Refused. 9-Not Applicable-not attempted and the patient did not perform the activity before the current illness, exacerbation or injury. 10-Not Attempted due to Environmental Limitations-(lack of equipment, weather restraints, etc.). 88-Not Attempted due to Medical Conditions or Safety Concerns. Sit to Stand (QC): 5 Toilet Transfer (QC): 6 Weight Bearing Right Lower Extremity: Right Weight Bearing/Tolerated Gait Training Does the Patient Walk?: Yes Walk 10 feet (QC): 5 Walk 50 ft with 2 Turns(QC): 5 Gait Persons Needed: 1 Gait Assistive Device: FWW Exercises Supine Ex: Ankle pumps, Quad Set, Glut sets, Heel Slides (left), Straight leg raise (left), Hip abd/add (left) Supine Reps: 15 Seated Therapy Exercises: Ankle pumps, Sit to stand, Long arc quads, Hip flexion (left), Hip abd/add (left) Seated Reps: 15 Treatments short walks in room in smaller spaces managing extended O2 tube which required min to mod assist. Pt. toileted for BM managing pants down and up as well as cleaning indep Assessment Current Status: Good Progress PT Short Term Goals Short Term Goals Time Frame: Jul 19, 2020 Roll Left & Right: 3 Sit to lyin Lying to sitting on side of be: 3 (met) Chair/jhc-uf-ibquu transfer: 3 Walk 10 feet: 4 Walk 50 feet with two turns: 4 Walk 150 feet: 4 (met) 1 step (curb): 3 PT Group Teacher Goals Group Teacher Goals PT Custodial Goals Time Frame: Jul 26, 2020 Roll Left & Right (QC): 4 Sit to Lying (QC): 4 Lying-Sitting on Side/Bed(QC): 4 Sit to Stand (QC): 4 Chair/Fae-be-Gliww Xfer(QC): 4 Toilet Transfer (QC): 4 Car Transfer (QC): 88 Does the Patient Walk: Yes Walk 10 feet (QC): 5 Walk 50ft with 2 Turns (QC): 5 Walk 150 ft (QC): 5 Walking 10ft on Uneven Surface: 5 1 Step (curb) (QC): 4 4 Steps (QC): 4 12 Steps (QC): 88 Picking up an Object (QC): 88 Does the Pt use WC or Scooter?: Yes Wheel 50 feet with 2 turns (QC: 6 Type: Manual Wheel 150 feet: 6 PT Plan Treatment/Plan Treatment Plan: Continue Plan of Care Treatment Plan: Bed Mobility, Education, Functional Activity [place], Functional Strength, Group Therapy, Gait, Safety, Therapeutic Exercise, Transfers Treatment Duration: Jul 26, 2020 Frequency: At least 5 of 7 days/Wk (IRF) Estimated Hrs Per Day: 1.5 hours per day Patient and/or Family Agrees t: Yes Safety Risks/Education Patient Education: Gait Training, Transfer Techniques, Correct Positioning, Disease Process, Safety Issues Teaching Recipient: Patient Teaching Methods: Demonstration, Discussion Response to Teaching: Verbalize Understanding, Return Demonstration, Reinforcement Needed Time/GCodes Time In: 900 Time Out: 1000 Total Billed Treatment Time: 60 Total Billed Treatment 1,FA20m,GT25m,EX15m [employer]OHAIL DOWD DIRECTOR EMPLOYEE COMMUNICATIONS Jul 19, 2020 10:08
--- NOTE | 2020-07-19 12:00 | Occupational Ther Daily Note ---
OT Current Status-Daily Note Subjective Pt was in recliner. Pt no c/o pain. Pt agreed to therapy. Mental Status/Objective Patient Orientation: Person, Place, Time, Situation Attachments: IV, Oxygen (1 L), Other-See Comments (abductor brace) ADL-Treatment Pt was in recliner upon arrival, stated wanted to clean up. Pt stated needed to use restroom, ambulated FWW, SBA. Pt cleansed perineal area on toilet, sit to stand FWW, SBA. Pt transferred into wheelchair SBA, doff socks with verbal instructions how to use dressing stick. Pt propelled to sink to wash face, brush teeth. Pt propelled into room to perform upper/lower body dressing. Pt used stitch separator to thread legs into pants with verbal cues, used sock aid with Min A, verbal cues to thread socks onto feet. Pt sit to stand with FWW, SBA to hike pants over hips. Pt ambulated to gym using arm bike for 15 mins to work on B UE strength, recovery breaks needed. Pt ambulated back to room, stated she wanted in chair. Call light/phone in reach. All needs met. Therapy Code Descriptions/Definitions Functional [place] Measure: 0=Not Assessed/NA 4=Minimal Assistance 1=Total Assistance 5=Supervision or Setup 2=Maximal Assistance 6=Modified [place] 3=Moderate Assistance 7=Complete IndependenceSCALE: Activities may be completed with or without assistive devices. 5-Rjyggqivxh-ousmvvc completes the activity by him/herself with no assistance from a helper. 5-Set-up or Clean-up Assistance-helper sets up or cleans up; patient completes activity. [place] assists only prior to or following the activity. 4-Supervision or Touching Assistance-helper provides verbal cues and/or touching/steadying and/or contact guard assistance as patient completes activity. Assistance may be provided throughout the activity or intermittently. 3-Partial/Moderate Assistance-helper does LESS THAN HALF the effort. [place] lifts, holds or supports trunk or limbs, but provides less than half the effort. 2-Substantial/Maximal Assistance-helper does MORE THAN HALF the effort. [place] lifts or holds trunk or limbs and provides more than half the effort. 7-Ckfvgvahz-cdtzmh does ALL the effort. Patient does none of the effort to complete the activity. Or, the assistance of 2 or more helpers is required for the patient to complete the activity. If activity was not attempted, code reason: 7-Patient Refused. 9-Not Applicable-not attempted and the patient did not perform the activity before the current illness, exacerbation or injury. 10-Not Attempted due to Environmental Limitations-(lack of equipment, weather restraints, etc.). 88-Not Attempted due to Medical Conditions or Safety Concerns. Oral Hygiene (QC): 5 On/Off Footwear: 4 Toileting Hygiene (QC): 5 Toilet Transfer (QC): 5 Pt having retaining information on how to use adaptive equipment for lower body dressing. OT Short Term Goals Short Term Goals Time Frame: Jul 24, 2020 Toileting hygiene: 3 Shower/bathe self: 3 Upper body dressin Lower body dressin OT Skilled Nursing Goals Skilled Nursing Goals Time Frame: Aug 02, 2020 Eating (QC): 6 Oral Hygiene (QC): 6 Toileting Hygiene (QC): 6 Shower/Bathe Self (QC): 6 Upper Body Dressing (QC): 6 Lower Body Dressing (QC): 6 On/Off Footwear (QC): 6 Additional Goals: 1-Demonstrate ADL Tasks, 2-Verbalize Understanding, 3- ImproveStrength/[place] 1=Demonstrate adherence to instructed precautions during ADL tasks. 2=Patient will verbalize/demonstrate understanding of assistive prerna edy/modifications for ADL. 3=Patient will improve strength/tolerance for activity to enable patient to perform ADL's. OT Education/Plan Problem List/Assessment Assessment: Decreased Activ Tolerance, Decreased UE Strength, Impaired Funct Balance, Impaired Self-Care Skills Pt would benefit from skilled OT in order to increase safety and independence with ADLs and functional mobility, and for education on AE for lower body dressing. Discharge Recommendations Plan/Recommendations: Continue POC Treatment Plan/Plan of Care Patient would benefit from OT for education, treatment and training to promote independence in ADL's, mobility, safety and/or upper extremity function for ADL's. Plan of Care: ADL Retraining, Functional Mobility, Group Exercise/Act as Ind, UE Funct Exercise/Act Treatment Duration: Aug 02, 2020 Frequency: At least 5 of 7 days/Wk (IRF) Estimated Hrs Per Day: 1.5 hours per day Rehab Potential: Fair Time/GCodes Start Time: 10:00 Stop Time: 11:30 Total Time Billed (hr/min): 90 Billed Treatment Time 1 visit- 4 ADL (60min), FA (15min), EX (15min) MARILIN CASIANO Jul 19, 2020 12:00
[2020-07-19] MEDS: SERTRALINE 50 MG (ZOLOFT) TABLET PO SCH (13:08)
[2020-07-19] MEDS: LACTULOSE SYRUP 10GM/15ML (ENULOSE) 30ML UDC PO SCH ×2 (13:09→21:30)
[2020-07-19] MEDS: polyethylene glycoL POWDER 17 GM (MIRALAX) PACK PO SCH ×2 (13:09→21:30)
[2020-07-19] MEDS: DOCUSATE SODIUM 100 MG (COLACE) CAP PO SCH ×2 (13:09→21:34)
[2020-07-19] MEDS: SENNA W/DOCUSATE (SENOKOT S) TABLET PO SCH ×2 (13:09→21:34)
--- NOTE | 2020-07-19 13:23 | Cardiology Progress Note ---
Subjective Date Seen by Provider: Jul 19, 2020 Time Seen by Provider: 13:21 Subjective/Events-last exam Patient is sitting in a chair, no new complaint. No chest pain. Review of Systems General: No Chills, No Night Sweats, No Fatigue, No Malaise, No Appetite, No Other HEENT: No Head Aches, No Visual Changes, No Eye Pain, No Ear Pain, No Dysphasia, No Sinus Congestion, No Post Nasal Drip, No Sore Throat, No Other Pulmonary: No Dyspnea, No Cough, No Pleuritic Chest Pain, No Other Cardiovascular: No: Chest Pain, Palpitations, Orthopnea, Paroxysmal Noc. Dyspnea, Edema, Lt Headedness, Other Objective-Cardiology Exam Last Set of Vital Signs Vital Signs 07/19/20 07/19/20 06:00 08:50 Temp 36.8 Pulse 68 Resp 20 B/P (MAP) 106/42 (63) Pulse Ox 97 O2 Delivery Nasal Cannula O2 Flow Rate 1.00 Capillary Refill : Less Than 3 SecondsLess Than 3 Seconds I&O Intake and Output 07/19/20 00:00 Intake Total 2460 ml Balance 2460 ml Intake Oral 2460 ml # Voids 9 # Bowel Movements 1 General: Alert, Oriented X3, Cooperative HEENT: Atraumatic, PERRLA Neck: Supple, No JVD, No Thyromegaly Lungs: Clear to Auscultation, Normal Air Movement Heart: Regular Rate, Normal S1, Normal S2, No Murmurs Abdomen: Normal Bowel Sounds, Soft, No Tenderness, No Hepatosplenomegaly, No Masses Extremities: No Clubbing, No Cyanosis, No Tenderness/Swelling, Other ( BLE edema) Skin: No Rashes, No Breakdown, No Significant Lesion Neuro: Normal Speech, Strength at 5/5 X4 Ext Results Lab Laboratory Tests 07/19/20 06:40 A/P-Cardiology Admission Diagnosis Right hip fracture Dyspnea COPD LVOT HTP Assessment/Plan Shortness of breath, reporting improvement, still using oxygen. Continue to monitor Pulmonary hypertension, moderately severe, etiology undetermined, no evidence of PE on pulm CT angio of 07/12/20 LVOT obstruction. Echo of 07/12/20 shows: mild LVH, systolic anterior motion of mitral valve apparatus, LVOT tract gradient of 110 mmHg, grade 2 diastolic dysfunction, LVEF 55-65%, PASP 85-90 mmHg S/P non-syncopal fall leading to right hip fracture - s/p repair by Dr. Chávez at [facility] in Jun 2020 Post op anemia. Hematuria and oozing from operative site on 07/15/20. S/p transfusion on 07/15/20. Margo Florentino currently on hold, restart oral anticoagulation when approved by Dr. Jonathon Aguila leg swelling after hip surgery of Jun 2020, no evidence of DVT on leg venous Doppler of 07/12/20 COPD, oxygen dependent, follow with Dr. Narcisa HINES, continue to monitor as outpatient Tobaccoism - cessation advised Anxiety Clinical Quality Measures DVT/VTE Risk/Contraindication: Risk Factor Score Per Nursin RFS Level Per Nursing on Admit: 4+=Very High Contraindications-Pharm: Other *list below* Other: severe anemia requiring blood transfusions SERENA HUGHES MD Jul 19, 2020 13:23
--- NOTE | 2020-07-19 14:36 | Physical Therapy Daily Note ---
PT Daily Note-Current Subjective Pt asleep in chair, states she is tired upon awakening and would like to go to bathroom and go to bed. Upon getting up down from toilet this MATHEMATICAL TECHNICIAN noticed velcro of abduction brace loose. In this precarious position it was difficult to tell where and how the strap and metal closure should go. Pt. was taken to bed and T RFd carefully to have further look Pain Numeric Pain Scale: 6 Location: Right Location Body Site: Hip Pain Description: Ache Comment: during semi rolling to left with pillow and protection of this preventing a Appearance strap and closures of abduction brace undone, see above Mental Status Patient Orientation: Normal For Age Attachments: Oxygen, Other-See Comments (abduction brace) Transfers SCALE: Activities may be completed with or without assistive devices. 5-Yblteifnof-zxpkkjt completes the activity by him/herself with no assistance from a helper. 5-Set-up or Clean-up Assistance-helper sets up or cleans up; patient completes activity. [place] assists only prior to or following the activity. 4-Supervision or Touching Assistance-helper provides verbal cues and/or touching/steadying and/or contact guard assistance as patient completes activity. Assistance may be provided throughout the activity or intermittently. 3-Partial/Moderate Assistance-helper does LESS THAN HALF the effort. [place]atch lift s, holds or supports trunk or limbs, but provides less than half the effort. 2-Substantial/Maximal Assistance-helper does MORE THAN HALF the effort. [place] lifts or holds trunk or limbs and provides more than half the effort. 9-Vhedqbofh-mhmkni does ALL the effort. Patient does none of the effort to complete the activity. Or, the assistance of 2 or more helpers is required for the patient to complete the activity. If activity was not attempted, code reason: 7-Patient Refused. 9-Not Applicable-not attempted and the patient did not perform the activity before the current illness, exacerbation or injury. 10-Not Attempted due to Environmental Limitations-(lack of equipment, weather restraints, etc.). 88-Not Attempted due to Medical Conditions or Safety Concerns. SBA in out chair and toilet, mod assist LEs into bed Weight Bearing Right Lower Extremity: Right Weight Bearing/Tolerated Gait Training Does the Patient Walk?: Yes Gait Assistive Device: FWW 60 ft 2 turns FWW with no LOB good manuevering Treatments in bed pt. was instructed to bend LLE and bridge slightly to pull pants below knees for brace inspection, RN and DPT also there to assess brace, velcro and metal closure was reattached to what felt to pt. like previous tightness level. pt. left in supine to rest, ball at hand , O2 inistu Assessment Current Status: Good Progress PT Short Term Goals Short Term Goals Time Frame: Jul 19, 2020 Roll Left & Right: 3 Sit to lyin Lying to sitting on side of be: 3 (met) Chair/tsa-db-depwg transfer: 3 Walk 10 feet: 4 Walk 50 feet with two turns: 4 Walk 150 feet: 4 (met) 1 step (curb): 3 PT Care Home Goals Care Home Goals PT Care Home Goals Time Frame: Jul 26, 2020 Roll Left & Right (QC): 4 Sit to Lying (QC): 4 Lying-Sitting on Side/Bed(QC): 4 Sit to Stand (QC): 4 Chair/Ukf-ba-Zdvnx Xfer(QC): 4 Toilet Transfer (QC): 4 Car Transfer (QC): 88 Does the Patient Walk: Yes Walk 10 feet (QC): 5 Walk 50ft with 2 Turns (QC): 5 Walk 150 ft (QC): 5 Walking 10ft on Uneven Surface: 5 1 Step (curb) (QC): 4 4 Steps (QC): 4 12 Steps (QC): 88 Picking up an Object (QC): 88 Does the Pt use WC or Scooter?: Yes Wheel 50 feet with 2 turns (QC: 6 Type: Manual Wheel 150 feet: 6 PT Plan Treatment/Plan Treatment Plan: Continue Plan of Care Treatment Plan: Bed Mobility, Education, Functional Activity Latosha, Functional Strength, Group Therapy, Gait, Safety, Therapeutic Exercise, Transfers Treatment Duration: Jul 26, 2020 Frequency: At least 5 of 7 days/Wk (IRF) Estimated Hrs Per Day: 1.5 hours per day Patient and/or Family Agrees t: Yes Safety Risks/Education Patient Education: Gait Training, Transfer Techniques Time/GCodes Time In: 1400 Time Out: 1435 Total Billed Treatment Time: 35 Total Billed Treatment 1,FA35m SOHAIL DOWD MATHEMATICAL TECHNICIAN Jul 19, 2020 14:36
[2020-07-19] MEDS: ALPRAZolam 0.25 MG (XANAX) TAB PO PRN (15:26)
--- NOTE | 2020-07-19 16:14 | NUR ---
CM/SS VOTING Inquiry was made regarding the upcoming Presidential election and whether patient had an alternate plan to vote due to her hospitalization. Her target discharge is July 25. She indicated her family members intend to take her to vote or would make some sort of arrangement for her to complete a ballot as necessary.
[2020-07-19 16:30] VITALS: BP 108/52
[2020-07-19] MEDS: eZETimibe 10 MG (ZETIA) TABLET PO SCH (21:34)
[2020-07-19] MEDS: MELATONIN 3 MG TABLET PO PRN (21:34)
[2020-07-20] MEDS: MULTIVIT W/MINERALS TAB (THERAGRAN M) PO SCH (06:09)
[2020-07-20] MEDS: CATHETER FLUSH 10 ML SYR IV SCH ×3 (06:09→21:50)
[2020-07-20 06:15] VITALS: BP 110/52
--- NOTE | 2020-07-20 06:25 | PM&R Progress Note ---
Subjective HPI/CC On Admission Date Seen by Provider: Jul 20, 2020 Time Seen by Provider: 12:00 Subjective/Events-last exam 07/20/20: Had balloon release at front of hospital at 1000am today Needs more meds for anxiety and she has been on Zoloft for years so I suggested Effexor 37.5mg and she agreed IS use is good and regular 07/19/20: Pt doing extremely well Mara were discontinued today Labs look good IV iron and IV Lasix maintained Lower extremity edema improved Left heal and coccyx with Allevyn on them for decubitus ulcers 07/18/20: Pt doing very well Pain is well controlled on Percocet Jordan wraps to lower extremity edema will be helpful Weaning oxygen Will start multivitamin 07/17/20: Hgb 9.4 Overall very improved Weaned off oxygen JORDAN wraps will be maintained for lower extremity edema Cefepime maintained as antibiotics for pneumonia changing to PO abx During exertion she required oxygen Updated her daughter 07/16/20: Hgb 9.4 after one unit of blood yesterday and 5 units total she she received 4 units at [facility], two during each admission Iron infusions maintained Hemoccult was negative Holding blood thinner because of profound bleeding form incision site that could put her at risk for infection Updated daughter 07/15/20: Hemoccult is pending WC 13.6, Hgb 7.4, Iron level at 20 so will initiate IV iron infusions Albumin at 2.1 Titrating down O2 at 96% today so can titrate down After rounds she had bleeding from the surgical site and considering hgb 7.4 Dr Chávez contacted and he wanted Bactrim but already on broad spectrum abx no need for that and 2 units of blood and considering how overloaded she has been will give 1 unit and I updated Dr Chávez on all of these changes. 07/14/20: Coughing is productive 0945 she was dyspneic but received her Lasix and now doing well Anxiety is an issue Declines Lactulose Large BM when she goes QOD Updated daughter on the phone when I saw her today as I have daily Baseline is usually SBP 95 IV Lasix given today with good UOP by Dr Brewster No worsened hypotension from IV Lasix noted Up in chair today and much improved Elevated wbc noted and covered for PNA currently broad spectrum for HAP COVID swabbed negative COughing up purulent sputum, sputum culture pending Acapella helping BM extra large Checked meds and labs Conferred with RN Reviewed therapy notes Review of Systems General: Fatigue Musculoskeletal: leg pain Objective Exam Vital Signs Vital Signs Date Time Temp Pulse Resp B/P (MAP) Pulse Ox O2 Delivery O2 Flow Rate FiO2 07/20/20 16:07 36.8 71 18 109/53 (71) 95 Nasal Cannula 1.00 Capillary Refill : Less Than 3 SecondsLess Than 3 Seconds General Appearance: No Apparent Distress, WD/WN, Anxious, Chronically ill, Thin HEENT: PERRL/EOMI, Normal ENT Inspection, Pharynx Normal Neck: Full Range of Motion, Normal Inspection, Non Tender, Supple, Carotid Bruit Respiratory: Chest Non Tender, No Accessory Muscle Use, No Respiratory Distress, Decreased Breath Sounds Cardiovascular: Regular Rate, Rhythm, No Gallop, No JVD, No Murmur, Normal Peripheral Pulses Gastrointestinal: Normal Bowel Sounds, No Organomegaly, No Pulsatile Mass, Non Tender, Soft Back: Normal Inspection, No CVA Tenderness, No Vertebral Tenderness Extremity: Normal Capillary Refill, Normal Inspection, Normal Range of Motion, Non Tender, No Calf Tenderness, Pedal Edema Neurologic/Psychiatric: Alert, Oriented x3, No Motor/Sensory Deficits, Normal Mood/Affect, dining chair seat cushion trimmer II-XII Norm as Tested, Abnormal Gait Skin: Normal Color, Warm/Dry Lymphatic: No Adenopathy Results/Procedures Lab Patient resulted labs reviewed. FIM Transfers Therapy Code Descriptions/Definitions Functional Tucker Measure: 0=Not Assessed/NA 4=Minimal Assistance 1=Total Assistance 5=Supervision or Setup 2=Maximal Assistance 6=Modified Tucker 3=Moderate Assistance 7=Complete IndependenceSCALE: Activities may be completed with or without assistive devices. 6-Cuilikvisa-ohpidzb completes the activity by him/herself with no assistance from a helper. 5-Set-up or Clean-up Assistance-helper sets up or cleans up; patient completes activity. [place] assists only prior to or following the activity. 4-Supervision or Touching Assistance-helper provides verbal cues and/or touching/steadying and/or contact guard assistance as patient completes activity. Assistance may be provided throughout the activity or intermittently. 3-Partial/Moderate Assistance-helper does LESS THAN HALF the effort. Winn lifts, holds or supports trunk or limbs, but provides less than half the effort. 2-Substantial/Maximal Assistance-helper does MORE THAN HALF the effort. Winn lifts or holds trunk or limbs and provides more than half the effort. 1-Rgyjltgvj-dprfhh does ALL the effort. Patient does none of the effort to complete the activity. Or, the assistance of 2 or more helpers is required for the patient to complete the activity. If activity was not attempted, code reason: 7-Patient Refused. 9-Not Applicable-not attempted and the patient did not perform the activity before the current illness, exacerbation or injury. 10-Not Attempted due to Environmental Limitations-(lack of equipment, weather restraints, etc.). 88-Not Attempted due to Medical Conditions or Safety Concerns. Roll Left to Right (QC): 3 Sit to Lying (QC): 4 Sit to Stand (QC): 5 Chair/Dyv-mz-Vewnz Xfer(QC): 3 (with bed elevated for comfort and precautions) Car Transfer (QC): 88 (Unable to assess due to hip flexion precautions) Gait Training Does the Patient Walk?: Yes Distance: 175', 250' Walk 10 feet (QC): 5 Walk 50 ft with 2 Turns(QC): 5 Walk 150 ft (QC): 5 Walking 10ft/uneven surface-QC: 4 Gait Persons Needed: 1 Gait Assistive Device: FWW Wheelchair Training Does the Pt Use a Wheelchair?: Yes Distance: 150' Wheel 50 ft with 2 turns (QC): 4 Wheel 150 ft (QC): 4 Type of Wheelchair: Manual Stair Training #of Steps: 1 1 Step (curb) (QC): 4 (CGA for safety ) 4 Steps (QC): 4 (CGA with cues for sequencing and safety) 12 Steps (QC): 88 Balance Picking up an Object (QC): 88 ADL-Treatment Eating (QC): 6 (Pt reports independence with eating, no difficulties using utensils, bringing food to mouth, and eating.) Oral Hygiene (QC): 5 Bathing Location: L Arm, R Arm, L Upper Leg, R Upper Leg, L Lower Leg (including foot), R Lower Leg (including foot), Chest, Abdomen, Buttocks, Perineal Area Shower/Bathe Self (QC): 4 Upper Body Dressing (QC): 7 (Pt wants to continue to wear hospital gown due to brace.) Lower Body Dressing (QC): 4 On/Off Footwear (QC): 4 Toileting Hygiene (QC): 5 Toilet Transfer (QC): 5 Assessment/Plan Assessment and Plan Assess & Plan/Chief Complaint Assessment: s/p right hip fracture 07/04/20 s/p repair by Dr Chávez then dislocation of hardware 07/09/20 requiring transfer back to [facility] s/p spinal anesthesia but re duction only required Acute blood loss anemia s/p 2 units transfused 07/05/20 then again 07/09/20 Severe hypotension due to volume depletion requiring aggressive IVF administration at [facility] Acute pneumonia upon arrival to [facility] today requiring septic w/u which was negative and empiric abx for HAP COPD Current and heavy smoker 60 years Osteoporosis HLP Gallagher cath in place due to inability to ambulate with hip brace to prevent dislocation Pulmonary HTN 90 on ECHO negative USG right leg and negative PE on CT angiogram Anxiety Plan: IRF protocol Empiric abx Cardiology and Pulmonology appreciated Very frail status Anxiety treatment 07/13/20: Abx for HAP COVID negative IV Lasix 07/14/20: IV Lasix IV abx O2 Nebs COVID negative BM regimen 07/15/20: Check stools for blood Hemoglobin 7.4 monitor closely IV iron infusions Increase nutrition Titrate oxygen down Transfuse 1 unit of blood today Hold OAC 07/16/20: Monitor hemoglobin Hold anticoagulation due to severe anemia Monitor closely 07/17/20: Hold OAC due to severe anemia requiring 5 units of blood since hip fracture repair PO abx transition Wean O2 07/18/20: Hold OAC Nebs O2 weaning Pain control Improved 07/19/20: Monitor lungs O2 saturation monitoring Complete abx 07/20/20: Hold OAC due to life-threatening blood requiring 5 units of blood total since hip fracture Add Effexor IS use (1) Closed right hip fracture (2) Pneumonia (3) Pulmonary edema (4) Pulmonary hypertension (5) Anxiety (6) Osteoporosis (7) Hyperlipemia (8) Frailty (9) Elevated brain natriuretic peptide (BNP) level (10) COPD (chronic obstructive pulmonary disease) (11) Hypoxia (12) Anemia due to acute blood loss (13) Transfusion history (14) Gallagher catheter in place (15) Hip dislocation, right (16) Dyspnea AVANI NICOLE DO Jul 20, 2020 06:25
[2020-07-20] MEDS: RT-ALBUTEROL SULF 2.5 MG/3 ML PRE-MIX VIAL INH SCH ×3 (07:53→19:33)
[2020-07-20] MEDS: OXYBUTYNIN (DITROPAN) 5 MG TAB PO SCH ×3 (08:32→21:16)
[2020-07-20] MEDS: ASPIRIN 81 MG CHEW (CHILDREN'S ASA) PO SCH (08:32)
[2020-07-20] MEDS: PANTOPRAZOLE 40 MG (PROTONIX) TAB PO SCH (08:32)
[2020-07-20] MEDS: CEFDINIR 300 MG (OMNICEF) CAP PO SCH ×2 (08:32→21:16)
[2020-07-20] MEDS: dilTIAZem120 MG (CARDIZEM CD) CAP PO SCH (08:32)
[2020-07-20] MEDS: FUROSEMIDE 40 MG/4 ML INJ (LASIX) IVP SCH (08:33)
[2020-07-20] MEDS: NICOTINE PATCH REMOVAL TP SCH (08:33)
[2020-07-20] MEDS: LACTOBACILLUS ACIDOPHILUS (PROBIOTIC) CAPSULE PO SCH ×3 (08:33→17:37)
[2020-07-20] MEDS: NICOTINE 21 MG (NICODERM) PATCH TD SCH (08:33)
[2020-07-20] MEDS: DOCUSATE SODIUM 100 MG (COLACE) CAP PO SCH ×2 (08:36→21:15)
[2020-07-20] MEDS: polyethylene glycoL POWDER 17 GM (MIRALAX) PACK PO SCH ×2 (08:36→21:15)
[2020-07-20] MEDS: LACTULOSE SYRUP 10GM/15ML (ENULOSE) 30ML UDC PO SCH ×2 (08:36→21:15)
[2020-07-20] MEDS: SENNA W/DOCUSATE (SENOKOT S) TABLET PO SCH ×2 (08:37→21:15)
--- NOTE | 2020-07-20 08:45 | NUR ---
The edema that was noted the last few days in Lt elbow is essentially gone at this time. No redness.
[2020-07-20] MEDS: oxyCODONE/APAP 10/325MG (PERCOCET 10) TABLET PO PRN ×2 (08:58→21:15)
[2020-07-20] MEDS: ALPRAZolam 0.25 MG (XANAX) TAB PO PRN (09:03)
--- NOTE | 2020-07-20 10:31 | Physical Therapy Daily Note ---
PT Daily Note-Current Subjective Pt. in bed requests to go to bathroom. Pt. states she does not seem to be able to tolerate abduction of hips for functional purposes and needs someone to lift BOTH LEs out of and in to bed. This IRRIGATION FLUME LAYER shares perhaps we can work on this so pt.can be more indep with TRFs Pain Location: No Pain Reported Mental Status Patient Orientation: Normal For Age Attachments: Oxygen, Other-See Comments (hip abd immoblizer) Transfers SCALE: Activities may be completed with or without assistive devices. 0-Ilbxgytqai-ibvsphx completes the activity by him/herself with no assistance from a helper. 5-Set-up or Clean-up Assistance-helper sets up or cleans up; patient completes activity. [place] assists only prior to or following the activity. 4-Supervision or Touching Assistance-helper provides verbal cues and/or touching/steadying and/or contact guard assistance as patient completes activity. Assistance may be provided throughout the activity or intermittently. 3-Partial/Moderate Assistance-helper does LESS THAN HALF the effort. [place] lifts, holds or supports trunk or limbs, but provides less than half the effort. 2-Substantial/Maximal Assistance-helper does MORE THAN HALF the effort. [place] l ifts or holds trunk or limbs and provides more than half the effort. 2-Hyaywciky-kesebc does ALL the effort. Patient does none of the effort to complete the activity. Or, the assistance of 2 or more helpers is required for the patient to complete the activity. If activity was not attempted, code reason: 7-Patient Refused. 9-Not Applicable-not attempted and the patient did not perform the activity before the current illness, exacerbation or injury. 10-Not Attempted due to Environmental Limitations-(lack of equipment, weather restraints, etc.). 88-Not Attempted due to Medical Conditions or Safety Concerns. Roll Left & Right (QC): 4 Lying to Sitting/Side of Bed(Q: 4 Sit to Stand (QC): 6 Toilet Transfer (QC): 5 sup to sit min to mod assist to slide Bilat LEs to edge of bed. Weight Bearing Right Lower Extremity: Right Weight Bearing/Tolerated Gait Training Does the Patient Walk?: Yes Gait Assistive Device: FWW 50ft 2 turns with education and demonstration regarding safe use of extended O2 tubing during gait barby turns. Pt. seemed to understand this concept and shares this will be new to her if she has to do it b/c she only used O2 at night Exercises Supine Ex: Ankle pumps Supine Reps: 10 Seated Therapy Exercises: Sit to stand, Long arc quads Seated Reps: 5 Treatments PT was informed during pts toileting that her family was at a window and wanted her brought to be able to see her briefly. O2 was switched portable and pt.was assisted in to w/c and taken by nursing for window visit with mask insitu Assessment Current Status: Good Progress PT Short Term Goals Short Term Goals Time Frame: Jul 19, 2020 Roll Left & Right: 3 Sit to lyin Lying to sitting on side of be: 3 (met) Chair/uub-rj-efdvy transfer: 3 Walk 10 feet: 4 Walk 50 feet with two turns: 4 Walk 150 feet: 4 (met) 1 step (curb): 3 PT Prison Goals Prison Goals PT Prison Goals Time Frame: Jul 26, 2020 Roll Left & Right (QC): 4 Sit to Lying (QC): 4 Lying-Sitting on Side/Bed(QC): 4 Sit to Stand (QC): 4 Chair/Cve-nk-Clloo Xfer(QC): 4 Toilet Transfer (QC): 4 Car Transfer (QC): 88 Does the Patient Walk: Yes Walk 10 feet (QC): 5 Walk 50ft with 2 Turns (QC): 5 Walk 150 ft (QC): 5 Walking 10ft on Uneven Surface: 5 1 Step (curb) (QC): 4 4 Steps (QC): 4 12 Steps (QC): 88 Picking up an Object (QC): 88 Does the Pt use WC or Scooter?: Yes Wheel 50 feet with 2 turns (QC: 6 Type: Manual Wheel 150 feet: 6 PT Plan Treatment/Plan Treatment Plan: Continue Plan of Care Treatment Plan: Bed Mobility, Education, Functional Activity Latosha, Functional Strength, Group Therapy, Gait, Safety, Therapeutic Exercise, Transfers Treatment Duration: Jul 26, 2020 Frequency: At least 5 of 7 days/Wk (IRF) Estimated Hrs Per Day: 1.5 hours per day Patient and/or Family Agrees t: Yes Safety Risks/Education Patient Education: Gait Training, Transfer Techniques, Correct Positioning, Disease Process, Safety Issues Teaching Recipient: Patient Teaching Methods: Demonstration, Discussion Response to Teaching: Verbalize Understanding, Return Demonstration, Reinforcement Needed Time/GCodes Time In: 945 Time Out: 1005 Total Billed Treatment Time: 20 Total Billed Treatment 1,FA20m SOHAIL DOWD IRRIGATION FLUME LAYER Jul 20, 2020 10:31
--- NOTE | 2020-07-20 10:40 | Cardiology Progress Note ---
Subjective Date Seen by Provider: Jul 20, 2020 Time Seen by Provider: 10:39 Subjective/Events-last exam Patient is sitting in a wheelchair, using nasal cannula, feeling better today. Review of Systems General: No Chills, No Night Sweats; Fatigue, Malaise; No Appetite, No Other HEENT: No Head Aches, No Visual Changes, No Eye Pain, No Ear Pain, No Dysphasia, No Sinus Congestion, No Post Nasal Drip, No Sore Throat, No Other Pulmonary: Dyspnea; No Cough, No Pleuritic Chest Pain, No Other Cardiovascular: No: Chest Pain, Palpitations, Orthopnea, Paroxysmal Noc. Dyspnea, Edema, Lt Headedness, Other Objective-Cardiology Exam Last Set of Vital Signs Vital Signs 07/20/20 07/20/20 06:15 07:53 Temp 37.2 Pulse 68 Resp 22 B/P (MAP) 110/52 (71) Pulse Ox 95 O2 Delivery Nasal Cannula O2 Flow Rate 1.00 Capillary Refill : Less Than 3 SecondsLess Than 3 Seconds I&O Intake and Output 07/20/20 00:00 Intake Total 1310 ml Balance 1310 ml Intake Oral 1310 ml # Voids 6 # Bowel Movements 2 General: Alert, Oriented X3, Cooperative HEENT: Atraumatic, PERRLA Neck: Supple, No JVD, No Thyromegaly Lungs: Clear to Auscultation, Normal Air Movement Heart: Regular Rate, Normal S1, Normal S2, No Murmurs Abdomen: Normal Bowel Sounds, Soft, No Tenderness, No Hepatosplenomegaly, No Masses Extremities: No Clubbing, No Cyanosis, No Tenderness/Swelling, Other ( BLE edema) Skin: No Rashes, No Breakdown, No Significant Lesion Neuro: Normal Speech, Strength at 5/5 X4 Ext A/P-Cardiology Admission Diagnosis Right hip fracture Dyspnea COPD LVOT HTP Assessment/Plan Shortness of breath, reporting improvement, still using oxygen. Continue to monitor Pulmonary hypertension, moderately severe, etiology undetermined, no evidence of PE on pulm CT angio of 07/12/20 LVOT obstruction. Echo of 07/12/20 shows: mild LVH, systolic anterior motion of mitral valve apparatus, LVOT tract gradient of 110 mmHg, grade 2 diastolic dysfunction, LVEF 55-65%, PASP 85-90 mmHg S/P non-syncopal fall leading to right hip fracture - s/p repair by Dr. Chávez at [facility] in Jun 2020 Post op anemia. Hematuria and oozing from operative site on 07/15/20. S/p transfusion on 07/15/20. Margo Florentino currently on hold, restart oral anticoagulation when approved by Dr. Jonathon Aguila leg swelling after hip surgery of Jun 2020, no evidence of DVT on leg venous Doppler of 07/12/20 COPD, oxygen dependent, follow with Dr. Narcisa HINES, continue to monitor as outpatient Tobaccoism - cessation advised Anxiety Clinical Quality Measures DVT/VTE Risk/Contraindication: Risk Factor Score Per Nursin RFS Level Per Nursing on Admit: 4+=Very High Contraindications-Pharm: Other *list below* Other: severe anemia requiring blood transfusions SERENA HUGHES MD Jul 20, 2020 10:39 am
[2020-07-20] MEDS ORDERED: VENlafaxine XR 37.5 MG (EFFEXOR XR) CAP PO NR (12:00)
[2020-07-20] MEDS: SERTRALINE 50 MG (ZOLOFT) TABLET PO SCH (14:41)
[2020-07-20 16:07] VITALS: BP 109/53
[2020-07-20] MEDS: eZETimibe 10 MG (ZETIA) TABLET PO SCH (21:16)
[2020-07-20] MEDS: MELATONIN 3 MG TABLET PO PRN (21:16)
[2020-07-21 06:00] VITALS: BP 116/62
[2020-07-21] MEDS: MULTIVIT W/MINERALS TAB (THERAGRAN M) PO SCH (06:12)
[2020-07-21] MEDS: VENlafaxine XR 37.5 MG (EFFEXOR XR) CAP PO SCH (06:12)
[2020-07-21] MEDS: CATHETER FLUSH 10 ML SYR IV SCH ×3 (06:13→21:21)
[2020-07-21] MEDS: dilTIAZem120 MG (CARDIZEM CD) CAP PO SCH (09:22)
[2020-07-21] MEDS: LACTOBACILLUS ACIDOPHILUS (PROBIOTIC) CAPSULE PO SCH ×3 (09:22→17:53)
[2020-07-21] MEDS: OXYBUTYNIN (DITROPAN) 5 MG TAB PO SCH ×3 (09:22→21:22)
[2020-07-21] MEDS: PANTOPRAZOLE 40 MG (PROTONIX) TAB PO SCH (09:22)
[2020-07-21] MEDS: CEFDINIR 300 MG (OMNICEF) CAP PO SCH ×2 (09:22→21:22)
[2020-07-21] MEDS: NICOTINE 21 MG (NICODERM) PATCH TD SCH (09:23)
[2020-07-21] MEDS: IRON SUCROSE 200 MG/10 ML (VENOFER) VIAL IV SCH (09:23)
[2020-07-21] MEDS: ASPIRIN 81 MG CHEW (CHILDREN'S ASA) PO SCH (09:23)
[2020-07-21] MEDS: ALPRAZolam 0.25 MG (XANAX) TAB PO PRN (09:23)
[2020-07-21] MEDS: FUROSEMIDE 40 MG/4 ML INJ (LASIX) IVP SCH (09:23)
[2020-07-21] MEDS: polyethylene glycoL POWDER 17 GM (MIRALAX) PACK PO SCH ×2 (09:25→21:20)
[2020-07-21] MEDS: LACTULOSE SYRUP 10GM/15ML (ENULOSE) 30ML UDC PO SCH ×2 (09:25→21:20)
[2020-07-21] MEDS: DOCUSATE SODIUM 100 MG (COLACE) CAP PO SCH ×2 (09:26→21:23)
[2020-07-21] MEDS: NICOTINE PATCH REMOVAL TP SCH (09:27)
[2020-07-21] MEDS: oxyCODONE/APAP 10/325MG (PERCOCET 10) TABLET PO PRN ×2 (09:58→21:22)
--- NOTE | 2020-07-21 11:24 | Cardiology Progress Note ---
Subjective Date Seen by Provider: Jul 21, 2020 Time Seen by Provider: 11:24 Subjective/Events-last exam Patient was seen at bedside, sitting in a chair comfortably denied any pain, still using oxygen Review of Systems General: No Chills, No Night Sweats, No Fatigue, No Malaise, No Appetite, No Other HEENT: No Head Aches, No Visual Changes, No Eye Pain, No Ear Pain, No Dysphasia , No Sinus Congestion, No Post Nasal Drip, No Sore Throat, No Other Pulmonary: Dyspnea; No Cough, No Pleuritic Chest Pain, No Other Cardiovascular: No: Chest Pain, Palpitations, Orthopnea, Paroxysmal Noc. Dyspnea, Edema, Lt Headedness, Other Objective-Cardiology Exam Last Set of Vital Signs Vital Signs 07/20/20 07/21/20 20:20 06:00 Temp 37.0 Pulse 73 Resp 20 B/P (MAP) 116/62 (80) Pulse Ox 94 O2 Delivery Nasal Cannula O2 Flow Rate 2.00 Capillary Refill : Less Than 3 SecondsLess Than 3 Seconds I&O Intake and Output 07/21/20 00:00 Intake Total 1800 ml Balance 1800 ml Intake Oral 1800 ml # Voids 8 # Bowel Movements 2 General: Alert, Oriented X3, Cooperative HEENT: Atraumatic, PERRLA Neck: Supple, No JVD, No Thyromegaly Lungs: Clear to Auscultation, Normal Air Movement Heart: Regular Rate, Normal S1, Normal S2, No Murmurs Abdomen: Normal Bowel Sounds, Soft, No Tenderness, No Hepatosplenomegaly, No Masses Extremities: No Clubbing, No Cyanosis, No Tenderness/Swelling, Other ( BLE edema) Skin: No Rashes, No Breakdown, No Significant Lesion Neuro: Normal Speech, Strength at 5/5 X4 Ext A/P-Cardiology Admission Diagnosis Right hip fracture Dyspnea COPD LVOT HTP Assessment/Plan Shortness of breath, reporting improvement, still using oxygen. Continue to monitor Pulmonary hypertension, moderately severe, etiology undetermined, no evidence of PE on pulm CT angio of 07/12/20 LVOT obstruction. Echo of 07/12/20 shows: mild LVH, systolic anterior motion of mitral valve apparatus, LVOT tract gradient of 110 mmHg, grade 2 diastolic dysfunction, LVEF 55-65%, PASP 85-90 mmHg S/P non-syncopal fall leading to right hip fracture - s/p repair by Dr. Chávez at [facility] in Jun 2020 Post op anemia. Hematuria and oozing from operative site on 07/15/20. S/p transfusion on 07/15/20. Marge Florentinomacho currently on hold, restart oral anticoagulation when approved by Dr. Jonathon Aguila leg swelling after hip surgery of Jun 2020, no evidence of DVT on leg venous Doppler of 07/12/20 COPD, oxygen dependent, follow with Dr. Narcisa HINES, continue to monitor as outpatient Tobaccoism - cessation advised Anxiety Clinical Quality Measures DVT/VTE Risk/Contraindication: Risk Factor Score Per Nursin RFS Level Per Nursing on Admit: 4+=Very High Contraindications-Pharm: Other *list below* Other: severe anemia requiring blood transfusions SERENA HUGHES MD Jul 21, 2020 11:24
--- NOTE | 2020-07-21 11:45 | PM&R Progress Note ---
Subjective HPI/CC On Admission Date Seen by Provider: Jul 21, 2020 Time Seen by Provider: 12:00 Subjective/Events-last exam 07/21/20: BM+ Breathing better No O2 required Nicotine patch applied Omnicef DC tomorrow Hugo on coccyx 07/20/20: Had balloon release at front of hospital at 1000am today Needs more meds for anxiety and she has been on Zoloft for years so I suggested Effexor 37.5mg and she agreed IS use is good and regular 07/19/20: Pt doing extremely well [place] were discontinued today Labs look good IV iron and IV Lasix maintained Lower extremity edema improved Left heal and coccyx with Allevyn on them for decubitus ulcers 07/18/20: Pt doing very well Pain is well controlled on Percocet [place] wraps to lower extremity edema will be helpful Weaning oxygen Will start multivitamin 07/17/20: Hgb 9.4 Overall very improved Weaned off oxygen JORDAN wraps will be maintained for lower extremity edema Cefepime maintained as antibiotics for pneumonia changing to PO abx During exertion she required oxygen Updated her daughter 07/16/20: Hgb 9.4 after one unit of blood yesterday and 5 units total she she received 4 units at [place], two during each admission Iron infusions maintained Hemoccult was negative Holding blood thinner because of profound bleeding form incision site that could put her at risk for infection Updated daughter 07/15/20: Hemoccult is pending WC 13.6, Hgb 7.4, Iron level at 20 so will initiate IV iron infusions Albumin at 2.1 Titrating down O2 at 96% today so can titrate down After rounds she had bleeding from the surgical site and considering hgb 7.4 Dr Chávez contacted and he wanted Bactrim but already on broad spectrum abx no need for that and 2 units of blood and considering how overloaded she has been will give 1 unit and I updated Dr Chávez on all of these changes. 07/14/20: Coughing is productive 0945 she was dyspneic but received her Lasix and now doing well Anxiety is an issue Declines Lactulose Large BM when she goes QOD Updated daughter on the phone when I saw her today as I have daily Baseline is usually SBP 95 IV Lasix given today with good UOP by Dr Brewster No worsened hypotension from IV Lasix noted Up in chair today and much improved Elevated wbc noted and covered for PNA currently broad spectrum for HAP COVID swabbed negative COughing up purulent sputum, sputum culture pending Acapella helping BM extra large Checked meds and labs Conferred with RN Reviewed therapy notes Review of Systems General: Fatigue Musculoskeletal: leg pain Objective Exam Vital Signs Vital Signs Date Time Temp Pulse Resp B/P (MAP) Pulse Ox O2 Delivery O2 Flow Rate FiO2 07/21/20 14:17 97 Nasal Cannula 1.00 07/21/20 06:00 37.0 73 20 116/62 (80) Capillary Refill : Less Than 3 SecondsLess Than 3 Seconds General Appearance: No Apparent Distress, WD/WN, Anxious, Chronically ill, Thin HEENT: PERRL/EOMI, Normal ENT Inspection, Pharynx Normal Neck: Full Range of Motion, Normal Inspection, Non Tender, Supple, Carotid Bruit Respiratory: Chest Non Tender, No Accessory Muscle Use, No Respiratory Distress, Decreased Breath Sounds Cardiovascular: Regular Rate, Rhythm, No Gallop, No JVD, No Murmur, Normal Peripheral Pulses Gastrointestinal: Normal Bowel Sounds, No Organomegaly, No Pulsatile Mass, Non Tender, Soft Back: Normal Inspection, No CVA Tenderness, No Vertebral Tenderness Extremity: Normal Capillary Refill, Normal Inspection, Normal Range of Motion, Non Tender, No Calf Tenderness, Pedal Edema Neurologic/Psychiatric: Alert, Oriented x3, No Motor/Sensory Deficits, Normal Mood/Affect, math professor II-XII Norm as Tested, Abnormal Gait Skin: Normal Color, Warm/Dry Lymphatic: No Adenopathy Results/Procedures Lab Patient resulted labs reviewed. FIM Transfers Therapy Code Descriptions/Definitions Functional [place] Measure: 0=Not Assessed/NA 4=Minimal Assistance 1=Total Assistance 5=Supervision or Setup 2=Maximal Assistance 6=Modified [place] 3=Moderate Assistance 7=Complete IndependenceSCALE: Activities may be completed with or without assistive devices. 8-Xwrfbhvsjj-uhbkcib completes the activity by him/herself with no assistance fr om a helper. 5-Set-up or Clean-up Assistance-helper sets up or cleans up; patient completes activity. [place] assists only prior to or following the activity. 4-Supervision or Touching Assistance-helper provides verbal cues and/or touching/steadying and/or contact guard assistance as patient completes activity. Assistance may be provided throughout the activity or intermittently. 3-Partial/Moderate Assistance-helper does LESS THAN HALF the effort. [place] lifts, holds or supports trunk or limbs, but provides less than half the effort. 2-Substantial/Maximal Assistance-helper does MORE THAN HALF the effort. [place] lifts or holds trunk or limbs and provides more than half the effort. 2-Dgoebmvmj-eauidh does ALL the effort. Patient does none of the effort to complete the activity. Or, the assistance of 2 or more helpers is required for the patient to complete the activity. If activity was not attempted, code reason: 7-Patient Refused. 9-Not Applicable-not attempted and the patient did not perform the activity before the current illness, exacerbation or injury. 10-Not Attempted due to Environmental Limitations-(lack of equipment, weather restraints, etc.). 88-Not Attempted due to Medical Conditions or Safety Concerns. Roll Left to Right (QC): 4 Sit to Lying (QC): 4 Sit to Stand (QC): 6 Chair/Ver-is-Anzvl Xfer(QC): 3 (with bed elevated for comfort and precautions) Car Transfer (QC): 88 (Unable to assess due to hip flexion precautions) Gait Training Does the Patient Walk?: Yes Distance: 175', 250' Walk 10 feet (QC): 5 Walk 50 ft with 2 Turns(QC): 5 Walk 150 ft (QC): 5 Walking 10ft/uneven surface-QC: 4 Gait Persons Needed: 1 Gait Assistive Device: FWW Wheelchair Training Does the Pt Use a Wheelchair?: Yes Distance: 150' Wheel 50 ft with 2 turns (QC): 4 Wheel 150 ft (QC): 4 Type of Wheelchair: Manual Stair Training #of Steps: 1 1 Step (curb) (QC): 4 (CGA for safety ) 4 Steps (QC): 4 (CGA with cues for sequencing and safety) 12 Steps (QC): 88 Balance Picking up an Object (QC): 88 ADL-Treatment Eating (QC): 6 (Pt reports independence with eating, no difficulties using utensils, bringing food to mouth, and eating.) Oral Hygiene (QC): 5 Bathing Location: L Arm, R Arm, L Upper Leg, R Upper Leg, L Lower Leg (including foot), R Lower Leg (including foot), Chest, Abdomen, Buttocks, Perineal Area Shower/Bathe Self (QC): 4 Upper Body Dressing (QC): 7 (Pt wants to continue to wear hospital gown due to brace.) Lower Body Dressing (QC): 4 On/Off Footwear (QC): 4 Toileting Hygiene (QC): 5 Toilet Transfer (QC): 5 Assessment/Plan Assessment and Plan Assess & Plan/Chief Complaint Assessment: s/p right hip fracture 07/04/20 s/p repair by Dr Chávez then dislocation of hardware 07/09/20 requiring transfer back to [facility] s/p spinal anesthesia but reduction only required Acute blood loss anemia s/p 2 units transfused 07/05/20 then again 07/09/20 Severe hypotension due to volume depletion requiring aggressive IVF administration at [facility] Acute pneumonia upon arrival to IR[facility] today requiring septic w/u which was negative and empiric abx for HAP COPD Current and heavy smoker 60 years Osteoporosis HLP Gallagher cath in place due to inability to ambulate with hip brace to prevent dislocation Pulmonary HTN 90 on ECHO negative USG right leg and negative PE on CT angiogram Anxiety Plan: IRF protocol Empiric abx Cardiology and Pulmonology appreciated Very frail status Anxiety treatment 07/13/20: Abx for HAP COVID negative IV Lasix 07/14/20: IV Lasix IV abx O2 Nebs COVID negative BM regimen 07/15/20: Check stools for blood Hemoglobin 7.4 monitor closely IV iron infusions Increase nutrition Titrate oxygen down Transfuse 1 unit of blood today Hold OAC 07/16/20: Monitor hemoglobin Hold anticoagulation due to severe anemia Monitor closely 07/17/20: Hold OAC due to severe anemia requiring 5 units of blood since hip fracture repair PO abx transition Wean O2 07/18/20: Hold OAC Nebs O2 weaning Pain control Improved 07/19/20: Monitor lungs O2 saturation monitoring Complete abx 07/20/20: Hold OAC due to life-threatening blood requiring 5 units of blood total since hip fracture Add Effexor IS use 07/21/20: Nicotine patch Depression treatment with Zoloft and Effexor BM+ (1) Closed right hip fracture (2) Pneumonia (3) Pulmonary edema (4) Pulmonary hypertension (5) Anxiety (6) Osteoporosis (7) Hyperlipemia (8) Frailty (9) Elevated brain natriuretic peptide (BNP) level (10) COPD (chronic obstructive pulmonary disease) (11) Hypoxia (12) Anemia due to acute blood loss (13) Transfusion history (14) Gallagher catheter in place (15) Hip dislocation, right (16) Dyspnea AVANI NICOLE DO Jul 21, 2020 11:45
[2020-07-21] MEDS: SENNA W/DOCUSATE (SENOKOT S) TABLET PO SCH ×2 (12:18→21:22)
[2020-07-21] MEDS: SERTRALINE 50 MG (ZOLOFT) TABLET PO SCH (13:11)
[2020-07-21] MEDS: RT-ALBUTEROL SULF 2.5 MG/3 ML PRE-MIX VIAL INH SCH ×2 (14:17→19:00)
[2020-07-21 17:11] VITALS: BP 94/53
[2020-07-21] MEDS: MELATONIN 3 MG TABLET PO PRN (21:22)
[2020-07-21] MEDS: eZETimibe 10 MG (ZETIA) TABLET PO SCH (21:22)
[2020-07-22 04:59] LABS: BASOPHILS # (AUTO) 0.1 10^3/uL (0.0-0.1); BASOPHILS % (AUTO) 1 % (0-10); EOSINOPHILS # (AUTO) 0.1 10^3/uL (0.0-0.3); EOSINOPHILS % (AUTO) 2 % (0-10); HEMATOCRIT 29 % (35-52); HEMOGLOBIN 9.1 g/dL (11.5-16.0); LYMPHOCYTES # (AUTO) 1.1 10^3/uL (1.0-4.0); LYMPHOCYTES % (AUTO) 16 % (12-44); MEAN CORPUSCULAR HEMOGLOBIN 31 pg (25-34); MEAN CORPUSCULAR HGB CONC 31 g/dL (32-36); MEAN CORPUSCULAR VOLUME 100 fL (80-99); MEAN PLATELET VOLUME 8.7 fL (9.0-12.2); MONOCYTES # (AUTO) 0.8 10^3/uL (0.0-1.0); MONOCYTES % (AUTO) 11 % (0-12); NEUTROPHILS # (AUTO) 4.9 10^3/uL (1.8-7.8); NEUTROPHILS % (AUTO) 68 % (42-75); PLATELET COUNT 435 10^3/uL (130-400); WHITE BLOOD COUNT 7.1 10^3/uL (4.3-11.0)
[2020-07-22 05:07] LABS: ALBUMIN 2.6 GM/DL (3.2-4.5); CHLORIDE 99 MMOL/L (98-107); POTASSIUM 4.1 MMOL/L (3.6-5.0); SODIUM 139 MMOL/L (135-145)
[2020-07-22 05:08] LABS: CALCIUM 8.6 MG/DL (8.5-10.1)
[2020-07-22 05:10] LABS: GLUCOSE 76 MG/DL (70-105); TOTAL PROTEIN 5.8 GM/DL (6.4-8.2)
[2020-07-22 05:11] LABS: BILIRUBIN,TOTAL 0.5 MG/DL (0.1-1.0); CARBON DIOXIDE 34 MMOL/L (21-32)
[2020-07-22 05:13] LABS: ALKALINE PHOSPHATASE 71 U/L (40-136); GFR ESTIMATED > 60
[2020-07-22 05:14] LABS: BUN/CREATININE RATIO 36
[2020-07-22 05:16] LABS: ALANINE AMINOTRANSFERASE 22 U/L (0-55)
--- NOTE | 2020-07-22 05:48 | PM&R Progress Note ---
Subjective HPI/CC On Admission Date Seen by Provider: Jul 22, 2020 Time Seen by Provider: 09:00 Subjective/Events-last exam 07/22/20: Pt doing very well Hgb 9.1 Weaned off O2 Bowels are moving Slept well Breathing better DC planned for 07/21/20: BM+ Breathing better No O2 required Nicotine patch applied Omnicef DC tomorrow [place] on coccyx 07/20/20: Had balloon release at front of hospital at 1000am today Needs more meds for anxiety and she has been on Zoloft for years so I suggested Effexor 37.5mg and she agreed IS use is good and regular 07/19/20: Pt doing extremely well [place] were discontinued today Labs look good IV iron and IV Lasix maintained Lower extremity edema improved Left heal and coccyx with Allevyn on them for decubitus ulcers 07/18/20: Pt doing very well Pain is well controlled on Percocet [place] wraps to lower extremity edema will be helpful Weaning oxygen Will start multivitamin 07/17/20: Hgb 9.4 Overall very improved Weaned off oxygen JORDAN wraps will be maintained for lower extremity edema Cefepime maintained as antibiotics for pneumonia changing to PO abx During exertion she required oxygen Updated her daughter 07/16/20: Hgb 9.4 after one unit of blood yesterday and 5 units total she she received 4 units at [place], two during each admission Iron infusions maintained Hemoccult was negative Holding blood thinner because of profound bleeding form incision site that could put her at risk for infection Updated daughter 07/15/20: Hemoccult is pending WC 13.6, Hgb 7.4, Iron level at 20 so will initiate IV iron infusions Albumin at 2.1 Titrating down O2 at 96% today so can titrate down After rounds she had bleeding from the surgical site and considering hgb 7.4 Dr Chávez contacted and he wanted Bactrim but already on broad spectrum abx no need for that and 2 units of blood and considering how overloaded she has been will give 1 unit and I updated Dr Chávez on all of these changes. 07/14/20: Coughing is productive 0945 she was dyspneic but received her Lasix and now doing well Anxiety is an issue Declines Lactulose Large BM when she goes QOD Updated daughter on the phone when I saw her today as I have daily Baseline is usually SBP 95 IV Lasix given today with good UOP by Dr Brewster No worsened hypotension from IV Lasix noted Up in chair today and much improved Elevated wbc noted and covered for PNA currently broad spectrum for HAP COVID swabbed negative COughing up purulent sputum, sputum culture pending Acapella helping BM extra large Checked meds and labs Conferred with RN Reviewed therapy notes Review of Systems General: Fatigue, Malaise Pulmonary: Dyspnea Musculoskeletal: leg pain Objective Exam Vital Signs Vital Signs Date Time Temp Pulse Resp B/P (MAP) Pulse Ox O2 Delivery O2 Flow Rate FiO2 07/22/20 21:37 92 Room Air 07/22/20 18:22 36.5 72 20 102/51 (68) 07/22/20 08:49 1.00 Capillary Refill : Less Than 3 SecondsLess Than 3 Seconds General Appearance: No Apparent Distress, WD/WN, Anxious, Chronically ill, Thin HEENT: PERRL/EOMI, Normal ENT Inspection, Pharynx Normal Neck: Full Range of Motion, Normal Inspection, Non Tender, Supple, Carotid Bruit Respiratory: Chest Non Tender, No Accessory Muscle Use, No Respiratory Distress, Decreased Breath Sounds Cardiovascular: Regular Rate, Rhythm, No Gallop, No JVD, No Murmur, Normal Peripheral Pulses Gastrointestinal: Normal Bowel Sounds, No Organomegaly, No Pulsatile Mass, Non Tender, Soft Back: Normal Inspection, No CVA Tenderness, No Vertebral Tenderness Extremity: Normal Capillary Refill, Normal Inspection, Normal Range of Motion, Non Tender, No Calf Tenderness, Pedal Edema Neurologic/Psychiatric: Alert, Oriented x3, No Motor/Sensory Deficits, Normal Mood/Affect, teradata developer II-XII Norm as Tested, Abnormal Gait Skin: Normal Color, Warm/Dry Lymphatic: No Adenopathy Results/Procedures Lab Patient resulted labs reviewed. FIM Transfers Therapy Code Descriptions/Definitions Functional [place] Measure: 0=Not Assessed/NA 4=Minimal Assistance 1=Total Assistance 5=Supervision or Setup 2=Maximal Assistance 6=Modified [place] 3=Moderate Assistance 7=Complete IndependenceSCALE: Activities may be completed with or without assistive devices. 9-Ofyucqbgxz-gulwunr completes the activity by him/herself with no assistance from a helper. 5-Set-up or Clean-up Assistance-helper sets up or cleans up; patient completes activity. [place] assists only prior to or following the activity. 4-Supervision or Touching Assistance-helper provides verbal cues and/or touching/steadying and/or contact guard assistance as patient completes activity. Assistance may be provided throughout the activity or intermittently. 3-Partial/Moderate Assistance-helper does LESS THAN HALF the effort. [place] lifts, holds or supports trunk or limbs, but provides less than half the effort. 2-Substantial/Maximal Assistance-helper does MORE THAN HALF the effort. [place] lifts or holds trunk or limbs and provides more than half the effort. 0-Uoqrmmugs-vdfmec does ALL the effort. Patient does none of the effort to complete the activity. Or, the assistance of 2 or more helpers is required for the patient to complete the activity. If activity was not attempted, code reason: 7-Patient Refused. 9-Not Applicable-not attempted and the patient did not perform the activity before the current illness, exacerbation or injury. 10-Not Attempted due to Environmental Limitations-(lack of equipment, weather restraints, etc.). 88-Not Attempted due to Medical Conditions or Safety Concerns. Roll Left to Right (QC): 4 Sit to Lying (QC): 4 Sit to Stand (QC): 6 Chair/Poe-dh-Tneho Xfer(QC): 3 (with bed elevated for comfort and precautions) Car Transfer (QC): 88 (Unable to assess due to hip flexion precautions) Gait Training Does the Patient Walk?: Yes Distance: 175', 250' Walk 10 feet (QC): 5 Walk 50 ft with 2 Turns(QC): 5 Walk 150 ft (QC): 5 Walking 10ft/uneven surface-QC: 4 Gait Persons Needed: 1 Gait Assistive Device: FWW Wheelchair Training Does the Pt Use a Wheelchair?: Yes Distance: 150' Wheel 50 ft with 2 turns (QC): 4 Wheel 150 ft (QC): 4 Type of Wheelchair: Manual Stair Training #of Steps: 1 1 Step (curb) (QC): 4 (CGA for safety ) 4 Steps (QC): 4 (CGA with cues for sequencing and safety) 12 Steps (QC): 88 Balance Picking up an Object (QC): 88 ADL-Treatment Eating (QC): 6 (Pt reports independence with eating, no difficulties using utensils, bringing food to mouth, and eating.) Oral Hygiene (QC): 5 Bathing Location: L Arm, R Arm, L Upper Leg, R Upper Leg, L Lower Leg (including foot), R Lower Leg (including foot), Chest, Abdomen, Buttocks, Perineal Area Shower/Bathe Self (QC): 4 Upper Body Dressing (QC): 7 (Pt wants to continue to wear hospital gown due to brace.) Lower Body Dressing (QC): 4 On/Off Footwear (QC): 4 Toileting Hygiene (QC): 5 Toilet Transfer (QC): 5 Assessment/Plan Assessment and Plan Assess & Plan/Chief Complaint Assessment: s/p right hip fracture 07/04/20 s/p repair by Dr Chávez then dislocation of hardwa re 07/09/20 requiring [place] [facility] [place] spinal anesthesia but reduction only required Acute blood loss anemia s/p 2 units transfused 07/05/20 then again 07/09/20 Severe hypotension due to volume depletion requiring aggressive IVF administration [place] [facility] Acute pneumonia upon arrival to [facility] today requiring septic w/u which was negative and empiric abx for HAP COPD Current and heavy smoker 60 years Osteoporosis HLP Gallagher cath in place due to inability to ambulate with hip brace to prevent dislocation Pulmonary HTN 90 on ECHO negative USG right leg and negative PE on CT angiogram Anxiety Plan: IRF protocol Empiric abx Cardiology and Pulmonology appreciated Very frail status Anxiety treatment 07/13/20: Abx for HAP COVID negative IV Lasix 07/14/20: IV Lasix IV abx O2 Nebs COVID negative BM regimen 07/15/20: Check stools for blood Hemoglobin 7.4 monitor closely IV iron infusions Increase nutrition Titrate oxygen down Transfuse 1 unit of blood today Hold OAC 07/16/20: Monitor hemoglobin Hold anticoagulation due to severe anemia Monitor closely 07/17/20: Hold OAC due to severe anemia requiring 5 units of blood since hip fracture repa ir PO abx transition Wean O2 07/18/20: Hold OAC Nebs O2 weaning Pain control Improved 07/19/20: Monitor lungs O2 saturation monitoring Complete abx 07/20/20: Hold OAC due to life-threatening blood requiring 5 units of blood total since hip fracture Add Effexor IS use 07/21/20: Nicotine patch Depression treatment with Zoloft and Effexor BM+ 07/22/20: Continue therapy DC (1) Closed right hip fracture (2) Pneumonia (3) Pulmonary edema (4) Pulmonary hypertension (5) Anxiety (6) Osteoporosis (7) Hyperlipemia (8) Frailty (9) Elevated brain natriuretic peptide (BNP) level (10) COPD (chronic obstructive pulmonary disease) (11) Hypoxia (12) Anemia due to acute blood loss (13) Transfusion history (14) Gallagher catheter in place (15) Hip dislocation, right (16) Dyspnea AVANI NICOLE DO Jul 22, 2020 05:48
[2020-07-22 06:00] VITALS: BP 123/57
[2020-07-22] MEDS: RT-ALBUTEROL SULF 2.5 MG/3 ML PRE-MIX VIAL INH SCH ×3 (06:15→21:37)
[2020-07-22] MEDS: CATHETER FLUSH 10 ML SYR IV SCH ×3 (06:23→21:50)
[2020-07-22] MEDS: VENlafaxine XR 37.5 MG (EFFEXOR XR) CAP PO SCH (06:23)
[2020-07-22] MEDS: MULTIVIT W/MINERALS TAB (THERAGRAN M) PO SCH (06:23)
--- NOTE | 2020-07-22 08:16 | Occupational Ther Daily Note ---
OT Current Status-Daily Note Subjective Pt alert, sitting in recliner. Pt agrees to therapy. C/o pain, 5/10 when moving around, nrsg aware. Mental Status/Objective Patient Orientation: Person, Place, Time, Situation Attachments: IV, Oxygen (1 L), Other-See Comments (Abductor Brace) ADL-Treatment Pt able to set up own meal and use regular utensils. Pt requested sponge bath today. After set up with supplies, pt able to complete upper body sitting in recliner. Requested to use bathroom and to wash buttocks/crow area while toileting. Supervision with toilet transfer and hiking pants down over hips. Pt doff underwear standing using FWW, SBA. Pt ambulated back to chair to dress lower body using adaptive equipment. Pt threaded underwear, pants over feet by self after set up then SBA while hiking pants over hips. Pt used sock aid to thread socks onto with verbal cues to get socks over heel. Pt ambulated back to restroom to complete oral hygiene standing at sink with FWW independently. Pt ambulated back to recliner call light/phone in reach. All needs met. Therapy Code Descriptions/Definitions Functional [place] Measure: 0=Not Assessed/NA 4=Minimal Assistance 1=Total Assistance 5=Supervision or Setup 2=Maximal Assistance 6=Modified [place] 3=Moderate Assistance 7=Complete IndependenceSCALE: Activities may be completed with or without assistive devices. 7-Yapiwoynus-xzqgolt completes the activity by him/herself with no assistance from a helper. 5-Set-up or Clean-up Assistance-helper sets up or cleans up; patient completes activity. [place] assists only prior to or following the activity. 4-Supervision or Touching Assistance-helper provides verbal cues and/or touching/steadying and/or contact guard assistance as patient completes activity. Assistance may be provided throughout the activity or intermittently. 3-Partial/Moderate Assistance-helper does LESS THAN HALF the effort. [place] lifts, holds or supports trunk or limbs, but provides less than half the effort. 2-Substantial/Maximal Assistance-helper does MORE THAN HALF the effort. [place] lifts or holds trunk or limbs and provides more than half the effort. 6-Fravpexgs-qlegzs does ALL the effort. Patient does none of the effort to complete the activity. Or, the assistance of 2 or more helpers is required for the patient to complete the activity. If activity was not attempted, code reason: 7-Patient Refused. 9-Not Applicable-not attempted and the patient did not perform the activity before the current illness, exacerbation or injury. 10-Not Attempted due to Environmental Limitations-(lack of equipment, weather restraints, etc.). 88-Not Attempted due to Medical Conditions or Safety Concerns. Oral Hygiene (QC): 6 Shower/Bathe Self (QC): 5 Upper Body Dressing (QC): 5 Lower Body Dressing (QC): 4 On/Off Footwear: 4 Toileting Hygiene (QC): 4 Toilet Transfer (QC): 4 OT Short Term Goals Short Term Goals Time Frame: Jul 24, 2020 Toileting hygiene: 3 Shower/bathe self: 3 Upper body dressin Lower body dressin OT Senior Care Goals Truss Maker Goals Time Frame: Aug 02, 2020 Eating (QC): 6 Oral Hygiene (QC): 6 Toileting Hygiene (QC): 6 Shower/Bathe Self (QC): 6 Upper Body Dressing (QC): 6 Lower Body Dressing (QC): 6 On/Off Footwear (QC): 6 Additional Goals: 1-Demonstrate ADL Tasks, 2-Verbalize Understanding, 3- ImproveStrength/[place] 1=Demonstrate adherence to instructed precautions during ADL tasks. 2=Patient will verbalize/demonstrate understanding of assistive devices/modifica tions for ADL. 3=Patient will improve strength/tolerance for activity to enable patient to perform ADL's. OT Education/Plan Problem List/Assessment Assessment: Impaired Self-Care Skills Pt would benefit from skilled OT in order to increase safety and independence with ADLs and functional mobility, and for education on AE for lower body dressing. Discharge Recommendations Plan/Recommendations: Continue POC Treatment Plan/Plan of Care Patient would benefit from OT for education, treatment and training to promote independence in ADL's, mobility, safety and/or upper extremity function for ADL's. Plan of Care: ADL Retraining, Functional Mobility, Group Exercise/Act as Ind, UE Funct Exercise/Act Treatment Duration: Aug 02, 2020 Frequency: At least 5 of 7 days/Wk (IRF) Estimated Hrs Per Day: 1.5 hours per day Rehab Potential: Fair Time/GCodes Start Time: 07:30 Stop Time: 08:35 Total Time Billed (hr/min): 65 Billed Treatment Time 1 visit- 4 ADL (65 mins) MARILIN CASIANO Jul 22, 2020 08:16
--- NOTE | 2020-07-22 08:40 | Cardiology Progress Note ---
Subjective Date Seen by Provider: Jul 22, 2020 Time Seen by Provider: 08:38 Subjective/Events-last exam Patient is sitting up in chair, no new complaints. Denies any chest pain or dyspnea. Review of Systems General: No Chills, No Night Sweats, No Fatigue, No Malaise, No Appetite, No Other HEENT: No Head Aches, No Visual Changes, No Eye Pain, No Ear Pain, No Dysphasi a, No Sinus Congestion, No Post Nasal Drip, No Sore Throat, No Other Pulmonary: No Dyspnea, No Cough, No Pleuritic Chest Pain, No Other Cardiovascular: No: Chest Pain, Palpitations, Orthopnea, Paroxysmal Noc. Dyspnea, Edema, Lt Headedness, Other Objective-Cardiology Exam Last Set of Vital Signs Vital Signs 07/22/20 07/22/20 07/22/20 06:00 06:15 08:49 Temp 36.4 Pulse 68 Resp 18 B/P (MAP) 123/57 (79) Pulse Ox 96 O2 Delivery Nasal Cannula O2 Flow Rate 1.00 Capillary Refill : Less Than 3 SecondsLess Than 3 Seconds I&O Intake and Output 07/22/20 00:00 Intake Total 2510 ml Balance 2510 ml Intake Oral 2510 ml # Voids 9 # Bowel Movements 1 General: Alert, Oriented X3, Cooperative HEENT: Atraumatic, PERRLA Neck: Supple, No JVD, No Thyromegaly Lungs: Clear to Auscultation, Normal Air Movement Heart: Regular Rate, Normal S1, Normal S2, No Murmurs Abdomen: Normal Bowel Sounds, Soft, No Tenderness, No Hepatosplenomegaly, No Masses Extremities: No Clubbing, No Cyanosis, No Tenderness/Swelling, Other ( BLE edema) Skin: No Rashes, No Breakdown, No Significant Lesion Neuro: Normal Speech, Strength at 5/5 X4 Ext Results Lab Laboratory Tests 07/22/20 04:36 A/P-Cardiology Admission Diagnosis Right hip fracture Dyspnea COPD LVOT HTP Assessment/Plan Shortness of breath, reporting improvement, still using oxygen. Continue to monitor Pulmonary hypertension, moderately severe, etiology undetermined, no evidence of PE on pulm CT angio of 07/12/20 LVOT obstruction. Echo of 07/12/20 shows: mild LVH, systolic anterior motion of mitral valve apparatus, LVOT tract gradient of 110 mmHg, grade 2 diastolic dysfunction, LVEF 55-65%, PASP 85-90 mmHg S/P non-syncopal fall leading to right hip fracture - s/p repair [place] Dr. Chávez [place] [facility] [place] Post op anemia. Hematuria and oozing from operative site on 07/15/20. S/p transfusion on 07/15/20. Dr Holt managing, Margequis currently on hold, restart oral anticoagulation when approved by Dr. Jonathon Aguila leg swelling after hip surgery of Jun 2020, no evidence of DVT on leg venous Doppler of 07/12/20 COPD, oxygen dependent, follow with Dr. Narcisa HINES, continue to monitor as outpatient Tobaccoism - cessation advised Anxiety Patient was seen and evaluated with Daphne, examination performed, management plan was discussed, agree with the current scribed note, I made few changes to the note using Italic font Patient is sitting in a chair comfortably, reporting improvement in the swelling I will change Lasix to oral. Monitor tolerance and response Clinical Quality Measures DVT/VTE Risk/Contraindication: Risk Factor Score Per Nursin RFS Level Per Nursing on Admit: 4+=Very High Contraindications-Pharm: Other *list below* Other: severe anemia requiring blood transfusions DAPHNE DEVINE Jul 22, 2020 8:40 am SERENA HUGHES MD Jul 22, 2020 11:48 am
[2020-07-22] MEDS: FUROSEMIDE 40 MG/4 ML INJ (LASIX) IVP SCH (08:43)
[2020-07-22] MEDS: ASPIRIN 81 MG CHEW (CHILDREN'S ASA) PO SCH (08:43)
[2020-07-22] MEDS: CEFDINIR 300 MG (OMNICEF) CAP PO SCH (08:43)
[2020-07-22] MEDS: NICOTINE 21 MG (NICODERM) PATCH TD SCH (08:43)
[2020-07-22] MEDS: OXYBUTYNIN (DITROPAN) 5 MG TAB PO SCH ×3 (08:43→21:13)
[2020-07-22] MEDS: PANTOPRAZOLE 40 MG (PROTONIX) TAB PO SCH (08:44)
[2020-07-22] MEDS: dilTIAZem120 MG (CARDIZEM CD) CAP PO SCH (08:44)
[2020-07-22] MEDS: LACTOBACILLUS ACIDOPHILUS (PROBIOTIC) CAPSULE PO SCH ×3 (08:44→17:40)
[2020-07-22] MEDS: NICOTINE PATCH REMOVAL TP SCH (08:52)
[2020-07-22] MEDS: ALPRAZolam 0.25 MG (XANAX) TAB PO PRN ×2 (08:58→21:13)
[2020-07-22] MEDS: oxyCODONE/APAP 10/325MG (PERCOCET 10) TABLET PO PRN ×3 (08:58→21:14)
[2020-07-22] MEDS: SENNA W/DOCUSATE (SENOKOT S) TABLET PO SCH ×2 (09:03→21:18)
[2020-07-22] MEDS: LACTULOSE SYRUP 10GM/15ML (ENULOSE) 30ML UDC PO SCH ×2 (09:04→21:18)
[2020-07-22] MEDS: polyethylene glycoL POWDER 17 GM (MIRALAX) PACK PO SCH ×2 (09:05→21:18)
[2020-07-22] MEDS: DOCUSATE SODIUM 100 MG (COLACE) CAP PO SCH ×2 (09:49→21:13)
--- NOTE | 2020-07-22 09:59 | Physical Therapy Daily Note ---
PT Daily Note-Current Subjective Pt. up in recliner, feeling well, Agrees to Rx, on 1L O2, wants to titrate off during day hrs. Pain Location: No Pain Reported Mental Status Patient Orientation: Normal For Age Attachments: Oxygen (1L titrated off during rx), Other-See Comments (right hip immoblizer and mask while out of room) Transfers SCALE: Activities may be completed with or without assistive devices. 0-Ezdgodbtvf-ftfhvmh completes the activity by him/herself with no assistance from a helper. 5-Set-up or Clean-up Assistance-helper sets up or cleans up; patient completes activity. Scheller assists only prior to or following the activity. 4-Supervision or Touching Assistance-helper provides verbal cues and/or t ouching/steadying and/or contact guard assistance as patient completes activity. Assistance may be provided throughout the activity or intermittently. 3-Partial/Moderate Assistance-helper does LESS THAN HALF the effort. Scheller lifts, holds or supports trunk or limbs, but provides less than half the effort. 2-Substantial/Maximal Assistance-helper does MORE THAN HALF the effort. Scheller lifts or holds trunk or limbs and provides more than half the effort. 3-Fyicvnuxk-anwavp does ALL the effort. Patient does none of the effort to complete the activity. Or, the assistance of 2 or more helpers is required for the patient to complete the activity. If activity was not attempted, code reason: 7-Patient Refused. 9-Not Applicable-not attempted and the patient did not perform the activity before the current illness, exacerbation or injury. 10-Not Attempted due to Environmental Limitations-(lack of equipment, weather restraints, etc.). 88-Not Attempted due to Medical Conditions or Safety Concerns. Sit to Stand (QC): 6 Chair/Ecp-pf-Fbyvt Xfer(QC): 6 Weight Bearing Right Lower Extremity: Right Weight Bearing/Tolerated Gait Training Does the Patient Walk?: Yes Walk 10 feet (QC): 6 Walk 50 ft with 2 Turns(QC): 6 Walk 150 ft (QC): 6 Gait Persons Needed: 1 Gait Assistive Device: FWW 60ft x 2, 150 x1 FWW slow, no ivone LOB, O2 monitored closely Exercises Supine Ex: Bridging, Quad Set, Glut sets, Heel Slides (left), Short Arc Quads (left), Straight leg raise (left), Hip abd/add (left) Supine Reps: 12 Seated Therapy Exercises: Ankle pumps, Sit to stand, Long arc quads Seated Reps: 15 NuStep Minutes: 8 NuStep Workload: 3 Treatments focused Rx on titrating off O2, pt. at rest on 1L, then to .05L then off with sats steady at 93-96% on room air during exercise and rest Assessment Current Status: Good Progress successfully titrated off O2, up in recliner after Rx on room air with sats at 95% PT Short Term Goals Short Term Goals Time Frame: Jul 19, 2020 Roll Left & Right: 3 Sit to lyin Lying to sitting on side of be: 3 (met) Chair/jqr-kg-wecmg transfer: 3 Walk 10 feet: 4 Walk 50 feet with two turns: 4 Walk 150 feet: 4 (met) 1 step (curb): 3 PT Cutting And Boning Supervisor Goals Cutting And Boning Supervisor Goals PT Mcc Goals Time Frame: Jul 26, 2020 Roll Left & Right (QC): 4 Sit to Lying (QC): 4 Lying-Sitting on Side/Bed(QC): 4 Sit to Stand (QC): 4 Chair/Uoi-hp-Dyvbt Xfer(QC): 4 Toilet Transfer (QC): 4 Car Transfer (QC): 88 Does the Patient Walk: Yes Walk 10 feet (QC): 5 Walk 50ft with 2 Turns (QC): 5 Walk 150 ft (QC): 5 Walking 10ft on Uneven Surface: 5 1 Step (curb) (QC): 4 4 Steps (QC): 4 12 Steps (QC): 88 Picking up an Object (QC): 88 Does the Pt use WC or Scooter?: Yes Wheel 50 feet with 2 turns (QC: 6 Type: Manual Wheel 150 feet: 6 PT Plan Treatment/Plan Treatment Plan: Continue Plan of Care Treatment Plan: Bed Mobility, Education, Functional Activity Latosha, Functional Strength, Group Therapy, Gait, Safety, Therapeutic Exercise, Transfers Treatment Duration: Jul 26, 2020 Frequency: At least 5 of 7 days/Wk (IRF) Estimated Hrs Per Day: 1.5 hours per day Patient and/or Family Agrees t: Yes Safety Risks/Education Patient Education: Gait Training, Transfer Techniques, Correct Positioning, Disease Process, Safety Issues Teaching Recipient: Patient Teaching Methods: Demonstration, Discussion Response to Teaching: Verbalize Understanding, Return Demonstration Time/GCodes Time In: 900 Time Out: 1000 Total Billed Treatment Time: 60 Total Billed Treatment 1,EX30m,FA15m,GT15m SOHAIL DOWD [employer] SALES AGENT Jul 22, 2020 09:59
--- NOTE | 2020-07-22 10:42 | Progress Note ---
XIOMY MCBRIDE MED STUDENT 07/22/20 1042: Progress Note S: No acute events overnight. No new symptoms to report today. She said she is breathing better and has had bowel movements. O: Vitals stable No significant change in labs Physical exam: unremarkable Patient overall looks to be improving with increased ambulation during therapy sessions A/P: Discontinue cefdinir today Successfully titrated off O2 today with SpO2 at 95% on RA Do not plan to restart apixaban as patient is active and ambulating appropriately and has high risk for bleeding with low hgb requiring transfusions in the past Plan for discharge on after more therapy inpatient to regain strength Supervisory-Addendum Brief Verification & Attestation Participated in pt care: history, physical Personally performed: exam, history CHERRI NICOLE DO 07/23/20 0524: Supervisory-Addendum Brief Verification & Attestation Participated in pt care: history, MDM, physical Personally performed: exam, history, MDM, supervision of care Care discussed with: Medical Student Procedures: n/a Results interpretation: Verified all documentation Verification and Attestation of Medical Student E/M Service A medical student performed and documented this service in my presence. I reviewed and verified all information documented by the medical student and made modifications to such information, when appropriate. I personally performed the physical exam and medical decision making. Cherri Nicole, Jul 23, 2020,05:24 XIOMY MCBRIDE MED STUDENT Jul 22, 2020 10:42 CHERRI NICOLE DO Jul 23, 2020 05:24
[2020-07-22] MEDS: SERTRALINE 50 MG (ZOLOFT) TABLET PO SCH (11:47)
--- NOTE | 2020-07-22 14:38 | Therapy Group Daily Note ---
Therapy Daily Group Note Patient Education Topic Other List Below (memory) Session Ratio (pt:therapist): 4:1 Goal of Session: Memory Strategies Goal Met for this Session: Yes Pt Benefit of Group: Contributions to Others, Improved Cognition, Recognition of Peers, Socialization Other/Notes Pt ambulated using FWW to [facility] for OT/PT group. Group consisted in introductions (name, place living, favorite [place] memory), socialization, memory activity and STM education. Pt introduced self appropriately and actively listened to peers. Pt contributed to peer conversations and topics discussed in group. Pt able to demonstrate understanding of educational topic by giving personal strategies. Pt participated in memory activity appropriately and was able to match 2 out of 2. After session, pt lying in bed with call light/phone in reach. All needs met in room. Start Time: 13:00 Stop Time: 14:15 Total Billed Treatment Time: 75 Total Billed Treatment 1-GRP MARILIN CASIANO Jul 22, 2020 14:38
[2020-07-22 18:22] VITALS: BP 102/51
--- NOTE | 2020-07-22 19:18 | NUR ---
bedside report received from JOHNATHAN CHATMAN, assume care of pt
[2020-07-22] MEDS: eZETimibe 10 MG (ZETIA) TABLET PO SCH (21:13)
--- NOTE | 2020-07-22 21:14 | NUR ---
pt refused Colace, miralax & Senokot c/o rt hip pain & anxiety, Percocet 1 tab given & Xanax 0.25mg given
--- NOTE | 2020-07-22 22:00 | NUR ---
rates pain at 2/10 on numeric scale
[2020-07-23 05:14] VITALS: BP 117/57
--- NOTE | 2020-07-23 05:36 | PM&R Progress Note ---
Subjective HPI/CC On Admission Date Seen by Provider: Jul 23, 2020 Time Seen by Provider: 09:00 Subjective/Events-last exam 07/23/20: Pt planning on discharging on Completed Venofer Last bowel movement was yesterday Weaning oxygen off Uses 2L at night 07/22/20: Pt doing very well Hgb 9.1 Weaned off O2 Bowels are moving Slept well Breathing better DC planned for 07/21/20: BM+ Breathing better No O2 required Nicotine patch applied Omnicef DC tomorrow Hugo on coccyx 07/20/20: Had balloon release at front of hospital at 1000am today Needs more meds for anxiety and she has been on Zoloft for years so I suggested Effexor 37.5mg and she agreed IS use is good and regular 07/19/20: Pt doing extremely well Mara were discontinued today Labs look good IV iron and IV Lasix maintained Lower extremity edema improved Left heal and coccyx with Allevyn on them for decubitus ulcers 07/18/20: Pt doing very well Pain is well controlled on Percocet Jordan wraps to lower extremity edema will be helpful Weaning oxygen Will start multivitamin 07/17/20: Hgb 9.4 Overall very improved Weaned off oxygen JORDAN wraps will be maintained for lower extremity edema Cefepime maintained as antibiotics for pneumonia changing to PO abx During exertion she required oxygen Updated her daughter 07/16/20: Hgb 9.4 after one unit of blood yesterday and 5 units total she she received 4 units at [facility], two during each admission Iron infusions maintained Hemoccult was negative Holding blood thinner because of profound bleeding form incision site that could put her at risk for infection Updated daughter 07/15/20: Hemoccult is pending WC 13.6, Hgb 7.4, Iron level at 20 so will initiate IV iron infusions Albumin at 2.1 Titrating down O2 at 96% today so can titrate down After rounds she had bleeding from the surgical site and considering hgb 7.4 Dr Chávez contacted and he wanted Bactrim but already on broad spectrum abx no need for that and 2 units of blood and considering how overloaded she has been will give 1 unit and I updated Dr Chávez on all of these changes. 07/14/20: Coughing is productive 0945 she was dyspneic but received her Lasix and now doing well Anxiety is an issue Declines Lactulose Large BM when she goes QOD Updated daughter on the phone when I saw her today as I have daily Baseline is usually SBP 95 IV Lasix given today with good UOP by Dr Brewster No worsened hypotension from IV Lasix noted Up in chair today and much improved Elevated wbc noted and covered for PNA currently broad spectrum for HAP COVID swabbed negative COughing up purulent sputum, sputum culture pending Acapella helping BM extra large Checked meds and labs Conferred with RN Reviewed therapy notes Review of Systems Musculoskeletal: leg pain Objective Exam Vital Signs Vital Signs Date Time Temp Pulse Resp B/P (MAP) Pulse Ox O2 Delivery O2 Flow Rate FiO2 07/23/20 19:08 92 Nasal Cannula 2.00 07/23/20 16:52 37.4 78 18 106/57 (73) Capillary Refill : Less Than 3 SecondsLess Than 3 Seconds General Appearance: No Apparent Distress, WD/WN, Anxious, Chronically ill, Thin HEENT: PERRL/EOMI, Normal ENT Inspection, Pharynx Normal Neck: Full Range of Motion, Normal Inspection, Non Tender, Supple, Carotid Bruit Respiratory: Chest Non Tender, No Accessory Muscle Use, No Respiratory Distress, Decreased Breath Sounds Cardiovascular: Regular Rate, Rhythm, No Gallop, No JVD, No Murmur, Normal Peripheral Pulses Gastrointestinal: Normal Bowel Sounds, No Organomegaly, No Pulsatile Mass, Non Tender, Soft Back: Normal Inspection, No CVA Tenderness, No Vertebral Tenderness Extremity: Normal Capillary Refill, Normal Inspection, Normal Range of Motion, Non Tender, No Calf Tenderness, Pedal Edema Neurologic/Psychiatric: Alert, Oriented x3, No Motor/Sensory Deficits, Normal Mood/Affect, infantry assaultman II-XII Norm as Tested, Abnormal Gait Skin: Normal Color, Warm/Dry Lymphatic: No Adenopathy Results/Procedures Lab Patient resulted labs reviewed. FIM Transfers Therapy Code Descriptions/Definitions Functional Chester Measure: 0=Not Assessed/NA 4=Minimal Assistance 1=Total Assistance 5=Supervision or Setup 2=Maximal Assistance 6=Modified Chester 3=Moderate Assistance 7=Complete IndependenceSCALE: Activities may be completed with or without assistive devices. 1-Zqjiqyfdka-tcngybo completes the activity by him/herself with no assistance from a helper. 5-Set-up or Clean-up Assistance-helper sets up or cleans up; patient completes activity. Wayne assists only prior to or following the activity. 4-Supervision or Touching Assistance-helper provides verbal cues and/or touching/steadying and/or contact guard assistance as patient completes activity. Assistance may be provided throughout the activity or intermittently. 3-Partial/Moderate Assistance-helper does LESS THAN HALF the effort. Wayne lifts, holds or supports trunk or limbs, but provides less than half the effort. 2-Substantial/Maximal Assistance-helper does MORE THAN HALF the effort. Wayne lifts or holds trunk or limbs and provides more than half the effort. 2-Dhvdhiiks-ubslcb does ALL the effort. Patient does none of the effort to complete the activity. Or, the assistance of 2 or more helpers is required for the patient to complete the activity. If activity was not attempted, code reason: 7-Patient Refused. 9-Not Applicable-not attempted and the patient did not perform the activity before the current illness, exacerbation or injury. 10-Not Attempted due to Environmental Limitations-(lack of equipment, weather restraints, etc.). 88-Not Attempted due to Medical Conditions or Safety Concerns. Roll Left to Right (QC): 4 Sit to Lying (QC): 4 Sit to Stand (QC): 6 Chair/Nkg-ce-Ocbni Xfer(QC): 6 Car Transfer (QC): 88 (Unable to assess due to hip flexion precautions) Gait Training Does the Patient Walk?: Yes Distance: 175', 250' Walk 10 feet (QC): 6 Walk 50 ft with 2 Turns(QC): 6 Walk 150 ft (QC): 6 Walking 10ft/uneven surface-QC: 4 Gait Persons Needed: 1 Gait Assistive Device: FWW Wheelchair Training Does the Pt Use a Wheelchair?: Yes Distance: 150' Wheel 50 ft with 2 turns (QC): 4 Wheel 150 ft (QC): 4 Type of Wheelchair: Manual Stair Training #of Steps: 1 1 Step (curb) (QC): 4 (CGA for safety ) 4 Steps (QC): 4 (CGA with cues for sequencing and safety) 12 Steps (QC): 88 Balance Picking up an Object (QC): 88 ADL-Treatment Eating (QC): 6 (Pt reports independence with eating, no difficulties using utensils, bringing food to mouth, and eating.) Oral Hygiene (QC): 6 Bathing Location: L Arm, R Arm, L Upper Leg, R Upper Leg, L Lower Leg (including foot), R Lower Leg (including foot), Chest, Abdomen, Buttocks, Perineal Area Shower/Bathe Self (QC): 5 Upper Body Dressing (QC): 5 Lower Body Dressing (QC): 4 On/Off Footwear (QC): 4 Toileting Hygiene (QC): 4 Toilet Transfer (QC): 4 Assessment/Plan Assessment and Plan Assess & Plan/Chief Complaint Assessment: s/p right hip fracture 07/04/20 s/p repair by Dr Chávez then dislocation of hardware 07/09/20 requiring transfer back [place] [facility] [place]/p spinal anesthesia but redu ction only required Acute blood loss anemia s/p 2 units transfused 07/05/20 then again 07/09/20 Severe hypotension due to volume depletion requiring aggressive IVF administration at [facility] [place] Acute pneumonia upon arrival to [facility] today requiring septic w/u which was negative and empiric abx for HAP COPD Current and heavy smoker 60 years Osteoporosis HLP Gallagher cath in place due to inability to ambulate with hip brace to prevent dislocation Pulmonary HTN 90 on ECHO negative USG right leg and negative PE on CT angiogram Anxiety Plan: IRF protocol Empiric abx Cardiology and Pulmonology appreciated Very frail status Anxiety treatment 07/13/20: Abx for HAP COVID negative IV Lasix 07/14/20: IV Lasix IV abx O2 Nebs COVID negative BM regimen 07/15/20: Check stools for blood Hemoglobin 7.4 monitor closely IV iron infusions Increase nutrition Titrate oxygen down Transfuse 1 unit of blood today Hold OAC 07/16/20: Monitor hemoglobin Hold anticoagulation due to severe anemia Monitor closely 07/17/20: Hold OAC due to severe anemia requiring 5 units of blood since hip fracture repair PO abx transition Wean O2 07/18/20: Hold OAC Nebs O2 weaning Pain control Improved 07/19/20: Monitor lungs O2 saturation monitoring Complete abx 07/20/20: Hold OAC due to life-threatening blood requiring 5 units of blood total since hip fracture Add Effexor IS use 07/21/20: Nicotine patch Depression treatment with Zoloft and Effexor BM+ 07/22/20: Continue therapy DC 07/23/20: Monitor O2 Home O2 evaluation DC (1) Closed right hip fracture (2) Pneumonia (3) Pulmonary edema (4) Pulmonary hypertension (5) Anxiety (6) Osteoporosis (7) Hyperlipemia (8) Frailty (9) Elevated brain natriuretic peptide (BNP) level (10) COPD (chronic obstructive pulmonary disease) (11) Hypoxia (12) Anemia due to acute blood loss (13) Transfusion history (14) Gallagher catheter in place (15) Hip dislocation, right (16) Dyspnea AVANI NICOLE DO Jul 23, 2020 05:36
[2020-07-23] MEDS: CATHETER FLUSH 10 ML SYR IV SCH ×3 (06:20→22:05)
[2020-07-23] MEDS: MULTIVIT W/MINERALS TAB (THERAGRAN M) PO SCH (06:21)
[2020-07-23] MEDS: VENlafaxine XR 37.5 MG (EFFEXOR XR) CAP PO SCH (06:21)
[2020-07-23] MEDS: SENNA W/DOCUSATE (SENOKOT S) TABLET PO SCH ×2 (07:49→21:09)
[2020-07-23] MEDS: PANTOPRAZOLE 40 MG (PROTONIX) TAB PO SCH (07:49)
[2020-07-23] MEDS: FUROSEMIDE 40 MG (LASIX) TAB PO SCH (07:50)
[2020-07-23] MEDS: NICOTINE 21 MG (NICODERM) PATCH TD SCH (07:50)
[2020-07-23] MEDS: LACTOBACILLUS ACIDOPHILUS (PROBIOTIC) CAPSULE PO SCH ×3 (07:50→18:20)
[2020-07-23] MEDS: ASPIRIN 81 MG CHEW (CHILDREN'S ASA) PO SCH (07:50)
[2020-07-23] MEDS: DOCUSATE SODIUM 100 MG (COLACE) CAP PO SCH ×2 (07:50→21:05)
[2020-07-23] MEDS: dilTIAZem120 MG (CARDIZEM CD) CAP PO SCH (07:51)
[2020-07-23] MEDS: IRON SUCROSE 200 MG/10 ML (VENOFER) VIAL IV SCH (07:51)
[2020-07-23] MEDS: OXYBUTYNIN (DITROPAN) 5 MG TAB PO SCH ×3 (07:51→21:00)
[2020-07-23] MEDS: NICOTINE PATCH REMOVAL TP SCH (07:51)
[2020-07-23] MEDS: oxyCODONE/APAP 10/325MG (PERCOCET 10) TABLET PO PRN ×3 (07:51→21:01)
[2020-07-23] MEDS: polyethylene glycoL POWDER 17 GM (MIRALAX) PACK PO SCH ×2 (08:01→21:09)
[2020-07-23] MEDS: LACTULOSE SYRUP 10GM/15ML (ENULOSE) 30ML UDC PO SCH ×2 (08:01→21:09)
[2020-07-23] MEDS: RT-ALBUTEROL SULF 2.5 MG/3 ML PRE-MIX VIAL INH SCH ×3 (08:39→19:08)
--- NOTE | 2020-07-23 08:48 | Cardiology Progress Note ---
Subjective Date Seen by Provider: Jul 23, 2020 Time Seen by Provider: 08:05 Subjective/Events-last exam patient is sitting up in chair, denies any chest pain or dyspnea. Reports mild pedal edema Objective-Cardiology Exam Last Set of Vital Signs Vital Signs 07/23/20 07/23/20 05:14 08:39 Temp 37.1 Pulse 69 Resp 18 B/P (MAP) 117/57 (77) Pulse Ox 94 O2 Delivery Room Air O2 Flow Rate 2.00 Capillary Refill : Less Than 3 SecondsLess Than 3 Seconds I&O Intake and Output 07/23/20 00:00 Intake Total 1790 ml Balance 1790 ml Intake Oral 1790 ml # Voids 9 # Bowel Movements 1 General: Alert, Oriented X3, Cooperative HEENT: Atraumatic, PERRLA Neck: Supple, No JVD, No Thyromegaly Lungs: Clear to Auscultation, Normal Air Movement Heart: Regular Rate, Normal S1, Normal S2, No Murmurs Abdomen: Normal Bowel Sounds, Soft, No Tenderness, No Hepatosplenomegaly, No Masses Extremities: No Clubbing, No Cyanosis, No Tenderness/Swelling, Other ( +1 BLE edema) Skin: No Rashes, No Breakdown, No Significant Lesion Neuro: Normal Speech, Strength at 5/5 X4 Ext A/P-Cardiology Admission Diagnosis Right hip fracture Dyspnea COPD LVOT HTP Assessment/Plan Shortness of breath, reporting improvement, still using oxygen. Continue to monitor Pulmonary hypertension, moderately severe, etiology undetermined, no evidence of PE on pulm CT angio of 07/12/20 LVOT obstruction. Echo of 07/12/20 shows: mild LVH, systolic anterior motion of mitral valve apparatus, LVOT tract gradient of 110 mmHg, grade 2 diastolic dysfunction, LVEF 55-65%, PASP 85-90 mmHg peripheral edema, Lasix was changed to PO yesterday, continue to monitor S/P non-syncopal fall leading to right hip fracture - s/[place] [facility] [place] Post op anemia. Hematuria and oozing from operative site on 07/15/20. S/p transfusion on 07/15/20. Margo Florentino currently on hold, restart oral anticoagulation when approved by Dr. Jonathon Aguila leg swelling after hip surgery of Jun 2020, no evidence of DVT on leg venous Doppler of 07/12/20 COPD, oxygen dependent, follow with Dr. Narcisa HINES, continue to monitor as outpatient Tobaccoism - cessation advised Anxiety Patient was seen and evaluated with Daphne, examination performed, management plan was discussed, agree with the current scribed note, I made few changes to the note using Italic font, patient is sitting in a chair, feeling better. Mild pedal edema, she was started on Lasix orally instead of IV yesterday. Continue to monitor Clinical Quality Measures DVT/VTE Risk/Contraindication: Risk Factor Score Per Nursin RFS Level Per Nursing on Admit: 4+=Very High Contraindications-Pharm: Other *list below* Other: severe anemia requiring blood transfusions DAPHNE DEVINE Jul 23, 2020 8:48 am SERENA HUGHES MD Jul 23, 2020 9:15 am
--- NOTE | 2020-07-23 10:09 | Occupational Ther Daily Note ---
OT Current Status-Daily Note Subjective Pt was in recliner. Pt no c/o pain. Pt agreed to therapy. Mental Status/Objective Patient Orientation: Person, Place, Time, Situation Attachments: IV, Other-See Comments (abductor brace) ADL-Treatment Pt was in recliner upon arrival. Pt stated wanted to take a sponge bath. Pt had supervision while doff/don LE/UE clothing using adaptive equipment. Pt stated sh e needed to use restroom, ambulated with FWW, supervision to restroom, cleansed buttocks area with supervision. Pt ambulated to sink to perform oral hygiene, used sink to stabilize when standing. Pt ambulated back to recliner to perform sponge bath washing upper body, sit to stand to cleanse buttocks and perineal area with supervision. Pt used LH sponge to wash lower body/feet. Pt performed lower body dressing using fitness and wellness instructor to thread pants/underwear onto legs, sit to stand with supervision while hiking pants over hips. Pt used sock aid to thread socks onto feet with verbal cues. Pt was in recliner call light/phone in reach. All needs met. Therapy Code Descriptions/Definitions Functional [place] Measure: 0=Not Assessed/NA 4=Minimal Assistance 1=Total Assistance 5=Supervision or Setup 2=Maximal Assistance 6=Modified [place] 3=Moderate Assistance 7=Complete IndependenceSCALE: Activities may be completed with or without assistive devices. 7-Fbhvglfvyz-xcvggcf completes the activity by him/herself with no assistance from a helper. 5-Set-up or Clean-up Assistance-helper sets up or cleans up; patient completes activity. [place] assists only prior to or following the activity. 4-Supervision or Touching Assistance-helper provides verbal cues and/or touching/steadying and/or contact guard assistance as patient completes activity. Assistance may be provided throughout the activity or intermittently. 3-Partial/Moderate Assistance-helper does LESS THAN HALF the effort. [place] lifts, holds or supports trunk or limbs, but provides less than half the effort. 2-Substantial/Maximal Assistance-helper does MORE THAN HALF the effort. [place] lifts or holds trunk or limbs and provides more than half the effort. 0-Jsqcdmjjn-lrhznt does ALL the effort. Patient does none of the effort to comp lete the activity. Or, the assistance of 2 or more helpers is required for the patient to complete the activity. If activity was not attempted, code reason: 7-Patient Refused. 9-Not Applicable-not attempted and the patient did not perform the activity before the current illness, exacerbation or injury. 10-Not Attempted due to Environmental Limitations-(lack of equipment, weather restraints, etc.). 88-Not Attempted due to Medical Conditions or Safety Concerns. Oral Hygiene (QC): 6 Bathing Location: L Arm, R Arm, L Upper Leg, R Upper Leg, L Lower Leg (including foot), R Lower Leg (including foot), Chest, Abdomen, Buttocks, Perineal Area Shower/Bathe Self (QC): 5 Upper Body Dressing (QC): 5 Lower Body Dressing (QC): 5 On/Off Footwear: 4 Toileting Hygiene (QC): 5 Toilet Transfer (QC): 5 Other Treatment Pt was in chair upon arrival. Co-treatment with PT ([id number]) skills of two clinicians required to work on activity/standing balance. Pt used FWW with supervision to ambulate down to therapy gym. Pt stated needed water mouth was dry after ambulating to gym. Pt performed 8 UE exercise in standing with 1 lb. hand weights, verbal instruction completing 1 set 10 reps, rest break required. All needs met, pt left with PT to finish therapy session. OT Short Term Goals Short Term Goals Time Frame: Jul 24, 2020 Toileting hygiene: 3 Shower/bathe self: 3 Upper body dressin Lower body dressin OT Mcfp Goals Mcfp Goals Time Frame: Aug 02, 2020 Eating (QC): 6 Oral Hygiene (QC): 6 Toileting Hygiene (QC): 6 Shower/Bathe Self (QC): 6 Upper Body Dressing (QC): 6 Lower Body Dressing (QC): 6 On/Off Footwear (QC): 6 Additional Goals: 1-Demonstrate ADL Tasks, 2-Verbalize Understanding, 3- ImproveStrength/[place] 1=Demonstrate adherence to instructed precautions during ADL tasks. 2=Patient will verbalize/demonstrate understanding of assistive devices/mod ifications for ADL. 3=Patient will improve strength/tolerance for activity to enable patient to perform ADL's. OT Education/Plan Problem List/Assessment Assessment: Decreased Activ Tolerance, Decreased UE Strength, Impaired Funct Balance, Impaired Self-Care Skills Pt would benefit from skilled OT in order to increase safety and independence with ADLs and functional mobility, and for education on AE for lower body dressing. Discharge Recommendations Plan/Recommendations: Continue POC Equpiment Recommendations-D/C: Hip Kit Treatment Plan/Plan of Care Patient would benefit from OT for education, treatment and training to promote independence in ADL's, mobility, safety and/or upper extremity function for ADL's. Plan of Care: ADL Retraining, Functional Mobility, Group Exercise/Act as Ind, UE Funct Exercise/Act Treatment Duration: Aug 02, 2020 Frequency: At least 5 of 7 days/Wk (IRF) Estimated Hrs Per Day: 1.5 hours per day Rehab Potential: Fair Time/GCodes Start Time: 09:00 Stop Time: 11:30 Total Time Billed (hr/min): 90 Billed Treatment Time 2 visit- 4 ADL (60 mins), 2 EX (30 mins) Co treatment with PT ([id number]), individual ([id number]) MARILIN CASIANO Jul 23, 2020 10:09
--- NOTE | 2020-07-23 12:08 | Physical Therapy Daily Note ---
PT Daily Note-Current Subjective Pt in room with OT to start tx. Pt agrees to partial co-treat to work on balance. Pain Numeric Pain Scale: 5-Moderate Pain Location: Right Location Body Site: Hip Pain Description: Ache Mental Status Patient Orientation: Person, Place, Time, Situation Attachments: Other-See Comments (Brace on R side) Transfers SCALE: Activities may be completed with or without assistive devices. 7-Ejndmlssfb-dltucpv completes the activity by him/herself with no assistance from a helper. 5-Set-up or Clean-up Assistance-helper sets up or cleans up; patient completes activity. [place] assists only prior to or following the activity. 4-Supervision or Touching Assistance-helper provides verbal cues and/or touching/steadying and/or contact guard assistance as patient completes activity. Assistance may be provided throughout the activity or intermittently. 3-Partial/Moderate Assistance-helper does LESS THAN HALF the effort. [place] lifts, holds or supports trunk or limbs, but provides less than half the effort. 2-Substantial/Maximal Assistance-helper does MORE THAN HALF the effort. [place] lifts or holds trunk or limbs and provides more than half the effort. 8-Arylrgptl-yvighp does ALL the effort. Patient does none of the effort to complete the activity. Or, the assistance of 2 or more helpers is required for the patient to complete the activity. If activity was not attempted, code reason: 7-Patient Refused. 9-Not Applicable-not attempted and the patient did not perform the activity before the current illness, exacerbation or injury. 10-Not Attempted due to Environmental Limitations-(lack of equipment, weather restraints, etc.). 88-Not Attempted due to Medical Conditions or Safety Concerns. Sit to Stand (QC): 6 Toilet Transfer (QC): 6 Weight Bearing Right Lower Extremity: Right Weight Bearing/Tolerated Gait Training Does the Patient Walk?: Yes Distance: 150' x2 Walk 10 feet (QC): 6 Walk 50 ft with 2 Turns(QC): 6 Walk 150 ft (QC): 6 Gait Persons Needed: 1 Gait Assistive Device: FWW Stair Training Stair Training: Handrails/: 2 handrails #of Steps: 4 1 Step (curb) (QC): 4 4 Steps (QC): 4 Stairs: Pattern: Step to Exercises Standing: Heel/toe raises, 3 way Ex=Flex, Abd, Ext, Marching, Mini squats, Sit to Stand, Weight shifts Standing Reps: 15 Treatments TF to standing and uses BR. Pt amb. in hallway then RB before completing standing UE. PT focuses on balance while OT focuses on UE strengthening. Pt takes RB then completes Standing Ex at //bars. Pt returns to room to rest in recliner with all needs met, call light in hand. Assessment Current Status: Good Progress Pt has gained strength and independence with mobility although still experiencing some pain. PT Short Term Goals Short Term Goals Time Frame: Jul 19, 2020 Roll Left & Right: 3 Sit to lyin Lying to sitting on side of be: 3 (met) Chair/dfv-zs-eahfw transfer: 3 Walk 10 feet: 4 Walk 50 feet with two turns: 4 Walk 150 feet: 4 (met) 1 step (curb): 3 PT Drawbridge Tender Goals Drawbridge Tender Goals PT Care Home Goals Time Frame: Jul 26, 2020 Roll Left & Right (QC): 4 Sit to Lying (QC): 4 Lying-Sitting on Side/Bed(QC): 4 Sit to Stand (QC): 4 Chair/Rhy-tw-Dtgbj Xfer(QC): 4 Toilet Transfer (QC): 4 Car Transfer (QC): 88 Does the Patient Walk: Yes Walk 10 feet (QC): 5 Walk 50ft with 2 Turns (QC): 5 Walk 150 ft (QC): 5 Walking 10ft on Uneven Surface: 5 1 Step (curb) (QC): 4 4 Steps (QC): 4 12 Steps (QC): 88 Picking up an Object (QC): 88 Does the Pt use WC or Scooter?: Yes Wheel 50 feet with 2 turns (QC: 6 Type: Manual Wheel 150 feet: 6 PT Plan Problem List Problem List: Activity Tolerance Treatment/Plan Treatment Plan: Continue Plan of Care Treatment Plan: Bed Mobility, Education, Functional Activity [place], Functional Strength, Group Therapy, Gait, Safety, Therapeutic Exercise, Transfers Treatment Duration: Jul 26, 2020 Frequency: At least 5 of 7 days/Wk (IRF) Estimated Hrs Per Day: 1.5 hours per day Patient and/or Family Agrees t: Yes Safety Risks/Education Patient Education: Transfer Techniques, Steps, Correct Positioning, Safety Issues Teaching Recipient: Patient Teaching Methods: Discussion Response to Teaching: Verbalize Understanding Time/GCodes Time In: 1100 Time Out: 1200 Total Billed Treatment Time: 60 Total Billed Treatment 1, GT (15m), FA x2 (30m) & EX (15m) MICKY BYNUM MORTGAGE LOAN ASSISTANT Jul 23, 2020 12:08
[2020-07-23] MEDS: ALPRAZolam 0.25 MG (XANAX) TAB PO PRN ×2 (12:59→21:01)
[2020-07-23] MEDS: SERTRALINE 50 MG (ZOLOFT) TABLET PO SCH (13:00)
--- NOTE | 2020-07-23 15:24 | NUR ---
CM/SS DISCHARGE PLANNING Patient and daughter had selected [facility] as agency for post hospital care. Referral initiated with agency, preliminary continuum of care information faxed for their review. Await confirmation they can accept for services, likely RN PT OT. Target discharge is July 25.
--- NOTE | 2020-07-23 16:13 | Physical Therapy Daily Note ---
PT Daily Note-Current Subjective Pt sitting in recliner upon arrival. Pt agrees to PT and asks to uses BR then return to bed. Pain Numeric Pain Scale: 5-Moderate Pain Location: Right Location Body Site: Hip Pain Description: Ache Mental Status Patient Orientation: Person, Place, Situation Attachments: Other-See Comments (Brace for R side) Transfers SCALE: Activities may be completed with or without assistive devices. 3-Keprydhwen-xzugjzg completes the activity by him/herself with no assistance from a helper. 5-Set-up or Clean-up Assistance-helper sets up or cleans up; patient completes activity. [place] assists only prior to or following the activity. 4-Supervision or Touching Assistance-helper provides verbal cues and/or touching/steadying and/or contact guard assistance as patient completes activity. Assistance may be provided throughout the activity or intermittently. 3-Partial/Moderate Assistance-helper does LESS THAN HALF the effort. [place] lifts, holds or supports trunk or limbs, but provides less than half the effort. 2-Substantial/Maximal Assistance-helper does MORE THAN HALF the effort. [place] lifts or holds trunk or limbs and provides more than half the effort. 2-Npcpaywzs-sxpjdj does ALL the effort. Patient does none of the effort to complete the activity. Or, the assistance of 2 or more helpers is required for the patient to complete the activity. If activity was not attempted, code reason: 7-Patient Refused. 9-Not Applicable-not attempted and the patient did not perform the activity before the current illness, exacerbation or injury. 10-Not Attempted due to Environmental Limitations-(lack of equipment, weather restraints, etc.). 88-Not Attempted due to Medical Conditions or Safety Concerns. Sit to Stand (QC): 6 Toilet Transfer (QC): 6 Weight Bearing Right Lower Extremity: Right Weight Bearing/Tolerated Gait Training Does the Patient Walk?: Yes Walk 10 feet (QC): 6 Gait Assistive Device: FWW Treatments TF to standing and uses BR. Pt completes pericare then TF to EOB. Pt still having difficulty lifting R LE into bed. HARP ACTION ASSEMBLER worked with pt to use gait belt to lift leg. Pt resting in bed, all needs met, call light in hand. Assessment Current Status: Good Progress Pt is fatigued this afternoon. PT Short Term Goals Short Term Goals Time Frame: Jul 19, 2020 Roll Left & Right: 3 Sit to lyin Lying to sitting on side of be: 3 (met) Chair/cxh-ec-fkqcn transfer: 3 Walk 10 feet: 4 Walk 50 feet with two turns: 4 Walk 150 feet: 4 (met) 1 step (curb): 3 PT Penitentiary Goals Exam Proctor Goals PT Penitentiary Goals Time Frame: Jul 26, 2020 Roll Left & Right (QC): 4 Sit to Lying (QC): 4 Lying-Sitting on Side/Bed(QC): 4 Sit to Stand (QC): 4 Chair/Zxj-jn-Mtqfr Xfer(QC): 4 Toilet Transfer (QC): 4 Car Transfer (QC): 88 Does the Patient Walk: Yes Walk 10 feet (QC): 5 Walk 50ft with 2 Turns (QC): 5 Walk 150 ft (QC): 5 Walking 10ft on Uneven Surface: 5 1 Step (curb) (QC): 4 4 Steps (QC): 4 12 Steps (QC): 88 Picking up an Object (QC): 88 Does the Pt use WC or Scooter?: Yes Wheel 50 feet with 2 turns (QC: 6 Type: Manual Wheel 150 feet: 6 PT Plan Problem List Problem List: Activity Tolerance Treatment/Plan Treatment Plan: Continue Plan of Care Treatment Plan: Bed Mobility, Education, Functional Activity [place], Functional Strength, Group Therapy, Gait, Safety, Therapeutic Exercise, Transfers Treatment Duration: Jul 26, 2020 Frequency: At least 5 of 7 days/Wk (IRF) Estimated Hrs Per Day: 1.5 hours per day Patient and/or Family Agrees t: Yes Safety Risks/Education Patient Education: Transfer Techniques Teaching Recipient: Patient Teaching Methods: Discussion Response to Teaching: Verbalize Understanding Time/GCodes Time In: 1400 Time Out: 1430 Total Billed Treatment Time: 30 Total Billed Treatment 1, FA x2 (30m) MICKY BYNUM PTA Jul 23, 2020 16:12
--- NOTE | 2020-07-23 16:30 | NUR ---
SPO2 DROPPED TO 87% ON ROOM AIR @ REST. REPLACED O2 @ 2 LPM. SPO2 INCREASED TO 93%. Addendum: 07/23/20 at 1647 by BONITA ALEMAN RT Amended: Links added.
[2020-07-23 16:52] VITALS: BP 106/57
--- NOTE | 2020-07-23 19:11 | NUR ---
bedside report received from SHLOMO CHATMAN, assume care of pt
[2020-07-23] MEDS: eZETimibe 10 MG (ZETIA) TABLET PO SCH (21:00)
--- NOTE | 2020-07-23 21:01 | NUR ---
pt took Colace but refused Senokot, miralax & Enulose, c/o rt hip pain, level 5/10 on numeric scale, Percocet 10/325 1 tab & xanax 0.25mg for anxiety given
--- NOTE | 2020-07-24 05:49 | PM&R Progress Note ---
Subjective HPI/CC On Admission Date Seen by Provider: Jul 24, 2020 Time Seen by Provider: 09:00 Subjective/Events-last exam 07/24/20: DC is planned for tomorrow Home health orders and oxygen at 2 liters continuous ordered Nicotine patch will be maintained as an outpatient too Pain is well controlled No falls 07/23/20: Pt planning on discharging on Completed Venofer Last bowel movement was yesterday Weaning oxygen off Uses 2L at night 07/22/20: Pt doing very well Hgb 9.1 Weaned off O2 Bowels are moving Slept well Breathing better DC planned for 07/21/20: BM+ Breathing better No O2 required Nicotine patch applied Omnicef DC tomorrow ALevan on coccyx 07/20/20: Had balloon release at front of hospital at 1000am today Needs more meds for anxiety and she has been on Zoloft for years so I suggested Effexor 37.5mg and she agreed IS use is good and regular 07/19/20: Pt doing extremely well Mara were discontinued today Labs look good IV iron and IV Lasix maintained Lower extremity edema improved Left heal and coccyx with Allevyn on them for decubitus ulcers 07/18/20: Pt doing very well Pain is well controlled on Percocet [place] wraps to lower extremity edema will be helpful Weaning oxygen Will start multivitamin 07/17/20: Hgb 9.4 Overall very improved Weaned off oxygen JORDAN wraps will be maintained for lower extremity edema Cefepime maintained as antibiotics for pneumonia changing to PO abx During exertion she required oxygen Updated her daughter 07/16/20: Hgb 9.4 after one unit of blood yesterday and 5 units total she she received 4 units at [place], two during each admission Iron infusions maintained Hemoccult was negative Holding blood thinner because of profound bleeding form incision site that could put her at risk for infection Updated daughter 07/15/20: Hemoccult is pending WC 13.6, Hgb 7.4, Iron level at 20 so will initiate IV iron infusions Albumin at 2.1 Titrating down O2 at 96% today so can titrate down After rounds she had bleeding from the surgical site and considering hgb 7.4 Dr Chávez contacted and he wanted Bactrim but already on broad spectrum abx no need for that and 2 units of blood and considering how overloaded she has been will give 1 unit and I updated Dr Chávez on all of these changes. 07/14/20: Coughing is productive 0945 she was dyspneic but received her Lasix and now doing well Anxiety is an issue Declines Lactulose Large BM when she goes QOD Updated daughter on the phone when I saw her today as I have daily Baseline is usually SBP 95 IV Lasix given today with good UOP by Dr Brewster No worsened hypotension from IV Lasix noted Up in chair today and much improved Elevated wbc noted and covered for PNA currently broad spectrum for HAP COVID swabbed negative COughing up purulent sputum, sputum culture pending Acapella helping BM extra large Checked meds and labs Conferred with RN Reviewed therapy notes Review of Systems General: Fatigue, Malaise Musculoskeletal: leg pain Objective Exam Vital Signs Vital Signs Date Time Temp Pulse Resp B/P (MAP) Pulse Ox O2 Delivery O2 Flow Rate FiO2 07/25/20 09:15 92 Room Air 07/25/20 06:03 36.2 73 18 113/56 (75) 07/24/20 21:42 2.00 Capillary Refill : Less Than 3 SecondsLess Than 3 Seconds General Appearance: No Apparent Distress, WD/WN, Anxious, Chronically ill, Thin HEENT: PERRL/EOMI, Normal ENT Inspection, Pharynx Normal Neck: Full Range of Motion, Normal Inspection, Non Tender, Supple, Carotid Bruit Respiratory: Chest Non Tender, No Accessory Muscle Use, No Respiratory Distress, Decreased Breath Sounds Cardiovascular: Regular Rate, Rhythm, No Gallop, No JVD, No Murmur, Normal Peripheral Pulses Gastrointestinal: Normal Bowel Sounds, No Organomegaly, No Pulsatile Mass, Non Tender, Soft Back: Normal Inspection, No CVA Tenderness, No Vertebral Tenderness Extremity: Normal Capillary Refill, Normal Inspection, Normal Range of Motion, Non Tender, No Calf Tenderness, Pedal Edema Neurologic/Psychiatric: Alert, Oriented x3, No Motor/Sensory Deficits, Normal Mood/Affect, core layer machine operator II-XII Norm as Tested, Abnormal Gait Skin: Normal Color, Warm/Dry Lymphatic: No Adenopathy Results/Procedures Lab Patient resulted labs reviewed. FIM Transfers Therapy Code Descriptions/Definitions Functional [place] Measure: 0=Not Assessed/NA 4=Minimal Assistance 1=Total Assistance 5=Supervision or Setup 2=Maximal Assistance 6=Modified [place] 3=Moderate Assistance 7=Complete IndependenceSCALE: Activities may be completed with or without assistive devices. 7-Vzqpmifaol-esoiebp completes the activity by him/herself with no assistance from a helper. 5-Set-up or Clean-up Assistance-helper sets up or cleans up; patient completes activity. [place] assists only prior to or following the activity. 4-Supervision or Touching Assistance-helper provides verbal cues and/or touching/steadying and/or contact guard assistance as patient completes activity. Assistance may be provided throughout the activity or intermittently. 3-Partial/Moderate Assistance-helper does LESS THAN HALF the effort. [place] lifts, holds or supports trunk or limbs, but provides less than half the effort. 2-Substantial/Maximal Assistance-helper does MORE THAN HALF the effort. [place] lifts or holds trunk or limbs and provides more than half the effort. 2-Rfjymgvhd-xqjjrz does ALL the effort. Patient does none of the effort to complete the activity. Or, the assistance of 2 or more helpers is required for the patient to complete the activity. If activity was not attempted, code reason: 7-Patient Refused. 9-Not Applicable-not attempted and the patient did not perform the activity before the current illness, exacerbation or injury. 10-Not Attempted due to Environmental Limitations-(lack of equipment, weather restraints, etc.). 88-Not Attempted due to Medical Conditions or Safety Concerns. Roll Left to Right (QC): 4 Sit to Lying (QC): 4 Sit to Stand (QC): 6 Chair/Kvt-ly-Hpadg Xfer(QC): 6 Car Transfer (QC): 88 (Unable to assess due to hip flexion precautions) Gait Training Does the Patient Walk?: Yes Distance: 150' x2 Walk 10 feet (QC): 6 Walk 50 ft with 2 Turns(QC): 6 Walk 150 ft (QC): 6 Walking 10ft/uneven surface-QC: 4 Gait Persons Needed: 1 Gait Assistive Device: FWW Wheelchair Training Does the Pt Use a Wheelchair?: Yes Distance: 150' Wheel 50 ft with 2 turns (QC): 4 Wheel 150 ft (QC): 4 Type of Wheelchair: Manual Stair Training Stair Training: Handrails/: 2 handrails #of Steps: 4 1 Step (curb) (QC): 4 4 Steps (QC): 4 12 Steps (QC): 88 Stairs: Pattern: Step to Balance Picking up an Object (QC): 88 ADL-Treatment Eating (QC): 6 (Pt reports independence with eating, no difficulties using utensils, bringing food to mouth, and eating.) Oral Hygiene (QC): 6 Bathing Location: L Arm, R Arm, L Upper Leg, R Upper Leg, L Lower Leg (including foot), R Lower Leg (including foot), Chest, Abdomen, Buttocks, Perineal Area Shower/Bathe Self (QC): 5 Upper Body Dressing (QC): 5 Lower Body Dressing (QC): 5 On/Off Footwear (QC): 4 Toileting Hygiene (QC): 5 Toilet Transfer (QC): 5 Assessment/Plan Assessment and Plan Assess & Plan/Chief Complaint Assessment: s/p right hip fracture 07/04/20 s/p repair by Dr Chávez then dislocation of hardware 07/09/20 requiring transfer back to [facility] [place] s/p spinal anesthesia but reduction only required Acute blood loss anemia s/p 2 units transfused 07/05/20 then again 07/09/20 Severe hypotension due to volume depletion requiring aggressive IVF administration at [facility] [place] Acute pneumonia upon arrival to [facility] today requiring septic w/u which was negative and empiric abx for HAP COPD Current and heavy smoker 60 years Osteoporosis HLP Gallagher cath in place due to inability to ambulate with hip brace to prevent dislocation Pulmonary HTN 90 on ECHO negative USG right leg and negative PE on CT angiogram Anxiety Plan: [facility] protocol Empiric abx Cardiology and Pulmonology appreciated Very frail status Anxiety treatment 07/13/20: Abx for HAP COVID negative IV Lasix 07/14/20: IV Lasix IV abx O2 Nebs COVID negative BM regimen 07/15/20: Check stools for blood Hemoglobin 7.4 monitor closely IV iron infusions Increase nutrition Titrate oxygen down Transfuse 1 unit of blood today Hold OAC 07/16/20: Monitor hemoglobin Hold anticoagulation due to severe anemia Monitor closely 07/17/20: Hold OAC due to severe anemia requiring 5 units of blood since hip fracture repair PO abx transition Wean O2 07/18/20: Hold OAC Nebs O2 weaning Pain control Improved 07/19/20: Monitor lungs O2 saturation monitoring Complete abx 07/20/20: Hold OAC due to life-threatening blood requiring 5 units of blood total since hip fracture Add Effexor IS use 07/21/20: Nicotine patch Depression treatment with Zoloft and Effexor BM+ 07/22/20: Continue therapy DC 07/23/20: Monitor O2 Home O2 evaluation DC 07/22/20: Home O2 ordered placed DC tomorrow (1) Closed right hip fracture (2) Pneumonia (3) Pulmonary edema (4) Pulmonary hypertension (5) Anxiety (6) Osteoporosis (7) Hyperlipemia (8) Frailty (9) Elevated brain natriuretic peptide (BNP) level (10) COPD (chronic obstructive pulmonary disease) Qualifiers: Qualified Codes: J44.9 - Chronic obstructive pulmonary disease, unspecified (11) Hypoxia (12) Anemia due to acute blood loss (13) Transfusion history (14) Gallagher catheter in place (15) Hip dislocation, right (16) Dyspnea AVANI NICOLE DO Jul 24, 2020 05:49
[2020-07-24 05:57] VITALS: BP 119/63
[2020-07-24] MEDS: CATHETER FLUSH 10 ML SYR IV SCH ×3 (06:09→21:38)
[2020-07-24] MEDS: VENlafaxine XR 37.5 MG (EFFEXOR XR) CAP PO SCH (06:10)
[2020-07-24] MEDS: MULTIVIT W/MINERALS TAB (THERAGRAN M) PO SCH (06:10)
[2020-07-24] MEDS: RT-ALBUTEROL SULF 2.5 MG/3 ML PRE-MIX VIAL INH SCH ×3 (07:22→19:47)
[2020-07-24 08:00] VITALS: BP 94/55
[2020-07-24] MEDS: LACTOBACILLUS ACIDOPHILUS (PROBIOTIC) CAPSULE PO SCH ×3 (08:12→18:22)
[2020-07-24] MEDS: OXYBUTYNIN (DITROPAN) 5 MG TAB PO SCH ×3 (08:13→20:45)
[2020-07-24] MEDS: ASPIRIN 81 MG CHEW (CHILDREN'S ASA) PO SCH (08:13)
[2020-07-24] MEDS: dilTIAZem120 MG (CARDIZEM CD) CAP PO SCH (08:13)
[2020-07-24] MEDS: SENNA W/DOCUSATE (SENOKOT S) TABLET PO SCH ×2 (08:13→20:45)
[2020-07-24] MEDS: oxyCODONE/APAP 10/325MG (PERCOCET 10) TABLET PO PRN ×2 (08:13→21:38)
[2020-07-24] MEDS: DOCUSATE SODIUM 100 MG (COLACE) CAP PO SCH ×2 (08:13→20:45)
[2020-07-24] MEDS: NICOTINE PATCH REMOVAL TP SCH (08:14)
[2020-07-24] MEDS: LACTULOSE SYRUP 10GM/15ML (ENULOSE) 30ML UDC PO SCH ×2 (08:14→21:36)
[2020-07-24] MEDS: polyethylene glycoL POWDER 17 GM (MIRALAX) PACK PO SCH ×2 (08:14→21:36)
[2020-07-24] MEDS: NICOTINE 21 MG (NICODERM) PATCH TD SCH (08:14)
[2020-07-24] MEDS: PANTOPRAZOLE 40 MG (PROTONIX) TAB PO SCH (08:14)
[2020-07-24] MEDS: FUROSEMIDE 40 MG (LASIX) TAB PO SCH (08:14)
--- NOTE | 2020-07-24 09:54 | Physical Therapy Daily Note ---
PT Daily Note-Current Subjective Pt sitting in recliner upon arrival. Pt agrees to PT for QC scoring for DC tomorrow (07/25). Pain Numeric Pain Scale: 5-Moderate Pain Location: Right Location Body Site: Hip Pain Description: Ache Mental Status Patient Orientation: Person, Place, Time, Situation Attachments: Oxygen (2L at night but decrease to 1L during tx.) Transfers SCALE: Activities may be completed with or without assistive devices. 6-Wivscjnyda-mrzxvga completes the activity by him/herself with no assistance from a helper. 5-Set-up or Clean-up Assistance-helper sets up or cleans up; patient completes activity. [place] assists only prior to or following the activity. 4-Supervision or Touching Assistance-helper provides verbal cues and/or touching/steadying and/or contact guard assistance as patient completes activity. Assistance may be provided throughout the activity or intermittently. 3-Partial/Moderate Assistance-helper does LESS THAN HALF the effort. [place] lifts, holds or supports trunk or limbs, but provides less than half the effort. 2-Substantial/Maximal Assistance-helper does MORE THAN HALF the effort. [place] lifts or holds trunk or limbs and provides more than half the effort. 1-Izmxidbir-bweuww does ALL the effort. Patient does none of the effort to complete the activity. Or, the assistance of 2 or more helpers is required for the patient to complete the activity. If activity was not attempted, code reason: 7-Patient Refused. 9-Not Applicable-not attempted and the patient did not perform the activity before the current illness, exacerbation or injury. 10-Not Attempted due to Environmental Limitations-(lack of equipment, weather restraints, etc.). 88-Not Attempted due to Medical Conditions or Safety Concerns. Roll Left & Right (QC): 6 Sit to Lying (QC): 6 Lying to Sitting/Side of Bed(Q: 6 Sit to Stand (QC): 6 Chair/Jav-xp-Jalbi Xfer(QC): 6 Toilet Transfer (QC): 6 Car Transfer (QC): 6 Pt uses gait belt looped to assist lifting R LE into bed and into car. Weight Bearing Right Lower Extremity: Right Weight Bearing/Tolerated Gait Training Does the Patient Walk?: Yes Distance: 150' x2 Walk 10 feet (QC): 6 Walk 50 ft with 2 Turns(QC): 6 Walk 150 ft (QC): 6 Walking 10ft/uneven surface-QC: 6 Gait Persons Needed: 1 Gait Assistive Device: FWW Wheelchair Training Does the Pt Use a Wheelchair?: No Stair Training Stair Training: Handrails/: 2 handrails #of Steps: 4 1 Step (curb) (QC): 6 4 Steps (QC): 6 12 Steps (QC): 7 Stairs: Pattern: Step to Balance Picking up an Object (QC): 88 Special Test Comments Unsafe to test due to hip. Treatments Completed QC scoring items listed above. Emphasis on practice with gait belt looped for lifting R LE. Pt returns to room at end of tx to rest before OT arrives for tx. Pt has all needs met, call light next to pt. Assessment Current Status: Good Progress Pt still reports pain but decreased and does not limit participation in tx. PT Short Term Goals Short Term Goals Time Frame: Jul 19, 2020 Roll Left & Right: 3 Sit to lyin Lying to sitting on side of be: 3 (met) Chair/bhl-vk-jcmnt transfer: 3 Walk 10 feet: 4 Walk 50 feet with two turns: 4 Walk 150 feet: 4 (met) 1 step (curb): 3 PT [place] Goals [facility] Living Goals PT [place] Goals Time Frame: Jul 26, 2020 Roll Left & Right (QC): 4 Sit to Lying (QC): 4 Lying-Sitting on Side/Bed(QC): 4 Sit to Stand (QC): 4 Chair/Dgr-oe-Nujsc Xfer(QC): 4 Toilet Transfer (QC): 4 Car Transfer (QC): 88 Does the Patient Walk: Yes Walk 10 feet (QC): 5 Walk 50ft with 2 Turns (QC): 5 Walk 150 ft (QC): 5 Walking 10ft on Uneven Surface: 5 1 Step (curb) (QC): 4 4 Steps (QC): 4 12 Steps (QC): 88 Picking up an Object (QC): 88 Does the Pt use WC or Scooter?: Yes Wheel 50 feet with 2 turns (QC: 6 Type: Manual Wheel 150 feet: 6 PT Plan Problem List Problem List: Activity Tolerance Treatment/Plan Treatment Plan: Continue Plan of Care Treatment Plan: Bed Mobility, Education, Functional Activity Latosha, Functional Strength, Group Therapy, Gait, Safety, Therapeutic Exercise, Transfers Treatment Duration: Jul 26, 2020 Frequency: At least 5 of 7 days/Wk (IRF) Estimated Hrs Per Day: 1.5 hours per day Patient and/or Family Agrees t: Yes Safety Risks/Education Patient Education: Transfer Techniques, Correct Positioning, Safety Issues Teaching Recipient: Patient Teaching Methods: Discussion Response to Teaching: Verbalize Understanding Time/GCodes Time In: 800 Time Out: 900 Total Billed Treatment Time: 60 Total Billed Treatment 1, GT (20m) & FA x3 (40m) MICKY BYNUM RABBIT BREEDER Jul 24, 2020 09:54
--- NOTE | 2020-07-24 10:34 | Occupational Ther Daily Note ---
OT Current Status-Daily Note Subjective Pt was in recliner upon arrival. Pt no c/o pain. Pt agreed to therapy. Mental Status/Objective Patient Orientation: Person, Place, Time, Situation Attachments: IV, Other-See Comments (abductor brace) ADL-Treatment Pt agrees to shower. Pt ambulated to bathroom using FWW, mod I. Pt transferred into shower using FWW, shower bench (elevated with towels) and grabbars with mod I. Pt then complete bathing using shower bench, grabbars, long handle sponge and hand held shower with mod I. Pt used AE for lower body dressing with mod I. Pt able to complete upper body dressing, mod I. Pt requires assistance to don/doff brace. Pt stands at sink to complete own oral care using sink to stabilize. Pt ambulated back to recline to brush hair. Call light/phone in reach. All needs met. Therapy Code Descriptions/Definitions Functional [place] Measure: 0=Not Assessed/NA 4=Minimal Assistance 1=Total Assistance 5=Supervision or Setup 2=Maximal Assistance 6=Modified [place] 3=Moderate Assistance 7=Complete IndependenceSCALE: Activities may be completed with or without assistive devices. 8-Cqzeofwivc-zrvzfyb completes the activity by him/herself with no assistance from a helper. 5-Set-up or Clean-up Assistance-helper sets up or cleans up; patient completes activity. [place] assists only prior to or following the activity. 4-Supervision or Touching Assistance-helper provides verbal cues and/or t ouching/steadying and/or contact guard assistance as patient completes activity. Assistance may be provided throughout the activity or intermittently. 3-Partial/Moderate Assistance-helper does LESS THAN HALF the effort. [place] lifts, holds or supports trunk or limbs, but provides less than half the effort. 2-Substantial/Maximal Assistance-helper does MORE THAN HALF the effort. [place] lifts or holds trunk or limbs and provides more than half the effort. 3-Nvlooguxb-geswvq does ALL the effort. Patient does none of the effort to complete the activity. Or, the assistance of 2 or more helpers is required for the patient to complete the activity. If activity was not attempted, code reason: 7-Patient Refused. 9-Not Applicable-not attempted and the patient did not perform the activity before the current illness, exacerbation or injury. 10-Not Attempted due to Environmental Limitations-(lack of equipment, weather restraints, etc.). 88-Not Attempted due to Medical Conditions or Safety Concerns. Eating (QC): 6 (Clinical judgment pt can perform eating independently. ) Oral Hygiene (QC): 6 Bathing Location: L Arm, R Arm, L Upper Leg, R Upper Leg, L Lower Leg (including foot), R Lower Leg (including foot), Chest, Abdomen, Buttocks, Perineal Area Shower/Bathe Self (QC): 6 Upper Body Dressing (QC): 3 (Due to assistance to don/doff abductor brace pt is min A. Pt able to complete all other upper body dressing by self.) Lower Body Dressing (QC): 3 (Due to assistance to don/doff abductor brace pt is min A. 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 OT Short Term Goals Short Term Goals Time Frame: Jul 24, 2020 Toileting hygiene: 3 Shower/bathe self: 3 Upper body dressin Lower body dressin OT Skilled Nursing Goals Skilled Nursing Goals Time Frame: Aug 02, 2020 Eating (QC): 6 (met) Oral Hygiene (QC): 6 (met) Toileting Hygiene (QC): 6 (me) Shower/Bathe Self (QC): 6 (met) Upper Body Dressing (QC): 6 (not met) Lower Body Dressing (QC): 6 (not met) On/Off Footwear (QC): 6 (met) Additional Goals: 1-Demonstrate ADL Tasks, 2-Verbalize Understanding, 3- ImproveStrength/[place]ha 1=Demonstrate adherence to instructed precautions during ADL tasks. 2=Patient will verbalize/demonstrate understanding of assistive devices/modifications for ADL. 3=Patient will improve strength/tolerance for activity to enable patient to perform ADL's. OT Education/Plan Problem List/Assessment Assessment: Decreased Activ Tolerance, Decreased UE Strength, Impaired Funct Balance, Impaired Self-Care Skills Pt would benefit from skilled OT in order to increase safety and independence with ADLs and functional mobility, and for education on AE for lower body dressing. Discharge Recommendations Plan/Recommendations: Continue POC Treatment Plan/Plan of Care Patient would benefit from OT for education, treatment and training to promote independence in ADL's, mobility, safety and/or upper extremity function for ADL's. Plan of Care: ADL Retraining, Functional Mobility, Group Exercise/Act as Ind, UE Funct Exercise/Act Treatment Duration: Aug 02, 2020 Frequency: At least 5 of 7 days/Wk (IRF) Estimated Hrs Per Day: 1.5 hours per day Rehab Potential: Fair Time/GCodes Start Time: 09:00 Stop Time: 10:30 Total Time Billed (hr/min): 90 Billed Treatment Time 1 visit- 6 ADL (90 mins) MARILIN CASIANO Jul 24, 2020 10:34
--- NOTE | 2020-07-24 11:46 | D/C HH Face to Face Order ---
D/C Face to Face Orders Reconcile Patient Problems Problems Reviewed?: Yes Instructions for Patient [facility] [place] Home Health Patient Instructions/FollowUp: PCP 1 week Physician to follow Patient: pcp Discharge Diet for Home: No Restrictions Patient Problems: right hip fx copd Patient Data-Allergies,Ht & Wt Patient Allergies: Coded Allergies: No Known Drug Allergies (Unverified , 07/09/14) Height (Feet): 5 Height (Inches): 6.00 Weight (Pounds): 120 Home Health Need/Face to Face Date of Face to Face: Jul 24, 2020 Clinical Findings: Generalized weakness and fatigue, Instability, Muscle weakness, Pain with ambulation, Shortness of breath, Unsteady gait I have seen Pt uugx-fw-ygce: Yes Discharged To: Home Diagnosis/Conditions: right hip fx copd Patient is Homebound due to: Arin fall risk due to instabilty, Muscle weakness, Pain w/ambulation, Shortness of breath/distress Homebound Status Due to the above stated illness, injury or surgical procedure (medical condition or diagnosis) and associated clinical findings, the patient is homebound because of his/her inability to leave home except with aid of a supportive device and/or person AND leaving the home requires a considerable and taxing effort or is medically contraindicated. Pt req the following assistanc: [facility] Nursing Orders Home Health Services Order: Nursing Services, Marine Reporter-Evaluate & Treat, Physical Therapy-Evaluate & Treat Home Health Infusion Therapy Line Start Date: Jul 12, 2020 Certify Stmt I certify that this patient is under my care and that I, a nurse practitioner or a physician; a ex assistant/program director working with me, had a face to face encounter that - meets the physician face to face encounter requirements with this patient as dated. AVANI NICOLE DO Jul 24, 2020 11:46
[2020-07-24] MEDS ORDERED: ALPR.25T PO (11:52)
[2020-07-24] MEDS ORDERED: DCS100C PO (11:52)
[2020-07-24] MEDS ORDERED: BACL10TA PO (11:52)
[2020-07-24] MEDS ORDERED: OXYC1TAB12 PO (11:52)
[2020-07-24] MEDS ORDERED: MULT1TAB63 PO (11:52)
[2020-07-24] MEDS ORDERED: VENL-48 PO (11:52)
[2020-07-24] MEDS ORDERED: PANT40TA52 PO (11:52)
[2020-07-24] MEDS ORDERED: ALBU2.5V4 INH (11:52)
[2020-07-24] MEDS ORDERED: LACT1CAP7 PO (11:52)
[2020-07-24] MEDS ORDERED: NICO1PAT34 TD (11:52)
[2020-07-24] MEDS ORDERED: FURO40TA4 PO (11:52)
--- NOTE | 2020-07-24 12:29 | Cardiology Progress Note ---
Subjective Date Seen by Provider: Jul 24, 2020 Time Seen by Provider: 08:05 Subjective/Events-last exam Patient sitting up at bedside, noted to be hypotensive this morning with SBP <90 Review of Systems General: No Chills, No Night Sweats, No Fatigue, No Malaise, No Appetite, No Other HEENT: No Head Aches, No Visual Changes, No Eye Pain, No Ear Pain, No Dysphasia, No Sinus Congestion, No Post Nasal Drip, No Sore Throat, No Other Pulmonary: No Dyspnea, No Cough, No Pleuritic Chest Pain, No Other Objective-Cardiology Exam Last Set of Vital Signs Vital Signs 07/24/20 07/24/20 07/24/20 07/24/20 05:57 08:00 09:00 14:12 Temp 36.3 Pulse 73 Resp 18 B/P (MAP) 94/55 (68) Pulse Ox 92 O2 Delivery Room Air O2 Flow Rate 1.00 Capillary Refill : Less Than 3 SecondsLess Than 3 Seconds I&O Intake and Output 07/24/20 00:00 Intake Total 1230 ml Balance 1230 ml Intake Oral 1230 ml # Voids 8 # Bowel Movements 1 General: Alert, Oriented X3, Cooperative HEENT: Atraumatic, PERRLA Neck: Supple, No JVD, No Thyromegaly Lungs: Clear to Auscultation, Normal Air Movement Heart: Regular Rate, Normal S1, Normal S2, No Murmurs Abdomen: Normal Bowel Sounds, Soft, No Tenderness, No Hepatosplenomegaly, No Masses Extremities: No Clubbing, No Cyanosis, No Tenderness/Swelling, Other ( +1 BLE edema) Skin: No Rashes, No Breakdown, No Significant Lesion Neuro: Normal Speech, Strength at 5/5 X4 Ext A/P-Cardiology Admission Diagnosis Right hip fracture Dyspnea COPD LVOT HTP Assessment/Plan Shortness of breath, reporting improvement, still using oxygen. Continue to monitor Pulmonary hypertension, moderately severe, etiology undetermined, no evidence of PE on pulm CT angio of 07/12/20 LVOT obstruction. Echo of 07/12/20 shows: mild LVH, systolic anterior motion of mitral valve apparatus, LVOT tract gradient of 110 mmHg, grade 2 diastolic dysfunction, LVEF 55-65%, PASP 85-90 mmHg peripheral edema, Lasix was changed to PO yesterday, continue to monitor S/P non-syncopal fall leading to right hip fracture - s/p repair by Dr. Chávez at [facility] in Jun 2020 Post op anemia. Hematuria and oozing from operative site on 07/15/20. S/p transfusion on 07/15/20. Margo Florentino currently on hold, restart oral anticoagulation when approved by Dr. Jonathon Aguila leg swelling after hip surgery of Jun 2020, no evidence of DVT on leg venous Doppler of 07/12/20 COPD, oxygen dependent, follow with Dr. Narcisa HINES, continue to monitor as outpatient Tobaccoism - cessation advised Anxiety Patient was seen and evaluated with Daphne, examination performed, management plan was discussed, agree with the current scribed note, I made few changes to the note using Italic font Patient is sitting in a chair, feeling better, still having pedal edema We'll continue on the current dose of Lasix and continue to monitor. Clinical Quality Measures DVT/VTE Risk/Contraindication: Risk Factor Score Per Nursin RFS Level Per Nursing on Admit: 4+=Very High Contraindications-Pharm: Other *list below* Other: severe anemia requiring blood transfusions DAPHNE DEVINE Jul 24, 2020 12:29 SERENA HUGHES MD Jul 24, 2020 15:01
[2020-07-24] MEDS: SERTRALINE 50 MG (ZOLOFT) TABLET PO SCH (12:58)
--- NOTE | 2020-07-24 13:52 | Physical Therapy Daily Note ---
PT Daily Note-Current Subjective Pt sitting in recliner upon arrival. Pt agrees to PT. Pain Numeric Pain Scale: 5-Moderate Pain Location: Right Location Body Site: Hip Pain Description: Ache Mental Status Patient Orientation: Person, Place, Time, Situation Attachments: Other-See Comments (Brace for R side) Transfers SCALE: Activities may be completed with or without assistive devices. 2-Vkjlelbddu-drriela completes the activity by him/herself with no assistance from a helper. 5-Set-up or Clean-up Assistance-helper sets up or cleans up; patient completes activity. [place] assists only prior to or following the activity. 4-Supervision or Touching Assistance-helper provides verbal cues and/or touching/steadying and/or contact guard assistance as patient completes a ctivity. Assistance may be provided throughout the activity or intermittently. 3-Partial/Moderate Assistance-helper does LESS THAN HALF the effort. [place] lifts, holds or supports trunk or limbs, but provides less than half the effort. 2-Substantial/Maximal Assistance-helper does MORE THAN HALF the effort. [place] lifts or holds trunk or limbs and provides more than half the effort. 9-Jzpqkyhfx-anasao does ALL the effort. Patient does none of the effort to complete the activity. Or, the assistance of 2 or more helpers is required for the patient to complete the activity. If activity was not attempted, code reason: 7-Patient Refused. 9-Not Applicable-not attempted and the patient did not perform the activity before the current illness, exacerbation or injury. 10-Not Attempted due to Environmental Limitations-(lack of equipment, weather restraints, etc.). 88-Not Attempted due to Medical Conditions or Safety Concerns. Sit to Stand (QC): 6 Toilet Transfer (QC): 6 Weight Bearing Right Lower Extremity: Right Weight Bearing/Tolerated Gait Training Does the Patient Walk?: Yes Distance: 150', 225' Walk 10 feet (QC): 6 Walk 50 ft with 2 Turns(QC): 6 Walk 150 ft (QC): 6 Gait Persons Needed: 1 Gait Assistive Device: FWW Wheelchair Training Does the Pt Use a Wheelchair?: No Treatments TF to standing and uses BR before leaving room. Pt amb. in hallway, taking RB as needed. Pt returns to room to rest in recliner. Pt has all needs met, call light in hand. Assessment Current Status: Good Progress Pt's O2 Sat was monitored since pt had been able to amb. w/o O2. O2 stayed above 90% (mostly low to mid 90's throughout tx). PT Short Term Goals Short Term Goals Time Frame: Jul 19, 2020 Roll Left & Right: 3 Sit to lyin Lying to sitting on side of be: 3 (met) Chair/eky-nt-ppuab transfer: 3 Walk 10 feet: 4 Walk 50 feet with two turns: 4 Walk 150 feet: 4 (met) 1 step (curb): 3 PT Fdc Goals Fdc Goals PT Fdc Goals Time Frame: Jul 26, 2020 Roll Left & Right (QC): 4 Sit to Lying (QC): 4 Lying-Sitting on Side/Bed(QC): 4 Sit to Stand (QC): 4 Chair/Ndu-pv-Sozzn Xfer(QC): 4 Toilet Transfer (QC): 4 Car Transfer (QC): 88 Does the Patient Walk: Yes Walk 10 feet (QC): 5 Walk 50ft with 2 Turns (QC): 5 Walk 150 ft (QC): 5 Walking 10ft on Uneven Surface: 5 1 Step (curb) (QC): 4 4 Steps (QC): 4 12 Steps (QC): 88 Picking up an Object (QC): 88 Does the Pt use WC or Scooter?: Yes Wheel 50 feet with 2 turns (QC: 6 Type: Manual Wheel 150 feet: 6 PT Plan Problem List Problem List: Activity Tolerance Treatment/Plan Treatment Plan: Continue Plan of Care Treatment Plan: Bed Mobility, Education, Functional Activity Latosha, Functional Strength, Group Therapy, Gait, Safety, Therapeutic Exercise, Transfers Treatment Duration: Jul 26, 2020 Frequency: At least 5 of 7 days/Wk (IRF) Estimated Hrs Per Day: 1.5 hours per day Patient and/or Family Agrees t: Yes Safety Risks/Education Patient Education: Gait Training, Safety Issues Teaching Recipient: Patient Teaching Methods: Discussion Response to Teaching: Verbalize Understanding Time/GCodes Time In: 1300 Time Out: 1330 Total Billed Treatment Time: 30 Total Billed Treatment 1, GT x2 (30m) MICKY BYNUM HEAVY THREADER Jul 24, 2020 13:52
--- NOTE | 2020-07-24 16:49 | NUR ---
CM/SS DISCHARGE PLANNING Visited with patient regarding her overall post hospital care plan with discharge tomorrow. 3-way call with patient and her daughter Essence to summarize plans and answer their questions to their satisfaction. In summary: HHC: Will finalize with [facility], will add order for Bath Aide at their request. Other services already ordered are RN PT OT. DME: Patient will need an upgrade on home O2 per RT Home O2 study yesterday. Confirmed her oxygen service is through [facility], will update them with orders and supportive clinical information tomorrow. Patient does have an oximeter at home that she uses to track her O2 saturations and she indicates she self-manages oxygen use from 0-2 liters during the day and then 2L at night. Patient's daughter will get Hip Kit on her way to hospital tomorrow. Patient has all other appropriate assistive devices. ASSIST AT HOME: Patient desires to become independent again when safely able to do so. After discussion about her current status and continued recovery, patient/family intend to have someone with her at least through the weekend to shadow and assist as needed. Patient and family will then determine what is needed from that point on. Daughter Essence will come tomorrow at 1030 for PT demonstration regarding patient's brace. Appropriate staff have been notified regarding access to unit and therapy scheduling. Patient will discharge thereafter with Essence to home.
[2020-07-24 17:18] VITALS: BP 98/57
[2020-07-24] MEDS: eZETimibe 10 MG (ZETIA) TABLET PO SCH (20:45)
--- NOTE | 2020-07-24 21:30 | NUR ---
REQUESTED XANAX AND PERCOCET TO HELP SLEEP. RA SAT 88% AND O2 PUT ON AT 2L. LOWER EXTREMITY EDEMA NOTED AND ENCOURAGED TO WEAR TAVIA HOSE TOMORROW. AGREED TO SCD'S TONIGHT. STATES DAUGHTER WILL BE HERE AT 1030 IN AM FOR DISCHARGE.
[2020-07-24] MEDS: ALPRAZolam 0.25 MG (XANAX) TAB PO PRN (21:37)
[2020-07-25 06:03] VITALS: BP 113/56
[2020-07-25] MEDS: VENlafaxine XR 37.5 MG (EFFEXOR XR) CAP PO SCH (06:16)
[2020-07-25] MEDS: MULTIVIT W/MINERALS TAB (THERAGRAN M) PO SCH (06:16)
[2020-07-25] MEDS: CATHETER FLUSH 10 ML SYR IV SCH (06:16)
--- NOTE | 2020-07-25 08:19 | Cardiology Progress Note ---
Subjective Date Seen by Provider: Jul 25, 2020 Time Seen by Provider: 07:55 Subjective/Events-last exam Patient sitting up in chair, denies any chest pain or dyspnea. States peripheral edema has improved. Review of Systems General: No Chills, No Night Sweats, No Fatigue, No Malaise, No Appetite, No Other HEENT: No Head Aches, No Visual Changes, No Eye Pain, No Ear Pain, No Dysp hasia, No Sinus Congestion, No Post Nasal Drip, No Sore Throat, No Other Pulmonary: No Dyspnea, No Cough, No Pleuritic Chest Pain, No Other Cardiovascular: Edema; No: Chest Pain, Palpitations, Orthopnea, Paroxysmal Noc. Dyspnea, Lt Headedness, Other Objective-Cardiology Exam Last Set of Vital Signs Vital Signs 07/24/20 07/25/20 21:42 06:03 Temp 36.2 Pulse 73 Resp 18 B/P (MAP) 113/56 (75) Pulse Ox 98 O2 Delivery Room Air O2 Flow Rate 2.00 Capillary Refill : Less Than 3 SecondsLess Than 3 Seconds I&O Intake and Output 07/25/20 00:00 Intake Total 3060 ml Balance 3060 ml Intake Oral 3060 ml # Voids 8 # Bowel Movements 1 General: Alert, Oriented X3, Cooperative HEENT: Atraumatic, PERRLA Neck: Supple, No JVD, No Thyromegaly Lungs: Clear to Auscultation, Normal Air Movement Heart: Regular Rate, Normal S1, Normal S2, No Murmurs Abdomen: Normal Bowel Sounds, Soft, No Tenderness, No Hepatosplenomegaly, No Masses Extremities: No Clubbing, No Cyanosis, No Tenderness/Swelling, Other ( trace BLE edema) Skin: No Rashes, No Breakdown, No Significant Lesion Neuro: Normal Speech, Strength at 5/5 X4 Ext A/P-Cardiology Admission Diagnosis Right hip fracture Dyspnea COPD LVOT HTP Assessment/Plan Shortness of breath, reporting improvement, still using oxygen. Continue to monitor Pulmonary hypertension, moderately severe, etiology undetermined, no evidence of PE on pulm CT angio of 07/12/20 LVOT obstruction. Echo of 07/12/20 shows: mild LVH, systolic anterior motion of mitral valve apparatus, LVOT tract gradient of 110 mmHg, grade 2 diastolic dys function, LVEF 55-65%, PASP 85-90 mmHg peripheral edema, maintained on Lasix. S/P non-syncopal fall leading to right hip fracture - s/p repair by Dr. Chávez at [facility] [place] in Jun 2020 Post op anemia. Hematuria and oozing from operative site on 07/15/20. S/p transfusion on 07/15/20. Margo Florentino currently on hold, restart oral anticoagulation when approved by Dr. Jonathon Aguila leg swelling after hip surgery of Jun 2020, no evidence of DVT on leg venous Doppler of 07/12/20 COPD, oxygen dependent, follow with Dr. Narcisa HINES, continue to monitor as outpatient Tobaccoism - cessation advised Anxiety Patient was seen and evaluated with Daphne, examination performed, management plan was discussed, agree with the current scribed note, I made few changes to the note using Italic font Patient was seen at bedside, sitting comfortably, still having mild pedal edema No chest pain I will change Lasix to 20 mg daily Okay for discharge and follow-up as an outpatient Clinical Quality Measures DVT/VTE Risk/Contraindication: Risk Factor Score Per Nursin RFS Level Per Nursing on Admit: 4+=Very High Contraindications-Pharm: Other *list below* Other: severe anemia requiring blood transfusions DAPHNE DEVINE Jul 25, 2020 8:19 am SERENA HUGHES MD Jul 25, 2020 8:34 am
[2020-07-25 08:30] VITALS: BP 97/50
[2020-07-25] MEDS: RT-ALBUTEROL SULF 2.5 MG/3 ML PRE-MIX VIAL INH SCH (08:35)
[2020-07-25] MEDS ORDERED: FUROSEMIDE 20 MG (LASIX) TAB PO SCH (09:00)
[2020-07-25] MEDS: dilTIAZem120 MG (CARDIZEM CD) CAP PO SCH (09:05)
[2020-07-25] MEDS: LACTOBACILLUS ACIDOPHILUS (PROBIOTIC) CAPSULE PO SCH (09:05)
[2020-07-25] MEDS: SENNA W/DOCUSATE (SENOKOT S) TABLET PO SCH (09:05)
[2020-07-25] MEDS: OXYBUTYNIN (DITROPAN) 5 MG TAB PO SCH (09:05)
[2020-07-25] MEDS: PANTOPRAZOLE 40 MG (PROTONIX) TAB PO SCH (09:05)
[2020-07-25] MEDS: DOCUSATE SODIUM 100 MG (COLACE) CAP PO SCH (09:05)
[2020-07-25] MEDS: ASPIRIN 81 MG CHEW (CHILDREN'S ASA) PO SCH (09:05)
[2020-07-25] MEDS: LACTULOSE SYRUP 10GM/15ML (ENULOSE) 30ML UDC PO SCH (09:06)
[2020-07-25] MEDS: polyethylene glycoL POWDER 17 GM (MIRALAX) PACK PO SCH (09:06)
[2020-07-25] MEDS: NICOTINE 21 MG (NICODERM) PATCH TD SCH (09:06)
[2020-07-25] MEDS: oxyCODONE/APAP 10/325MG (PERCOCET 10) TABLET PO PRN (09:06)
[2020-07-25] MEDS: NICOTINE PATCH REMOVAL TP SCH (09:07)
--- NOTE | 2020-07-25 09:49 | Therapy Team Discharge Summary ---
Therapy Discharge Summary Discharge Recommendations Date of Discharge Occupational Therapy Pt admitted to ARU s/p R MARTY. At OF, pt was independent with all ADLS and functional mobility without AD/AE. At evaluation, pt was independent with feeding,required CGA oral hygiene, Max A showering, Max A upper/lower body d ressing, total assist footwear, and max A toileting. OT txs include education on AE for lower body dressing, increasing independence and safety with ADLS, and increasing BUE strength and functional endurance. At discharge, pt was independent with all ADLS except upper/lower body dressing. Pt requires min A with upper/lower body dressing due to assistance donning/doffing abduction b race. Pt made good functional progress with therapy, meeting all LTGs except upper and lower body dressing goals. AE recommendations include hip kit. Pt to discharge home from facility on this date, thus d/c from OT at this time. Decreased Activ Tolerance, Decreased UE Strength, Impaired Funct Balance, Impaired Self-Care Skills PT Usp Goals High [employer] Band Director Goals PT High School Band Director Goals Time Frame: Jul 26, 2020 Roll Left to Right (QC): 4 Sit to Lying (QC): 4 Lying-Sitting on Side/Bed(QC): 4 Sit to Stand (QC): 4 Chair/Ayg-zq-Quehg Xfer(QC): 4 Car Transfer (QC): 88 Does the Patient Walk: Yes Walk 10 feet (QC): 5 Walk 10ft-Uneven Surface(QC): 5 Walk 50ft with 2 Turns (QC): 5 Walk 150 ft (QC): 5 Does the Pt use WC or Scooter?: Yes Wheel 50 feet with 2 turns (QC: 6 1 Step (curb) (QC): 4 4 Steps (QC): 4 12 Steps (QC): 88 Picking up an Object (QC): 88 OT High School Band Director Goals Usp Goals Time Frame: Aug 02, 2020 Eating (QC): 6 (met) Oral Hygiene (QC): 6 (met) Shower/Bathe Self (QC): 6 (met) Upper Body Dressing (QC): 6 (not met) Lower Body Dressing (QC): 6 (not met) On/Off Footwear (QC): 6 (met) Toileting Hygiene (QC): 6 (met) Toilet/Commode Transfer (QC): 4 Additional Goals: 1-Demonstrate ADL Tasks, 2-Verbalize Understanding, 3- ImproveStrength/Latosha 1=Demonstrate adherence to instructed precautions during ADL tasks. 2=Patient will verbalize/demonstrate understanding of assistive devices/modifications for ADL. 3=Patient will improve strength/tolerance for activity to enable patient to perform ADL's. ENA CHAVIRA OT Jul 25, 2020 09:49
[2020-07-25] MEDS ORDERED: FURO-125 PO (10:38)
--- NOTE | 2020-07-25 10:39 | Therapy Team Discharge Summary ---
Therapy Discharge Summary Discharge Recommendations Date of Discharge Jul 25, 2020 Physical Therapy Pt admitted to rehab with a right MARTY (also has a brace on due to a previous dislocation) needing min assist to roll in bed, lying to EOB, sit to stand, and chair to chair transfers; pt required max assist to bring legs into bed with sit to lying; pt was ambulating 120' with CGA (including 10' over an uneven surface and 50' with at least 2 turns of 90 degrees) and antalgic gait; pt needed min assist to ascend/descend one step; pt maneuvers wheelchair with SBA. While in therapy pt worked on bed mobility, gait and balance training, transfers, and therapeutic exercises. At end of rehab stay pt is independent with bed mobility, sit to stands, transfers and ambulating 150', pt is no longer using wheelchair, pt is independent in ascending/descending 4 steps. This independence with bed mobility, transfers, ambulation, and stairs has surpassed all off the patient's terminal gauger goals. Pt is discharging from this facility today and will be discharged from PT at this time. Occupational Therapy Decreased Activ Tolerance, Decreased UE Strength, Impaired Funct Balance, Impaired Self-Care Skills PT Sourcing Coordinator Goals Residential Goals PT Sourcing Coordinator Goals Time Frame: Jul 26, 2020 Roll Left to Right (QC): 4 Sit to Lying (QC): 4 Lying-Sitting on Side/Bed(QC): 4 Sit to Stand (QC): 4 Chair/Too-my-Ieuse Xfer(QC): 4 Car Transfer (QC): 88 Does the Patient Walk: Yes Walk 10 feet (QC): 5 Walk 10ft-Uneven Surface(QC): 5 Walk 50ft with 2 Turns (QC): 5 Walk 150 ft (QC): 5 Does the Pt use WC or Scooter?: Yes Wheel 50 feet with 2 turns (QC: 6 1 Step (curb) (QC): 4 4 Steps (QC): 4 12 Steps (QC): 88 Picking up an Object (QC): 88 OT Sourcing Coordinator Goals Sourcing Coordinator Goals Time Frame: Aug 02, 2020 Eating (QC): 6 (met) Oral Hygiene (QC): 6 (met) Shower/Bathe Self (QC): 6 (met) Upper Body Dressing (QC): 6 (not met) Lower Body Dressing (QC): 6 (not met) On/Off Footwear (QC): 6 (met) Toileting Hygiene (QC): 6 (met) Toilet/Commode Transfer (QC): 4 Additional Goals: 1-Demonstrate ADL Tasks, 2-Verbalize Understanding, 3- ImproveStrength/Latosha 1=Demonstrate adherence to instructed precautions during ADL tasks. 2=Patient will verbalize/demonstrate understanding of assistive devices/modifications for ADL. 3=Patient will improve strength/tolerance for activity to enable patient to perform ADL's. LISA GUTIERREZ PT Jul 25, 2020 10:39
--- NOTE | 2020-07-25 10:49 | Discharge Summary ---
Diagnosis/Chief Complaint Date of Admission Jul 12, 2020 at 09:40 Date of Discharge Discharge Date: Jul 25, 2020 Discharge Diagnosis Assessment: s/p right hip fracture 07/04/20 s/p repair by Dr Chávez then dislocation of hardware 07/09/20 requiring transfer back to [facility] s/p spinal anesthesia but reduction only required Acute blood loss anemia s/p 2 units transfused 07/05/20 then again 07/09/20 Severe hypotension due to volume depletion requiring aggressive IVF administration at [facility] Acute pneumonia upon arrival to [facility] today requiring septic w/u which was negative and empiric abx for HAP COPD Current and heavy smoker 60 years Osteoporosis HLP Gallagher cath in place due to inability to ambulate with hip brace to prevent dislocation Pulmonary HTN 90 on ECHO negative USG right leg and negative PE on CT angiogram Anxiety Plan: IRF protocol Empiric abx Cardiology and Pulmonology appreciated Very frail status Anxiety treatment 07/13/20: Abx for HAP COVID negative IV Lasix 07/14/20: IV Lasix IV abx O2 Nebs COVID negative BM regimen 07/15/20: Check stools for blood Hemoglobin 7.4 monitor closely IV iron infusions Increase nutrition Titrate oxygen down Transfuse 1 unit of blood today Hold OAC 07/16/20: Monitor hemoglobin Hold anticoagulation due to severe anemia Monitor closely 07/17/20: Hold OAC due to severe anemia requiring 5 units of blood since hip fracture repair PO abx transition Wean O2 07/18/20: Hold OAC Nebs O2 weaning Pain control Improved 07/19/20: Monitor lungs O2 saturation monitoring Complete abx 07/20/20: Hold OAC due to life-threatening blood requiring 5 units of blood total since hip fracture Add Effexor IS use 07/21/20: Nicotine patch Depression treatment with Zoloft and Effexor BM+ 07/22/20: Continue therapy DC 07/23/20: Monitor O2 Home O2 evaluation DC 07/22/20: Home O2 ordered placed DC tomorrow (1) Closed right hip fracture (2) Pneumonia (3) Pulmonary edema (4) Pulmonary hypertension (5) Anxiety (6) Osteoporosis (7) Hyperlipemia (8) Frailty (9) Elevated brain natriuretic peptide (BNP) level (10) COPD (chronic obstructive pulmonary disease) Qualifiers: Qualified Codes: J44.9 - Chronic obstructive pulmonary disease, unspecified (11) Hypoxia (12) Anemia due to acute blood loss (13) Transfusion history (14) Gallagher catheter in place (15) Hip dislocation, right (16) Dyspnea Discharge Summary Discharge Physical Examination Allergies: Coded Allergies: No Known Drug Allergies (Unverified , 07/09/14) Vitals & I&Os Vital Signs Date Time Temp Pulse Resp B/P (MAP) Pulse Ox O2 Delivery O2 Flow Rate FiO2 07/25/20 15:37 36.2 73 18 97/50 92 Room Air 2.00 General Appearance: Alert, Oriented X3, Cooperative Respiratory: Clear to Auscultation Cardiovascular: Regular Rate Neuro: Normal Gait, Normal Speech, Strength at 5/5 X4 Ext Psych/Mental Status: Mental Status NL Hospital Course Was the Problem List Reviewed?: Yes Hospital course: Pt had a two week hospital course in inpatient rehab after a hip fracture on the right, requiring repair by Dr. Chávez, received two units of blood with aggressive IV fluid resuscitation over at [facility], arrived at inpatient rehab and suffered a dislocation of the hardware so went back to [facility] and that was resolved in a non- surgical method. She required two more units of blood and IV fluids at that point but she admitted to inpatient rehab two weeks ago, had some hypoxia and crackles in the upper respiratory tract, Pt was found to have B/L pneumonia and volume overload with structural heart abnormalities diagnosed on echocardiogram, so Dr. Brewster and Dr. Lindo were both consulted. Pt was deemed much improved and dramatically overall strengthened. She did require 2L of oxygen at discharge, although we worked to wean that off and she only uses it at night on 2L at home. Overall she had no significant decompensation during her hospital stay except for the early sepsis that she had with pneumonia but lactic acid was not abnormal and no fever so she was deemed stable for discharge and will be seen by home health and will see me next Wednesday. Labs (last 24 hrs) Laboratory Tests 07/12/20 09:40: Lab Scanned Report Referred Lab Report 07/12/20 10:56: White Blood Count 15.7H, Red Blood Count 3.06L, Hemoglobin 9.6L, Hematocrit 30L, Mean Corpuscular Volume 98, Mean Corpuscular Hemoglobin 31, Mean Corpuscular Hemoglobin Concent 32, Red Cell Distribution Width 14.7H, Platelet Count 392, Mean Platelet Volume 8.6L, Immature Granulocyte % (Auto) 1, Neutrophils (%) (Auto) 94H, Lymphocytes (%) (Auto) 2L, Monocytes (%) (Auto) 3, Eosinophils (%) (Auto) 0, Basophils (%) (Auto) 0, Neutrophils # (Auto) 14.7H, Lymphocytes # (Auto) 0.3L, Monocytes # (Auto) 0.5, Eosinophils # (Auto) 0.0, Basophils # (Auto) 0.0, Immature Granulocyte # (Auto) 0.1, Neutrophils % (Manual) 91, Lymphocytes % (Manual) 2, Monocytes % (Manual) 3, Eosinophils % (Manual) 0, Basophils % (Manual) 0, Band Neutrophils 4, Polychromasia SLIGHT, Anisocytosis SLIGHT, Sodium Level 136, Potassium Level 4.4, Chloride Level 95L, Carbon Dioxide Level 34H, Anion Gap 7, Blood Urea Nitrogen 10, Creatinine 0.46L, Estimat Glomerular Filtration Rate > 60, BUN/Creatinine Ratio 22, Glucose Level 119H, Calcium Level 8.1L, Corrected Calcium 9.2, Total Bilirubin 0.8, Aspartate Amino Transf (AST/SGOT) 41H, Alanine Aminotransferase (ALT/SGPT) 24, Alkaline Phosphatase 59, B-Type Natriuretic Peptide 259.3H, Total Protein 5.4L, Albumin 2.6L, Procalcitonin 0.04 07/12/20 12:07: Lactic Acid Level 1.65 07/12/20 12:18: Blood Gas Puncture Site RR, Blood Gas Patient Temperature 96.3, Arterial Blood pH 7.44H, Arterial Blood Partial Pressure CO2 49H, Arterial Blood Partial Pressure O2 62L, Arterial Blood HCO3 33H, Arterial Blood Total CO2 34.4H, Arterial Blood Oxygen Saturation 93L, Arterial Blood Base Excess 8.1H, Payam T est YES-POS, Blood Gas Ventilator Setting NO, Blood Gas Inspired Oxygen 4L 07/13/20 06:49: White Blood Count 23.0H, Red Blood Count 2.98L, Hemoglobin 9.6L, Hematocrit 29L, Mean Corpuscular Volume 98, Mean Corpuscular Hemoglobin 32, Mean Corpuscular Hemoglobin Concent 33, Red Cell Distribution Width 14.7H, Platelet Count 404H, Mean Platelet Volume 8.8L, Immature Granulocyte % (Auto) 1, Neutrophils (%) (Auto) 91H, Lymphocytes (%) (Auto) 4L, Monocytes (%) (Auto) 4, Eosinophils (%) (Auto) 0, Basophils (%) (Auto) 0, Neutrophils # (Auto) 21.0H, Lymphocytes # (Auto) 0.8L, Monocytes # (Auto) 0.9, Eosinophils # (Auto) 0.1, Basophils # (Auto) 0.1, Immature Granulocyte # (Auto) 0.2H, Neutrophils % (Manual) 82, Lymphocytes % (Manual) 5, Monocytes % (Manual) 4, Band Neutrophils 6, Blood Morphology Comment NORMAL, Sodium Level 136, Potassium Level 3.9, Chloride Level 96L, Carbon Dioxide Level 31, Anion Gap 9, Blood Urea Nitrogen 10, Creatinine 0.43L, Estimat Glomerular Filtration Rate > 60, BUN/Creatinine Ratio 23, Glucose Level 79, Calcium Level 8.3L, Corrected Calcium 9.5, Total Bilirubin 1.0, Aspartate Amino Transf (AST/SGOT) 40H, Alanine Aminotransferase (ALT/SGPT) 22, Alkaline Phosphatase 61, Total Protein 5.3L, Albumin 2.5L 07/13/20 13:45: Coronavirus 2019 ([facility]) Negative 07/14/20 08:33: White Blood Count 17.6H, Red Blood Count 2.58L, Hemoglobin 8.1L, Hematocrit 25L, Mean Corpuscular Volume 98, Mean Corpuscular Hemoglobin 31, Mean Corpuscular Hemoglobin Concent 32, Red Cell Distribution Width 14.6H, Platelet Count 396, Mean Platelet Volume 8.4L, Immature Granulocyte % (Auto) 1, Neutrophils (%) (Auto) 88H, Lymphocytes (%) (Auto) 6L, Monocytes (%) (Auto) 5, Eosinophils (%) (Auto) 1, Basophils (%) (Auto) 0, Neutrophils # (Auto) 15.5H, Lymphocytes # (Auto) 1.0, Monocytes # (Auto) 0.8, Eosinophils # (Auto) 0.1, Basophils # (Auto) 0.1, Immature Granulocyte # (Auto) 0.2H, Sodium Level 135, Potassium Level 3.7, Chloride Level 93L, Carbon Dioxide Level 33H, Anion Gap 9, Blood Urea Nitrogen 12, Creatinine 0.48L, Estimat Glomerular Filtration Rate > 60, BUN/Creatinine Ratio 25, Glucose Level 126H, Calcium Level 8.0L, Corrected Calcium 9.4, Total Bilirubin 0.7, Aspartate Amino Transf (AST/SGOT) 36H, Alanine Aminotransferase (ALT/SGPT) 22, Alkaline Phosphatase 55, Total Protein 5.0L, Albumin 2.3L, Iron Level 20L 07/15/20 05:49: White Blood Count 13.6H, Red Blood Count 2.39L, Hemoglobin 7.4L, Hematocrit 23L, Mean Corpuscular Volume 98, Mean Corpuscular Hemoglobin 31, Mean Corpuscular Hemoglobin Concent 32, Red Cell Distribution Width 14.5, Platelet Count 422H, Mean Platelet Volume 8.6L, Immature Granulocyte % (Auto) 1, Neutrophils (%) (Auto) 82H, Lymphocytes (%) (Auto) 8L, Monocytes (%) (Auto) 7, Eosinophils (%) (Auto) 2, Basophils (%) (Auto) 1, Neutrophils # (Auto) 11.1H, Lymphocytes # (Auto) 1.1, Monocytes # (Auto) 0.9, Eosinophils # (Auto) 0.2, Basophils # (Auto) 0.1, Immature Granulocyte # (Auto) 0.2H, Sodium Level 139, Potassium Level 3.7, Chloride Level 96L, Carbon Dioxide Level 37H, Anion Gap 6, Blood Urea Nitrogen 12, Creatinine 0.40L, Estimat Glomerular Filtration Rate > 60, BUN/Creatinine Ratio 30, Glucose Level 81, Calcium Level 8.2L, Corrected Calcium 9.7, Total Bilirubin 0.6, Aspartate Amino Transf (AST/SGOT) 42H, Alanine Aminotransferase (ALT/SGPT) 25, Alkaline Phosphatase 55, Total Protein 4.6L, Albumin 2.1L 07/16/20 05:40: White Blood Count 12.3H, Red Blood Count 3.01L, Hemoglobin 9.4#L, Hematocrit 29L , Mean Corpuscular Volume 95, Mean Corpuscular Hemoglobin 31, Mean Corpuscular Hemoglobin Concent 33, Red Cell Distribution Width 14.9H, Platelet Count 460H, Mean Platelet Volume 8.6L, Immature Granulocyte % (Auto) 2, Neutrophils (%) (Auto) 80H, Lymphocytes (%) (Auto) 8L, Monocytes (%) (Auto) 9, Eosinophils (%) (Auto) 2, Basophils (%) (Auto) 1, Neutrophils # (Auto) 9.8H, Lymphocytes # (Auto) 1.0, Monocytes # (Auto) 1.1H, Eosinophils # (Auto) 0.2, Basophils # (Auto) 0.1, Immature Granulocyte # (Auto) 0.2H, Sodium Level 137, Potassium Level 3.7, Chloride Level 95L, Carbon Dioxide Level 34H, Anion Gap 8, Blood Urea Nitrogen 11, Creatinine 0.42L, Estimat Glomerular Filtration Rate > 60, BUN/Creatinine Ratio 26, Glucose Level 80, Calcium Level 8.2L, Corrected Calcium 9.6, Total Bilirubin 0.8, Aspartate Amino Transf (AST/SGOT) 40H, Alanine Ami notransferase (ALT/SGPT) 29, Alkaline Phosphatase 50, Total Protein 4.9L, Albumin 2.2L 07/16/20 06:30: Stool Occult Blood Immunoassay NEGATIVE 07/17/20 04:30: White Blood Count 11.9H, Red Blood Count 2.94L, Hemoglobin 9.1L, Hematocrit 28L, Mean Corpuscular Volume 95, Mean Corpuscular Hemoglobin 31, Mean Corpuscular Hemoglobin Concent 33, Red Cell Distribution Width 14.7H, Platelet Count 500H, Mean Platelet Volume 8.7L, Sodium Level 136, Potassium Level 3.3L, Chloride Level 95L, Carbon Dioxide Level 34H, Anion Gap 7, Blood Urea Nitrogen 10, Creatinine 0.47L, Estimat Glomerular Filtration Rate > 60, BUN/Creatinine Ratio 21, Glucose Level 96, Calcium Level 8.2L, Magnesium Level 1.6 07/18/20 05:30: White Blood Count 10.0, Red Blood Count 2.83L, Hemoglobin 8.8L, Hematocrit 28L, Mean Corpuscular Volume 98, Mean Corpuscular Hemoglobin 31, Mean Corpuscular Hemoglobin Concent 32, Red Cell Distribution Width 14.6H, Platelet Count 496H, Mean Platelet Volume 8.8L, Immature Granulocyte % (Auto) 2, Neutrophils (%) (Auto) 76H, Lymphocytes (%) (Auto) 11L, Monocytes (%) (Auto) 9, Eosinophils (%) (Auto) 2, Basophils (%) (Auto) 1, Neutrophils # (Auto) 7.6, Lymphocytes # (Auto) 1.1, Monocytes # (Auto) 0.9, Eosinophils # (Auto) 0.2, Basophils # (Auto) 0.1, Immature Granulocyte # (Auto) 0.2H, Sodium Level 139, Potassium Level 3.6, Chloride Level 97L, Carbon Dioxide Level 35H, Anion Gap 7, Blood Urea Nitrogen 9, Creatinine 0.47L, Estimat Glomerular Filtration Rate > 60, BUN/Creatinine Ratio 19, Glucose Level 77, Calcium Level 8.4L, Corrected Calcium 9.8, Total Bilirubin 0.6, Aspartate Amino Transf (AST/SGOT) 38H, Alanine Aminotransferase (ALT/SGPT) 29, Alkaline Phosphatase 56, Total Protein 5.2L, Albumin 2.3L 07/19/20 06:40: White Blood Count 8.1, Red Blood Count 3.07L, Hemoglobin 9.5L, Hematocrit 31L, Mean Corpuscular Volume 100H, Mean Corpuscular Hemoglobin 31, Mean Corpuscular Hemoglobin Concent 31L, Red Cell Distribution Width 14.8H, Platelet Count 549H, Mean Platelet Volume 8.8L, Immature Granulocyte % (Auto) 2, Neutrophils (%) (Auto) 72, Lymphocytes (%) (Auto) 15, Monocytes (%) (Auto) 9, Eosinophils (%) (Auto) 2, Basophils (%) (Auto) 1, Neutrophils # (Auto) 5.8, Lymphocytes # (Auto) 1.2, Monocytes # (Auto) 0.7, Eosinophils # (Auto) 0.2, Basophils # (Auto) 0.1, Immature Granulocyte # (Auto) 0.2H, Sodium Level 138, Potassium Level 3.7, Chloride Level 97L, Carbon Dioxide Level 32, Anion Gap 9, Blood Urea Nitrogen 12, Creatinine 0.50L, Estimat Glomerular Filtration Rate > 60, BUN/Creatinine Ratio 24, Glucose Level 64L, Calcium Level 8.7, Corrected Calcium 9.7, Total Bilirubin 0.7, Aspartate Amino Transf (AST/SGOT) 37H, Alanine Aminotransferase (ALT/SGPT) 28, Alkaline Phosphatase 74, Total Protein 6.1L, Albumin 2.7L 07/22/20 04:36: White Blood Count 7.1, Red Blood Count 2.90L, Hemoglobin 9.1L, Hematocrit 29L, Mean Corpuscular Volume 100H, Mean Corpuscular Hemoglobin 31, Mean Corpuscular Hemoglobin Concent 31L, Red Cell Distribution Width 14.7H, Platelet Count 435H, Mean Platelet Volume 8.7L, Immature Granulocyte % (Auto) 2, Neutrophils (%) (Auto) 68, Lymphocytes (%) (Auto) 16, Monocytes (%) (Auto) 11, Eosinophils (%) (Auto) 2, Basophils (%) (Auto) 1, Neutrophils # (Auto) 4.9, Lymphocytes # (Auto) 1.1, Monocytes # (Auto) 0.8, Eosinophils # (Auto) 0.1, Basophils # (Auto) 0.1, Immature Granulocyte # (Auto) 0.1, Sodium Level 139, Potassium Level 4.1, Chloride Level 99, Carbon Dioxide Level 34H, Anion Gap 6, Blood Urea Nitrogen 18, Creatinine 0.50L, Estimat Glomerular Filtration Rate > 60, BUN/Creatinine Ratio 36, Glucose Level 76, Calcium Level 8.6, Corrected Calcium 9.7, Total Bilirubin 0.5, Aspartate Amino Transf (AST/SGOT) 36H, Alanine Aminotransferase (ALT/SGPT) 22, Alkaline Phosphatase 71, Total Protein 5.8L, Albumin 2.6L Microbiology 07/12/20 Gram Stain - Final, Complete 07/12/20 Sputum Culture - Final, Complete Haemophilus influenza Staphylococcus aureus Usual upper respiratory [place] 07/12/20 Blood Culture - Final, Complete No growth Pending Labs Microbiology Date/Time Source Procedure Growth Status 07/12/20 12:23 Sputum Expectorated Gram Stain - Final Complete 07/12/20 12:23 Sputum Culture - Final Haemophilus influenza Staphylococcus aureus Usual upper respiratory [place] Complete 07/12/20 12:23 Peripheral Lt Hand Blood Culture - Final No growth Complete 07/12/20 12:07 Peripheral Rt Ac Blood Culture - Final No growth Complete Laboratory Tests 07/12/20 09:40: Lab Scanned Report Referred Lab Report 07/12/20 10:56: White Blood Count 15.7, Red Blood Count 3.06, Hemoglobin 9.6, Hematocrit 30, Mean Corpuscular Volume 98, Mean Corpuscular Hemoglobin 31, Mean Corpuscular Hemoglobin Concent 32, Red Cell Distribution Width 14.7, Platelet Count 392, Mean Platelet Volume 8.6, Immature Granulocyte % (Auto) 1, Neutrophils (%) (Auto) 94, Lymphocytes (%) (Auto) 2, Monocytes (%) (Auto) 3, Eosinophils (%) (Auto) 0, Basophils (%) (Auto) 0, Neutrophils # (Auto) 14.7, Lymphocytes # (Auto) 0.3, Monocytes # (Auto) 0.5, Eosinophils # (Auto) 0.0, Basophils # (Auto) 0.0, Immature Granulocyte # (Auto) 0.1, Neutrophils % (Manual) 91, Lymphocytes % (Manual) 2, Monocytes % (Manual) 3, Eosinophils % (Manual) 0, Basophils % (Manual) 0, Band Neutrophils 4, Polychromasia SLIGHT, Anisocytosis SLIGHT, Sodium Level 136, Potassium Level 4.4, Chloride Level 95, Carbon Dioxide Level 34, Anion Gap 7, Blood Urea Nitrogen 10, Creatinine 0.46, Estimat Glomerular Filtration Rate > 60, BUN/Creatinine Ratio 22, Glucose Level 119, Calcium Level 8.1, Corrected Calcium 9.2, Total Bilirubin 0.8, Aspartate Amino Transf (AST/SGOT) 41, Alanine Aminotransferase (ALT/SGPT) 24, Alkaline Phosphatase 59, B-Type Natriuretic Peptide 259.3, Total Protein 5.4, Albumin 2.6, Procalcitonin 0.04 07/12/20 12:07: Lactic Acid Level 1.65 07/12/20 12:18: Blood Gas Puncture Site RR, Blood Gas Patient Temperature 96.3, Arterial Blood pH 7.44, Arterial Blood Partial Pressure CO2 49, Arterial Blood Partial Pressure O2 62, Arterial Blood HCO3 33, Arterial Blood Total CO2 34.4, Arterial Blood Oxygen Saturation 93, Arterial Blood Base Excess 8.1, Payam Test YES-POS, Blood Gas Ventilator Setting NO, Blood Gas Inspired Oxygen 4L 07/13/20 06:49: White Blood Count 23.0, Red Blood Count 2.98, Hemoglobin 9.6, Hematocrit 29, Mean Corpuscular Volume 98, Mean Corpuscular Hemoglobin 32, Mean Corpuscular He moglobin Concent 33, Red Cell Distribution Width 14.7, Platelet Count 404, Mean Platelet Volume 8.8, Immature Granulocyte % (Auto) 1, Neutrophils (%) (Auto) 91, Lymphocytes (%) (Auto) 4, Monocytes (%) (Auto) 4, Eosinophils (%) (Auto) 0, Basophils (%) (Auto) 0, Neutrophils # (Auto) 21.0, Lymphocytes # (Auto) 0.8, Monocytes # (Auto) 0.9, Eosinophils # (Auto) 0.1, Basophils # (Auto) 0.1, Immature Granulocyte # (Auto) 0.2, Neutrophils % (Manual) 82, Lymphocytes % (Manual) 5, Monocytes % (Manual) 4, Band Neutrophils 6, Blood Morphology Comment NORMAL, Sodium Level 136, Potassium Level 3.9, Chloride Level 96, Carbon Dioxide Level 31, Anion Gap 9, Blood Urea Nitrogen 10, Creatinine 0.43, Estimat Glomerular Filtration Rate > 60, BUN/Creatinine Ratio 23, Glucose Level 79, Calcium Level 8.3, Corrected Calcium 9.5, Total Bilirubin 1.0, Aspartate Amino Transf (AST/SGOT) 40, Alanine Aminotransferase (ALT/SGPT) 22, Alkaline Phosphatase 61, Total Protein 5.3, Albumin 2.5 07/13/20 13:45: Coronavirus 2019 ([facility]) Negative 07/14/20 08:33: White Blood Count 17.6, Red Blood Count 2.58, Hemoglobin 8.1, Hematocrit 25, Mean Corpuscular Volume 98, Mean Corpuscular Hemoglobin 31, Mean Corpuscular Hemoglobin Concent 32, Red Cell Distribution Width 14.6, Platelet Count 396, Mean Platelet Volume 8.4, Immature Granulocyte % (Auto) 1, Neutrophils (%) (Auto) 88, Lymphocytes (%) (Auto) 6, Monocytes (%) (Auto) 5, Eosinophils (%) (Auto) 1, Basophils (%) (Auto) 0, Neutrophils # (Auto) 15.5, Lymphocytes # (Auto) 1.0, Monocytes # (Auto) 0.8, Eosinophils # (Auto) 0.1, Basophils # (Auto) 0.1, Immature Granulocyte # (Auto) 0.2, Sodium Level 135, Potassium Level 3.7, Chloride Level 93, Carbon Dioxide Level 33, Anion Gap 9, Blood Urea Nitrogen 12, Creatinine 0.48, Estimat Glomerular Filtration Rate > 60, BUN/Creatinine Ratio 25, Glucose Level 126, Calcium Level 8.0, Corrected Calcium 9.4, Total Bilirubin 0.7, Aspartate Amino Transf (AST/SGOT) 36, Alanine Aminotransferase (ALT/SGPT) 22, Alkaline Phosphatase 55, Total Protein 5.0, Albumin 2.3, Iron Level 20 07/15/20 05:49: White Blood Count 13.6, Red Blood Count 2.39, Hemoglobin 7.4, Hematocrit 23, Mean Corpuscular Volume 98, Mean Corpuscular Hemoglobin 31, Mean Corpuscular Hemoglobin Concent 32, Red Cell Distribution Width 14.5, Platelet Count 422, Mean Platelet Volume 8.6, Immature Granulocyte % (Auto) 1, Neutrophils (%) (Auto) 82, Lymphocytes (%) (Auto) 8, Monocytes (%) (Auto) 7, Eosinophils (%) (Auto) 2, Basophils (%) (Auto) 1, Neutrophils # (Auto) 11.1, Lymphocytes # (Auto) 1.1, Monocytes # (Auto) 0.9, Eosinophils # (Auto) 0.2, Basophils # (Auto) 0.1, Immature Granulocyte # (Auto) 0.2, Sodium Level 139, Potassium Level 3.7, Chloride Level 96, Carbon Dioxide Level 37, Anion Gap 6, Blood Urea Nitrogen 12, Creatinine 0.40, Estimat Glomerular Filtration Rate > 60, BUN/Creatinine Ratio 30, Glucose Level 81, Calcium Level 8.2, Corrected Calcium 9.7, Total Bilirubin 0.6, Aspartate Amino Transf (AST/SGOT) 42, Alanine Aminotransferase (ALT/SGPT) 25, Alkaline Phosphatase 55, Total Protein 4.6, Albumin 2.1 07/16/20 05:40: White Blood Count 12.3, Red Blood Count 3.01, Hemoglobin 9.4, Hematocrit 29, Mean Corpuscular Volume 95, Mean Corpuscular Hemoglobin 31, Mean Corpuscular Hemoglobin Concent 33, Red Cell Distribution Width 14.9, Platelet Count 460, Mean Platelet Volume 8.6, Immature Granulocyte % (Auto) 2, Neutrophils (%) (Auto) 80, Lymphocytes (%) (Auto) 8, Monocytes (%) (Auto) 9, Eosinophils (%) (Auto) 2, Basophils (%) (Auto) 1, Neutrophils # (Auto) 9.8, Lymphocytes # (Auto) 1.0, Monocytes # (Auto) 1.1, Eosinophils # (Auto) 0.2, Basophils # (Auto) 0.1, Immature Granulocyte # (Auto) 0.2, Sodium Level 137, Potassium Level 3.7, Chloride Level 95, Carbon Dioxide Level 34, Anion Gap 8, Blood Urea Nitrogen 11, Creatinine 0.42, Estimat Glomerular Filtration Rate > 60, BUN/Creatinine Ratio 26, Glucose Level 80, Calcium Level 8.2, Corrected Calcium 9.6, Total Bilirubin 0.8, Aspartate Amino Transf (AST/SGOT) 40, Alanine Aminotransferase (ALT/SGPT) 29, Alkaline Phosphatase 50, Total Protein 4.9, Albumin 2.2 07/16/20 06:30: Stool Occult Blood Immunoassay NEGATIVE 07/17/20 04:30: White Blood Count 11.9, Red Blood Count 2.94, Hemoglobin 9.1, Hematocrit 28, Mean Corpuscular Volume 95, Mean Corpuscular Hemoglobin 31, Mean Corpuscular Hemoglobin Concent 33, Red Cell Distribution Width 14.7, Platelet Count 500, Mean Platelet Volume 8.7, Sodium Level 136, Potassium Level 3.3, Chloride Level 95, Carbon Dioxide Level 34, Anion Gap 7, Blood Urea Nitrogen 10, Creatinine 0.47, Estimat Glomerular Filtration Rate > 60, BUN/Creatinine Ratio 21, Glucose Level 96, Calcium Level 8.2, Magnesium Level 1.6 07/18/20 05:30: White Blood Count 10.0, Red Blood Count 2.83, Hemoglobin 8.8, Hematocrit 28, Mean Corpuscular Volume 98, Mean Corpuscular Hemoglobin 31, Mean Corpuscular Hemoglobin Concent 32, Red Cell Distribution Width 14.6, Platelet Count 496, Mean Platelet Volume 8.8, Immature Granulocyte % (Auto) 2, Neutrophils (%) (Auto) 76, Lymphocytes (%) (Auto) 11, Monocytes (%) (Auto) 9, Eosinophils (%) (Auto) 2, Basophils (%) (Auto) 1, Neutrophils # (Auto) 7.6, Lymphocytes # (Auto) 1.1, Monocytes # (Auto) 0.9, Eosinophils # (Auto) 0.2, Basophils # (Auto) 0.1, Immature Granulocyte # (Auto) 0.2, Sodium Level 139, Potassium Level 3.6, Chloride Level 97, Carbon Dioxide Level 35, Anion Gap 7, Blood Urea Nitrogen 9, Creatinine 0.47, Estimat Glomerular Filtration Rate > 60, BUN/Creatinine Ratio 19, Glucose Level 77, Calcium Level 8.4, Corrected Calcium 9.8, Total Bilirubin 0.6, Aspartate Amino Transf (AST/SGOT) 38, Alanine Aminotransferase (ALT/SGPT) 29, Alkaline Phosphatase 56, Total Protein 5.2, Albumin 2.3 07/19/20 06:40: White Blood Count 8.1, Red Blood Count 3.07, Hemoglobin 9.5, Hematocrit 31, Mean Corpuscular Volume 100, Mean Corpuscular Hemoglobin 31, Mean Corpuscular Hemoglobin Concent 31, Red Cell Distribution Width 14.8, Platelet Count 549, Mean Platelet Volume 8.8, Immature Granulocyte % (Auto) 2, Neutrophils (%) (Auto) 72, Lymphocytes (%) (Auto) 15, Monocytes (%) (Auto) 9, Eosinophils (%) (Auto) 2, Basophils (%) (Auto) 1, Neutrophils # (Auto) 5.8, Lymphocytes # (Auto) 1.2, Monocytes # (Auto) 0.7, Eosinophils # (Auto) 0.2, Basophils # (Auto) 0.1, Immature Granulocyte # (Auto) 0.2, Sodium Level 138, Potassium Level 3.7, Chloride Level 97, Carbon Dioxide Level 32, Anion Gap 9, Blood Urea Nitrogen 12, Creatinine 0.50, Estimat Glomerular Filtration Rate > 60, BUN/Creatinine Ratio 24, Glucose Level 64, Calcium Level 8.7, Corrected Calcium 9.7, Total Bilirubin 0.7, Aspartate Amino Transf (AST/SGOT) 37, Alanine Aminotransferase (ALT/SGPT) 28, Alkaline Phosphatase 74, Total Protein 6.1, Albumin 2.7 07/22/20 04:36: White Blood Count 7.1, Red Blood Count 2.90, Hemoglobin 9.1, Hematocrit 29, Mean Corpuscular Volume 100, Mean Corpuscular Hemoglobin 31, Mean Corpuscular Hemoglobin Concent 31, Red Cell Distribution Width 14.7, Platelet Count 435, Mean Platelet Volume 8.7, Immature Granulocyte % (Auto) 2, Neutrophils (%) (Auto) 68, Lymphocytes (%) (Auto) 16, Monocytes (%) (Auto) 11, Eosinophils (%) (Auto) 2, Basophils (%) (Auto) 1, Neutrophils # (Auto) 4.9, Lymphocytes # (Auto) 1.1, Monocytes # (Auto) 0.8, Eosinophils # (Auto) 0.1, Basophils # (Auto) 0.1, Immature Granulocyte # (Auto) 0.1, Sodium Level 139, Potassium Level 4.1, Chloride Level 99, Carbon Dioxide Level 34, Anion Gap 6, Blood Urea Nitrogen 18, Creatinine 0.50, Estimat Glomerular Filtration Rate > 60, BUN/Creatinine Ratio 36, Glucose Level 76, Calcium Level 8.6, Corrected Calcium 9.7, Total Bilirubin 0.5, Aspartate Amino Transf (AST/SGOT) 36, Alanine Aminotransferase (ALT/SGPT) 22, Alkaline Phosphatase 71, Total Protein 5.8, Albumin 2.6 Discharge Home Medications: Active Scripts Active Lasix (Furosemide) 20 Mg Tablet 20 Mg PO DAILY Thera-M Tablet (Multivits,Ca,Minerals/Iron/FA) 1 Each Tablet 1 Ea PO DAILY@0700 Acidophilus-Pectin Capsule (Lactobacillus Acidophilus/Pect) 1 Each Capsule 2 Each PO TIDWM Pantoprazole Sodium 40 Mg Tablet.dr 40 Mg PO DAILY Dok (Docusate Sodium) 100 Mg Capsule 100 Mg PO BID Xanax Tablet (Alprazolam) 0.25 Mg Tab 0.25 Mg PO Q8H PRN Venlafaxine HCl ER (Venlafaxine HCl) 37.5 Mg Cap.er.24h 37.5 Mg PO DAILY@0700 Percocet 10-325 mg Tablet (Oxycodone HCl/Acetaminophen) 1 Each Tablet 1 Tab PO Q4H PRN Nicoderm Cq (Nicotine) 1 Each Patch.td24 21 Mg TD DAILY@0900 Baclofen 10 Mg Tablet 5 Mg PO Q6H PRN Albuterol Sulfate 2.5 Mg/3 Ml Vial.neb 2.5 Mg INH RTTID Reported Sertraline HCl 50 Mg Tablet 100 Mg PO 1200 TAKES 2 (50MG) TABS Aspirin 81 Mg Tab.chew 81 Mg PO DAILY Oxybutynin Chloride ER (Oxybutynin Chloride) 15 Mg Tab.er.24 15 Mg PO 1200 Atorvastatin Calcium 20 Mg Tablet 20 Mg PO 1200 Zetia (Ezetimibe) 10 Mg Tablet 10 Mg PO HS Instructions to patient/family Please see electronic discharge instructions given to patient. Diagnosis/Problems Diagnosis/Problems (1) Closed right hip fracture (2) Pneumonia (3) Pulmonary edema (4) Pulmonary hypertension (5) Anxiety (6) Osteoporosis (7) Hyperlipemia (8) Frailty (9) Elevated brain natriuretic peptide (BNP) level (10) COPD (chronic obstructive pulmonary disease) Qualifiers: Qualified Codes: J44.9 - Chronic obstructive pulmonary disease, unspecified (11) Hypoxia (12) Anemia due to acute blood loss (13) Transfusion history (14) Gallagher catheter in place (15) Hip dislocation, right (16) Dyspnea Clinical Quality Measures DVT/VTE Risk/Contraindication: Risk Factor Score Per Nursin RFS Level Per Nursing on Admit: 4+=Very High Contraindications-Pharm: Other *list below* Other: severe anemia requiring blood transfusions AVANI NICOLE DO Jul 25, 2020 10:49
--- NOTE | 2020-07-25 12:53 | NUR ---
CM/SS DISCHARGE Patient discharged home as planned. Daughter Essence was here as scheduled for therapy to demonstrate how to manage patient's hip brace. HHC: Finalized with [facility], RN PT OT and bath aide. DME: Coordinated upgrade of previous O2 order to continuous with patient established agency, [facility]. Agency delivered portable concentrator to room. Daughter to mushroom picker Hip Kit as well as nebulizer. Unit RN aware of all discharge plans and timelines.
[2020-07-25 15:37] VITALS: BP 97/50
== END 2020-07-25 11:20 | disposition home health service (06) | DRG 559 ==
PROVIDERS: ADMIT Internal Medicine; ATTEND Internal Medicine
DX: S72.141D Displaced intertrochanteric fracture of right femur, subsequent encounter for closed fracture with routine healing (principal); J14 Pneumonia due to Hemophilus influenzae; J81.0 Acute pulmonary edema; D62 Acute posthemorrhagic anemia; T84.020D Dislocation of internal right hip prosthesis, subsequent encounter; J44.9 Chronic obstructive pulmonary disease, unspecified; I95.89 Other hypotension; E86.9 Volume depletion, unspecified; I27.20 Pulmonary hypertension, unspecified; Z20.828 Contact with and (suspected) exposure to other viral communicable diseases; E78.5 Hyperlipidemia, unspecified; F32.9 Major depressive disorder, single episode, unspecified; F17.210 Nicotine dependence, cigarettes, uncomplicated; E78.00 Pure hypercholesterolemia, unspecified; M19.91 Primary osteoarthritis, unspecified site; F41.9 Anxiety disorder, unspecified; L89.629 Pressure ulcer of left heel, unspecified stage; R60.0 Localized edema; L89.159 Pressure ulcer of sacral region, unspecified stage; M81.0 Age-related osteoporosis without current pathological fracture; Z99.81 Dependence on supplemental oxygen; Z90.710 Acquired absence of both cervix and uterus; W10.9XXD Fall (on) (from) unspecified stairs and steps, subsequent encounter; Y92.015 Private garage of single-family (private) house as the place of occurrence of the external cause
CPT/HCPCS: 36415; 36600; 71045; 71275; 76937; 80048; 80053; 82274; 82805; 83540; 83605; 83735; 83880; 84145; 85007; 85025; 85027; 86850; 86900; 86901; 86920; 87040; 87070; 87077; 87185; 87186; 87205; 87635; 93306; 94640; 94760; 94761

== ENCOUNTER 2023-01-15 09:34 | Inpatient (IN) | payer MEDICARE, BC ==
[~2023-01-15] VITALS: Ht 167.7 cm; Wt 49.0 kg
[~2023-01-15 09:34] MED LIST changes: -ACETAMINOPHEN 500 MG TAB (TYLENOL) PO PRN; +ALBU2.5V4 INH; +ALPR.25T PO; +BACL10TA PO; -BISACODYL 10 MG SUPP (DULCOLAX) PR PRN; -CALCIUM CARBONATE 500 MG (TUMS) TAB.CHEW PO PRN; +DOCU-239 PO; -DOCUSATE SODIUM 100 MG (COLACE) CAP PO PRN; -FLEET ENEMA ADULT 1 EA BTL PR PRN; +FURO-125 PO; +FURO40TA4 PO; +LACT1CAP7 PO; -LACTULOSE SYRUP 10GM/15ML (ENULOSE) 30ML UDC PO PRN; -LOPERAMIDE 2 MG (IMODIUM) TABLET PO PRN; +MULT1TAB63 PO; +NICO1PAT34 TD; -ONDANSETRON 4 MG (ZOFRAN) ORAL DISSOLVE TAB PO PRN; +OXYC1TAB12 PO; +PANT40TA52 PO; +SERT-413 PO; -SERT50TA9 PO; +VENL-48 PO; -diphenhydrAMINE 25 MG TAB (BENADRYL) PO PRN; -guaiFENesin/CODEINE (ROBITUSSIN AC) 10ML UDC PO PRN
[2023-01-15] MEDS ORDERED: ENOX30DI4 SQ (10:41)
[2023-01-15] MEDS ORDERED: CALC-903 PO (10:41)
[2023-01-15] MEDS ORDERED: OXYB15TA19 PO (10:41)
[2023-01-15] MEDS ORDERED: SENN-259 PO (10:41)
[2023-01-15] MEDS ORDERED: LACT10SO84 PO (10:41)
[2023-01-15] MEDS ORDERED: DOCU-143 PO (10:41)
[2023-01-15] MEDS ORDERED: MULT-1136 PO (10:41)
[2023-01-15] MEDS ORDERED: LEVO50TA6 PO (10:41)
[2023-01-15] MEDS ORDERED: SIMV20TA26 PO (10:41)
[2023-01-15] MEDS ORDERED: EZET10TA49 PO (10:41)
[2023-01-15] MEDS ORDERED: ALEN70TA80 PO (10:41)
[2023-01-15] MEDS ORDERED: FURO20TA4 PO (10:41)
[2023-01-15] MEDS ORDERED: ACHD5005 PO (10:41)
[2023-01-15] MEDS ORDERED: VENL75CA93 PO (10:41)
[2023-01-15] MEDS ORDERED: SERT100T PO (10:41)
[2023-01-15 10:44] VITALS: BP 125/60
--- OUTSIDE RECORDS SUMMARY | 2023-01-15 11:27 | XMS REPORT | Clinical Summary ---
Author Author [facility] Organization [facility] Address Unknown Phone Unavailable Care Team Providers Care Reservoir Engineering Manager Name Role Phone Cherri Holt PCP Source Comments Some departments are not documenting in the electronic medical record. If you d o not see the information that you expected, contact Release of Information in [facility] Information Management department at [phone] for further assistan ce in locating additional records.[facility] Allergies Not on File Medications End Date Status Medication Sig Dispensed Refills Start Date Active ALPRAZolam (XANAX) 0.25 Take 0.25 mg 0 25/ 202 mg tablet by mouth as 1 Needed. Active oxybutynin XL (DITROPAN Take 15 mg by 0 XL) 15 mg tablet mouth daily. 1 Active sertraline (ZOLOFT) 100 Take 100 mg 0 // 202 mg tablet by mouth 1 daily. Active sertraline (ZOLOFT) 50 mg Take 50 mg by 0 /2 tablet mouth daily. 1 Active simvastatin (ZOCOR) 20 mg Take 20 mg by 0 05/1 tablet mouth daily. 1 Active furosemide (LASIX) 20 mg Take 20 mg by 0 tablet mouth every morning. Active ezetimibe (ZETIA) 10 mg Take 10 mg by 0 tablet mouth daily. Active aspirin EC 81 mg tablet Take 81 mg by 0 mouth daily. Take with food. Active docusate (COLACE) 100 mg Take 100 mg 0 capsule by mouth twice daily. Active Problems Problem Noted Date Mild concentric left ventricular hypertrophy (LVH) 0 04/15/2021 Medical History Medical History Date Comments Hyperlipemia Family History Medical History Relation Name Comments Stroke Father Coronary Artery Disease Mother Relation Name Status Comments Father Mother Social History Date Tobacco Use Types Packs/Day Years Used Smoking Tobacco: Former Smokeless Tobacco: Never Sex Assigned at Date Recorded Not on file Obstetrics History Last Filed Vital Signs Reading Time Taken Comments Vital Sign 130/80 04/15/2021 10:00 AM CDT Blood Pressure 58 04/15/2021 10:00 AM CDT Pulse - - Temperature - - Respiratory Rate - - Oxygen Saturation - - Inhaled Oxygen Concentration 45.3 kg (99 lb 12.8 oz) 04/15/2021 10:00 AM CDT Weight 166.4 cm (5' 5.5") 04/15/2021 10:00 AM CDT Height 16.36 04/15/2021 10:00 AM CDT Body Mass Index Plan of Treatment Health Maintenance Due Date Last Done Comments MEDICARE ANNUAL WELLNESS 1945 VISIT DTAP/TDAP VACCINES (1 - 1963 Tdap) HEPATITIS C SCREENING 1963 PHYSICAL (COMPREHENSIVE) 1963 EXAM OSTEOPOROSIS 2010 SCREENING/MONITORING PNEUMOCOCCAL VACCINE 65+ 08/12/2018 08/12/2017 YRS (2 - PCV) COVID-19 VACCINE (3 - 01/30/2021 12/05/2020, Booster for Moderna 11/07/2020 series) ADVANCED CARE PLANNING 09/27/2022 DISCUSSION AND DOCUMENTATION DEPRESSION SCREENING 09/27/2022 04/15/2021 INFLUENZA VACCINE (Season 06/27/2023 09/04/2019 Ended) SHINGLES RECOMBINANT Completed 04/20/2019, VACCINE 11/02/2018 Results Not on filefrom Last 3 Months Insurance Type Payer Benefit Subscriber ID Effective Phone Address Plan / Dates Group Medicare MEDICARE MEDICARE [id number] 2010-P [phone] [address] [place] [address] PPO BCBS JAVED BCBS JAVED [id number] 2017-P [phone] [id number] [place] [address] Care Teams Start Date End Date Reservoir Engineering Manager Relationship Specialty 04/09/21 Cherri Holt DO PCP - General Internal [address] [place] [address] [id number]
--- OUTSIDE RECORDS SUMMARY | 2023-01-15 11:27 | XMS REPORT | Clinical Summary ---
Author Author [facility] Organization [facility] Address Unknown Phone Unavailable Care Team Providers Care Ram Press Operator Name Role Phone PCP Unavailable Allergies Not on File Medications Not on file Active Problems Not on file Social History Date Tobacco Use Types Packs/Day Years Used Smoking Tobacco: Never Assessed Date Recorded Sex and Gender Information Value Sex Assigned at Not on file Gender Identity Not on file Sexual Orientation Not on file Last Filed Vital Signs Not on file Plan of Treatment Not on file Results Not on filefrom Last 3 Months
--- NOTE | 2023-01-15 11:46 | Physical Therapy Evaluation ---
PT Evaluation-General Medical Diagnosis Admission Date Jan 15, 2023 at 10:44 Medical Diagnosis: debility Onset Date: Jan 12, 2023 (ER admit at [place]) Therapy Diagnosis Therapy Diagnosis: (R) hip/groin pain, decreased gait, bed mobility, transfers Height/Weight Height (Feet): 5 Height (Inches): 6.00 Weight (Pounds): 120 Precautions Precautions/Isolations: Fall Prevention, Standard Precautions Weight Bear Status Weight Bearing/Tolerated Weight Bearing/Tolerated Referral Physician: Jonathon Reason for Referral: Evaluation/Treatment Medical History Pertinent Medical History: Arthritis, COPD, HTN, OA, PVD, Smoking Additional Medical History hx anemia, hypotension, pneumonia, COPD, heavy smoker, osteoporosis, HLP, pulmonary HTN, anxiety, chronic LE edema, PVD. Hx fall 2019 with (R) hip fx - (R) THR , dislocation/relocation 07/09/2020. Recent radiology showed advanced DJD (L) hip with mild femoral head collapse. Surgical consult at [place] allowed WBAT (R) LE - no surgical intervention recommended. CT showed no pathology with THR. Reviewed History: Yes Social History Home: Single Level Current Living Status: Alone Entry Into Home: Stairs With Railing PT Steps Into Home: 4 PT Steps Inside Home: 0 Prior Prior Level of Function SCALE: Activities may be completed with or without assistive devices. 4-Aeztvihjvy-tryfnam completes the activity by him/herself with no assistance from a helper. 5-Set-up or Clean-up Assistance-helper sets up or cleans up; patient completes activity. Bagley assists only prior to or following the activity. 4-Supervision or Touching Assistance-helper provides verbal cues and/or touching/steadying and/or contact guard assistance as patient completes activity. Assistance may be provided throughout the activity or intermittently. 3-Partial/Moderate Assistance-helper does LESS THAN HALF the effort. Bagley lifts, holds or supports trunk or limbs, but provides less than half the effort. 2-Substantial/Maximal Assistance-helper does MORE THAN HALF the effort. Bagley lifts or holds trunk or limbs and provides more than half the effort. 7-Zthgvevab-yehhni does ALL the effort. Patient does none of the effort to complete the activity. Or, the assistance of 2 or more helpers is required for the patient to complete the activity. If activity was not attempted, code reason: 7-Patient Refused. 9-Not Applicable-not attempted and the patient did not perform the activity before the current illness, exacerbation or injury. 10-Not Attempted due to Environmental Limitations-(lack of equipment, weather restraints, etc.). 88-Not Attempted due to Medical Conditions or Safety Concerns. Bed Mobility: 6 Transfers (B,C,W/C): 6 Gait: 6 (no AD in home, cane in community) Stairs: 6 (with railing) Wheelchair Mobility: 9 Indoor Mobility (Ambulation): Independent Stairs: Independent Has FWW available at home, as well as shower chair, auto painter helper and sock aid. PT Evaluation-Current Subjective Rates her pain with car transfers as 8/10 (R) hip. Pain report following gait/stairs for eval 6-7/10 (R) hip. Pleasant and cooperative. States she feels more secure walking with the walker than the cane. Memory intact. Follows directions well. Does appear to be reading lips when you speak to her. States she rolled out of bed (forgot she was at the edge) and landed on her tailbone. Has had pain since then -- in (R) posterior hip/SI area, then (L) posterior hip/SI area, and now (R) hip and down into (R) groin and down inside of thigh at times. Pain Section J - Health Conditions 1. Rarely or not at all 2. Occasionally 3. Frequently 4. Almost constantly 8. Unable to answer Pain Effect on Sleep: 1 Pain Interference with Therapy: 2 Pain Interference w/Day-to-Day: 2 Pt/Family Goals To return to previous living situation. Objective Patient Orientation: Person, Place, Time, Situation Attachments: Colostomy/Ileostomy ROM/Strength ROM Upper Extremities defer to OT ROM Lower Extremities WFL in (B) LE's, increased time to complete on (R) due to pain/discomfort in hip Strength Upper Extremities defer to OT Strength Lower Extremities MMT of LE's in sitting: (L) knee flexion/extension 4+/5, (L) hip flexion 3+/5, (L) ankle DF/PF 4+/5, hip abd 3+/5, hip add 4/5. (R) knee flexion/extension 4/5, (L) hip flexion 3+/5, (L) ankle DF/PF 4+/5, hip abd/add 3-/5 Integumentary/Posture Posture Stands with weight shifted laterally to (L). Sensory Vision: Wears Glasses Hearing: Functional Hand Dominance: Right Sensation Right Lower Extremit: Intact Sensation Left Lower Extremity: Intact Transfers Roll Left & Right (QC): 6 (with bed rail) Sit to Lying (QC): 3 (Min (A) with (R) leg only due to pain) Lying to Sitting/Side of Bed(Q: 3 (Min (A) with (R) LE) Sit to Stand (QC): 5 (SBA with slightly increased time to complete) Chair/Ovb-re-Rhwcw Xfer(QC): 5 (SBA with FWW) Toilet Transfer (QC): 4 (CGA with grab bar to sit, SBA to stand up from toilet with grab bar) Car Transfer (QC): 4 (CGA ) Gait Does the Patient Walk?: Yes Mode of Locomotion: Walk Anticipated Mode of Locomotion: Walk Walk 10 feet (QC): 5 (SBA with FWW) Walk 50 ft with 2 Turns(QC): 5 (SBA with FWW) Walk 150 ft (QC): 5 (SBA with FWW) Walking 10ft/uneven surface-QC: 4 (CGA with FWW) Distance: 200'+ Gait Assistive Device: FWW Comments/Gait Description Antalgic over (R) due to pain, ER of (R) LE, genu valgus alignment (L) knee during gait. Wheelchair Training Does the Pt Use a Wheelchair?: No Wheel 50 ft with 2 turns (QC): 9 Wheel 150 ft (QC): 9 Stairs #of Steps: 15 1 Step (curb) (QC): 4 (CGA with v.c. for walker placement) 4 Steps (QC): 4 (CGA /c (B) rails - no cues needed for sequence) 12 Steps (QC): 4 (CGA with (B) rails) Balance Sitting Static: Normal Sitting Dynamic: Good Standing Static: Good Standing Dynamic: Fair Picking up an Object (QC): 5 (SBA with walker and auto painter helper) Special Test Comments TU.5 seconds with FWW SI joint check: (L) LE longer than (R) in supine and lengthened further with long sitting following bridge = (L) posterior/(R) anterior innominate rotation. Permission granted by Dr. Holt to use gentle MET to re-align pelvis per in- person conversation on ARU. Will also measure leg length at that time. Assessment/Needs 77 year old female who is 3 days post admit to [facility] for c/o (R) hip pain s/p a fall 1 month ago. Now in debilitated state which requires skilled ARU therapy intervention to improve help reduce (R) hip pain, improve gait endurance/stability/distance, curb/stair mobility, & bed mobility, and improve transfer safety. Anticipate short LOS as patient is already functioning at a SBA-CGA level. Rehab Potential: Good Equipment Needs Use FWW until pain reduces. PT Service Coordinator Goals Service Coordinator Goals PT Service Coordinator Goals Time Frame: January 29, 2023 Roll Left to Right (QC): 6 Sit to Lying (QC): 6 (with leg patient support representative as needed) Lying-Sitting on Side/Bed(QC): 6 (with leg patient support representative as needed) Sit to Stand (QC): 6 Chair/Djd-vj-Acdao Xfer(QC): 6 Toilet/Commode Transfer (QC): 6 Car Transfer (QC): 6 Does the Patient Walk: Yes Walk 10 feet (QC): 6 (with walker or cane) Walk 10ft-Uneven Surface(QC): 6 (with walker or cane) Walk 50ft with 2 Turns (QC): 6 (with walker or cane) Walk 150 ft (QC): 6 (with walker or cane) Does the Pt use WC or Scooter?: No Wheel 50 feet with 2 turns (QC: 9 Wheel 150 feet: 9 1 Step (curb) (QC): 6 (with walker or cane and rail) 4 Steps (QC): 6 (with railings) 12 Steps (QC): 6 (with railings) Picking up an Object (QC): 6 (with auto painter helper) LTG: TUG speed to improve to 46.5 sec or less with FWW or cane. PT Plan Problem List Problem List: Activity Tolerance, Functional Strength, Safety, Balance, Gait, Transfer, Bed Mobility, Other (hip/pelvis pain) Treatment/Plan Treatment Plan: Continue Plan of Care Treatment Plan: Bed Mobility, Education, Functional Activity Latosha, Functional Strength, Group Therapy, Gait, Safety, Therapeutic Exercise, Transfers, Other (Manual therapy for MET for innominate rotation) Treatment Duration: January 29, 2023 Frequency: At least 5 of 7 days/Wk (IRF) Estimated Hrs Per Day: 1.5 hours per day Patient and/or Family Agrees t: Yes Safety Risks/Education Safety Risk Comments: Fall prevention Patient Education: Gait Training Teaching Recipient: Patient Teaching Methods: Demonstration, Discussion Response to Teaching: Verbalize Understanding, Return Demonstration Discharge Recommendations Target Placement Home to previous residence. Time Time In: 1044 (Co-treat 11:04) Time Out: 1054 (co-treat: 12:06) DATE: Jan 15, 2023 Total Billed Treatment Time: 72 Total Billed Treatment [id number] = EML 8159-1451 = cotreat (GT 35, FA 25) with co-treat to address multiple safety/mobility deficits due to high pain this a.m.(6-8/10) and need of 2 sk illed therapist's to ensure patient safety with functional tasks Jeniffer Farias PT Jan 15, 2023 11:46
--- NOTE | 2023-01-15 11:47 | Occupational Therapy Eval ---
OT Evaluation-General/PLF Medical Diagnosis Admission Date Jan 15, 2023 at 10:44 Medical Diagnosis: debility Onset Date: Jan 12, 2023 Therapy Diagnosis Therapy Diagnosis: pain, decreased ADL status Height/Weight Height (Feet): 5 Height (Inches): 6.00 Weight (Pounds): 120 Precautions Precautions/Isolations: Fall Prevention, Standard Precautions Weight Bear Status Weight Bearing Restriction: Weight Bearing/Tolerated Location Restriction: LE Bilateral Referral Physician: Jonathon Referral Reason: Evaluation/Treatment Medical History Pertinent Medical History: COPD Additional Medical History THR 06/2020 with dislocation, COPD, osteoporosis, chronic LE edema, PVD, hypothyroidism, hyperlipidemia, anxiety/depression, overactive bladder, valvular heart disease, former smoker Current History Fall 1 month ago (slipped off of EOB landing on her tailbone). Pt has had increased pain especially with weight bearing, going to [place] ED 01/12/23. Imaging was negative for fxs and negative for DVTs. Imaging revealed L hip degenrative changes with slight early collapse of femoral head, and Dr Dumont recommends ESR and CRP to rule out infection and bone scan to assess for possible femoral stem loosening. Pt transferred to [facility]U 01/15/23. Social History Home: Single Level Current Living Status: Alone Entry Into Home: Stairs With Railing Steps Into Home: 4 ADL-Prior Level of Function SCALE: Activities may be completed with or without assistive devices. 6-Ounwcheemn-haauqsi completes the activity by him/herself with no assistance from a helper. 5-Set-up or Clean-up Assistance-helper sets up or cleans up; patient completes activity. Bohannon assists only prior to or following the activity. 4-Supervision or Touching Assistance-helper provides verbal cues and/or touching/steadying and/or contact guard assistance as patient completes activity. Assistance may be provided throughout the activity or intermittently. 3-Partial/Moderate Assistance-helper does LESS THAN HALF the effort. Bohannon lifts, holds or supports trunk or limbs, but provides less than half the effort. 2-Substantial/Maximal Assistance-helper does MORE THAN HALF the effort. Bohannon lifts or holds trunk or limbs and provides more than half the effort. 5-Vyaovdynp-rimbja does ALL the effort. Patient does none of the effort to complete the activity. Or, the assistance of 2 or more helpers is required for the patient to complete the activity. If activity was not attempted, code reason: 7-Patient Refused. 9-Not Applicable-not attempted and the patient did not perform the activity before the current illness, exacerbation or injury. 10-Not Attempted due to Environmental Limitations-(lack of equipment, weather restraints, etc.). 88-Not Attempted due to Medical Conditions or Safety Concerns. ADL PLOF Comments Pt reports IND with ADLs and functional mobility at PLOF using a cane. She has a walk in shower with SC. Self Care: Independent Functional Cognition: Independent OT Current Status Subjective Pt agreeable to OT Tx. Pt reports pain 8/10 pain in R hip with weight bearing. Mental Status/Objective Patient Orientation: Person, Place, Time, Situation Current Glasses/Contacts: Yes Hearing Aids: No Dentures/Partials: Yes Hand Dominance: Right Upper Extremity ROM WFL, BUE shoulder flexion to approx 160 degrees Upper Extremity Coordination WFL Upper Extremity Sensation WFL Upper Extremity Strength grossly 4-/5 ADL-Treatment Eating (QC): 6 Oral Hygiene (QC): 4 (SBA standing at sink.) Shower/Bathe Self (QC): 4 (Supervision) Upper Body Dressing (QC): 5 Lower Body Dressing (QC): 4 (Supervision in stand) On/Off Footwear (QC): 5 Toileting Hygiene (QC): 4 (Supervision in stand.) Other Treatments OT evaluation complete. OT/PT cotreat due to skill of 2 clinicians required which a rehabilitation therapy aide could not perform in order to coordinate UE/LEs, decrease fall risk, and due to pt's limitations in strength, activity tolerance, mobility, transfers and pain. OT focused on UE placement, ADLs, and cues for sequencing and safety. PT focused on LE placement, gross overall movement, transfers and mobility. Pt completed functional mobility and transfers, including mobility using FWW (even and uneven surface), mobility around ARU Common area, curb step, steps, bed mobility. Pt completed shower, dressing and toileting tasks in bathroom as outlined above. Post tx, pt in bed, call light in reach and all needs met. IND rolling, min A sit to/from supine, SBA sit to stand, SBA bed to chair, SBA- CGA toilet transfer using GBs, SBA mobility using FWW 200'+ using FWW, CGA 15 steps with b/l rails. Education OT Patient Education: Correct positioning, Energy conservation, Modified ADL techniques, Progress toward Goal/Update tx plan, Purpose of tx/functional activities, Rehab process Teaching Recipient: Patient Teaching Methods: Discussion Response to Teaching: Verbalize Understanding BIMS CAM BIMS Expression of Ideas and Wants: Without Difficulty Understanding Verbal Content: Understands Brief Interview/Mental Status: Yes IRF LAURA BIMS: IRF LAURA BIMS Response (Comments) Value Repitition of Three Words Three 3 Recalls Socks Yes, No Cue Required 2 Recalls Blue Yes, No Cue Required 2 Recalls Bed Yes, No Cue Required 2 Year Correct 3 Month Accurate Within 5 Days 2 Day Correct 1 Total [address] Mental [address] No CAM Mental Status Change/Baseline: 0 Inattention: 0 Disorganized thinkin Altered level of consciousness: 0 OT Short Term Goals Short Term Goals Time Frame: Jan 22, 2023 Shower/bathe self: 5 Lower body dressin OT Longterm Goals Maid Housekeeper Goals Time Frame: January 29, 2023 Eating (QC): 6 Oral Hygiene (QC): 6 Toileting Hygiene (QC): 6 Shower/Bathe Self (QC): 6 Upper Body Dressing (QC): 6 Lower Body Dressing (QC): 6 On/Off Footwear (QC): 6 Additional Goals: 1-Demonstrate ADL Tasks, 2-Verbalize Understanding, 3- ImproveStrength/Latosha 1=Demonstrate adherence to instructed precautions during ADL tasks. 2=Patient will verbalize/demonstrate understanding of assistive devices/modifications for ADL. 3=Patient will improve strength/tolerance for activity to enable patient to perform ADL's. OT Education/Plan Problem List/Assessment Assessment: Decreased Activ Tolerance, Decreased UE Strength, Impaired Funct Balance, Impaired I ADL's, Impaired Self-Care Skills Discharge Recommendations Plan/Recommendations: Continue POC Treatment Plan/Plan of Care Patient would benefit from OT for education, treatment and training to promote independence in ADL's, mobility, safety and/or upper extremity function for ADL's. Plan of Care: ADL Retraining, Functional Mobility, Group Exercise/Act as Ind, UE Funct Exercise/Act Treatment Duration: January 29, 2023 Frequency: At least 5 of 7 days/Wk (IRF) Estimated Hrs Per Day: 1.5 hours per day Agreement: Yes Rehab Potential: Good Time Start Time: 10:54 ([id number] OT eval) Stop Time: 12:06 ([id number] Cotreat) DATE: Jan 15, 2023 Total Time Billed (hr/min): 72 Billed Treatment Time OT evaluation [id number] (10'), Cotreat [id number] (62') 1, EVL (10'), FA 2 (32'), ADL (20') ENA CHAVIRA OT Jan 15, 2023 11:47
--- NOTE | 2023-01-15 11:55 | PM&R Post Admission Assessment ---
PM&R HP Date of Visit: Jan 15, 2023 Time of Visit: 12:00 History of Present Illness CC: Debility with right hip and pelvis pain sustained in a fall at home HPI: This is a 77yoWF clinic patient of mine who presents to ARU following a short course at [facility] following a direct admit from my office due to severe right hip and lower pelvis pain sustained in a fall 1 month ago. Apparently she did not tell her family she had fallen so she continued to manage on her own until she could not longer ambulate. Xray showed no fracture but I was so suspicious of an occult fracture a CT scan was ordered and again did not reveal a fracture so Dr Dumont was consulted and performed an exam and reviewed CT scan and concluded no fracture so she will need aggressive therapy in order to regain function with ambulation and ADL's in order to return to home to live independently. Her cognition is of a concern to her family and patient acknowledges this so we will monitor this closely in meantime. Past Gymdgvd-Lfkhxv-Yoxqbe Hx Past Med/Social Hx: Reviewed Nursing Past Med/Soc Hx, Reviewed and Corrections made Patient Social History Marrital Status: Employed/Student: retired Alcohol Use: Occasionally Uses Alcohol Beverage of Choice: Beer Smoking Status: Former Smoker Type Used: Cigarettes 2nd Hand Smoke Exposure: No Recent Hopitalizations: No Immunizations Up To Date Date of Pneumonia Vaccine: Jun 27, 2018 Date of Influenza Vaccine: Jun 21, 2019 Seasonal Allergies Seasonal Allergies: No Past Medical History Surgeries: Hysterectomy, Orthopedic (right hip fx 06/2020) Respiratory: COPD, Pneumonia (06/2020 post hip fx) Cardiac: High Cholesterol, Peripheral Vascular OAB Musculoskeletal: Osteoporosis, Arthritis HEENT: Cataract Psychosocial: Anxiety, Depression History of Blood Disorders: No Adverse Reaction to Blood Pearson: No PM&R Allergy/Meds/Data Review Allergies Coded Allergies: No Known Drug Allergies (Unverified , 07/09/14) Home Medications Scheduled Aspirin (Aspirin), 81 MG PO DAILY, (Reported) Calcium Carbonate/Vitamin D3 (Calcium 600 + Vit D3 Caplet), 2 EACH PO DAILY, (Reported) Enoxaparin Sodium (Enoxaparin Sodium), 30 MG SQ DAILY, (Reported) Ezetimibe (Ezetimibe), 10 MG PO DAILY, (Reported) Ibandronate Sodium (Ibandronate Sodium), 150 MG PO MONTHLY, (Reported) Lactulose (Lactulose), 15 ML PO BID, (Reported) Levothyroxine Sodium (Levothyroxine Sodium), 50 MCG PO DAILY, (Reported) Multivitamin (Multivitamin), 1 EACH PO DAILY, (Reported) Oxybutynin Chloride (Oxybutynin Chloride ER), 15 MG PO DAILY, (Reported) Sennosides/Docusate Sodium (Senna Plus 8.6-50 mg Tablet), 1 EACH PO DAILY, (Rep orted) Sertraline HCl (Zoloft), 150 MG PO DAILY, (Reported) Simvastatin (Simvastatin), 20 MG PO DAILY, (Reported) Venlafaxine HCl (Venlafaxine HCl ER), 75 MG PO DAILY, (Reported) Scheduled PRN Docusate Sodium (Colace), 100 MG PO DAILY PRN for CONSTIPATION-1ST LINE, (Reported) Furosemide (Furosemide), 20 MG PO DAILY PRN for FLUID RETENTION, (Reported) Hydrocodone/Acetaminophen (Hydrocodone-Acetamin 5-325 mg), 1 TAB PO Q4H PRN for PAIN-MODERATE (5-7), (Reported) Discontinued Medications ALPRAZolam (Xanax Tablet), 0.25 MG PO Q8H PRN for ANXIETY Discontinued Reason: No Longer Taking Albuterol Sulfate (Albuterol Sulfate), 2.5 MG INH RTTID Discontinued Reason: No Longer Taking Alendronate Sodium (Alendronate Sodium), 70 MG PO WEEK, (Reported) Discontinued Reason: No Longer Taking Atorvastatin Calcium (Atorvastatin Calcium), 20 MG PO 1200, (Reported) Discontinued Reason: No Longer Taking Baclofen (Baclofen), 5 MG PO Q6H PRN for MUSCLE SPASMS Discontinued Reason: No Longer Taking Docusate Sodium (Dok), 100 MG PO BID Discontinued Reason: No Longer Taking Ezetimibe (Zetia), 10 MG PO HS, (Reported) Discontinued Reason: No Longer Taking Furosemide (Lasix), 20 MG PO DAILY Discontinued Reason: No Longer Taking Lactobacillus Acidophilus/Pect (Acidophilus-Pectin Capsule), 2 EACH PO TIDWM Discontinued Reason: No Longer Taking Multivits,Ca,Minerals/Iron/FA (Thera-M Tablet), 1 EA PO DAILY@0700 Discontinued Reason: No Longer Taking Nicotine (Nicoderm Cq), 21 MG TD DAILY@0900 Discontinued Reason: No Longer Taking Oxybutynin Chloride (Oxybutynin Chloride ER), 15 MG PO 1200, (Reported) Discontinued Reason: No Longer Taking Oxycodone HCl/Acetaminophen (Percocet 10-325 mg Tablet), 1 TAB PO Q4H PRN for PAIN-MODERATE (5-7) Discontinued Reason: No Longer Taking Pantoprazole Sodium (Pantoprazole Sodium), 40 MG PO DAILY Discontinued Reason: No Longer Taking Sertraline HCl (Sertraline HCl), 100 MG PO 1200, (Reported) Discontinued Reason: No Longer Taking Venlafaxine HCl (Venlafaxine HCl ER), 37.5 MG PO DAILY@0700 Discontinued Reason: No Longer Taking Current Medications Current Medications Reviewed Review of Systems Constitutional: see HPI, malaise, weakness EENTM: no symptoms reported Respiratory: no symptoms reported Cardiovascular: no symptoms reported Gastrointestinal: constipation Genitourinary: no symptoms reported Musculoskeletal: back pain, joint pain, muscle pain, muscle stiffness, muscle cramps, muscle weakness Skin: no symptoms reported Psychiatric/Neurological: Anxiety, Depressed All Other Systems Reviewed Negative Unless Noted: Yes Physical Exam Physical Exam Vital Signs Vital Signs - First Documented 01/15/23 10:44 Temp 36.9 Pulse 71 Resp 18 B/P (MAP) 125/60 (81) Pulse Ox 93 O2 Delivery Room Air Capillary Refill : Height, Weight, BMI Height: 5'6.00" Weight: 120lbs. oz. [id number]; 23.05 BMI Method: General Appearance: No Apparent Distress, WD/WN, Chronically ill, Thin Eyes: Bilateral Eye Normal Inspection, Bilateral Eye PERRL HEENT: PERRL/EOMI, Normal ENT Inspection, Pharynx Normal Neck: Full Range of Motion, Normal Inspection, Non Tender, Supple, Carotid Bruit Respiratory: Chest Non Tender, Lungs Clear, Normal Breath Sounds, No Accessory Muscle Use, No Respiratory Distress Cardiovascular: Regular Rate, Rhythm, No Edema, No Gallop, No JVD, Normal Peripheral Pulses, Systolic Murmur Gastrointestinal: Normal Bowel Sounds, No Organomegaly, No Pulsatile Mass, Non Tender, Soft Back: Normal Inspection, No CVA Tenderness, No Vertebral Tenderness Extremity: Normal Capillary Refill, Normal Inspection, Normal Range of Motion, Non Tender, No Calf Tenderness, No Pedal Edema Neurologic/Psychiatric: Alert, Oriented x3, Normal Mood/Affect, manager people II-XII Norm as Tested, Abnormal Gait, Motor Weakness (right leg) Skin: Normal Color, Warm/Dry Lymphatic: No Adenopathy PM&R Medical Assessment & Plan REHAB/MEDICAL ASSESSMENT AND PLAN: REHAB IMPAIRMENT GROUP: Right hip pain causing debility ETIOLOGIC DIAGNOSIS: Right hip pain causing debility The comorbidities that impact the patients function and/or functional outcome by: thin and frail status, advanced age, severe right hip pain, h/o right hip replacement, COPD, valvular heart disease, PHTN REHAB PLAN: The patient is being admitted to our comprehensive inpatient rehabilitation facility and can tolerate the intensity of service consisting of at least: 180 minutes of therapy a day, 5 out of 7 days a week Rehab treatment will consist of: PT OT will focus on regaining function with use of AD in order to regain ambulation and ADL's The patient/family has a good understanding of our discharge process and will benefit from an interdisciplinary inpatient rehabilitation program. The patient has potential to make improvement and is in need of at least two of the following multidisciplinary therapies including but not limited to physical, occupational, speech, and prosthetics and orthotics. Additionally the patient will need services from respiratory, nutritional services, wound care, psycholog y, etc. (Customize this to each patient). Given the patients complex condition and risk of further medical complications, rehabilitation services cannot be safely or effectively provided at a lower level of care such as a nursing home facility. BARRIERS TO DISCHARGE: Frail status and lives alone with fall risk ESTIMATED LOS: 7 days DISPOSITION: Home RELEVANT CHANGES SINCE PREADMISSION SCREENING: I have compared the patients medical and functional status at the time of the preadmission screening and there are: no changes PROGNOSIS: Good REHABILITATION GOALS: 1. PT OT will focus on regaining function with use of AD in order to regain ambulation and ADL's All the above goals were reviewed with the patient and he/she is in agreement. By signing this document, I acknowledge that I have personally performed a full physical examination on this patient within 24 hours of admission to this inpatient rehabilitation facility and have determined the patient to be able to tolerate the above course of treatment at an intensive level for a reasonable period of time. I will be completing a detailed individualized Plan of Care for this patient by day #4 of the patients stay based upon the Preadmission Screen, the Post-Admission Evaluation, and the therapy evaluations. Admission Dx/Comorbidities: (1) Debility ICD Codes: R53.81 - Other malaise (2) COPD (chronic obstructive pulmonary disease) ICD Codes: J44.9 - Chronic obstructive pulmonary disease, unspecified (3) Transfusion history ICD Codes: Z92.89 - Personal history of other medical treatment (4) Frailty ICD Codes: R54 - Age-related physical debility (5) Hyperlipemia ICD Codes: E78.5 - Hyperlipidemia, unspecified (6) Anxiety ICD Codes: F41.9 - Anxiety disorder, unspecified (7) Osteoporosis ICD Codes: M81.0 - Age-related osteoporosis without current pathological fracture (8) Pulmonary hypertension ICD Codes: I27.20 - Pulmonary hypertension, unspecified Assessment/Plan Assessment and Plan Assess & Plan/Chief Complaint Assessment: Severe right hip and pelvis pain after fall 1 month ago now unable to ambulate n ormally but no fracture on Xray or CT or Dr Dumont assessment but he did recommend bone scan right hip but ESR CRP normal at [facility] Cognition deficit? UA normal, subtle but noted by family COPD Previous heavy smoker 60+ years cessation 2020 Osteoporosis on [facility] Urinary frequency but negative UA at [facility] on day of admit Pulmonary HTN 90 on ECHO negative USG right leg and negative PE on CT angiogram assessed by Cardiology locally and in [facility] Anxiety Previous assessment: h/o right hip fracture 07/04/20 s/p repair by Dr Chávez then dislocation of hardware 07/09/20 upon arrival to ARU requiring transfer back to [facility] s/p spinal anesthesia but reduction only required h/o acute blood loss anemia s/p 2 units transfused 07/05/20 then again 07/09/20 h/o severe hypotension due to volume depletion requiring aggressive IVF administration at [facility] h/o acute pneumonia upon arrival to IR[facility] requiring septic w/u which was negative and empiric abx for HAP Plan: ARU protocol PT OT Pain control Bowel regimen Monitor cognition Bone scan Wednesday AVANI NICOLE DO Jan 15, 2023 11:55
[2023-01-15] MEDS ORDERED: CALCIUM CARBONATE 500 MG (TUMS) TAB.CHEW PO PRN (12:00)
[2023-01-15] MEDS ORDERED: DOCUSATE SODIUM 100 MG (COLACE) CAP PO PRN ×2 (12:00)
[2023-01-15] MEDS ORDERED: FLEET ENEMA ADULT 1 EA BTL PR PRN (12:00)
[2023-01-15] MEDS ORDERED: ONDANSETRON 4 MG (ZOFRAN) ORAL DISSOLVE TAB PO PRN (12:00)
[2023-01-15] MEDS ORDERED: ALPRAZolam 0.25 MG (XANAX) TAB PO PRN (12:00)
[2023-01-15] MEDS ORDERED: LACTULOSE SYRUP 10GM/15ML (ENULOSE) 30ML UDC PO PRN (12:00)
[2023-01-15] MEDS ORDERED: MELATONIN 3 MG TABLET PO PRN (12:00)
[2023-01-15] MEDS ORDERED: diphenhydrAMINE 25 MG TAB (BENADRYL) PO PRN (12:00)
[2023-01-15] MEDS ORDERED: guaiFENesin/CODEINE (ROBITUSSIN AC) 10ML UDC PO PRN (12:00)
[2023-01-15] MEDS ORDERED: BISACODYL 10 MG SUPP (DULCOLAX) PR PRN (12:00)
[2023-01-15] MEDS ORDERED: LOPERAMIDE 2 MG (IMODIUM) TABLET PO PRN (12:00)
[2023-01-15] MEDS ORDERED: FUROSEMIDE 20 MG (LASIX) TAB PO PRN (12:00)
[2023-01-15] MEDS ORDERED: NON-FORMULARY MEDICATION 1 EA EA (Alendronate Sodium 70 MG) PO SCH (12:00)
[2023-01-15] MEDS: OXYBUTYNIN (DITROPAN) 5 MG TAB PO SCH ×2 (13:21→21:03)
[2023-01-15] MEDS: HYDROcodone/APAP 5 MG/325 MG (LORTAB) TAB PO PRN ×2 (13:21→21:03)
--- NOTE | 2023-01-15 13:30 | Occupational Ther Daily Note ---
OT Current Status-Daily Note Subjective Pt in bed, HOB elevated eating lunch, agreeable to OT Tx. ADL-Treatment Therapy Code Descriptions/Definitions Functional [place] Measure: 0=Not Assessed/NA 4=Minimal Assistance 1=Total Assistance 5=Supervision or Setup 2=Maximal Assistance 6=Modified [place] 3=Moderate Assistance 7=Complete IndependenceSCALE: Activities may be completed with or without assistive devices. 9-Fgqlibwheg-frhjodj completes the activity by him/herself with no assistance from a helper. 5-Set-up or Clean-up Assistance-helper sets up or cleans up; patient completes activity. [place] assists only prior to or following the activity. 4-Supervision or Touching Assistance-helper provides verbal cues and/or touching/steadying and/or contact guard assistance as patient completes activity. Assistance may be provided throughout the activity or intermittently. 3-Partial/Moderate Assistance-helper does LESS THAN HALF the effort. [place] lifts, holds or supports trunk or limbs, but provides less than half the effort. 2-Substantial/Maximal Assistance-helper does MORE THAN HALF the effort. [place] lifts or holds trunk or limbs and provides more than half the effort. 2-Kkdkbuwvk-napdbd does ALL the effort. Patient does none of the effort to complete the activity. Or, the assistance of 2 or more helpers is required for the patient to complete the activity. If activity was not attempted, code reason: 7-Patient Refused. 9-Not Applicable-not attempted and the patient did not perform the activity before the current illness, exacerbation or injury. 10-Not Attempted due to Environmental Limitations-(lack of equipment, weather restraints, etc.). 88-Not Attempted due to Medical Conditions or Safety Concerns. Eating (QC): 6 Other Treatment Pt finished lunch, IND with manipulating utensils and bringing food to her mouth. OT educated pt on written theraband HEP, provided pt with moderate resistance red theraband. Pt completed 5/5 exercises, x5 reps BUEs, pt demonstrated and verbalized understanding. OT encouraged pt to complete HEP over the weekend, increasing reps as tolerated. Post tx, pt in bed, call light in reach and all needs met. OT Short Term Goals Short Term Goals Time Frame: Jan 22, 2023 Shower/bathe self: 5 Lower body dressin OT Community Health Planning Director Goals Fdc Goals Time Frame: January 29, 2023 Acute change in mental status: 0 Inattention: 0 Disorganized thinkin Altered level of consciousness: 0 Eating (QC): 6 Oral Hygiene (QC): 6 Toileting Hygiene (QC): 6 Shower/Bathe Self (QC): 6 Upper Body Dressing (QC): 6 Lower Body Dressing (QC): 6 On/Off Footwear (QC): 6 Additional Goals: 1-Demonstrate ADL Tasks, 2-Verbalize Understanding, 3- ImproveStrength/Latosha 1=Demonstrate adherence to instructed precautions during ADL tasks. 2=Patient will verbalize/demonstrate understanding of assistive devices/modif ications for ADL. 3=Patient will improve strength/tolerance for activity to enable patient to perform ADL's. OT Education/Plan Problem List/Assessment Assessment: Decreased Activ Tolerance, Decreased UE Strength, Impaired Funct Balance, Impaired I ADL's, Impaired Self-Care Skills Discharge Recommendations Plan/Recommendations: Continue POC Treatment Plan/Plan of Care Patient would benefit from OT for education, treatment and training to promote independence in ADL's, mobility, safety and/or upper extremity function for ADL's. Plan of Care: ADL Retraining, Functional Mobility, Group Exercise/Act as Ind, UE Funct Exercise/Act Treatment Duration: January 29, 2023 Frequency: At least 5 of 7 days/Wk (IRF) Estimated Hrs Per Day: 1.5 hours per day Agreement: Yes Rehab Potential: Good Time Start Time: 13:00 Stop Time: 13:20 DATE: Jan 15, 2023 Total Time Billed (hr/min): 20 Billed Treatment Time 1, EX ENA CHAVIRA OT Jan 15, 2023 13:30
[2023-01-15] MEDS ORDERED: IBAN150T21 PO (15:22)
--- NOTE | 2023-01-15 15:43 | Physical Therapy Daily Note ---
PT Daily Note-Current Subjective Patient agreeable to work with PT. Pain Section J - Health Conditions 1. Rarely or not at all 2. Occasionally 3. Frequently 4. Almost constantly 8. Unable to answer Pain Effect on Sleep: 1 Pain Interference with Therapy: 2 Pain Interference w/Day-to-Day: 2 Appearance Resting in supine when therapist entered room. Transfers SCALE: Activities may be completed with or without assistive devices. 7-Oqyalmvvkz-tewmoop completes the activity by him/herself with no assistance from a helper. 5-Set-up or Clean-up Assistance-helper sets up or cleans up; patient completes activity. [place] assists only prior to or following the activity. 4-Supervision or Touching Assistance-helper provides verbal cues and/or touching/steadying and/or contact guard assistance as patient completes activity. Assistance may be provided throughout the activity or intermittently. 3-Partial/Moderate Assistance-helper does LESS THAN HALF the effort. [place] lifts, holds or supports trunk or limbs, but provides less than half the effort. 2-Substantial/Maximal Assistance-helper does MORE THAN HALF the effort. [place] lifts or holds trunk or limbs and provides more than half the effort. 3-Pgilfiqhm-iwlpap does ALL the effort. Patient does none of the effort to complete the activity. Or, the assistance of 2 or more helpers is required for the patient to complete the activity. If activity was not attempted, code reason: 7-Patient Refused. 9-Not Applicable-not attempted and the patient did not perform the activity before the current illness, exacerbation or injury. 10-Not Attempted due to Environmental Limitations-(lack of equipment, weather restraints, etc.). 88-Not Attempted due to Medical Conditions or Safety Concerns. Sit to Lying (QC): 3 (Min (A) using (L) LE to lift (R)) Lying to Sitting/Side of Bed(Q: 3 (min (A) with (R) LE) Sit to Stand (QC): 5 Chair/Yjy-id-Rcmfu Xfer(QC): 5 Toilet Transfer (QC): 4 (CGA for sitting on toilet) FWW used for transfers Weight Bearing Weight Bearing/Tolerated Weight Bearing/Tolerated Gait Training Patient ambulated 150' x 2 with FWW. Stated following MET that her hip was not as painful. Exercises Seated ex EOM following MET: Isometric hip add pillow squeeze x 10 x :03 Hip abduction into red tband x 10 LAQ x 10 (B), alternating legs *Above exercises created in [facility] and provided to patient for weekend/downtime activity. Treatments Check for innominate rotation demonstrated (L) leg lengthening significantly in long sitting (4cm longer than (R)). MET for (L) posterior/(R) anterior innominate rotation following Dr. Holt's verbal approval of technique this a.m.: -hooklying bridge, followed by 3 reps x :05 hold of isometric (L) hip flexion, (R) hip extension with gentle resistance -hooklying isometric hip adduction into therapist's hands with gradually increasing distance between knees, 3 reps. Re-check for rotation following MET demonstrated much less posterior rotation on (L) (only 1cm longer than (R)) Assessment Tolerated MET well with decreased discomfort in (R) hip with gait back to room. May progress with pelvic reset sequence next visit. PT Usp Goals Bilingual Inside Sales Representative Goals PT Usp Goals Time Frame: January 29, 2023 Roll Left & Right (QC): 6 Sit to Lying (QC): 6 (with leg wax pot tender as needed) Lying-Sitting on Side/Bed(QC): 6 (with leg wax pot tender as needed) Sit to Stand (QC): 6 Chair/Izx-ia-Lagwu Xfer(QC): 6 Toilet Transfer (QC): 6 Car Transfer (QC): 6 Does the Patient Walk: Yes Walk 10 feet (QC): 6 (with walker or cane) Walk 50ft with 2 Turns (QC): 6 (with walker or cane) Walk 150 ft (QC): 6 (with walker or cane) Walking 10ft on Uneven Surface: 6 (with walker or cane) 1 Step (curb) (QC): 6 (with walker or cane and rail) 4 Steps (QC): 6 (with railings) 12 Steps (QC): 6 (with railings) Picking up an Object (QC): 6 (with supervisor dry cleaning) Does the Pt use WC or Scooter?: No Wheel 50 feet with 2 turns (QC: 9 Wheel 150 feet: 9 PT Plan Treatment/Plan Treatment Plan: Continue Plan of Care Treatment Plan: Bed Mobility, Education, Functional Activity Latosha, Functional Strength, Group Therapy, Gait, Safety, Therapeutic Exercise, Transfers, Other (Manual therapy for MET for innominate rotation) Treatment Duration: January 29, 2023 Frequency: At least 5 of 7 days/Wk (IRF) Estimated Hrs Per Day: 1.5 hours per day Patient and/or Family Agrees t: Yes Time Time In: 1330 Time Out: 1415 DATE: Jan 15, 2023 Total Billed Treatment Time: 45 Total Billed Treatment Manual therapy 10', Exercise 15', Gait 20' Jeniffer Farias PT Jan 15, 2023 15:43
--- NOTE | 2023-01-15 15:49 | Physical Therapy Daily Note ---
PT Daily Note-Current Pain Section J - Health Conditions 1. Rarely or not at all 2. Occasionally 3. Frequently 4. Almost constantly 8. Unable to answer Pain Effect on Sleep: 1 Pain Interference with Therapy: 2 Pain Interference w/Day-to-Day: 2 Transfers SCALE: Activities may be completed with or without assistive devices. 1-Fbcaczkhhv-lvveiir completes the activity by him/herself with no assistance from a helper. 5-Set-up or Clean-up Assistance-helper sets up or cleans up; patient completes activity. [place] assists only prior to or following the activity. 4-Supervision or Touching Assistance-helper provides verbal cues and/or touching/steadying and/or contact guard assistance as patient completes activity. Assistance may be provided throughout the activity or intermittently. 3-Partial/Moderate Assistance-helper does LESS THAN HALF the effort. [place] lifts, holds or supports trunk or limbs, but provides less than half the effort. 2-Substantial/Maximal Assistance-helper does MORE THAN HALF the effort. [place] lifts or holds trunk or limbs and provides more than half the effort. 5-Ktumwvuee-wopoxr does ALL the effort. Patient does none of the effort to complete the activity. Or, the assistance of 2 or more helpers is required for the patient to complete the activity. If activity was not attempted, code reason: 7-Patient Refused. 9-Not Applicable-not attempted and the patient did not perform the activity before the current illness, exacerbation or injury. 10-Not Attempted due to Environmental Limitations-(lack of equipment, weather restraints, etc.). 88-Not Attempted due to Medical Conditions or Safety Concerns. Weight Bearing Weight Bearing/Tolerated Weight Bearing/Tolerated PT Vat Operator Goals Mcfp Goals PT Mcfp Goals Time Frame: January 29, 2023 Roll Left & Right (QC): 6 Sit to Lying (QC): 6 (with leg bait tier as needed) Lying-Sitting on Side/Bed(QC): 6 (with leg bait tier as needed) Sit to Stand (QC): 6 Chair/Xms-ag-Rxrdo Xfer(QC): 6 Toilet Transfer (QC): 6 Car Transfer (QC): 6 Does the Patient Walk: Yes Walk 10 feet (QC): 6 (with walker or cane) Walk 50ft with 2 Turns (QC): 6 (with walker or cane) Walk 150 ft (QC): 6 (with walker or cane) Walking 10ft on Uneven Surface: 6 (with walker or cane) 1 Step (curb) (QC): 6 (with walker or cane and rail) 4 Steps (QC): 6 (with railings) 12 Steps (QC): 6 (with railings) Picking up an Object (QC): 6 (with medical charge entry specialist) Does the Pt use WC or Scooter?: No Wheel 50 feet with 2 turns (QC: 9 Wheel 150 feet: 9 PT Plan Treatment/Plan Treatment Plan: Bed Mobility, Education, Functional Activity [place], Functional Strength, Group Therapy, Gait, Safety, Therapeutic Exercise, Transfers, Other (Manual therapy for MET for innominate rotation) Treatment Duration: January 29, 2023 Frequency: At least 5 of 7 days/Wk (IRF) Estimated Hrs Per Day: 1.5 hours per day Patient and/or Family Agrees t: Yes Jeniffer Farias PT Jan 15, 2023 15:49
[2023-01-15 20:00] VITALS: BP 129/62
[2023-01-15] MEDS ORDERED: SENNA W/DOCUSATE (SENOKOT S) TABLET PO SCH (21:00)
[2023-01-15] MEDS: DOCUSATE SODIUM 100 MG (COLACE) CAP PO SCH (21:03)
[2023-01-15] MEDS: LACTULOSE SYRUP 10GM/15ML (ENULOSE) 30ML UDC PO SCH (21:05)
[2023-01-15] MEDS: polyethylene glycoL POWDER 17 GM (MIRALAX) PACK PO SCH (21:05)
[2023-01-16 05:39] LABS: BASOPHILS # (AUTO) 0.1 10^3/uL (0.0-0.1); BASOPHILS % (AUTO) 1 % (0-10); EOSINOPHILS # (AUTO) 0.1 10^3/uL (0.0-0.3); EOSINOPHILS % (AUTO) 3 % (0-10); HEMATOCRIT 36 % (35-52); HEMOGLOBIN 11.7 g/dL (11.5-16.0); LYMPHOCYTES # (AUTO) 1.3 10^3/uL (1.0-4.0); LYMPHOCYTES % (AUTO) 27 % (12-44); MEAN CORPUSCULAR HEMOGLOBIN 31 pg (25-34); MEAN CORPUSCULAR HGB CONC 32 g/dL (32-36); MEAN CORPUSCULAR VOLUME 96 fL (80-99); MEAN PLATELET VOLUME 9.5 fL (9.0-12.2); MONOCYTES # (AUTO) 0.4 10^3/uL (0.0-1.0); MONOCYTES % (AUTO) 9 % (0-12); NEUTROPHILS # (AUTO) 2.8 10^3/uL (1.8-7.8); NEUTROPHILS % (AUTO) 60 % (42-75); PLATELET COUNT 195 10^3/uL (130-400); WHITE BLOOD COUNT 4.7 10^3/uL (4.3-11.0)
[2023-01-16 05:47] LABS: ALBUMIN 3.3 GM/DL (3.2-4.5)
[2023-01-16 05:48] LABS: POTASSIUM 3.7 MMOL/L (3.6-5.0)
[2023-01-16 05:50] LABS: TOTAL PROTEIN 6.8 GM/DL (6.4-8.2)
[2023-01-16 05:52] LABS: BILIRUBIN,TOTAL 0.2 MG/DL (0.1-1.0)
[2023-01-16 05:54] LABS: CREATININE SERUM 0.59 MG/DL (0.60-1.30)
--- NOTE | 2023-01-16 06:12 | PM&R Progress Note ---
Subjective HPI/CC On Admission Date Seen by Provider: Jan 16, 2023 Time Seen by Provider: 12:00 Subjective/Events-last exam 01/16/2023: Doing well Pain controlled Bone scan Wednesday No falls BM+ Review of Systems General: Fatigue, Malaise Musculoskeletal: back pain Objective Exam Vital Signs Vital Signs Date Time Temp Pulse Resp B/P (MAP) Pulse Ox O2 Delivery O2 Flow Rate FiO2 01/16/23 09:00 Room Air 01/16/23 07:30 36.5 76 20 124/71 (88) 93 Capillary Refill : General Appearance: No Apparent Distress, WD/WN, Chronically ill, Thin HEENT: PERRL/EOMI, Normal ENT Inspection, Pharynx Normal Neck: Full Range of Motion, Normal Inspection, Non Tender, Supple, Carotid Bruit Respiratory: Chest Non Tender, Lungs Clear, Normal Breath Sounds, No Accessory Muscle Use, No Respiratory Distress Cardiovascular: Regular Rate, Rhythm, No Edema, No Gallop, No JVD, Normal Peripheral Pulses, Systolic Murmur Gastrointestinal: Normal Bowel Sounds, No Organomegaly, No Pulsatile Mass, Non Tender, Soft Back: Normal Inspection, No CVA Tenderness, No Vertebral Tenderness Extremity: Normal Capillary Refill, Normal Inspection, Normal Range of Motion, Non Tender, No Calf Tenderness, No Pedal Edema Neurologic/Psychiatric: Alert, Oriented x3, Normal Mood/Affect, parish nurse II-XII Norm as Tested, Abnormal Gait, Motor Weakness (right leg) Skin: Normal Color, Warm/Dry Lymphatic: No Adenopathy Results/Procedures Lab Laboratory Tests 01/16/23 05:30 Patient resulted labs reviewed. FIM Transfers Therapy Code Descriptions/Definitions Functional [place] Measure: 0=Not Assessed/NA 4=Minimal Assistance 1=Total Assistance 5=Supervision or Setup 2=Maximal Assistance 6=Modified [place] 3=Moderate Assistance 7=Complete IndependenceSCALE: Activities may be completed with or without assistive devices. 4-Wcrbgbrrrm-vynbvur completes the activity by him/herself with no assistance from a helper. 5-Set-up or Clean-up Assistance-helper sets up or cleans up; patient completes activity. [place] assists only prior to or following the activity. 4-Supervision or Touching Assistance-helper provides verbal cues and/or touching/steadying and/or contact guard assistance as patient completes activity. Assistance may be provided throughout the activity or intermittently. 3-Partial/Moderate Assistance-helper does LESS THAN HALF the effort. [place] lifts, holds or supports trunk or limbs, but provides less than half the effort. 2-Substantial/Maximal Assistance-helper does MORE THAN HALF the effort. [place] lifts or holds trunk or limbs and provides more than half the effort. 0-Aoapfzpzg-qivmgs does ALL the effort. Patient does none of the effort to complete the activity. Or, the assistance of 2 or more helpers is required for the patient to complete the activity. If activity was not attempted, code reason: 7-Patient Refused. 9-Not Applicable-not attempted and the patient did not perform the activity before the current illness, exacerbation or injury. 10-Not Attempted due to Environmental Limitations-(lack of equipment, weather restraints, etc.). 88-Not Attempted due to Medical Conditions or Safety Concerns. Roll Left to Right (QC): 6 (with bed rail) Sit to Lying (QC): 3 (Min (A) using (L) LE to lift (R)) Sit to Stand (QC): 5 Chair/Psc-bs-Tbxbb Xfer(QC): 5 Car Transfer (QC): 4 (CGA ) Gait Training Does the Patient Walk?: Yes Walk 10 feet (QC): 5 (SBA with FWW) Walk 50 ft with 2 Turns(QC): 5 (SBA with FWW) Walk 150 ft (QC): 5 (SBA with FWW) Walking 10ft/uneven surface-QC: 4 (CGA with FWW) Gait Assistive Device: FWW Wheelchair Training Does the Pt Use a Wheelchair?: No Wheel 50 ft with 2 turns (QC): 9 Wheel 150 ft (QC): 9 Stair Training #of Steps: 15 1 Step (curb) (QC): 4 (CGA with v.c. for walker placement) 4 Steps (QC): 4 (CGA /c (B) rails - no cues needed for sequence) 12 Steps (QC): 4 (CGA with (B) rails) Balance Picking up an Object (QC): 5 (SBA with walker and sterile process tech) ADL-Treatment Eating (QC): 6 Oral Hygiene (QC): 4 (SBA standing at sink.) Shower/Bathe Self (QC): 4 (Supervision) Upper Body Dressing (QC): 5 Lower Body Dressing (QC): 4 (Supervision in stand) On/Off Footwear (QC): 5 Toileting Hygiene (QC): 4 (Supervision in stand.) Assessment/Plan Assessment and Plan Assess & Plan/Chief Complaint Assessment: Severe right hip and pelvis pain after fall 1 month ago now unable to ambulate normally but no fracture on Xray or CT or Dr Dumont assessment but he did rec ommend bone scan right hip but ESR CRP normal at [facility] [place] Cognition deficit? UA normal, subtle but noted by family COPD Previous heavy smoker 60+ years cessation 2019 Osteoporosis on [facility] Urinary frequency but negative UA at [facility] [place] on day of admit Pulmonary HTN 90 on ECHO negative USG right leg and negative PE on CT angiogram assessed by Cardiology locally and in [place] Anxiety Previous assessment: h/o right hip fracture 07/04/20 s/p repair by Dr Chávez then dislocation of hardware 07/09/20 upon arrival to ARU requiring transfer back to [facility] [place] s/p spinal anesthesia but reduction only required h/o acute blood loss anemia s/p 2 units transfused 07/05/20 then again 07/09/20 h/o severe hypotension due to volume depletion requiring aggressive IVF administration at [facility] [place] h/o acute pneumonia upon arrival to IRF requiring septic w/u which was negative and empiric abx for HAP Plan: ARU protocol PT OT Pain control Bowel regimen Monitor cognition Bone scan Wednesday01/16/2023: No major concerns Improved (1) Debility (2) COPD (chronic obstructive pulmonary disease) (3) Transfusion history (4) Frailty (5) Hyperlipemia (6) Anxiety (7) Osteoporosis (8) Pulmonary hypertension AVANI NICOLE DO Jan 16, 2023 06:12
--- NOTE | 2023-01-16 06:13 | Individualized Plan of Care ---
Individualized Plan of Care Rehab Nursing IPOC Order Admission Date Jan 15, 2023 at 10:44 Current Orders Orders Admission Arrival Bed Request (01/15/23 10:57) Admission Order(Inpt,Obs,Sdc) (01/15/23 11:51) Vital Signs: Per Unit Policy ( 08,16,00 (01/15/23 11:51) López Silver (01/15/23 11:51) Sequential Compression Device (01/15/23 11:51) Svp Business Development-Inpt Rehab Con (01/15/23 11:51) Rehab Nursing Orders-Ipoc (01/15/23 11:51) Physical Therapy Rehab Orders (01/15/23 11:51) Occupational Therapy Rehab Ord (01/15/23 11:51) Speech Therapy Rehab Orders (01/15/23 11:51) Cbc With Automated Diff (01/16/23 06:00) Comprehensive Metabolic Panel (01/16/23 06:00) Precautions (Aru) (01/15/23 11:51) Rehab-Intensity Of Therapy (01/15/23 11:51) Initiate Admission Nursing Pro .admission (01/15/23 11:51) Alprazolam Tablet (Xanax Tablet) (01/15/23 12:00) Calcium Carbonate Chew Tablet (Antacid C (01/15/23 12:00) Diphenhydramine Tablet (Benadryl Tablet) (01/15/23 12:00) Docusate Sodium Capsule (Colace Capsule) (01/15/23 21:00) Docusate Sodium Capsule (Colace Capsule) (01/15/23 12:00) Bisacodyl Suppository ([place]ulcolax Supposit (01/15/23 12:00) Lactulose Oral Solution (Enulose Oral So (01/15/23 12:00) Na Phos/Na Biphos Enema (Fleet Enema Daniel (01/15/23 12:00) Guaifenesin/Codeine Syrup (Robitussin Ac (01/15/23 12:00) Loperamide Tablet (Imodium Tablet) (01/15/23 12:00) Melatonin Tablet (Melatonin Tablet) (01/15/23 12:00) Polyethylene Glycol Powder Pkt (Miralax (01/15/23 21:00) Ondansetron Oral Dissolve Tab (Zofran (01/15/23 12:00) Senna S Tablet (Senokot S Tablet) (01/15/23 21:00) Acetaminophen Tablet/Caplet (Tylenol T (01/15/23 12:00) General/Regular (01/15/23 Lunch) Aspirin Chewable Tablet (Baby Aspirin Ch (01/16/23 09:00) Docusate Sodium Capsule (Colace Capsule) (01/15/23 12:00) Enoxaparin Injection (Lovenox Injection) (01/16/23 09:00) Ezetimibe Tablet (Zetia Tablet) (01/16/23 09:00) Furosemide Tablet (Lasix Tablet) (01/15/23 12:00) Hydrocodone/Apap 5/325 Tablet (Lortab 5 (01/15/23 12:00) Levothyroxine Tablet (Synthroid Tablet) (01/16/23 09:00) Senna S Tablet (Senokot S Tablet) (01/16/23 09:00) Sertraline Tablet (Zoloft Tablet) (01/16/23 09:00) Venlafaxine Xr Capsule (Effexor Xr Capsu (01/16/23 09:00) (Nf) Alendronate Sodium (01/15/23 12:00) Calcium Carbonate W/Vitamin D3 (Calcarb (01/16/23 09:00) Lactulose Oral Solution (Enulose Oral So (01/15/23 21:00) Therapeutic Multivitamin Tab (Vitamins, (01/16/23 09:00) (Nf) Oxybutynin Chloride (Oxybutynin Chl (01/16/23 09:00) (Nf) Simvastatin (01/16/23 09:00) Atorvastatin Tablet (Lipitor Tablet) (01/16/23 09:00) Oxybutynin Tablet (Ditropan Tablet) (01/15/23 13:00) Patient Visit (01/15/23 ) Pt Eval Low Complexity (01/15/23 ) Gait Training, Ea 15 Min (01/15/23 ) Functional Activities, Ea 15 (01/15/23 ) Patient Visit (01/15/23 ) Gait Training, Ea 15 Min (01/15/23 ) Exercise Therap, Ea 15 Min (01/15/23 ) Manual Therapy Technqs, Ea 15 (01/15/23 ) Non-Formulary Medication (Non-Formulary (01/25/23 09:00) Aspirin Chewable Tablet (Baby Aspirin Ch (01/16/23 21:00) Atorvastatin Tablet (Lipitor Tablet) (01/16/23 21:00) Ezetimibe Tablet (Zetia Tablet) (01/16/23 21:00) Code/Resuscitation (01/16/23 12:51) Rehab Nursing Orders: Ongoing Assess. of Cognitive Status, Ongoing Assess. of Function Status, Bladder Management, Bladder Scan, Bladder Training, Bowel Management, Bowel Training, Disease Management & Educaiton, DVT Prophylaxis, Fall Prevention, Fluid/Electrolyte/Nutrition Mgmt, Infection Prevention, Medication Management & Education, Management of Risks & Complications, Manageme nt of Skin Intergrity, Nutrition Management, Pain Management, Patient/Family Support, Safety Management Intensity of Therapy to be met Patient to be seen: Min.3h per day/5 of 7d PT IPOC Problem List: Activity Tolerance, Functional Strength, Safety, Balance, Gait, Transfer, Bed Mobility, Other (hip/pelvis pain) Treatment Plan: Continue Plan of Care Bed Mobility, Education, Functional Activity [place], Functional Strength, Group Therapy, Gait, Safety, Therapeutic Exercise, Transfers, Other (Manual therapy for MET for innominate rotation) Treatment Duration: January 29, 2023 Frequency: At least 5 of 7 days/Wk (IRF) Estimated Hrs Per Day: 1.5 hours per day OT IPOC Problems: Decreased Activ Tolerance, Decreased UE Strength, Impaired Funct Balance, Impaired I ADL's, Impaired Self-Care Skills OT Treatment, Training and Edu: Yes Plan of Care: ADL Retraining, Functional Mobility, Group Exercise/Act as Ind, UE Funct Exercise/Act Treatment Duration: January 29, 2023 Frequency: At least 5 of 7 days/Wk (IRF) Estimated Hrs Per Day: 1.[address] IPOC Speech Therapy Treatment Plan: Continue Plan of Care Treatment Duration: Jan 15, 2023 Frequency: Modified Program (IRF) Estimated Hrs Per Day: Other Svp Business Development/Case Mgmt Svp Business [employer]/Case Managemen: Discharge Planning Dietitian/Pneumatic Systems Operator Dietitian/Pneumatic Systems Operator to monitor nutritional status and make changes and/or recommendations as needed and work with speech pathology on dietary upgrades as the occur. Physician IPOC Medical Issues being managed closely and that require the 24 hour availability of a physician: Recent fall with hip pain so severe it is limiting ambulation and overall decline in status along with cognition decline will require close monitoring Medical Issues: Bowel/Bladder Function, DVT Prophylaxis, Falls Precautions, Fluid/Electrolyte/Nutrition Balance, Infection Protection, Pain Management, Weight Bearing Precautions Brief Synthesis of Preadmission Screen, Post-Admission Evaluation, and Therapy Evaluations: PT OT will focus on regaining function along with use of AD in order to prevent falls and increase independence in order to return to live alone Medical Prognosis: Good Anticipated Length of Stay: 7 days AVANI NICOLE DO Jan 16, 2023 06:12
[2023-01-16 07:30] VITALS: BP 124/71
[2023-01-16] MEDS ORDERED: ASPIRIN 81 MG CHEW (CHILDREN'S ASA) PO SCH (09:00)
[2023-01-16] MEDS ORDERED: NON-FORMULARY MEDICATION 1 EA EA (Simvastatin 20 MG) PO SCH (09:00)
[2023-01-16] MEDS ORDERED: AtorvaSTATin TABLET 10 MG TABLET PO SCH (09:00)
[2023-01-16] MEDS ORDERED: eZETimibe 10 MG (ZETIA) TABLET PO SCH (09:00)
[2023-01-16] MEDS ORDERED: NON-FORMULARY MEDICATION 1 EA EA (Oxybutynin Chloride (Oxybutynin Chloride ER) 15 MG) PO SCH (09:00)
[2023-01-16] MEDS: CALCIUM CARB + VIT D 600 MG (CALCARB + D) TAB PO SCH (09:12)
[2023-01-16] MEDS: SENNA W/DOCUSATE (SENOKOT S) TABLET PO SCH (09:13)
[2023-01-16] MEDS: MULTIVIT W/MINERALS TAB (THERAGRAN M) PO SCH (09:13)
[2023-01-16] MEDS: DOCUSATE SODIUM 100 MG (COLACE) CAP PO SCH ×2 (09:13→21:31)
[2023-01-16] MEDS: SERTRALINE 100 MG (ZOLOFT) TAB PO SCH (09:13)
[2023-01-16] MEDS: VENlafaxine XR 75 MG (EFFEXOR XR) CAP PO SCH (09:13)
[2023-01-16] MEDS: LEVOTHYROXINE 50 MCG (LEVOTHROID) TAB PO SCH (09:13)
[2023-01-16] MEDS: OXYBUTYNIN (DITROPAN) 5 MG TAB PO SCH ×3 (09:13→21:32)
[2023-01-16] MEDS: LACTULOSE SYRUP 10GM/15ML (ENULOSE) 30ML UDC PO SCH ×2 (09:16→21:32)
[2023-01-16] MEDS: polyethylene glycoL POWDER 17 GM (MIRALAX) PACK PO SCH ×2 (09:16→21:32)
[2023-01-16] MEDS: ENOXAPARIN INJECTION 30 MG/0.3 ML SYR SQ SCH (09:29)
[2023-01-16] MEDS: HYDROcodone/APAP 5 MG/325 MG (LORTAB) TAB PO PRN ×2 (09:29→21:31)
[2023-01-16] MEDS: ACETAMINOPHEN 325 MG TABLET PO PRN (17:50)
[2023-01-16 20:23] VITALS: BP 148/83
[2023-01-16] MEDS: eZETimibe 10 MG (ZETIA) TABLET PO SCH (21:31)
[2023-01-16] MEDS: ASPIRIN 81 MG CHEW (CHILDREN'S ASA) PO SCH (21:31)
[2023-01-16] MEDS: AtorvaSTATin TABLET 10 MG TABLET PO SCH (21:32)
--- NOTE | 2023-01-17 06:27 | PM&R Progress Note ---
Subjective HPI/CC On Admission Date Seen by Provider: Jan 17, 2023 Time Seen by Provider: 11:30 Subjective/Events-last exam 01/17/2023: No major issues Walking better although slowly Family visiting No falls Pain controlled 01/16/2023: Doing well Pain controlled Bone scan Wednesday No falls BM+ Review of Systems General: Fatigue, Malaise Objective Exam Vital Signs Vital Signs Date Time Temp Pulse Resp B/P (MAP) Pulse Ox O2 Delivery O2 Flow Rate FiO2 01/17/23 08:38 Room Air 01/17/23 07:31 36.4 80 18 117/57 (77) 01/16/23 21:30 95 Capillary Refill : General Appearance: No Apparent Distress, WD/WN, Chronically ill, Thin HEENT: PERRL/EOMI, Normal ENT Inspection, Pharynx Normal Neck: Full Range of Motion, Normal Inspection, Non Tender, Supple, Carotid Bruit Respiratory: Chest Non Tender, Lungs Clear, Normal Breath Sounds, No Accessory Muscle Use, No Respiratory Distress Cardiovascular: Regular Rate, Rhythm, No Edema, No Gallop, No JVD, Normal Peripheral Pulses, Systolic Murmur Gastrointestinal: Normal Bowel Sounds, No Organomegaly, No Pulsatile Mass, Non Tender, Soft Back: Normal Inspection, No CVA Tenderness, No Vertebral Tenderness Extremity: Normal Capillary Refill, Normal Inspection, Normal Range of Motion, Non Tender, No Calf Tenderness, No Pedal Edema Neurologic/Psychiatric: Alert, Oriented x3, Normal Mood/Affect, nurse informatics educator II-XII Norm as Tested, Abnormal Gait, Motor Weakness (right leg) Skin: Normal Color, Warm/Dry Lymphatic: No Adenopathy Results/Procedures Lab Patient resulted labs reviewed. FIM Transfers Therapy Code Descriptions/Definitions Functional [place] Measure: 0=Not Assessed/NA 4=Minimal Assistance 1=Total Assistance 5=Supervision or Setup 2=Maximal Assistance 6=Modified [place] 3=Moderate Assistance 7=Complete IndependenceSCALE: Activities may be completed with or without assistive devices. 9-Eaunepggfw-hymjvgi completes the activity by him/herself with no assistance from a helper. 5-Set-up or Clean-up Assistance-helper sets up or cleans up; patient completes activity. [place] assists only prior to or following the activity. 4-Supervision or Touching Assistance-helper provides verbal cues and/or touching/steadying and/or contact guard assistance as patient completes activity. Assistance may be provided throughout the activity or intermittently. 3-Partial/Moderate Assistance-helper does LESS THAN HALF the effort. [place] lifts, holds or supports trunk or limbs, but provides less than half the effort. 2-Substantial/Maximal Assistance-helper does MORE THAN HALF the effort. [place] lifts or holds trunk or limbs and provides more than half the effort. 7-Xmcufkhar-pxnomp does ALL the effort. Patient does none of the effort to complete the activity. Or, the assistance of 2 or more helpers is required for the patient to complete the activity. If activity was not attempted, code reason: 7-Patient Refused. 9-Not Applicable-not attempted and the patient did not perform the activity before the current illness, exacerbation or injury. 10-Not Attempted due to Environmental Limitations-(lack of equipment, weather restraints, etc.). 88-Not Attempted due to Medical Conditions or Safety Concerns. Roll Left to Right (QC): 6 (with bed rail) Sit to Lying (QC): 3 (Min (A) using (L) LE to lift (R)) Sit to Stand (QC): 5 Chair/Qhf-zf-Cypzj Xfer(QC): 5 Car Transfer (QC): 4 (CGA ) Gait Training Does the Patient Walk?: Yes Walk 10 feet (QC): 5 (SBA with FWW) Walk 50 ft with 2 Turns(QC): 5 (SBA with FWW) Walk 150 ft (QC): 5 (SBA with FWW) Walking 10ft/uneven surface-QC: 4 (CGA with FWW) Gait Assistive Device: FWW Wheelchair Training Does the Pt Use a Wheelchair?: No Wheel 50 ft with 2 turns (QC): 9 Wheel 150 ft (QC): 9 Stair Training #of Steps: 15 1 Step (curb) (QC): 4 (CGA with v.c. for walker placement) 4 Steps (QC): 4 (CGA /c (B) rails - no cues needed for sequence) 12 Steps (QC): 4 (CGA with (B) rails) Balance Picking up an Object (QC): 5 (SBA with walker and public health service officer) ADL-Treatment Eating (QC): 6 Oral Hygiene (QC): 4 (SBA standing at sink.) Shower/Bathe Self (QC): 4 (Supervision) Upper Body Dressing (QC): 5 Lower Body Dressing (QC): 4 (Supervision in stand) On/Off Footwear (QC): 5 Toileting Hygiene (QC): 4 (Supervision in stand.) Assessment/Plan Assessment and Plan Assess & Plan/Chief Complaint Assessment: Severe right hip and pelvis pain after fall 1 month ago now unable to ambulate normally but no fracture on Xray or CT or Dr Dumont assessment but he did recommend bone scan right hip but ESR [place] [facility] [place] [facility] [place] Cognition deficit? UA normal, subtle but noted by family COPD Previous heavy smoker 60+ years cessation 2019 Osteoporosis on [facility] Urinary frequency but negative UA [place] [facility] [place] [place] Pulmonary HTN 90 on ECHO negative USG right leg and negative PE on CT angiogram assessed by Cardiology locally and in [place] Anxiety Previous assessment: h/o right hip fracture 07/04/20 s/p repair by Dr Chávez then dislocation of hardware 07/09/20 upon arrival to ARU requiring [place] [facility] [place] [place] spinal anesthesia but reduction only required h/o acute blood loss anemia s/p 2 units transfused 07/05/20 then again 07/09/20 h/o severe hypotension due to volume depletion requiring aggressive IVF administration [place] [facility] [place] [place]/o acute pneumonia upon arrival to IRF requiring septic w/u which was negative and empiric abx for HAP Plan: ARU protocol PT OT Pain control Bowel regimen Monitor cognition Bone scan Wednesday01/16/2023: No major concerns Improved 01/17/2023: Monitor closely Bone scan Consult Dr Sanders tomorrow (1) Debility (2) COPD (chronic obstructive pulmonary disease) (3) Transfusion history (4) Frailty (5) Hyperlipemia (6) Anxiety (7) Osteoporosis (8) Pulmonary hypertension AVAIN NICOLE DO Jan 17, 2023 06:27
[2023-01-17 07:31] VITALS: BP 117/57
[2023-01-17] MEDS: VENlafaxine XR 75 MG (EFFEXOR XR) CAP PO SCH (08:27)
[2023-01-17] MEDS: CALCIUM CARB + VIT D 600 MG (CALCARB + D) TAB PO SCH (08:27)
[2023-01-17] MEDS: OXYBUTYNIN (DITROPAN) 5 MG TAB PO SCH ×3 (08:27→21:53)
[2023-01-17] MEDS: MULTIVIT W/MINERALS TAB (THERAGRAN M) PO SCH (08:27)
[2023-01-17] MEDS: SERTRALINE 100 MG (ZOLOFT) TAB PO SCH (08:27)
[2023-01-17] MEDS: DOCUSATE SODIUM 100 MG (COLACE) CAP PO SCH ×2 (08:27→21:53)
[2023-01-17] MEDS: LEVOTHYROXINE 50 MCG (LEVOTHROID) TAB PO SCH (08:28)
[2023-01-17] MEDS: HYDROcodone/APAP 5 MG/325 MG (LORTAB) TAB PO PRN ×2 (08:28→21:53)
[2023-01-17] MEDS: SENNA W/DOCUSATE (SENOKOT S) TABLET PO SCH (08:34)
[2023-01-17] MEDS: LACTULOSE SYRUP 10GM/15ML (ENULOSE) 30ML UDC PO SCH ×2 (08:34→21:56)
[2023-01-17] MEDS: polyethylene glycoL POWDER 17 GM (MIRALAX) PACK PO SCH ×2 (08:34→21:56)
[2023-01-17] MEDS: ENOXAPARIN INJECTION 30 MG/0.3 ML SYR SQ SCH (08:36)
[2023-01-17] MEDS: ACETAMINOPHEN 325 MG TABLET PO PRN (17:46)
[2023-01-17 19:50] VITALS: BP 123/72
[2023-01-17] MEDS: AtorvaSTATin TABLET 10 MG TABLET PO SCH (21:52)
[2023-01-17] MEDS: ASPIRIN 81 MG CHEW (CHILDREN'S ASA) PO SCH (21:52)
[2023-01-17] MEDS: eZETimibe 10 MG (ZETIA) TABLET PO SCH (21:53)
--- NOTE | 2023-01-18 05:04 | PM&R Progress Note ---
Subjective HPI/CC On Admission Date Seen by Provider: Jan 18, 2023 Time Seen by Provider: 09:00 Subjective/Events-last exam 01/18/2023: No major issues No pain reported Improved ambulation Checked meds and labs 01/17/2023: No major issues Walking better although slowly Family visiting No falls Pain controlled 01/16/2023: Doing well Pain controlled Bone scan Wednesday No falls BM+ Review of Systems General: Fatigue, Malaise Objective Exam Vital Signs Vital Signs Date Time Temp Pulse Resp B/P (MAP) Pulse Ox O2 Delivery O2 Flow Rate FiO2 01/18/23 07:40 36.3 73 16 144/84 (104) 92 Room Air Capillary Refill : General Appearance: No Apparent Distress, WD/WN, Chronically ill, Thin HEENT: PERRL/EOMI, Normal ENT Inspection, Pharynx Normal Neck: Full Range of Motion, Normal Inspection, Non Tender, Supple, Carotid Bruit Respiratory: Chest Non Tender, Lungs Clear, Normal Breath Sounds, No Accessory Muscle Use, No Respiratory Distress Cardiovascular: Regular Rate, Rhythm, No Edema, No Gallop, No JVD, Normal Peripheral Pulses, Systolic Murmur Gastrointestinal: Normal Bowel Sounds, No Organomegaly, No Pulsatile Mass, Non Tender, Soft Back: Normal Inspection, No CVA Tenderness, No Vertebral Tenderness Extremity: Normal Capillary Refill, Normal Inspection, Normal Range of Motion, Non Tender, No Calf Tenderness, No Pedal Edema Neurologic/Psychiatric: Alert, Oriented x3, Normal Mood/Affect, 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 FIM Transfers Therapy Code Descriptions/Definitions Functional [place] Measure: 0=Not Assessed/NA 4=Minimal Assistance 1=Total Assistance 5=Supervision or Setup 2=Maximal Assistance 6=Modified [place] 3=Moderate Assistance 7=Complete IndependenceSCALE: Activities may be completed with or without assistive devices. 0-Scqtuawqoi-lnaefmt completes the activity by him/herself with no assistance from a helper. 5-Set-up or Clean-up Assistance-helper sets up or cleans up; patient completes activity. [place] assists only prior to or following the activity. 4-Supervision or Touching Assistance-helper provides verbal cues and/or touching/steadying and/or contact guard assistance as patient completes activity. Assistance may be provided throughout the activity or intermittently. 3-Partial/Moderate Assistance-helper does LESS THAN HALF the effort. [place] lifts, holds or supports trunk or limbs, but provides less than half the effort. 2-Substantial/Maximal Assistance-helper does MORE THAN HALF the effort. [place] lifts or holds trunk or limbs and provides more than half the effort. 6-Rmijitvyg-ytkkax does ALL the effort. Patient does none of the effort to complete the activity. Or, the assistance of 2 or more helpers is required for the patient to complete the activity. If activity was not attempted, code reason: 7-Patient Refused. 9-Not Applicable-not attempted and the patient did not perform the activity before the current illness, exacerbation or injury. 10-Not Attempted due to Environmental Limitations-(lack of equipment, weather restraints, etc.). 88-Not Attempted due to Medical Conditions or Safety Concerns. Roll Left to Right (QC): 6 (with bed rail) Sit to Lying (QC): 3 (Min (A) using (L) LE to lift (R)) Sit to Stand (QC): 5 Chair/Ewn-fb-Swkfb Xfer(QC): 5 Car Transfer (QC): 4 (CGA ) Gait Training Does the Patient Walk?: Yes Walk 10 feet (QC): 5 (SBA with FWW) Walk 50 ft with 2 Turns(QC): 5 (SBA with FWW) Walk 150 ft (QC): 5 (SBA with FWW) Walking 10ft/uneven surface-QC: 4 (CGA with FWW) Gait Assistive Device: FWW Wheelchair Training Does the Pt Use a Wheelchair?: No Wheel 50 ft with 2 turns (QC): 9 Wheel 150 ft (QC): 9 Stair Training #of Steps: 15 1 Step (curb) (QC): 4 (CGA with v.c. for walker placement) 4 Steps (QC): 4 (CGA /c (B) rails - no cues needed for sequence) 12 Steps (QC): 4 (CGA with (B) rails) Balance Picking up an Object (QC): 5 (SBA with walker and mortgage loan closer) ADL-Treatment Eating (QC): 6 Oral Hygiene (QC): 4 (SBA standing at sink.) Shower/Bathe Self (QC): 4 (Supervision) Upper Body Dressing (QC): 5 Lower Body Dressing (QC): 4 (Supervision in stand) On/Off Footwear (QC): 5 Toileting Hygiene (QC): 4 (Supervision in stand.) Assessment/Plan Assessment and Plan Assess & Plan/Chief Complaint Assessment: Severe right hip and pelvis pain after fall 1 month ago now unable to ambulate normally but no fracture on Xray or CT or Dr Dumont assessment but he did recommend bone scan right hip but ESR CRP normal at [facility] [place] Cognition deficit? UA normal, subtle but noted by family COPD Previous heavy smoker 60+ years cessation 2019 Osteoporosis on [facility] Urinary frequency but negative UA at [facility] [place] on day of admit Pulmonary HTN 90 on ECHO negative USG right leg and negative PE on CT angiogram assessed by Cardiology locally and in [place] Anxiety Previous assessment: h/o right hip fracture 07/04/20 s/p repair by Dr Chávez then dislocation of hardware 07/09/20 upon arrival to ARU requiring transfer back to [facility] [place] s/p spinal anesthesia but reduction only required h/o acute blood loss anemia s/p 2 units transfused 07/05/20 then again 07/09/20 h/o severe hypotension due to volume depletion requiring aggressive IVF administration at [facility] [place] h/o acute pneumonia upon arrival to IRF requiring septic w/u which was negative and empiric abx for HAP Plan: ARU protocol PT OT Pain control Bowel regimen Monitor cognition Bone scan Wednesday01/16/2023: No major concerns Improved 01/17/2023: Monitor closely Bone scan Consult Dr Sanders tomorrow 01/18/2023: Improved Bone scan today ECHO? (1) Debility (2) COPD (chronic obstructive pulmonary disease) (3) Transfusion history (4) Frailty (5) Hyperlipemia (6) Anxiety (7) Osteoporosis (8) Pulmonary hypertension AVANI NICOLE DO Jan 18, 2023 05:04
[2023-01-18 07:40] VITALS: BP 144/84
[2023-01-18] MEDS: MULTIVIT W/MINERALS TAB (THERAGRAN M) PO SCH (08:17)
[2023-01-18] MEDS: OXYBUTYNIN (DITROPAN) 5 MG TAB PO SCH ×3 (08:17→20:24)
[2023-01-18] MEDS: VENlafaxine XR 75 MG (EFFEXOR XR) CAP PO SCH (08:17)
[2023-01-18] MEDS: LEVOTHYROXINE 50 MCG (LEVOTHROID) TAB PO SCH (08:18)
[2023-01-18] MEDS: SERTRALINE 100 MG (ZOLOFT) TAB PO SCH (08:18)
[2023-01-18] MEDS: ENOXAPARIN INJECTION 30 MG/0.3 ML SYR SQ SCH (08:18)
[2023-01-18] MEDS: CALCIUM CARB + VIT D 600 MG (CALCARB + D) TAB PO SCH (08:18)
[2023-01-18] MEDS: polyethylene glycoL POWDER 17 GM (MIRALAX) PACK PO SCH ×2 (08:19→20:25)
[2023-01-18] MEDS: LACTULOSE SYRUP 10GM/15ML (ENULOSE) 30ML UDC PO SCH ×2 (08:19→20:25)
--- NOTE | 2023-01-18 08:53 | Consultation-Cardiology ---
HPI-Cardiology Cardiology Consultation Date of Consultation 01/18/23 Date of Admission Time Seen by Provider: 09:00 HPI Patient is a 77 y/o female with history of HOCM, COPD, HTP. Currently in IRF d/t ongoing right hip and pelvis pain after a fall approx 1 month ago. Denies any chest pain, dyspnea, dizziness or lightheadedness. Home Medications & Allergies Allergies: Coded Allergies: No Known Drug Allergies (Unverified , 07/09/14) Home Medication List Reviewed: Yes UWA-Vnwfjo-Cztspo Hx Patient Social History Marital Status: Employed/Student: retired Smoking Status: Former Smoker Type Used: Cigarettes 2nd Hand Smoke Exposure: No Recent Hopitalizations: No Alcohol Use?: Yes Immunizations Up To Date Date of Pneumonia Vaccine: Jun 27, 2018 Date of Influenza Vaccine: Jun 21, 2019 Past Medical History COPD, HTP, HOCM Family Medical History Significant Family History: No Pertinent Family Hx Review of Systems-General Review of Systems Constitutional: see HPI, malaise, weakness EENTM: no symptoms reported Respiratory: no symptoms reported Cardiovascular: no symptoms reported Gastrointestinal: constipation Genitourinary: no symptoms reported Musculoskeletal: back pain, joint pain, muscle pain, muscle stiffness, muscle cramps, muscle weakness Skin: no symptoms reported Psychiatric/Neurological: Anxiety, Depressed All Other Systems Reviewed Negative Unless Noted: Yes Physical Exam Physical Exam Vital Signs Vital Signs - First Documented 01/15/23 10:44 Temp 36.9 Pulse 71 Resp 18 B/P (MAP) 125/60 (81) Pulse Ox 93 O2 Delivery Room Air Capillary Refill : Height, Weight, BMI Height: 5'6.00" Weight: 120lbs. oz. 54.445035ng; 15.28 BMI Method: General Appearance: No Apparent Distress, WD/WN, Chronically ill, Thin Eyes: Bilateral Eye Normal Inspection, Bilateral Eye PERRL HEENT: PERRL/EOMI, Normal ENT Inspection, Pharynx Normal Neck: Full Range of Motion, Normal Inspection, Non Tender, Supple, Carotid Bruit Respiratory: Chest Non Tender, Lungs Clear, Normal Breath Sounds, No Accessory Muscle Use, No Respiratory Distress Cardiovascular: Regular Rate, Rhythm, No Edema, No Gallop, No JVD, Normal Peripheral Pulses, Systolic Murmur Gastrointestinal: Normal Bowel Sounds, No Organomegaly, No Pulsatile Mass, Non Tender, Soft Back: Normal Inspection, No CVA Tenderness, No Vertebral Tenderness Extremity: Normal Capillary Refill, Normal Inspection, Normal Range of Motion, Non Tender, No Calf Tenderness, No Pedal Edema Neurologic/Psychiatric: Alert, Oriented x3, Normal Mood/Affect, lamp wirer II-XII Norm as Tested, Abnormal Gait, Motor Weakness (right leg) Skin: Normal Color, Warm/Dry Lymphatic: No Adenopathy A/P-Cardiology Admission Diagnosis Right hip pain with debility HOCM HTP COPD Assessment/Plan Right hip and pelvis pain with debility after fall approx 1 month ago. Continue with PT/OT Hypertrophic obstructive cardiomyopathy, asymptomatic. Echo was done on July 12, 2020 reported systolic anterior motion of the mitral valve, LVOT gradient 110 mmHg with grade 2 diastolic dysfunction. Referred to and evaluated by Dr. Giovanny Sharma to discuss possible septal ablation, recommends continuing with conservative management at this time, Last time she was seen by Dr. Sharma was March 2021. Recommended conservative management. Most recent 2D Echo done April 2022 showing Normal left ventricular size and function, ejection fraction 60%. Mild mitral regurgitation, moderate tricuspid regurgitation. Estimated pulmonary artery pressure of 45 mmHg Stress test done 2013 showing no ischemia or infarct. Patient cannot tolerate beta blockers and/or DAMIR inhibitor due to borderline hypotension without any antihypertensive medication. Hyperlipidemia, maintained on Zetia. Continue to monitor as outpatient Shortness of breath, uses oxygen at home at night, followed with Dr. Brewster Pulmonary hypertension, probably secondary to HOCM and COPD Peripheral edema, better at this time History of hip fracture secondary to fall repaired with Dr. Chávez in June 2020. Osteoporosis, management per PCP. COPD, followed by primary care Nonobstructive carotid artery stenosis per carotid duplex done April 2022 Extobaccoism, she has stopped smoking and has been continuously working on smoking cessation Anxiety. Thank you for allowing us to participate in the management of Ms. Ornelas. This is Daphne Foreman PA-C, as a scribe for Dr. Sanders. Patient was seen and evaluated with Daphne, she was receiving physical therapy She denied any chest pain or syncope, having pelvic pain and debility Has history of hyperlipidemia, pulmonary hypertension Her peripheral edema is better. Continue to monitor Last echo was done in April 2022 with normal LV size and function EF 60%, mild mitral regurgitation, moderate tricuspid regurgitation, PA pressure 45 mmHg. DAPHNE DEVINE Jan 18, 2023 08:53 SERENA SANDERS MD Jan 18, 2023 11:26
[2023-01-18] MEDS: DOCUSATE SODIUM 100 MG (COLACE) CAP PO SCH ×2 (09:21→20:25)
[2023-01-18] MEDS: SENNA W/DOCUSATE (SENOKOT S) TABLET PO SCH (09:21)
[2023-01-18] MEDS: ACETAMINOPHEN 325 MG TABLET PO PRN ×2 (09:24→15:03)
--- NOTE | 2023-01-18 09:56 | Physical Therapy Daily Note ---
PT Daily Note-Current Subjective pt was in recliner upon arrival. pt stated she was willing for therapy. pt noted her pain was a 5/10 without the morning pain med yet taken. pt did say pain is worse when ambulating when pressure is put on the right hip but dissipates when sitting and resting. Pain Section J - Health Conditions 1. Rarely or not at all 2. Occasionally 3. Frequently 4. Almost constantly 8. Unable to answer Pain Effect on Sleep: 1 Pain Interference with Therapy: 2 Pain Interference w/Day-to-Day: 2 Transfers SCALE: Activities may be completed with or without assistive devices. 9-Ocxojnrpvw-tdiuhux completes the activity by him/herself with no assistance from a helper. 5-Set-up or Clean-up Assistance-helper sets up or cleans up; patient completes activity. [place] assists only prior to or following the activity. 4-Supervision or Touching Assistance-helper provides verbal cues and/or touching/steadying and/or contact guard assistance as patient completes activity. Assistance may be provided throughout the activity or intermittently. 3-Partial/Moderate Assistance-helper does LESS THAN HALF the effort. [place] lifts, holds or supports trunk or limbs, but provides less than half the effort. 2-Substantial/Maximal Assistance-helper does MORE THAN HALF the effort. [place] lifts or holds trunk or limbs and provides more than half the effort. 7-Tvsozzscb-gqpnka does ALL the effort. Patient does none of the effort to complete the activity. Or, the assistance of 2 or more helpers is required for the patient to complete the activity. If activity was not attempted, code reason: 7-Patient Refused. 9-Not Applicable-not attempted and the patient did not perform the activity before the current illness, exacerbation or injury. 10-Not Attempted due to Environmental Limitations-(lack of equipment, weather restraints, etc.). 88-Not Attempted due to Medical Conditions or Safety Concerns. Weight Bearing Weight Bearing/Tolerated Weight Bearing/Tolerated Exercises Seated Therapy Exercises: LE Protocol, Ankle pumps, Sit to stand, Long arc quads, Hip flexion, Kicking activity, Hamstring Curls, Hip abd/add, Glut set Treatments pt is able to ambulate 75ft with RW and SBA x 2 with rest in between each session. pt shows no LOB when received VC for 30% for correct sequencing with walker when pivoting to prevent falls. pt also preformed sitting ther-ex in all planes of motion with BLE. VC for correct mm movement of 40% for max benefit of exercise. pt is able to preform 2 sets x 15 reps . pt was left in room sitting EOB with call light and all needs met. Assessment Current Status: Good Progress PT Care Home Goals Care Home Goals PT Food And Nutrition Services Assistant Goals Time Frame: January 29, 2023 Roll Left & Right (QC): 6 Sit to Lying (QC): 6 (with leg life teacher as needed) Lying-Sitting on Side/Bed(QC): 6 (with leg life teacher as needed) Sit to Stand (QC): 6 Chair/Lsq-uf-Ynxpu Xfer(QC): 6 Toilet Transfer (QC): 6 Car Transfer (QC): 6 Does the Patient Walk: Yes Walk 10 feet (QC): 6 (with walker or cane) Walk 50ft with 2 Turns (QC): 6 (with walker or cane) Walk 150 ft (QC): 6 (with walker or cane) Walking 10ft on Uneven Surface: 6 (with walker or cane) 1 Step (curb) (QC): 6 (with walker or cane and rail) 4 Steps (QC): 6 (with railings) 12 Steps (QC): 6 (with railings) Picking up an Object (QC): 6 (with radio aerial installer) Does the Pt use WC or Scooter?: No Wheel 50 feet with 2 turns (QC: 9 Wheel 150 feet: 9 PT Plan Treatment/Plan Treatment Plan: Continue Plan of Care Treatment Plan: Bed Mobility, Education, Functional Activity Latosha, Functional Strength, Group Therapy, Gait, Safety, Therapeutic Exercise, Transfers, Other (Manual therapy for MET for innominate rotation) Treatment Duration: January 29, 2023 Frequency: At least 5 of 7 days/Wk (IRF) Estimated Hrs Per Day: 1.5 hours per day Patient and/or Family Agrees t: Yes Time Time In: 0800 Time Out: 0900 DATE: Jan 18, 2023 Total Billed Treatment Time: 60 Total Billed Treatment 1 GT x 2, EX x 2 Malissa Erickson MONTESS[employer]I TODDLER TEACHER Jan 18, 2023 09:56
[2023-01-18] MEDS ORDERED: BISACODYL 10 MG SUPP (DULCOLAX) PR NR (10:00)
[2023-01-18] MEDS ORDERED: SENNA W/DOCUSATE (SENOKOT S) TABLET PO NR (10:00)
[2023-01-18] MEDS ORDERED: LACTULOSE SYRUP 10GM/15ML (ENULOSE) 30ML UDC PO NR (10:00)
--- NOTE | 2023-01-18 11:21 | Occupational Ther Daily Note ---
OT Current Status-Daily Note Subjective Pt found in chair in room, during nursing care. No pain mentioned.Alert and cooperative, agreed to OT. Mental Status/Objective Patient Orientation: Person, Place, Time, Situation Attachments: IV ADL-Treatment OT assisted nursing with positioning and transfer pt..Pt ambulated to toilet with FWW, SBA. Pt completed toilet transfer, SBA. Pt, SBA to complete toileting, urinated only. Pt then ambulated to chair in front of sink. Pt completed upper body dressing independently. Pt worked on gathering supplies to dress self with FWW, SBA. Pt completed lower body dressing with set up assist. Pt was able to doff socks, needed min assist with donning. Pt Independent while seated to complete oral hygiene, and grooming.Pt then ambulated from bathroom to chair in room with FWWCARMENA. Pt completed 5 HEP exercises, 12 reps 2 sets. Therapy Code Descriptions/Definitions Functional [place] Measure: 0=Not Assessed/NA 4=Minimal Assistance 1=Total Assistance 5=Supervision or Setup 2=Maximal Assistance 6=Modified [place] 3=Moderate Assistance 7=Complete IndependenceSCALE: Activities may be completed with or without assistive devices. 4-Bbatetckom-wjfuwmy completes the activity by him/herself with no assistance from a helper. 5-Set-up or Clean-up Assistance-helper sets up or cleans up; patient completes activity. [place] assists only prior to or following the activity. 4-Supervision or Touching Assistance-helper provides verbal cues and/or touching/steadying and/or contact guard assistance as patient completes activity. Assistance may be provided throughout the activity or intermittently. 3-Partial/Moderate Assistance-helper does LESS THAN HALF the effort. [place] lifts, holds or supports trunk or limbs, but provides less than half the effort. 2-Substantial/Maximal Assistance-helper does MORE THAN HALF the effort. [place] lifts or holds trunk or limbs and provides more than half the effort. 4-Qvwhaazga-kpjlyx does ALL the effort. Patient does none of the effort to complete the activity. Or, the assistance of 2 or more helpers is required for the patient to complete the activity. If activity was not attempted, code reason: 7-Patient Refused. 9-Not Applicable-not attempted and the patient did not perform the activity before the current illness, exacerbation or injury. 10-Not Attempted due to Environmental Limitations-(lack of equipment, weather restraints, etc.). 88-Not Attempted due to Medical Conditions or Safety Concerns. Oral Hygiene (QC): 6 Upper Body Dressing (QC): 6 Lower Body Dressing (QC): 3 On/Off Footwear: 3 Toileting Hygiene (QC): 4 Toilet Transfer (QC): 4 Education OT Patient Education: Energy conservation, Home exercise program, Purpose of tx/functional activities, Transfer techniques Teaching Recipient: Patient Teaching Methods: Demonstration, Handout Response to Teaching: Verbalize Understanding OT Short Term Goals Short Term Goals Time Frame: Jan 22, 2023 Shower/bathe self: 5 Lower body dressin OT Immunochemist Goals [facility] Goals Time Frame: January 29, 2023 Acute change in mental status: 0 Inattention: 0 Disorganized thinkin Altered level of consciousness: 0 Eating (QC): 6 Oral Hygiene (QC): 6 Toileting Hygiene (QC): 6 Shower/Bathe Self (QC): 6 Upper Body Dressing (QC): 6 Lower Body Dressing (QC): 6 On/Off Footwear (QC): 6 Additional Goals: 1-Demonstrate ADL Tasks, 2-Verbalize Understanding, 3- ImproveStrength/Latosha 1=Demonstrate adherence to instructed precautions during ADL tasks. 2=Patient will verbalize/demonstrate understanding of assistive devices/modifications for ADL. 3=Patient will improve strength/tolerance for activity to enable patient to perform ADL's. OT Education/Plan Problem List/Assessment Assessment: Decreased Safety Aware, Decreased UE Strength Discharge Recommendations Plan/Recommendations: Continue POC Treatment Plan/Plan of Care Patient would benefit from OT for education, treatment and training to promote independence in ADL's, mobility, safety and/or upper extremity function for ADL's. Plan of Care: ADL Retraining, Functional Mobility, Group Exercise/Act as Ind, UE Funct Exercise/Act Treatment Duration: January 29, 2023 Frequency: At least 5 of 7 days/Wk (IRF) Estimated Hrs Per Day: 1.5 hours per day Agreement: Yes Rehab Potential: Good Time Start Time: 09:30 Stop Time: 11:06 DATE: Jan 18, 2023 Total Time Billed (hr/min): 96 Billed Treatment Time 1 visit ADL 4, Ex 2 Michelle Denton COTA Jan 18, 2023 11:21
--- NOTE | 2023-01-18 11:40 | Physical Therapy Daily Note ---
PT Daily Note-Current Subjective Patient rates her pain as 5-6/10 this a.m. "It's tolerable, better than when I came in (last week)." Pain Section J - Health Conditions 1. Rarely or not at all 2. Occasionally 3. Frequently 4. Almost constantly 8. Unable to answer Pain Effect on Sleep: 1 Pain Interference with Therapy: 2 Pain Interference w/Day-to-Day: 2 Transfers SCALE: Activities may be completed with or without assistive devices. 0-Rkkrkrdcmy-ozlozuh completes the activity by him/herself with no assistance from a helper. 5-Set-up or Clean-up Assistance-helper sets up or cleans up; patient completes activity. [place] assists only prior to or following the activity. 4-Supervision or Touching Assistance-helper provides verbal cues and/or touching/steadying and/or contact guard assistance as patient completes activity. Assistance may be provided throughout the activity or intermittently. 3-Partial/Moderate Assistance-helper does LESS THAN HALF the effort. [place] lifts, holds or supports trunk or limbs, but provides less than half the effort. 2-Substantial/Maximal Assistance-helper does MORE THAN HALF the effort. [place] lifts or holds trunk or limbs and provides more than half the effort. 4-Blzjubhxr-czbril does ALL the effort. Patient does none of the effort to complete the activity. Or, the assistance of 2 or more helpers is required for the patient to complete the activity. If activity was not attempted, code reason: 7-Patient Refused. 9-Not Applicable-not attempted and the patient did not perform the activity before the current illness, exacerbation or injury. 10-Not Attempted due to Environmental Limitations-(lack of equipment, weather restraints, etc.). 88-Not Attempted due to Medical Conditions or Safety Concerns. Weight Bearing Weight Bearing/Tolerated Weight Bearing/Tolerated Treatments SI joint check -- posterior (L) innominate rotation/(R) anterior. MET completed x 3 in hooklying (push (R), pull (L)) with gentle resistance. SI joint recheck with ~90% resolution of rotation. Pelvis Reset Sequence: -narrow yoga block isometric hip adduction squeeze in hooklying with self-LTR to tolerance x 10 (B) -wide yoga block isometric hip adduction squeeze in hooklying with self-LTR to tolerance x 10 (B) -isometric hip abduction into green Stretch Out Strap in hooklying with self-LTR to tolerance x 10 (B) -sustained bridge with 10 reps of gentle cervical rotation (B) -quick flicks of ankles (heels on Dycem) x 20 in Shavasana pose Assessment Improved weight bearing noted on (R) following MET and Pelvis Reset Sequence. Pain level 5-6/10 afterward. PT Chairman & Chief Executive Officer Goals Nursing Home Goals PT Nursing Home Goals Time Frame: January 29, 2023 Roll Left & Right (QC): 6 Sit to Lying (QC): 6 (with leg conference organizer as needed) Lying-Sitting on Side/Bed(QC): 6 (with leg conference organizer as needed) Sit to Stand (QC): 6 Chair/Lxs-ni-Nlvuj Xfer(QC): 6 Toilet Transfer (QC): 6 Car Transfer (QC): 6 Does the Patient Walk: Yes Walk 10 feet (QC): 6 (with walker or cane) Walk 50ft with 2 Turns (QC): 6 (with walker or cane) Walk 150 ft (QC): 6 (with walker or cane) Walking 10ft on Uneven Surface: 6 (with walker or cane) 1 Step (curb) (QC): 6 (with walker or cane and rail) 4 Steps (QC): 6 (with railings) 12 Steps (QC): 6 (with railings) Picking up an Object (QC): 6 (with pole peeler) Does the Pt use WC or Scooter?: No Wheel 50 feet with 2 turns (QC: 9 Wheel 150 feet: 9 PT Plan Treatment/Plan Treatment Plan: Continue Plan of Care Treatment Plan: Bed Mobility, Education, Functional Activity Latosha, Functional Strength, Group Therapy, Gait, Safety, Therapeutic Exercise, Transfers, Other (Manual therapy for MET for innominate rotation) Treatment Duration: January 29, 2023 Frequency: At least 5 of 7 days/Wk (IRF) Estimated Hrs Per Day: 1.5 hours per day Patient and/or Family Agrees t: Yes Discharge Recommendations Plan Will re-check SI joint daily and apply MET as needed. Will continue Pelvis Reset Sequence for pelvic stability/strengthening. Time Time In: 1107 Time Out: 1129 DATE: Jan 18, 2023 Total Billed Treatment Time: 22 Total Billed Treatment 22' Manual Therapy Jeniffer Farias PT Jan 18, 2023 11:40
--- NOTE | 2023-01-18 13:15 | Physical Therapy Daily Note ---
PT Daily Note-Current Subjective pt is in recliner upon arrival and willing for therapy. pt sates her pain is still a 5/10 after morning therapy. Pain Section J - Health Conditions 1. Rarely or not at all 2. Occasionally 3. Frequently 4. Almost constantly 8. Unable to answer Pain Effect on Sleep: 1 Pain Interference with Therapy: 2 Pain Interference w/Day-to-Day: 2 Transfers SCALE: Activities may be completed with or without assistive devices. 9-Fzcdljirav-ffvrowq completes the activity by him/herself with no assistance from a helper. 5-Set-up or Clean-up Assistance-helper sets up or cleans up; patient completes activity. [place] assists only prior to or following the activity. 4-Supervision or Touching Assistance-helper provides verbal cues and/or touching/steadying and/or contact guard assistance as patient completes activity. Assistance may be provided throughout the activity or intermittently. 3-Partial/Moderate Assistance-helper does LESS THAN HALF the effort. [place] lifts, holds or supports trunk or limbs, but provides less than half the effort. 2-Substantial/Maximal Assistance-helper does MORE THAN HALF the effort. [place] lifts or holds trunk or limbs and provides more than half the effort. 9-Znczkywdo-lgbfhy does ALL the effort. Patient does none of the effort to complete the activity. Or, the assistance of 2 or more helpers is required for the patient to complete the activity. If activity was not attempted, code reason: 7-Patient Refused. 9-Not Applicable-not attempted and the patient did not perform the activity before the current illness, exacerbation or injury. 10-Not Attempted due to Environmental Limitations-(lack of equipment, weather restraints, etc.). 88-Not Attempted due to Medical Conditions or Safety Concerns. Weight Bearing Weight Bearing/Tolerated Weight Bearing/Tolerated Treatments Pt is able to ambulate 72 ft x 2 with rest after the first initial 72 ft. pt ambulate with less antalgic gait pattern after SI/pelvic correction treatment done. pt left in recliner after session with call light and all needs met this day Assessment Current Status: Excellent Progress PT Fpc Goals Doughnut Machine Operator Goals PT Fpc Goals Time Frame: January 29, 2023 Roll Left & Right (QC): 6 Sit to Lying (QC): 6 (with leg [place]okee as needed) Lying-Sitting on Side/Bed(QC): 6 (with leg [place] as needed) Sit to Stand (QC): 6 Chair/Ihw-wj-Ywmwe Xfer(QC): 6 Toilet Transfer (QC): 6 Car Transfer (QC): 6 Does the Patient Walk: Yes Walk 10 feet (QC): 6 (with walker or cane) Walk 50ft with 2 Turns (QC): 6 (with walker or cane) Walk 150 ft (QC): 6 (with walker or cane) Walking 10ft on Uneven Surface: 6 (with walker or cane) 1 Step (curb) (QC): 6 (with walker or cane and rail) 4 Steps (QC): 6 (with railings) 12 Steps (QC): 6 (with railings) Picking up an Object (QC): 6 (with news department intern) Does the Pt use WC or Scooter?: No Wheel 50 feet with 2 turns (QC: 9 Wheel 150 feet: 9 PT Plan Treatment/Plan Treatment Plan: Continue Plan of Care Treatment Plan: Bed Mobility, Education, Functional Activity Latosha, Functional Strength, Group Therapy, Gait, Safety, Therapeutic Exercise, Transfers, Other (Manual therapy for MET for innominate rotation) Treatment Duration: January 29, 2023 Frequency: At least 5 of 7 days/Wk (IRF) Estimated Hrs Per Day: 1.5 hours per day Patient and/or Family Agrees t: Yes Time Time In: 1130 Time Out: 1140 DATE: Jan 18, 2023 Total Billed Treatment Time: 10 Total Billed Treatment 1, GT Malissa Erickson [facility] Jan 18, 2023 13:15
--- NOTE | 2023-01-18 17:05 | Diagnostic Imaging Report ---
Exam: Nuclear medicine bone scan, limited. Date: January 18, 2023. Indication: 77-year-old female, fall one month ago with persistent right hip pain. History of right hip replacement 2 years ago. Comparison: Radiographs of the pelvis and right hip July 09, 2020. Findings: 27.4 mCi of technetium labeled MDP radiotracer was administered. 3 hour delayed scintigraphic images were obtained at the level of the pelvis and both hips in multiple projections. There is radiotracer activity projecting in the region of the right greater trochanter and also above the level of the right greater trochanter. There is also radiotracer activity adjacent to the left greater than right pubic bones near the pubic symphysis. There is also radiotracer activity involving the left greater than right sacrum. Impression: 1. Radiotracer activity in the region of the right greater trochanter which does raise at least concern for potential greater tuberosity fracture. Recommend further evaluation with CT right hip without contrast. 2. Abnormal radiotracer uptake involving the pubic bones near the pubic symphysis, left greater than right as well as in the left greater than right sacrum. This is concerning for insufficiency fractures of both pubic bones as well as the left and right sacral ala. This could be further evaluated with dedicated CT pelvis without contrast. Dictated by: Dictated on workstation # [id number]
[2023-01-18] MEDS: HYDROcodone/APAP 5 MG/325 MG (LORTAB) TAB PO PRN ×2 (19:11→23:03)
[2023-01-18 19:18] VITALS: BP 119/68
[2023-01-18] MEDS: eZETimibe 10 MG (ZETIA) TABLET PO SCH (20:23)
[2023-01-18] MEDS: AtorvaSTATin TABLET 10 MG TABLET PO SCH (20:23)
[2023-01-18] MEDS: ASPIRIN 81 MG CHEW (CHILDREN'S ASA) PO SCH (20:24)
--- NOTE | 2023-01-19 05:13 | PM&R Progress Note ---
Subjective HPI/CC On Admission Date Seen by Provider: Jan 19, 2023 Time Seen by Provider: 08:30 Subjective/Events-last exam 01/19/2023: Doing better Bone scan results discussed with Dr Dumont No evidence of hip infection Improved pain 01/18/2023: No major issues No pain reported Improved ambulation Checked meds and labs 01/17/2023: No major issues Walking better although slowly Family visiting No falls Pain controlled 01/16/2023: Doing well Pain controlled Bone scan Wednesday No falls BM+ Review of Systems General: Fatigue, Malaise Objective Exam Vital Signs Vital Signs Date Time Temp Pulse Resp B/P (MAP) Pulse Ox O2 Delivery O2 Flow Rate FiO2 01/19/23 20:40 Room Air 01/19/23 20:03 35.5 82 18 128/57 (80) 92 Capillary Refill : General Appearance: No Apparent Distress, WD/WN, Chronically ill, Thin HEENT: PERRL/EOMI, Normal ENT Inspection, Pharynx Normal Neck: Full Range of Motion, Normal Inspection, Non Tender, Supple, Carotid Bruit Respiratory: Chest Non Tender, Lungs Clear, Normal Breath Sounds, No Accessory Muscle Use, No Respiratory Distress Cardiovascular: Regular Rate, Rhythm, No Edema, No Gallop, No JVD, Normal Peripheral Pulses, Systolic Murmur Gastrointestinal: Normal Bowel Sounds, No Organomegaly, No Pulsatile Mass, Non Tender, Soft Back: Normal Inspection, No CVA Tenderness, No Vertebral Tenderness Extremity: Normal Capillary Refill, Normal Inspection, Normal Range of Motion, Non Tender, No Calf Tenderness, No Pedal Edema Neurologic/Psychiatric: Alert, Oriented x3, Normal Mood/Affect, 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 FIM Transfers Therapy Code Descriptions/Definitions Functional Bradley Measure: 0=Not Assessed/NA 4=Minimal Assistance 1=Total Assistance 5=Supervision or Setup 2=Maximal Assistance 6=Modified [place] 3=Moderate Assistance 7=Complete IndependenceSCALE: Activities may be completed with or without assistive devices. 1-Ehwvndbqan-lkyauvw completes the activity by him/herself with no assistance from a helper. 5-Set-up or Clean-up Assistance-helper sets up or cleans up; patient completes activity. [place] assists only prior to or following the activity. 4-Supervision or Touching Assistance-helper provides verbal cues and/or touchin g/steadying and/or contact guard assistance as patient completes activity. Assistance may be provided throughout the activity or intermittently. 3-Partial/Moderate Assistance-helper does LESS THAN HALF the effort. Joseph lifts, holds or supports trunk or limbs, but provides less than half the effort. 2-Substantial/Maximal Assistance-helper does MORE THAN HALF the effort. [place] lifts or holds trunk or limbs and provides more than half the effort. 3-Qiyjxnscz-fkampj does ALL the effort. Patient does none of the effort to complete the activity. Or, the assistance of 2 or more helpers is required for the patient to complete the activity. If activity was not attempted, code reason: 7-Patient Refused. 9-Not Applicable-not attempted and the patient did not perform the activity before the current illness, exacerbation or injury. 10-Not Attempted due to Environmental Limitations-(lack of equipment, weather restraints, etc.). 88-Not Attempted due to Medical Conditions or Safety Concerns. Roll Left to Right (QC): 6 (with bed rail) Sit to Lying (QC): 3 (Min (A) using (L) LE to lift (R)) Sit to Stand (QC): 5 Chair/Ham-ys-Vtsvt Xfer(QC): 5 Car Transfer (QC): 4 (CGA ) Gait Training Does the Patient Walk?: Yes Walk 10 feet (QC): 5 (SBA with FWW) Walk 50 ft with 2 Turns(QC): 5 (SBA with FWW) Walk 150 ft (QC): 5 (SBA with FWW) Walking 10ft/uneven surface-QC: 4 (CGA with FWW) Gait Assistive Device: FWW Wheelchair Training Does the Pt Use a Wheelchair?: No Wheel 50 ft with 2 turns (QC): 9 Wheel 150 ft (QC): 9 Stair Training #of Steps: 15 1 Step (curb) (QC): 4 (CGA with v.c. for walker placement) 4 Steps (QC): 4 (CGA /c (B) rails - no cues needed for sequence) 12 Steps (QC): 4 (CGA with (B) rails) Balance Picking up an Object (QC): 5 (SBA with walker and crm coordinator) ADL-Treatment Eating (QC): 6 Oral Hygiene (QC): 6 Shower/Bathe Self (QC): 4 (Supervision) Upper Body Dressing (QC): 6 Lower Body Dressing (QC): 3 On/Off Footwear (QC): 3 Toileting Hygiene (QC): 4 Toilet Transfer (QC): 4 Assessment/Plan Assessment and Plan Assess & Plan/Chief Complaint Assessment: Severe right hip and pelvis pain after fall 1 month ago now unable to ambulate normally but no fracture on Xray or CT or Dr Dumont assessment but he did recommend bone scan right hip but ESR CRP normal at [facility] Cognition deficit? UA normal, subtle but noted by family COPD Previous heavy smoker 60+ years cessation 2019 Osteoporosis on [facility] Urinary frequency but negative UA at [facility] on day of admit Pulmonary HTN 90 on ECHO negative USG right leg and negative PE on CT angiogram assessed by Cardiology locally and in [facility] Anxiety Previous assessment: h/o right hip fracture 07/04/20 s/p repair by Dr Chávez then dislocation of hardware 07/09/20 upon arrival to ARU requiring transfer back to [facility] s/p spinal anesthesia but reduction only required h/o acute blood loss anemia s/p 2 units transfused 07/05/20 then again 07/09/20 h/o severe hypotension due to volume depletion requiring aggressive IVF administration at [facility] h/o acute pneumonia upon arrival to [facility] requiring septic w/u which was negative and empiric abx for HAP Plan: ARU protocol PT OT Pain control Bowel regimen Monitor cognition Bone scan Wednesday01/16/2023: No major concerns Improved 01/17/2023: Monitor closely Bone scan Consult Dr Sanders tomorrow 01/18/2023: Improved Bone scan today ECHO? 01/19/2023: Monitor closely (1) Debility (2) COPD (chronic obstructive pulmonary disease) (3) Transfusion history (4) Frailty (5) Hyperlipemia (6) Anxiety (7) Osteoporosis (8) Pulmonary hypertension AVANI NICOLE DO Jan 19, 2023 05:12
[2023-01-19 07:24] VITALS: BP 142/62
[2023-01-19] MEDS: VENlafaxine XR 75 MG (EFFEXOR XR) CAP PO SCH (08:06)
[2023-01-19] MEDS: LEVOTHYROXINE 50 MCG (LEVOTHROID) TAB PO SCH (08:06)
[2023-01-19] MEDS: CALCIUM CARB + VIT D 600 MG (CALCARB + D) TAB PO SCH (08:06)
[2023-01-19] MEDS: MULTIVIT W/MINERALS TAB (THERAGRAN M) PO SCH (08:06)
[2023-01-19] MEDS: OXYBUTYNIN (DITROPAN) 5 MG TAB PO SCH ×3 (08:07→21:00)
[2023-01-19] MEDS: SERTRALINE 100 MG (ZOLOFT) TAB PO SCH (08:07)
[2023-01-19] MEDS: LACTULOSE SYRUP 10GM/15ML (ENULOSE) 30ML UDC PO SCH ×2 (08:13→21:00)
[2023-01-19] MEDS: polyethylene glycoL POWDER 17 GM (MIRALAX) PACK PO SCH ×2 (08:14→21:01)
[2023-01-19] MEDS: SENNA W/DOCUSATE (SENOKOT S) TABLET PO SCH (08:14)
[2023-01-19] MEDS: DOCUSATE SODIUM 100 MG (COLACE) CAP PO SCH ×3 (08:14→21:08)
--- NOTE | 2023-01-19 08:21 | Cardiology Progress Note ---
Subjective Date Seen by Provider: Jan 19, 2023 Time Seen by Provider: 08:19 Subjective/Events-last exam No new complaints, denies any chest pain or dyspnea. Objective-Cardiology Exam Last Set of Vital Signs Vital Signs 01/19/23 07:24 Temp 36.2 Pulse 74 Resp 16 B/P (MAP) 142/62 (88) Pulse Ox 92 O2 Delivery Room Air I&O Intake and Output 01/19/23 00:00 Intake Total 2080 ml Balance 2080 ml Intake Oral 2080 ml # Voids 8 # Bowel Movements 2 General: Alert, Oriented X3, Cooperative HEENT: Atraumatic, PERRLA Neck: Supple Lungs: Clear to Auscultation, Normal Air Movement Heart: Regular Rate, Normal S1, Normal S2 Abdomen: Normal Bowel Sounds, Soft Extremities: No Edema Skin: No Rashes, No Significant Lesion Neuro: Cranial Nerves 3-12 NL Psych/Mental Status: Mental Status NL, Mood NL A/P-Cardiology Admission Diagnosis Right hip pain with debility HOCM HTP COPD Assessment/Plan Right hip and pelvis pain with debility after fall approx 1 month ago. Continue with PT/OT Hypertrophic obstructive cardiomyopathy, asymptomatic. Echo was done on July 12, 2020 reported systolic anterior motion of the mitral valve, LVOT gradient 110 mmHg with grade 2 diastolic dysfunction. Referred to and evaluated by Dr. Giovanny Sharma to discuss possible septal ablation, recommends continuing with co nservative management at this time, Last time she was seen by Dr. Sharma was March 2021. Recommended conservative management. Most recent 2D Echo done April 2022 showing Normal left ventricular size and function, ejection fraction 60%. Mild mitral regurgitation, moderate tricuspid regurgitation. Estimated pulmonary artery pressure of 45 mmHg Stress test done 2013 showing no ischemia or infarct. Patient cannot tolerate beta blockers and/or DAMIR inhibitor due to borderline hypotension without any antihypertensive medication. Hyperlipidemia, maintained on Zetia. Continue to monitor as outpatient Shortness of breath, uses oxygen at home at night, followed with Dr. Brewster Pulmonary hypertension, probably secondary to HOCM and COPD Peripheral edema, better at this time History of hip fracture secondary to fall repaired with Dr. Chávez in June 2020. Osteoporosis, management per PCP. COPD, followed by primary care Nonobstructive carotid artery stenosis per carotid duplex done April 2022 Extobaccoism, she has stopped smoking and has been continuously working on smoking cessation Anxiety. Supervisory-Addendum Brief Supervisory Addendum Participated in pt care: history, MDM, physical Personally performed: exam, history, MDM Care discussed with: JUANCARLOS Results interpretation: Verified all documentation Notes: Patient was seen and evaluated with Daphne, examination performed, management plan was discussed, agree with the current scribed note, I made few changes to the note using Italic font Patient is still having pain. Seen at bedside. Bone scan results reviewed. Recommended CT of the pelvis to rule out fracture Continue physical therapy Cardiac zurita patient is clinically stable, asymptomatic. We will continue monitoring DAPHNE DEVINE Jan 19, 2023 08:21 SERENA HUGHES MD Jan 19, 2023 08:44
[2023-01-19] MEDS: ENOXAPARIN INJECTION 30 MG/0.3 ML SYR SQ SCH (08:23)
[2023-01-19] MEDS: HYDROcodone/APAP 5 MG/325 MG (LORTAB) TAB PO PRN ×3 (08:26→19:35)
--- NOTE | 2023-01-19 09:26 | Occupational Ther Daily Note ---
OT Current Status-Daily Note Subjective Pt found in therapy gym with PT. Ot took over care from PT. Mental Status/Objective Patient Orientation: Person, Place, Time, Situation ADL-Treatment Pt sit to stand transfer from gym mat, with FWW, SBA. Pt ambulated to toilet in room. Pt independently doffed clothing. Pt ambulated to shower bench with FWW, SBA. Pt completed shower, bathed self with supervision. After shower pt am bulated out of shower with FWW to chair in bathroom with SBA. Pt completed upper body dressing with set up assist. Pt completed lower body dressing with set up assist. Pt ambulated with FWW to sink and sat in a chair for grooming and oral care with SBA. Pt was indpendent with grooming and oral care while seated at the sink. Pt then ambulated with FWW to room to get clothes. Therapist put a basket on the FWW making it easier for pt to gather dirty clothes. Pt gathered dirty clothes into basket on FWW with SBA. Pt mentioned pain after shower, nursing was notified. Pt ambulated to laundry room on ARU unit. Due to pain, pt took a recovery break in a chair, half way to laundry room. Due to pain, therapist got wheelchair, pt transfered into wheelchair with FWW. Pt propelled self the rest of the way to laundry room, working on arm ROM and strengthening. Pt placed laundry into washing machine and started. Pt propelled self back to room in wheelchair. Pt transferred using FWW into chair in room. Pt was left up in chair in room, with light and phone within reach. All needs met. Therapy Code Descriptions/Definitions Functional [place] Measure: 0=Not Assessed/NA 4=Minimal Assistance 1=Total Assistance 5=Supervision or Setup 2=Maximal Assistance 6=Modified [place] 3=Moderate Assistance 7=Complete IndependenceSCALE: Activities may be completed with or without assistive devices. 8-Uinqrwontr-tfbwxcs completes the activity by him/herself with no assistance from a helper. 5-Set-up or Clean-up Assistance-helper sets up or cleans up; patient completes activity. [place] assists only prior to or following the activity. 4-Supervision or Touching Assistance-helper provides verbal cues and/or touching/steadying and/or contact guard assistance as patient completes activity. Assistance may be provided throughout the activity or intermittently. 3-Partial/Moderate Assistance-helper does LESS THAN HALF the effort. [place] lifts, holds or supports trunk or limbs, but provides less than half the effort. 2-Substantial/Maximal Assistance-helper does MORE THAN HALF the effort. [place] lifts or holds trunk or limbs and provides more than half the effort. 9-Nkrudwysc-oykoks does ALL the effort. Patient does none of the effort to complete the activity. Or, the assistance of 2 or more helpers is required for the patient to complete the activity. If activity was not attempted, code reason: 7-Patient Refused. 9-Not Applicable-not attempted and the patient did not perform the activity before the current illness, exacerbation or injury. 10-Not Attempted due to Environmental Limitations-(lack of equipment, weather restraints, etc.). 88-Not Attempted due to Medical Conditions or Safety Concerns. Oral Hygiene (QC): 6 (while seated) Shower/Bathe Self (QC): 6 Upper Body Dressing (QC): 5 Lower Body Dressing (QC): 5 On/Off Footwear: 5 Toileting Hygiene (QC): 6 Toilet Transfer (QC): 4 Education OT Patient Education: Energy conservation, Modified ADL techniques, Progress toward Goal/Update tx plan, Use of adapted equipment Teaching Recipient: Patient Teaching Methods: Discussion Response to Teaching: Verbalize Understanding OT Short Term Goals Short Term Goals Time Frame: Jan 22, 2023 Shower/bathe self: 5 Lower body dressin OT Detention Goals Peanut Blancher Goals Time Frame: January 29, 2023 Acute change in mental status: 0 Inattention: 0 Disorganized thinkin Altered level of consciousness: 0 Eating (QC): 6 Oral Hygiene (QC): 6 Toileting Hygiene (QC): 6 Shower/Bathe Self (QC): 6 Upper Body Dressing (QC): 6 Lower Body Dressing (QC): 6 On/Off Footwear (QC): 6 Additional Goals: 1-Demonstrate ADL Tasks, 2-Verbalize Understanding, 3- ImproveStrength/Latosha 1=Demonstrate adherence to instructed precautions during ADL tasks. 2=Patient will verbalize/demonstrate understanding of assistive devices/modifications for ADL. 3=Patient will improve strength/tolerance for activity to enable patient to perform ADL's. OT Education/Plan Discharge Recommendations Plan/Recommendations: Continue POC Treatment Plan/Plan of Care Patient would benefit from OT for education, treatment and training to promote independence in ADL's, mobility, safety and/or upper extremity function for ADL's. Plan of Care: ADL Retraining, Functional Mobility, Group Exercise/Act as Ind, UE Funct Exercise/Act Treatment Duration: January 29, 2023 Frequency: At least 5 of 7 days/Wk (IRF) Estimated Hrs Per Day: 1.5 hours per day Agreement: Yes Rehab Potential: Good Time Start Time: 09:00 Stop Time: 10:30 DATE: Jan 19, 2023 Total Time Billed (hr/min): 90 Billed Treatment Time 1 visit ADL 4, FA 2 Michelle Denton COTA Jan 19, 2023 09:26
--- NOTE | 2023-01-19 09:41 | Physical Therapy Daily Note ---
PT Daily Note-Current Subjective Rates her pain this a.m. as a 7/10. Per nurse, the patient did not have any pain medication yesterday. Discussed importance of staying ahead of pain with medication so that she can participate in PT/OT and ADL activities. Pain Section J - Health Conditions 1. Rarely or not at all 2. Occasionally 3. Frequently 4. Almost constantly 8. Unable to answer Pain Effect on Sleep: 1 Pain Interference with Therapy: 2 Pain Interference w/Day-to-Day: 2 Appearance Patient dressed and sitting EOB when P.T. entered room. Transfers SCALE: Activities may be completed with or without assistive devices. 6-Odncqzkklk-xeqyhkq completes the activity by him/herself with no assistance from a helper. 5-Set-up or Clean-up Assistance-helper sets up or cleans up; patient completes activity. [place] assists only prior to or following the activity. 4-Supervision or Touching Assistance-helper provides verbal cues and/or touching/steadying and/or contact guard assistance as patient completes activity. Assistance may be provided throughout the activity or intermittently. 3-Partial/Moderate Assistance-helper does LESS THAN HALF the effort. [place] lifts, holds or supports trunk or limbs, but provides less than half the effort. 2-Substantial/Maximal Assistance-helper does MORE THAN HALF the effort. [place] lifts or holds trunk or limbs and provides more than half the effort. 2-Grdzmwgnh-qxmhqs does ALL the effort. Patient does none of the effort to compl ete the activity. Or, the assistance of 2 or more helpers is required for the patient to complete the activity. If activity was not attempted, code reason: 7-Patient Refused. 9-Not Applicable-not attempted and the patient did not perform the activity before the current illness, exacerbation or injury. 10-Not Attempted due to Environmental Limitations-(lack of equipment, weather restraints, etc.). 88-Not Attempted due to Medical Conditions or Safety Concerns. Roll Left & Right (QC): 6 (using bed rail) Sit to Lying (QC): 5 (provided with leg knitting demonstrator for both (L) LE use, then (R)LE, on bed and mi mat in therapy gym. States she has a leg knitting demonstrator at home.) Lying to Sitting/Side of Bed(Q: 4 (cues only, no physical assist to roll to (R) side, take feet off mat, then push up with UE's from bed. Also provided leg lift for patient to try alternate technique of sitting up, sliding (R), then (L) legs to EOB with leg knitting demonstrator - cues only to complete.) Sit to Stand (QC): 6 ((I) to FWW) Chair/Lzg-jb-Rybgu Xfer(QC): 6 ((I) with FWW, no assist nor cues) Weight Bearing Weight Bearing/Tolerated Weight Bearing/Tolerated Gait Training Walk 150 ft (QC): 5 (SBA-(I) to amb 150' with 1 cue to step and not slide (R) LE - then able to complete without further cues, without assist and no LOB. Slow darrin, but less antalgic than at admit.) Gait Assistive Device: FWW Wheelchair Training Does the Pt Use a Wheelchair?: No Exercises Supine Ex: Innominate check continues to show posterior (L)/anterior (R) innominate rotation. Gentle MET (only to patient's isometric level) x 3 in hooklying. No pain increase. Re-check = continued rotation, but scoliosis in lumbar spine is present which may be contributing to continued rotation Isometric hip adduction in hooklying x 3. Gentle LTR in hooklying, passive, pain free range APT/PPT x 5 with v.c./t.c. TA's in hooklying x 5 with v.c. TA with march in hooklying (foot off mat only) x 5 (B), alternating legs Alt bent knee fall out x 5 (B) Treatments Extensive education on sit<>supine using leg knitting demonstrator or mi mat - patient cued to not overthink process - able to complete more easily after that suggestion. Assessment Current Status: Good Progress Needs to utilize leg knitting demonstrator for sit<>supine -- has one at home. PT Residential Goals Mine Supervisor Goals PT Mine Supervisor Goals Time Frame: January 29, 2023 Roll Left & Right (QC): 6 Sit to Lying (QC): 6 (with leg knitting demonstrator as needed) Lying-Sitting on Side/Bed(QC): 6 (with leg knitting demonstrator as needed) Sit to Stand (QC): 6 Chair/Xps-os-Pluum Xfer(QC): 6 Toilet Transfer (QC): 6 Car Transfer (QC): 6 Does the Patient Walk: Yes Walk 10 feet (QC): 6 (with walker or cane) Walk 50ft with 2 Turns (QC): 6 (with walker or cane) Walk 150 ft (QC): 6 (with walker or cane) Walking 10ft on Uneven Surface: 6 (with walker or cane) 1 Step (curb) (QC): 6 (with walker or cane and rail) 4 Steps (QC): 6 (with railings) 12 Steps (QC): 6 (with railings) Picking up an Object (QC): 6 (with endoscopic technician) Does the Pt use WC or Scooter?: No Wheel 50 feet with 2 turns (QC: 9 Wheel 150 feet: 9 PT Plan Problem List Problem List: Activity Tolerance, Functional Strength, Safety, Balance, Gait, Transfer, Bed Mobility, ROM Treatment/Plan Treatment Plan: Continue Plan of Care Treatment Plan: Bed Mobility, Education, Functional Activity Latosha, Functional Strength, Group Therapy, Gait, Safety, Therapeutic Exercise, Transfers, Other (Manual therapy for MET for innominate rotation) Treatment Duration: January 29, 2023 Frequency: At least 5 of 7 days/Wk (IRF) Estimated Hrs Per Day: 1.5 hours per day Patient and/or Family Agrees t: Yes Discharge Recommendations Equpiment Recommendations-D/C: Front Wheeled Walker, Other, Please Explain (Leg knitting demonstrator - has one at home.) Time Time In: 815 Time Out: 900 DATE: Jan 19, 2023 Total Billed Treatment Time: 45 Total Billed Treatment 45': 20 FA, 10 Ex, 15 Gait Jeniffer Farias PT Jan 19, 2023 09:41
[2023-01-19] MEDS: ACETAMINOPHEN 325 MG TABLET PO PRN (10:17)
--- NOTE | 2023-01-19 11:37 | Physical Therapy Daily Note ---
PT Daily Note-Current Subjective Patient states she is agreeable to stayng a little bit longer on the ARU if she is not ready to go home 01/21/23. Discussed that pain management is necessary prior to return home and that regularly taking pain medication is important. Pain Section J - Health Conditions 1. Rarely or not at all 2. Occasionally 3. Frequently 4. Almost constantly 8. Unable to answer Pain Effect on Sleep: 1 Pain Interference with Therapy: 2 Pain Interference w/Day-to-Day: 2 Transfers SCALE: Activities may be completed with or without assistive devices. 1-Qfviokwfeq-gcdkdtz completes the activity by him/herself with no assistance from a helper. 5-Set-up or Clean-up Assistance-helper sets up or cleans up; patient completes activity. [place] assists only prior to or following the activity. 4-Supervision or Touching Assistance-helper provides verbal cues and/or touching/steadying and/or contact guard assistance as patient completes activity. Assistance may be provided throughout the activity or intermittently. 3-Partial/Moderate Assistance-helper does LESS THAN HALF the effort. [place] lift s, holds or supports trunk or limbs, but provides less than half the effort. 2-Substantial/Maximal Assistance-helper does MORE THAN HALF the effort. [place] lifts or holds trunk or limbs and provides more than half the effort. 2-Grtykevyz-btzibg does ALL the effort. Patient does none of the effort to complete the activity. Or, the assistance of 2 or more helpers is required for the patient to complete the activity. If activity was not attempted, code reason: 7-Patient Refused. 9-Not Applicable-not attempted and the patient did not perform the activity before the current illness, exacerbation or injury. 10-Not Attempted due to Environmental Limitations-(lack of equipment, weather restraints, etc.). 88-Not Attempted due to Medical Conditions or Safety Concerns. Sit to Lying (QC): 5 (patient given her leg powder shoveler) Sit to Stand (QC): 6 Chair/Zyc-ds-Umjzv Xfer(QC): 6 (with FWW) Weight Bearing Weight Bearing/Tolerated Weight Bearing/Tolerated Gait Training Walk 150 ft (QC): 6 (with FWW) Wheelchair Training 150', 200' (I) with FWW, slow gait, but no LOB. Stair Training #of Steps: 4 (steadying assist and cues to ascend/descend 6" step x 2 with FWW) 4 Steps (QC): 4 ((I) with 3" steps wiht rails, CGA with 6" steps with rails. No cues needed for sequence. 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 Goals [facility] Goals PT [facility] Goals Time Frame: January 29, 2023 Roll Left & Right (QC): 6 Sit to Lying (QC): 6 (with leg powder shoveler as needed) Lying-Sitting on Side/Bed(QC): 6 (with leg powder shoveler as needed) Sit to Stand (QC): 6 Chair/Tjx-lb-Abfka Xfer(QC): 6 Toilet Transfer (QC): 6 Car Transfer (QC): 6 Does the Patient Walk: Yes Walk 10 feet (QC): 6 (with walker or cane) Walk 50ft with 2 Turns (QC): 6 (with walker or cane) Walk 150 ft (QC): 6 (with walker or cane) Walking 10ft on Uneven Surface: 6 (with walker or cane) 1 Step (curb) (QC): 6 (with walker or cane and rail) 4 Steps (QC): 6 (with railings) 12 Steps (QC): 6 (with railings) Picking up an Object (QC): 6 (with contract consultant) Does the Pt use WC or Scooter?: No Wheel 50 feet with 2 turns (QC: 9 Wheel 150 feet: 9 PT Plan Treatment/Plan Treatment Plan: Continue Plan of Care Treatment Plan: Bed Mobility, Education, Functional Activity Latosha, Functional Strength, Group Therapy, Gait, Safety, Therapeutic Exercise, Transfers, Other (Manual therapy for MET for innominate rotation) Treatment Duration: January 29, 2023 Frequency: At least 5 of 7 days/Wk (IRF) Estimated Hrs Per Day: 1.5 hours per day Patient and/or Family Agrees t: Yes Discharge Recommendations Equpiment Recommendations-D/C: Front Wheeled Walker, Other, Please Explain (Leg powder shoveler - has one at home per patient's report) Time Time In: 1105 Time Out: 1150 DATE: Jan 19, 2023 Total Billed Treatment Time: 45 Total Billed Treatment Gt: 26, Ex: 10, FA 9 Jeniffer Farias PT Jan 19, 2023 11:37
[2023-01-19 20:03] VITALS: BP 128/57
[2023-01-19] MEDS: ASPIRIN 81 MG CHEW (CHILDREN'S ASA) PO SCH (21:00)
[2023-01-19] MEDS: eZETimibe 10 MG (ZETIA) TABLET PO SCH (21:00)
[2023-01-19] MEDS: AtorvaSTATin TABLET 10 MG TABLET PO SCH (21:00)
[2023-01-20] MEDS: HYDROcodone/APAP 5 MG/325 MG (LORTAB) TAB PO PRN ×5 (00:29→20:46)
--- NOTE | 2023-01-20 06:01 | PM&R Progress Note ---
Subjective HPI/CC On Admission Date Seen by Provider: Jan 20, 2023 Time Seen by Provider: 12:00 Subjective/Events-last exam 01/20/2023: Doing wel Updated patient on DC Sat No falls 01/19/2023: Doing better Bone scan results discussed with Dr Dumont No evidence of hip infection Improved pain 01/18/2023: No major issues No pain reported Improved ambulation Checked meds and labs 01/17/2023: No major issues Walking better although slowly Family visiting No falls Pain controlled 01/16/2023: Doing well Pain controlled Bone scan Wednesday No falls BM+ Review of Systems General: Fatigue, Malaise Objective Exam Vital Signs Vital Signs Date Time Temp Pulse Resp B/P (MAP) Pulse Ox O2 Delivery O2 Flow Rate FiO2 01/20/23 20:45 92 Room Air 01/20/23 20:00 36.2 77 18 122/60 (80) Capillary Refill : General Appearance: No Apparent Distress, WD/WN, Chronically ill, Thin HEENT: PERRL/EOMI, Normal ENT Inspection, Pharynx Normal Neck: Full Range of Motion, Normal Inspection, Non Tender, Supple, Carotid Bruit Respiratory: Chest Non Tender, Lungs Clear, Normal Breath Sounds, No Accessory Muscle Use, No Respiratory Distress Cardiovascular: Regular Rate, Rhythm, No Edema, No Gallop, No JVD, Normal Peripheral Pulses, Systolic Murmur Gastrointestinal: Normal Bowel Sounds, No Organomegaly, No Pulsatile Mass, Non Tender, Soft Back: Normal Inspection, No CVA Tenderness, No Vertebral Tenderness Extremity: Normal Capillary Refill, Normal Inspection, Normal Range of Motion, Non Tender, No Calf Tenderness, No Pedal Edema Neurologic/Psychiatric: Alert, Oriented x3, Normal Mood/Affect, neuropsychologist II-XII Norm as Tested, Abnormal Gait, Motor Weakness (right leg) Skin: Normal Color, Warm/Dry Lymphatic: No Adenopathy Results/Procedures Lab Patient resulted labs reviewed. [facility]IM Transfers Therapy Code Descriptions/Definitions Functional [place] Measure: 0=Not Assessed/NA 4=Minimal Assistance 1=Total Assistance 5=Supervision or Setup 2=Maximal Assistance 6=Modified [place] 3=Moderate Assistance 7=Complete IndependenceSCALE: Activities may be completed with or without assistive devices. 7-Qeuhibvpdq-lliejdo completes the activity by him/herself with no assistance from a helper. 5-Set-up or Clean-up Assistance-helper sets up or cleans up; patient completes activity. [place] assists only prior to or following the activity. 4-Supervision or Touching Assistance-helper provides verbal cues and/or touching/steadying and/or contact guard assistance as patient completes activ ity. Assistance may be provided throughout the activity or intermittently. 3-Partial/Moderate Assistance-helper does LESS THAN HALF the effort. [place] lifts, holds or supports trunk or limbs, but provides less than half the effort. 2-Substantial/Maximal Assistance-helper does MORE THAN HALF the effort. [place] lifts or holds trunk or limbs and provides more than half the effort. 3-Hegiubucw-jhfufj does ALL the effort. Patient does none of the effort to complete the activity. Or, the assistance of 2 or more helpers is required for the patient to complete the activity. If activity was not attempted, code reason: 7-Patient Refused. 9-Not Applicable-not attempted and the patient did not perform the activity before the current illness, exacerbation or injury. 10-Not Attempted due to Environmental Limitations-(lack of equipment, weather restraints, etc.). 88-Not Attempted due to Medical Conditions or Safety Concerns. Roll Left to Right (QC): 6 (using bed rail) Sit to Lying (QC): 5 (patient given her leg baby nurse) Sit to Stand (QC): 6 Chair/Zai-xv-Vonfi Xfer(QC): 6 (with FWW) Car Transfer (QC): 4 (CGA ) Gait Training Does the Patient Walk?: Yes Walk 10 feet (QC): 5 (SBA with FWW) Walk 50 ft with 2 Turns(QC): 5 (SBA with FWW) Walk 150 ft (QC): 6 (with FWW) Walking 10ft/uneven surface-QC: 4 (CGA with FWW) Gait Assistive Device: FWW Wheelchair Training Does the Pt Use a Wheelchair?: No Wheel 50 ft with 2 turns (QC): 9 Wheel 150 ft (QC): 9 Stair Training #of Steps: 4 (steadying assist and cues to ascend/descend 6" step x 2 with FWW) 1 Step (curb) (QC): 4 (CGA with v.c. for walker placement) 4 Steps (QC): 4 ((I) with 3" steps wiht rails, CGA with 6" steps with rails. No cues needed for sequence. Step to pattern.) 12 Steps (QC): 4 (CGA with (B) rails) Balance Picking up an Object (QC): 5 (SBA with walker and wind energy technician) ADL-Treatment Oral Hygiene (QC): 6 (while seated) Shower/Bathe Self (QC): 6 Upper Body Dressing (QC): 5 Lower Body Dressing (QC): 5 On/Off Footwear (QC): 5 Toileting Hygiene (QC): 6 Toilet Transfer (QC): 4 Assessment/Plan Assessment and Plan Assess & Plan/Chief Complaint Assessment: Severe right hip and pelvis pain after fall 1 month ago now unable to ambulate normally but no fracture on Xray or CT or Dr Dumont assessment but he did recommend bone scan right hip and that was negative for infection and ESR CRP normal at [facility] Cognition deficit? UA normal, subtle but noted by family COPD Previous heavy smoker 60+ years cessation 2019 Osteoporosis on [facility] Urinary frequency but negative UA at [facility] on day of admit Pulmonary HTN 90 on ECHO negative USG right leg and negative PE on CT angiogram assessed by Cardiology locally and in [facility] Anxiety Previous assessment: h/o right hip fracture 07/04/20 s/p repair by Dr Chávez then dislocation of hardware 07/09/20 upon arrival to ARU requiring transfer back to [facility] s/p spinal anesthesia but reduction only required h/o acute blood loss anemia s/p 2 units transfused 07/05/20 then again 07/09/20 h/o severe hypotension due to volume depletion requiring aggressive IVF administration at [facility] h/o acute pneumonia upon arrival to IRF requiring septic w/u which was negative and empiric abx for HAP Plan: ARU protocol PT OT Pain control Bowel regimen Monitor cognition Bone scan Wednesday01/16/2023: No major concerns Improved 01/17/2023: Monitor closely Bone scan Consult Dr Sanders tomorrow 01/18/2023: Improved Bone scan today ECHO? 01/19/2023: Monitor closely 01/20/2023: Monitor closely (1) Debility (2) COPD (chronic obstructive pulmonary disease) (3) Transfusion history (4) Frailty (5) Hyperlipemia (6) Anxiety (7) Osteoporosis (8) Pulmonary hypertension AVANI NICOLE DO Jan 20, 2023 06:01
[2023-01-20 07:20] VITALS: BP 106/71
[2023-01-20] MEDS: MULTIVIT W/MINERALS TAB (THERAGRAN M) PO SCH (08:06)
[2023-01-20] MEDS: CALCIUM CARB + VIT D 600 MG (CALCARB + D) TAB PO SCH (08:06)
[2023-01-20] MEDS: SERTRALINE 100 MG (ZOLOFT) TAB PO SCH (08:06)
[2023-01-20] MEDS: DOCUSATE SODIUM 100 MG (COLACE) CAP PO SCH ×2 (08:06→20:46)
[2023-01-20] MEDS: OXYBUTYNIN (DITROPAN) 5 MG TAB PO SCH ×3 (08:06→20:46)
[2023-01-20] MEDS: LEVOTHYROXINE 50 MCG (LEVOTHROID) TAB PO SCH (08:07)
[2023-01-20] MEDS: polyethylene glycoL POWDER 17 GM (MIRALAX) PACK PO SCH ×2 (08:10→20:46)
[2023-01-20] MEDS: LACTULOSE SYRUP 10GM/15ML (ENULOSE) 30ML UDC PO SCH ×2 (08:11→20:46)
[2023-01-20] MEDS: SENNA W/DOCUSATE (SENOKOT S) TABLET PO SCH (08:11)
[2023-01-20] MEDS: VENlafaxine XR 75 MG (EFFEXOR XR) CAP PO SCH (08:12)
[2023-01-20] MEDS: ENOXAPARIN INJECTION 30 MG/0.3 ML SYR SQ SCH (08:13)
--- NOTE | 2023-01-20 08:37 | Cardiology Progress Note ---
Subjective Date Seen by Provider: Jan 20, 2023 Time Seen by Provider: 08:35 Subjective/Events-last exam Patient up in bathroom doing ADLs, no new complaints. Review of Systems General: No Chills, No Night Sweats; Fatigue, Malaise; No Appetite, No Other HEENT: No Head Aches, No Visual Changes, No Eye Pain, No Ear Pain, No Dysphasia, No Sinus Congestion, No Post Nasal Drip, No Sore Throat, No Other Pulmonary: No Dyspnea, No Cough, No Pleuritic Chest Pain, No Other Cardiovascular: No: Chest Pain, Palpitations, Orthopnea, Paroxysmal Noc. Dyspnea, Edema, Lt Headedness, Other Objective-Cardiology Exam Last Set of Vital Signs Vital Signs 01/20/23 01/20/23 07:20 08:16 Temp 37.0 Pulse 79 Resp 18 B/P (MAP) 106/71 (83) Pulse Ox 91 O2 Delivery Room Air I&O Intake and Output 01/20/23 00:00 Intake Total 1950 ml Balance 1950 ml Intake Oral 1950 ml # Voids 7 # Bowel Movements 2 General: Alert, Oriented X3, Cooperative HEENT: Atraumatic, PERRLA Neck: Supple Lungs: Clear to Auscultation, Normal Air Movement Heart: Regular Rate, Normal S1, Normal S2, Other (Systolic murmur at the left sternal border) Abdomen: Normal Bowel Sounds, Soft Extremities: No Edema Skin: No Rashes, No Significant Lesion Neuro: Cranial Nerves 3-12 NL Psych/Mental Status: Mental Status NL, Mood NL A/P-Cardiology Admission Diagnosis Right hip pain with debility HOCM HTP COPD Assessment/Plan Right hip and pelvis pain with debility after fall approx 1 month ago. Continue with PT/OT. Bone scan done 01/15/23 showing radiotracer activity in the region of the right greater trochanter which does raise at least concern for potential greater tuberosity fracture. Recommend further evaluation with CT right hip without con trast. Abnormal radiotracer uptake involving the pubic bones near the pubic symphysis, left greater than right as well as in the left greater than right sacrum. This is concerning for insufficiency fractures of both pubic bones as well as the left and right sacral ala. This could be further evaluated with dedicated CT pelvis without contrast. Hypertrophic obstructive cardiomyopathy, asymptomatic. Echo was done on July 12, 2020 reported systolic anterior motion of the mitral valve, LVOT gradient 110 mmHg with grade 2 diastolic dysfunction. Referred to and evaluated by Dr. Giovanny Sharma to discuss possible septal ablation, recommends continuing with conservative management at this time, Last time she was seen by Dr. Sharma was March 2021. Recommended conservative management. Most recent 2D Echo done April 2022 showing Normal left ventricular size and function, ejection fraction 60%. Mild mitral regurgitation, moderate tricuspid regurgitation. Estimated pulmonary artery pressure of 45 mmHg Stress test done 2013 showing no ischemia or infarct. Patient cannot tolerate beta blockers and/or DAMIR inhibitor due to borderline hypotension without any antihypertensive medication. Hyperlipidemia, maintained on Zetia. Continue to monitor as outpatient Shortness of breath, uses oxygen at home at night, followed with Dr. Brewster Pulmonary hypertension, probably secondary to HOCM and COPD Peripheral edema, better at this time History of hip fracture secondary to fall repaired with Dr. Chávez in June 2020. Osteoporosis, management per PCP. COPD, followed by primary care Nonobstructive carotid artery stenosis per carotid duplex done April 2022 Extobaccoism, she has stopped smoking and has been continuously working on smoking cessation Anxiety. Supervisory-Addendum Brief Supervisory Addendum Participated in pt care: history, MDM, physical Personally performed: exam, history, MDM Care discussed with: JUANCARLOS Results interpretation: Verified all documentation Notes: Patient was seen and evaluated with Daphne, examination performed, management plan was discussed, agree with the current scribed note, I made few changes to the note using Italic font Patient was seen at bedside, she was sitting comfortably Still having pelvic pain Denied any chest pain, no shortness of breath Continue on current medication continue with physical therapy. No changes from cardiology standpoint DAPHNE DEVINE Jan 20, 2023 08:37 SERENA HUGHES MD Jan 20, 2023 14:04
--- NOTE | 2023-01-20 09:51 | Occupational Ther Daily Note ---
OT Current Status-Daily Note Subjective pt found in room with PT, OT took over care. Pt agreed to therapy, alert and cooperative. Pt stated had pain this morning, but wasn't sure on a number. Mental Status/Objective Patient Orientation: Person, Place, Time, Situation ADL-Treatment Pt ambulated to bathroom, transferred to shower bench with FWW,supervision. Pt showered independently. Pt ambulated from shower bench to chair in bathroom, with FWW, supervision. Pt completed upper body dressing with set up assistance today. Pt also completed lower body dressing with set up assistance. Pt then sat in chair in front of sink, to completed grooming and oral care independently. Pt then ambulated with FWW, supervision, to room and sat in chair. Pt completed all HEP UE exercises while seated in chair with red theraband. Pt completed 15 reps, 2 sets. Pt then ambulated to recliner in room with FWW, supervision. Pt transferred into chair with supervision. Pt was left up in chair in room with call light/phone with in reach. All needs met. Therapy Code Descriptions/Definitions Functional [place] Measure: 0=Not Assessed/NA 4=Minimal Assistance 1=Total Assistance 5=Supervision or Setup 2=Maximal Assistance 6=Modified [place] 3=Moderate Assistance 7=Complete IndependenceSCALE: Activities may be completed with or without assistive devices. 6-Fmycznukry-rzufios completes the activity by him/herself with no assistance from a helper. 5-Set-up or Clean-up Assistance-helper sets up or cleans up; patient completes activity. [place] assists only prior to or following the activity. 4-Supervision or Touching Assistance-helper provides verbal cues and/or touching/steadying and/or contact guard assistance as patient completes activity. Assistance may be provided throughout the activity or intermittently. 3-Partial/Moderate Assistance-helper does LESS THAN HALF the effort. [place] lifts, holds or supports trunk or limbs, but provides less than half the effort. 2-Substantial/Maximal Assistance-helper does MORE THAN HALF the effort. [place] lifts or holds trunk or limbs and provides more than half the effort. 3-Tgssufyla-nwysbk does ALL the effort. Patient does none of the effort to complete the activity. Or, the assistance of 2 or more helpers is required for the patient to complete the activity. If activity was not attempted, code reason: 7-Patient Refused. 9-Not Applicable-not attempted and the patient did not perform the activity before the current illness, exacerbation or injury. 10-Not Attempted due to Environmental Limitations-(lack of equipment, weather restraints, etc.). 88-Not Attempted due to Medical Conditions or Safety Concerns. Oral Hygiene (QC): 6 Bathing Location: L Arm, R Arm, L Upper Leg, R Upper Leg, L Lower Leg (including foot), R Lower Leg (including foot), Chest, Abdomen, Buttocks, Perineal Area Shower/Bathe Self (QC): 6 Upper Body Dressing (QC): 5 Lower Body Dressing (QC): 5 On/Off Footwear: 5 Toileting Hygiene (QC): 5 Toilet Transfer (QC): 4 Education OT Patient Education: Energy conservation, Exercise program, Home exercise program, Modified ADL techniques, Progress toward Goal/Update tx plan, Purpose of tx/functional activities Teaching Recipient: Patient Teaching Methods: Demonstration, Handout, Discussion Response to Teaching: Verbalize Understanding, Return Demonstration OT Short Term Goals Short Term Goals Time Frame: Jan 22, 2023 Shower/bathe self: 5 Lower body dressin OT Director Of Business Services Goals Director Of Business Services Goals Time Frame: January 29, 2023 Acute change in mental status: 0 Inattention: 0 Disorganized thinkin Altered level of consciousness: 0 Eating (QC): 6 Oral Hygiene (QC): 6 Toileting Hygiene (QC): 6 Shower/Bathe Self (QC): 6 Upper Body Dressing (QC): 6 Lower Body Dressing (QC): 6 On/Off Footwear (QC): 6 Additional Goals: 1-Demonstrate ADL Tasks, 2-Verbalize Understanding, 3-ImproveStrength/[place]ha 1=Demonstrate adherence to instructed precautions during ADL tasks. 2=Patient will verbalize/demonstrate understanding of assistive devices/modifications for ADL. 3=Patient will improve strength/tolerance for activity to enable patient to per form ADL's. OT Education/Plan Discharge Recommendations Plan/Recommendations: Continue POC Treatment Plan/Plan of Care Patient would benefit from OT for education, treatment and training to promote independence in ADL's, mobility, safety and/or upper extremity function for ADL's. Plan of Care: ADL Retraining, Functional Mobility, Group Exercise/Act as Ind, UE Funct Exercise/Act Treatment Duration: January 29, 2023 Frequency: At least 5 of 7 days/Wk (IRF) Estimated Hrs Per Day: 1.5 hours per day Agreement: Yes Rehab Potential: Good Time Start Time: 09:30 Stop Time: 11:00 DATE: Jan 20, 2023 Total Time Billed (hr/min): 90 Billed Treatment Time 1 visit ADL 4 (65 mins), Ex 2 (25 mins) Michelle Denton COTA Jan 20, 2023 09:51
--- NOTE | 2023-01-20 10:26 | Physical Therapy Daily Note ---
PT Daily Note-Current Pain Section J - Health Conditions 1. Rarely or not at all 2. Occasionally 3. Frequently 4. Almost constantly 8. Unable to answer Pain Effect on Sleep: 1 Pain Interference with Therapy: 2 Pain Interference w/Day-to-Day: 2 Transfers SCALE: Activities may be completed with or without assistive devices. 5-Kqtkweefhh-kxegirw completes the activity by him/herself with no assistance from a helper. 5-Set-up or Clean-up Assistance-helper sets up or cleans up; patient completes activity. [place] assists only prior to or following the activity. 4-Supervision or Touching Assistance-helper provides verbal cues and/or touching/steadying and/or contact guard assistance as patient completes activity. Assistance may be provided throughout the activity or intermittently. 3-Partial/Moderate Assistance-helper does LESS THAN HALF the effort. [place] lifts, holds or supports trunk or limbs, but provides less than half the effort. 2-Substantial/Maximal Assistance-helper does MORE THAN HALF the effort. [place] lifts or holds trunk or limbs and provides more than half the effort. 9-Blivxmgdp-yifrqv does ALL the effort. Patient does none of the effort to complete the activity. Or, the assistance of 2 or more helpers is required for the patient to complete the activity. If activity was not attempted, code reason: 7-Patient Refused. 9-Not Applicable-not attempted and the patient did not perform the activity before the current illness, exacerbation or injury. 10-Not Attempted due to Environmental Limitations-(lack of equipment, weather restraints, etc.). 88-Not Attempted due to Medical Conditions or Safety Concerns. Weight Bearing Weight Bearing/Tolerated Weight Bearing/Tolerated Treatments pt is able to preform car transfer with [place] this day with no safety issues. pt is able to ascend and descend 4 stairs with both rails with CGA and VC of 20% for correct sequencing. pt requires CGA to prevent falls and aid in balance. Assessment Current Status: Good Progress PT Detention Goals Detention Goals PT Cover [place] Goals Time Frame: January 29, 2023 Roll Left & Right (QC): 6 Sit to Lying (QC): 6 (with leg new home sales consultant as needed) Lying-Sitting on Side/Bed(QC): 6 (with leg new home sales consultant as needed) Sit to Stand (QC): 6 Chair/Mae-sp-Nvsyh Xfer(QC): 6 Toilet Transfer (QC): 6 Car Transfer (QC): 6 Does the Patient Walk: Yes Walk 10 feet (QC): 6 (with walker or cane) Walk 50ft with 2 Turns (QC): 6 (with walker or cane) Walk 150 ft (QC): 6 (with walker or cane) Walking 10ft on Uneven Surface: 6 (with walker or cane) 1 Step (curb) (QC): 6 (with walker or cane and rail) 4 Steps (QC): 6 (with railings) 12 Steps (QC): 6 (with railings) Picking up an Object (QC): 6 (with gas attendant) Does the Pt use WC or Scooter?: No Wheel 50 feet with 2 turns (QC: 9 Wheel 150 feet: 9 PT Plan Treatment/Plan Treatment Plan: Continue Plan of Care Treatment Plan: Bed Mobility, Education, Functional Activity Latosha, Functional Strength, Group Therapy, Gait, Safety, Therapeutic Exercise, Transfers, Other (Manual therapy for MET for innominate rotation) Treatment Duration: January 29, 2023 Frequency: At least 5 of 7 days/Wk (IRF) Estimated Hrs Per Day: 1.5 hours per day Patient and/or Family Agrees t: Yes Time Time In: 0900 Time Out: 929 DATE: Jan 20, 2023 Total Billed Treatment Time: 30 Total Billed Treatment 1 FAx2 pt left in bed with call light and all needs met. Malissa Erickson WIRE MESH FILTER FABRICATOR Jan 20, 2023 10:26
--- NOTE | 2023-01-20 12:47 | Physical Therapy Daily Note ---
PT Daily Note-Current Pain Section J - Health Conditions 1. Rarely or not at all 2. Occasionally 3. Frequently 4. Almost constantly 8. Unable to answer Pain Effect on Sleep: 1 Pain Interference with Therapy: 2 Pain Interference w/Day-to-Day: 2 Mental Status Patient Orientation: Person, Place, Time, Situation Transfers SCALE: Activities may be completed with or without assistive devices. 8-Dnupnbrofj-rykphcx completes the activity by him/herself with no assistance from a helper. 5-Set-up or Clean-up Assistance-helper sets up or cleans up; patient completes activity. [place] assists only prior to or following the activity. 4-Supervision or Touching Assistance-helper provides verbal cues and/or touching/steadying and/or contact guard assistance as patient completes activity. Assistance may be provided throughout the activity or intermittently. 3-Partial/Moderate Assistance-helper does LESS THAN HALF the effort. [place] lifts, holds or supports trunk or limbs, but provides less than half the effort. 2-Substantial/Maximal Assistance-helper does MORE THAN HALF the effort. [place] lifts or holds trunk or limbs and provides more than half the effort. 5-Yykmbveyk-kciybn does ALL the effort. Patient does none of the effort to complete the activity. Or, the assistance of 2 or more helpers is required for the patient to complete the activity. If activity was not attempted, code reason: 7-Patient Refused. 9-Not Applicable-not attempted and the patient did not perform the activity before the current illness, exacerbation or injury. 10-Not Attempted due to Environmental Limitations-(lack of equipment, weather restraints, etc.). 88-Not Attempted due to Medical Conditions or Safety Concerns. Weight Bearing Weight Bearing/Tolerated Weight Bearing/Tolerated Exercises NuStep Minutes: 15 NuStep Workload: 2 Treatments Pt was able to ambulate 150ft with RW and Supervision this day with no LOB. Pt preformed Nu-Step lead 2 for 15 mins for increased endurance and mm strength. pt states no pain and is able to increase her time from yesterday treatment showing an increase in endurance. pt is able to preform standing ther-ex in all planes of motion with BLE for 3 sets of 15 with rest in be tween each set. pt is able to use 1 lb ankle weight when standing for increased mm strength. pt reqires SBA and VC of 30% for correct mm moment for max benefit from exercise. Assessment Current Status: Good Progress PT Prison Goals Executive Marketing Assistant Goals PT Executive Marketing Assistant Goals Time Frame: January 29, 2023 Roll Left & Right (QC): 6 Sit to Lying (QC): 6 (with leg receiving teller as needed) Lying-Sitting on Side/Bed(QC): 6 (with leg receiving teller as needed) Sit to Stand (QC): 6 Chair/Mxd-xq-Ftelu Xfer(QC): 6 Toilet Transfer (QC): 6 Car Transfer (QC): 6 Does the Patient Walk: Yes Walk 10 feet (QC): 6 (with walker or cane) Walk 50ft with 2 Turns (QC): 6 (with walker or cane) Walk 150 ft (QC): 6 (with walker or cane) Walking 10ft on Uneven Surface: 6 (with walker or cane) 1 Step (curb) (QC): 6 (with walker or cane and rail) 4 Steps (QC): 6 (with railings) 12 Steps (QC): 6 (with railings) Picking up an Object (QC): 6 (with apartment rental agent) Does the Pt use WC or Scooter?: No Wheel 50 feet with 2 turns (QC: 9 Wheel 150 feet: 9 PT Plan Problem List Problem List: Functional Strength Treatment/Plan Treatment Plan: Continue Plan of Care Treatment Plan: Bed Mobility, Education, Functional Activity Latosha, Functional Strength, Group Therapy, Gait, Safety, Therapeutic Exercise, Transfers, Other (Manual therapy for MET for innominate rotation) Treatment Duration: January 29, 2023 Frequency: At least 5 of 7 days/Wk (IRF) Estimated Hrs Per Day: 1.5 hours per day Patient and/or Family Agrees t: Yes Time Time In: 1100 Time Out: 1200 DATE: Jan 20, 2023 Total Billed Treatment Time: 30 Total Billed Treatment 1 EXx3 FA pt left in room in recliner with call light and all needs met. Malissa Erickson OUTSIDE MEDICAL SALES REPRESENTATIVE Jan 20, 2023 12:47
--- NOTE | 2023-01-20 13:57 | Speech Therapy Progress Note ---
Therapy Progress Note ST received consultation for cognitive linguistic evaluation. ST skilled services not warranted at this time. Please re-consult with additional needs. Thank you. DISHA ABBASI Jan 20, 2023 13:56
[2023-01-20] MEDS ORDERED: SERT-414 PO (15:56)
[2023-01-20] MEDS ORDERED: SERT-413 PO (15:56)
[2023-01-20] MEDS ORDERED: CALC-1049 PO (15:56)
[2023-01-20 20:00] VITALS: BP 122/60
[2023-01-20] MEDS: AtorvaSTATin TABLET 10 MG TABLET PO SCH (20:46)
[2023-01-20] MEDS: eZETimibe 10 MG (ZETIA) TABLET PO SCH (20:46)
[2023-01-20] MEDS: ASPIRIN 81 MG CHEW (CHILDREN'S ASA) PO SCH (20:46)
[2023-01-21] MEDS: HYDROcodone/APAP 5 MG/325 MG (LORTAB) TAB PO PRN ×5 (00:47→19:54)
[2023-01-21] MEDS: LEVOTHYROXINE 50 MCG (LEVOTHROID) TAB PO SCH (07:33)
[2023-01-21] MEDS: MULTIVIT W/MINERALS TAB (THERAGRAN M) PO SCH (07:33)
[2023-01-21] MEDS: CALCIUM CARB + VIT D 600 MG (CALCARB + D) TAB PO SCH (07:33)
[2023-01-21] MEDS: VENlafaxine XR 75 MG (EFFEXOR XR) CAP PO SCH (07:33)
[2023-01-21] MEDS: DOCUSATE SODIUM 100 MG (COLACE) CAP PO SCH ×2 (07:34→19:53)
[2023-01-21] MEDS: SERTRALINE 100 MG (ZOLOFT) TAB PO SCH (07:34)
[2023-01-21] MEDS: SENNA W/DOCUSATE (SENOKOT S) TABLET PO SCH (07:35)
[2023-01-21] MEDS: OXYBUTYNIN (DITROPAN) 5 MG TAB PO SCH ×3 (07:35→19:53)
[2023-01-21] MEDS: ENOXAPARIN INJECTION 30 MG/0.3 ML SYR SQ SCH (07:36)
[2023-01-21] MEDS: polyethylene glycoL POWDER 17 GM (MIRALAX) PACK PO SCH ×2 (07:38→20:00)
[2023-01-21] MEDS: LACTULOSE SYRUP 10GM/15ML (ENULOSE) 30ML UDC PO SCH ×2 (07:38→20:00)
[2023-01-21 07:48] VITALS: BP 129/58
--- NOTE | 2023-01-21 08:22 | Cardiology Progress Note ---
Subjective Date Seen by Provider: Jan 21, 2023 Time Seen by Provider: 08:21 Subjective/Events-last exam Sitting up at bedside, no new complaints Objective-Cardiology Exam Last Set of Vital Signs Vital Signs 01/20/23 01/21/23 20:45 07:48 Temp 36.7 Pulse 71 Resp 18 B/P (MAP) 129/58 (81) Pulse Ox 92 O2 Delivery Room Air I&O Intake and Output 01/21/23 00:00 Intake Total 1540 ml Balance 1540 ml Intake Oral 1540 ml # Voids 10 # Bowel Movements 2 General: Alert, Oriented X3, Cooperative HEENT: Atraumatic, PERRLA Neck: Supple Lungs: Clear to Auscultation, Normal Air Movement Heart: Regular Rate, Normal S1, Normal S2, Other (Systolic murmur at the left sternal border) Abdomen: Normal Bowel Sounds, Soft Extremities: No Edema Skin: No Rashes, No Significant Lesion Neuro: Cranial Nerves 3-12 NL Psych/Mental Status: Mental Status NL, Mood NL A/P-Cardiology Admission Diagnosis Right hip pain with debility HOCM HTP COPD Assessment/Plan Right hip and pelvis pain with debility after fall approx 1 month ago. Continue with PT/OT. Bone scan done 01/15/23 showing radiotracer activity in the region of the right greater trochanter which does raise at least concern for potential greater tuberosity fracture. Recommend further evaluation with CT right hip without contrast. Abnormal radiotracer uptake involving the pubic bones near the pubic symphysis, left greater than right as well as in the left greater than right sacrum. This is concerning for insufficiency fractures of both pubic bones as well as the left and right sacral ala. This could be further evaluated with dedicated CT pelvis without contrast. Hypertrophic obstructive cardiomyopathy, asymptomatic. Echo was done on July 12, 2020 reported systolic anterior motion of the mitral valve, LVOT gradient 110 mmHg with grade 2 diastolic dysfunction. Referred to and evaluated by Dr. Giovanny Sharma to discuss possible septal ablation, recommends continuing with c onservative management at this time, Last time she was seen by Dr. Sharma was March 2021. Recommended conservative management. Most recent 2D Echo done April 2022 showing Normal left ventricular size and function, ejection fraction 60%. Mild mitral regurgitation, moderate tricuspid regurgitation. Estimated pulmonary artery pressure of 45 mmHg Stress test done 2013 showing no ischemia or infarct. Patient cannot tolerate beta blockers and/or DAMIR inhibitor due to borderline hypotension without any antihypertensive medication. Hyperlipidemia, maintained on Zetia. Continue to monitor as outpatient Shortness of breath, uses oxygen at home at night, followed with Dr. Brewster Pulmonary hypertension, probably secondary to HOCM and COPD Peripheral edema, better at this time History of hip fracture secondary to fall repaired with Dr. Chávez in June 2020. Osteoporosis, management per PCP. COPD, followed by primary care Nonobstructive carotid artery stenosis per carotid duplex done April 2022 Extobaccoism, she has stopped smoking and has been continuously working on smoking cessation Anxiety. Supervisory-Addendum Brief Supervisory Addendum Participated in pt care: history, MDM, physical Personally performed: exam, history, MDM Care discussed with: JUANCARLOS Results interpretation: Verified all documentation Notes: Patient was seen and evaluated with Daphne, examination performed, management plan was discussed, agree with the current scribed note, I made few changes to the note using Italic font Patient was seen at bedside, laying down comfortably, feeling better Still having pelvic pain Denies any chest pain or shortness of breath Encouraged increasing fluid intake. Monitor blood pressure DAPHNE DEVINE Jan 21, 2023 08:22 SERENA HUGHES MD Jan 21, 2023 08:51
--- NOTE | 2023-01-21 09:28 | Physical Therapy Daily Note ---
PT Daily Note-Current Subjective Patient has no complaints - is very pleased with her care. Rates pain at rest as "nothing really". Pain 6/10 when she takes steps. Pain Section J - Health Conditions 1. Rarely or not at all 2. Occasionally 3. Frequently 4. Almost constantly 8. Unable to answer Pain Effect on Sleep: 1 Pain Interference with Therapy: 2 Pain Interference w/Day-to-Day: 2 Transfers SCALE: Activities may be completed with or without assistive devices. 5-Rawcxvrysy-qroyejq completes the activity by him/herself with no assistance from a helper. 5-Set-up or Clean-up Assistance-helper sets up or cleans up; patient completes activity. [place] assists only prior to or following the activity. 4-Supervision or Touching Assistance-helper provides verbal cues and/or touching/steadying and/or contact guard assistance as patient completes activity. Assistance may be provided throughout the activity or intermittently. 3-Partial/Moderate Assistance-helper does LESS THAN HALF the effort. [place] lifts, holds or supports trunk or limbs, but provides less than half the effort. 2-Substantial/Maximal Assistance-helper does MORE THAN HALF the effort. [place] lifts or holds trunk or limbs and provides more than half the effort. 0-Tbjrtmnhs-yiyizq does ALL the effort. Patient does none of the effort to complete the activity. Or, the assistance of 2 or more helpers is required for the patient to complete the activity. If activity was not attempted, code reason: 7-Patient Refused. 9-Not Applicable-not attempted and the patient did not perform the activity before the current illness, exacerbation or injury. 10-Not Attempted due to Environmental Limitations-(lack of equipment, weather restraints, etc.). 88-Not Attempted due to Medical Conditions or Safety Concerns. Weight Bearing Weight Bearing/Tolerated Weight Bearing/Tolerated Treatments Family training with 2 sons: -Patient to use leg nutrition professor at home to get in/out of bed -- patient has a leg nutrition professor at home. She instructed son as to where to find the leg nutrition professor at her home. -Patient (I) with bed mobility with leg nutrition professor. -Patient (I) with transfers and gait using FWW - will need to continue to use FWW at home. -Discussed pain medication need for patient to be able to walk/transfer more easily - discussed that nursing will come in to discuss meds and finding balance between pain medication and stool softener. Discussed that doctor has stated that she has no fractures, but the pain is something she will need to work thru and that pain medication may be necessary for a while. -Discussed pelvic pain /p fall, SI joint rotation and correction, trial of heel wedge to accomodate her LLD/scoliosis in attempt to decrease discomfort when she walks. -Discussed need to work on endurance/activity tolerance prior to returning home. No other concerns voiced by sons. She has equipment needed for home use. PT Jail Goals Jail Goals PT Jail Goals Time Frame: January 29, 2023 Roll Left & Right (QC): 6 Sit to Lying (QC): 6 (with leg nutrition professor as needed) Lying-Sitting on Side/Bed(QC): 6 (with leg nutrition professor as needed) Sit to Stand (QC): 6 Chair/Hhy-lj-Hqseg Xfer(QC): 6 Toilet Transfer (QC): 6 Car Transfer (QC): 6 Does the Patient Walk: Yes Walk 10 feet (QC): 6 (with walker or cane) Walk 50ft with 2 Turns (QC): 6 (with walker or cane) Walk 150 ft (QC): 6 (with walker or cane) Walking 10ft on Uneven Surface: 6 (with walker or cane) 1 Step (curb) (QC): 6 (with walker or cane and rail) 4 Steps (QC): 6 (with railings) 12 Steps (QC): 6 (with railings) Picking up an Object (QC): 6 (with district customs director) Does the Pt use WC or Scooter?: No Wheel 50 feet with 2 turns (QC: 9 Wheel 150 feet: 9 PT Plan Treatment/Plan Treatment Plan: Continue Plan of Care Treatment Plan: Bed Mobility, Education, Functional Activity Latosha, Functional Strength, Group Therapy, Gait, Safety, Therapeutic Exercise, Transfers, Other (Manual therapy for MET for innominate rotation) Treatment Duration: January 29, 2023 Frequency: At least 5 of 7 days/Wk (IRF) Estimated Hrs Per Day: 1.5 hours per day Patient and/or Family Agrees t: Yes Time Time In: 832 Time Out: 852 DATE: Jan 21, 2023 Total Billed Treatment Time: 20 Total Billed Treatment 20 FA Jeniffer Farias PT Jan 21, 2023 09:28
--- NOTE | 2023-01-21 10:24 | Physical Therapy Daily Note ---
PT Daily Note-Current Subjective pt in bed upon entering the room. pt willing for therapy. pt states her pain is "the same as yesterday" 01/04 Pain Section J - Health Conditions 1. Rarely or not at all 2. Occasionally 3. Frequently 4. Almost constantly 8. Unable to answer Pain Effect on Sleep: 1 Pain Interference with Therapy: 2 Pain Interference w/Day-to-Day: 2 Mental Status Patient Orientation: Person, Place, Time, Situation Transfers SCALE: Activities may be completed with or without assistive devices. 7-Zxekhdtlmz-icjxbko completes the activity by him/herself with no assistance from a helper. 5-Set-up or Clean-up Assistance-helper sets up or cleans up; patient completes activity. [place] assists only prior to or following the activity. 4-Supervision or Touching Assistance-helper provides verbal cues and/or touching/steadying and/or contact guard assistance as patient completes activity. Assistance may be provided throughout the activity or intermittently. 3-Partial/Moderate Assistance-helper does LESS THAN HALF the effort. [place] lifts, holds or supports trunk or limbs, but provides less than half the effort. 2-Substantial/Maximal Assistance-helper does MORE THAN HALF the effort. [place] lifts or holds trunk or limbs and provides more than half the effort. 8-Wgcwwepsm-pgtbaf does ALL the effort. Patient does none of the effort to complete the activity. Or, the assistance of 2 or more helpers is required for the patient to complete the activity. If activity was not attempted, code reason: 7-Patient Refused. 9-Not Applicable-not attempted and the patient did not perform the activity before the current illness, exacerbation or injury. 10-Not Attempted due to Environmental Limitations-(lack of equipment, weather restraints, etc.). 88-Not Attempted due to Medical Conditions or Safety Concerns. Weight Bearing Weight Bearing/Tolerated Weight Bearing/Tolerated Exercises NuStep Minutes: 15 NuStep Workload: 2 Treatments pt worked on dynamic standing balance while reaching outside COG with NO LOB this day. pt is able to stand for aprox 15 min with no rest breaks showing increased standing endurance and strength. pt is able to preform Nu-Step at level 2 for 15 mins with no rest break increasing from yesterday only 10 mins. Endurance is showing improvement. When pt ambulates with RW and Supervision pt is able to tolerate more weight and has a quickened gait pattern closer to her normal PLOF.. Assessment Current Status: Excellent Progress PT Custodial Goals Custodial Goals PT Custodial Goals Time Frame: January 29, 2023 Roll Left & Right (QC): 6 Sit to Lying (QC): 6 (with leg company tanker truck driver as needed) Lying-Sitting on Side/Bed(QC): 6 (with leg company tanker truck driver as needed) Sit to Stand (QC): 6 Chair/Pew-xr-Jqtex Xfer(QC): 6 Toilet Transfer (QC): 6 Car Transfer (QC): 6 Does the Patient Walk: Yes Walk 10 feet (QC): 6 (with walker or cane) Walk 50ft with 2 Turns (QC): 6 (with walker or cane) Walk 150 ft (QC): 6 (with walker or cane) Walking 10ft on Uneven Surface: 6 (with walker or cane) 1 Step (curb) (QC): 6 (with walker or cane and rail) 4 Steps (QC): 6 (with railings) 12 Steps (QC): 6 (with railings) Picking up an Object (QC): 6 (with skin toggler) Does the Pt use WC or Scooter?: No Wheel 50 feet with 2 turns (QC: 9 Wheel 150 feet: 9 PT Plan Treatment/Plan Treatment Plan: Continue Plan of Care Treatment Plan: Bed Mobility, Education, Functional Activity Latosha, Functional Strength, Group Therapy, Gait, Safety, Therapeutic Exercise, Transfers, Other (Manual therapy for MET for innominate rotation) Treatment Duration: January 29, 2023 Frequency: At least 5 of 7 days/Wk (IRF) Estimated Hrs Per Day: 1.5 hours per day Patient and/or Family Agrees t: Yes Time Time In: 0900 Time Out: 1000 DATE: Jan 21, 2023 Total Billed Treatment Time: 60 Total Billed Treatment 1 FAx3 EX pt left in room in recliner with call light and all needs met. Malissa Erickson CHANNEL LIP STIFFENER INSOLES Jan 21, 2023 10:24
--- NOTE | 2023-01-21 11:14 | Occupational Ther Daily Note ---
OT Current Status-Daily Note Subjective Pt found in room sitting in chair. Pt agreed to therapy, was alert and cooperative. Pt stated when no moving, no pain, when we got moving, pt asked about a pain pill and nursing was notified. Mental Status/Objective Patient Orientation: Person, Place, Time, Situation ADL-Treatment Pt independent with eating. Pt completed a sit to stand transfer and ambulated with FWW to closet in room, and gathered clothing, independently. Pt placed clothing from closet into the basket on FWW. Pt then ambulated to the bathroom with FWW, independently. Pt completed toileting independently, then ambulated to shower bench. Pt showered self independently. Pt transferred to a chair in bathroom after shower to dress. Pt completed upper body dressing independently using basket on FWW. Pt completed lower body dressing independently using FWW, and chair in bathroom. Pt ambulated with FWW independently to sink to complete grooming and oral care, pt sat in chair for energy conservation. Pt ambulated independently to chair in room using FWW, and transferred independently. Pt was left up in chair, with call light and phone within reach. All needs met. Therapy Code Descriptions/Definitions Functional [place] Measure: 0=Not Assessed/NA 4=Minimal Assistance 1=Total Assistance 5=Supervision or Setup 2=Maximal Assistance 6=Modified [place] 3=Moderate Assistance 7=Complete IndependenceSCALE: Activities may be completed with or without assistive devices. 1-Ivfkrqwxlp-xvagivz completes the activity by him/herself with no assistance from a helper. 5-Set-up or Clean-up Assistance-helper sets up or cleans up; patient completes activity. [place] assists only prior to or following the activity. 4-Supervision or Touching Assistance-helper provides verbal cues and/or touching/steadying and/or contact guard assistance as patient completes activity. Assistance may be provided throughout the activity or intermittently. 3-Partial/Moderate Assistance-helper does LESS THAN HALF the effort. [place] lifts, holds or supports trunk or limbs, but provides less than half the effort. 2-Substantial/Maximal Assistance-helper does MORE THAN HALF the effort. [place] lifts or holds trunk or limbs and provides more than half the effort. 4-Mielriknr-cplcqk does ALL the effort. Patient does none of the effort to complete the activity. Or, the assistance of 2 or more helpers is required for the patient to complete the activity. If activity was not attempted, code reason: 7-Patient Refused. 9-Not Applicable-not attempted and the patient did not perform the activity before the current illness, exacerbation or injury. 10-Not Attempted due to Environmental Limitations-(lack of equipment, weather restraints, etc.). 88-Not Attempted due to Medical Conditions or Safety Concerns. Eating (QC): 6 Oral Hygiene (QC): 6 Shower/Bathe Self (QC): 6 Upper Body Dressing (QC): 6 Lower Body Dressing (QC): 6 On/Off Footwear: 6 (Pt was able to mary socks indepenetly ) Toileting Hygiene (QC): 6 Toilet Transfer (QC): 6 Education OT Patient Education: Energy conservation, Modified ADL techniques, Progress toward Goal/Update tx plan Teaching Recipient: Patient Teaching Methods: Discussion Response to Teaching: Verbalize Understanding OT Short Term Goals Short Term Goals Time Frame: Jan 22, 2023 Shower/bathe self: 5 Lower body dressin OT Nursing Home Goals Nursing Home Goals Time Frame: January 29, 2023 Acute change in mental status: 0 Inattention: 0 Disorganized thinkin Altered level of consciousness: 0 Eating (QC): 6 Oral Hygiene (QC): 6 Toileting Hygiene (QC): 6 Shower/Bathe Self (QC): 6 Upper Body Dressing (QC): 6 Lower Body Dressing (QC): 6 On/Off Footwear (QC): 6 Additional Goals: 1-Demonstrate ADL Tasks, 2-Verbalize Understanding, 3- ImproveStrength/[place] 1=Demonstrate adherence to instructed precautions during ADL tasks. 2=Patient will verbalize/demonstrate understanding of assistive devices/modifications for ADL. 3=Patient will improve strength/tolerance for activity to enable patient to perform ADL's. OT Education/Plan Discharge Recommendations Plan/Recommendations: Continue POC Treatment Plan/Plan of Care Patient would benefit from OT for education, treatment and training to promote independence in ADL's, mobility, safety and/or upper extremity function for ADL's. Plan of Care: ADL Retraining, Functional Mobility, Group Exercise/Act as Ind Treatment Duration: January 29, 2023 Frequency: At least 5 of 7 days/Wk (IRF) Estimated Hrs Per Day: 1.5 hours per day Agreement: Yes Rehab Potential: Good Time Start Time: 10:00 Stop Time: 10:40 DATE: Jan 21, 2023 Total Time Billed (hr/min): 40 Billed Treatment Time 1 visit ADL 3 (40 min) Michelle Denton COTA Jan 21, 2023 11:14
--- NOTE | 2023-01-21 12:44 | PM&R Progress Note ---
Subjective HPI/CC On Admission Date Seen by Provider: Jan 21, 2023 Time Seen by Provider: 11:45 Subjective/Events-last exam 01/21/2023: Much improved DC Sat No falls Improved pain 01/20/2023: Doing wel Updated patient on DC Sat No falls 01/19/2023: Doing better Bone scan results discussed with Dr Dumont No evidence of hip infection Improved pain 01/18/2023: No major issues No pain reported Improved ambulation Checked meds and labs 01/17/2023: No major issues Walking better although slowly Family visiting No falls Pain controlled 01/16/2023: Doing well Pain controlled Bone scan Wednesday No falls BM+ Review of Systems General: Fatigue, Malaise Objective Exam Vital Signs Vital Signs Date Time Temp Pulse Resp B/P (MAP) Pulse Ox O2 Delivery O2 Flow Rate FiO2 01/21/23 21:30 92 Room Air 01/21/23 20:00 36.7 73 18 121/60 (80) Capillary Refill : General Appearance: No Apparent Distress, WD/WN, Chronically ill, Thin HEENT: PERRL/EOMI, Normal ENT Inspection, Pharynx Normal Neck: Full Range of Motion, Normal Inspection, Non Tender, Supple, Carotid Bruit Respiratory: Chest Non Tender, Lungs Clear, Normal Breath Sounds, No Accessory Muscle Use, No Respiratory Distress Cardiovascular: Regular Rate, Rhythm, No Edema, No Gallop, No JVD, Normal Peripheral Pulses, Systolic Murmur Gastrointestinal: Normal Bowel Sounds, No Organomegaly, No Pulsatile Mass, Non Tender, Soft Back: Normal Inspection, No CVA Tenderness, No Vertebral Tenderness Extremity: Normal Capillary Refill, Normal Inspection, Normal Range of Motion, Non Tender, No Calf Tenderness, No Pedal Edema Neurologic/Psychiatric: Alert, Oriented x3, Normal Mood/Affect, surveillance monitor II-XII Norm as Tested, Abnormal Gait, Motor Weakness (right leg) Skin: Normal Color, Warm/Dry Lymphatic: No Adenopathy Results/Procedures Lab Patient resulted labs reviewed. FIM Transfers Therapy Code Descriptions/Definitions Functional [place] Measure: 0=Not Assessed/NA 4=Minimal Assistance 1=Total Assistance 5=Supervision or Setup 2=Maximal Assistance 6=Modified [place] 3=Moderate Assistance 7=Complete IndependenceSCALE: Activities may be completed with or without assistive devices. 1-Cajxfzlsaq-tzounmh completes the activity by him/herself with no assistance fr om a helper. 5-Set-up or Clean-up Assistance-helper sets up or cleans up; patient completes activity. [place] assists only prior to or following the activity. 4-Supervision or Touching Assistance-helper provides verbal cues and/or touching/steadying and/or contact guard assistance as patient completes activity. Assistance may be provided throughout the activity or intermittently. 3-Partial/Moderate Assistance-helper does LESS THAN HALF the effort. [place] lifts, holds or supports trunk or limbs, but provides less than half the effort. 2-Substantial/Maximal Assistance-helper does MORE THAN HALF the effort. [place] lifts or holds trunk or limbs and provides more than half the effort. 5-Virurydgx-vxaboc does ALL the effort. Patient does none of the effort to complete the activity. Or, the assistance of 2 or more helpers is required for the patient to complete the activity. If activity was not attempted, code reason: 7-Patient Refused. 9-Not Applicable-not attempted and the patient did not perform the activity before the current illness, exacerbation or injury. 10-Not Attempted due to Environmental Limitations-(lack of equipment, weather restraints, etc.). 88-Not Attempted due to Medical Conditions or Safety Concerns. Roll Left to Right (QC): 6 (using bed rail) Sit to Lying (QC): 5 (patient given her leg table operator) Sit to Stand (QC): 6 Chair/Oiu-ri-Serxc Xfer(QC): 6 (with FWW) Car Transfer (QC): 4 (CGA ) Gait Training Does the Patient Walk?: Yes Walk 10 feet (QC): 5 (SBA with FWW) Walk 50 ft with 2 Turns(QC): 5 (SBA with FWW) Walk 150 ft (QC): 6 (with FWW) Walking 10ft/uneven surface-QC: 4 (CGA with FWW) Gait Assistive Device: FWW Wheelchair Training Does the Pt Use a Wheelchair?: No Wheel 50 ft with 2 turns (QC): 9 Wheel 150 ft (QC): 9 Stair Training #of Steps: 4 (steadying assist and cues to ascend/descend 6" step x 2 with FWW) 1 Step (curb) (QC): 4 (CGA with v.c. for walker placement) 4 Steps (QC): 4 ((I) with 3" steps wiht rails, CGA with 6" steps with rails. No cues needed for sequence. Step to pattern.) 12 Steps (QC): 4 (CGA with (B) rails) Balance Picking up an Object (QC): 5 (SBA with walker and gas controller) ADL-Treatment Oral Hygiene (QC): 6 Bathing Location: L Arm, R Arm, L Upper Leg, R Upper Leg, L Lower Leg (including foot), R Lower Leg (including foot), Chest, Abdomen, Buttocks, Perineal Area Shower/Bathe Self (QC): 6 Upper Body Dressing (QC): 5 Lower Body Dressing (QC): 5 On/Off Footwear (QC): 5 Toileting Hygiene (QC): 5 Toilet Transfer (QC): 4 Assessment/Plan Assessment and Plan Assess & Plan/Chief Complaint Assessment: Severe right hip and pelvis pain after fall 1 month ago now unable to ambulate normally but no fracture on Xray or CT or Dr Dumont assessment but he did recommend bone scan right hip and that was negative for infection and ESR CRP normal at [facility] Cognition deficit? UA normal, subtle but noted by family COPD Previous heavy smoker 60+ years cessation 2019 Osteoporosis on [facility] Urinary frequency but negative UA at [facility] on day of admit Pulmonary HTN 90 on ECHO negative USG right leg and negative PE on CT angiogram assessed by Cardiology locally and in Anxiety Previous assessment: h/o right hip fracture 07/04/20 s/p repair by Dr Chávez then dislocation of hardware 07/09/20 upon arrival to [facility] requiring transfer back to [facility] s/p spinal anesthesia but reduction only required h/o acute blood loss anemia s/p 2 units transfused 07/05/20 then again 07/09/20 h/o severe hypotension due to volume depletion requiring aggressive IVF administration at [facility] h/o acute pneumonia upon arrival to [facility] requiring septic w/u which was negative and empiric abx for HAP Plan: ARU protocol PT OT Pain control Bowel regimen Monitor cognition Bone scan Wednesday01/16/2023: No major concerns Improved 01/17/2023: Monitor closely Bone scan Consult Dr Sanders tomorrow 01/18/2023: Improved Bone scan today ECHO? 01/19/2023: Monitor closely 01/20/2023: Monitor closely 01/21/2023: Continue bowel regimen (1) Debility (2) COPD (chronic obstructive pulmonary disease) (3) Transfusion history (4) Frailty (5) Hyperlipemia (6) Anxiety (7) Osteoporosis (8) Pulmonary hypertension AVANI NICOLE DO Jan 21, 2023 12:44
--- NOTE | 2023-01-21 13:26 | Physical Therapy Daily Note ---
PT Daily Note-Current Subjective pt in bathroom upon arrival. pt reports 2/10 pain Pain Section J - Health Conditions 1. Rarely or not at all 2. Occasionally 3. Frequently 4. Almost constantly 8. Unable to answer Pain Effect on Sleep: 1 Pain Interference with Therapy: 2 Pain Interference w/Day-to-Day: 2 Mental Status Patient Orientation: Person, Place, Time, Situation Transfers SCALE: Activities may be completed with or without assistive devices. 7-Pvilkgibcl-fniwyal completes the activity by him/herself with no assistance from a helper. 5-Set-up or Clean-up Assistance-helper sets up or cleans up; patient completes activity. [place] assists only prior to or following the activity. 4-Supervision or Touching Assistance-helper provides verbal cues and/or touching/steadying and/or contact guard assistance as patient completes activity. Assistance may be provided throughout the activity or intermittently. 3-Partial/Moderate Assistance-helper does LESS THAN HALF the effort. [place] lifts, holds or supports trunk or limbs, but provides less than half the effort. 2-Substantial/Maximal Assistance-helper does MORE THAN HALF the effort. [place] lifts or holds trunk or limbs and provides more than half the effort. 8-Nihbccvou-qhyain does ALL the effort. Patient does none of the effort to complete the activity. Or, the assistance of 2 or more helpers is required for the patient to complete the activity. If activity was not attempted, code reason: 7-Patient Refused. 9-Not Applicable-not attempted and the patient did not perform the activity before the current illness, exacerbation or injury. 10-Not Attempted due to Environmental Limitations-(lack of equipment, weather restraints, etc.). 88-Not Attempted due to Medical Conditions or Safety Concerns. Weight Bearing Weight Bearing/Tolerated Weight Bearing/Tolerated Treatments pt is able to preform ambulation with supervision from toilet to bed in room. pt is able to facilitate 5 sit to stand focusing on BRENDA and balance this day. Pt is able to preform bed mobility with left solar sales estimator with independence. PT [facility] Goals Test Design Engineer Goals PT Test Design Engineer Goals Time Frame: January 29, 2023 Roll Left & Right (QC): 6 Sit to Lying (QC): 6 (with leg solar sales estimator as needed) Lying-Sitting on Side/Bed(QC): 6 (with leg solar sales estimator as needed) Sit to Stand (QC): 6 Chair/Wpd-bn-Umdku Xfer(QC): 6 Toilet Transfer (QC): 6 Car Transfer (QC): 6 Does the Patient Walk: Yes Walk 10 feet (QC): 6 (with walker or cane) Walk 50ft with 2 Turns (QC): 6 (with walker or cane) Walk 150 ft (QC): 6 (with walker or cane) Walking 10ft on Uneven Surface: 6 (with walker or cane) 1 Step (curb) (QC): 6 (with walker or cane and rail) 4 Steps (QC): 6 (with railings) 12 Steps (QC): 6 (with railings) Picking up an Object (QC): 6 (with cash register operator) Does the Pt use WC or Scooter?: No Wheel 50 feet with 2 turns (QC: 9 Wheel 150 feet: 9 PT Plan Treatment/Plan Treatment Plan: Continue Plan of Care Treatment Plan: Bed Mobility, Education, Functional Activity [place], Functional Strength, Group Therapy, Gait, Safety, Therapeutic Exercise, Transfers, Other (Manual therapy for MET for innominate rotation) Treatment Duration: January 29, 2023 Frequency: At least 5 of 7 days/Wk (IRF) Estimated Hrs Per Day: 1.5 hours per day Patient and/or Family Agrees t: Yes Time Time In: 1305 Time Out: 1315 DATE: Jan 21, 2023 Total Billed Treatment Time: 10 Total Billed Treatment 1 FA pt left laying in bed with call light and all needs met. Malissa Erickson RACE CAR DRIVER Jan 21, 2023 13:25
--- NOTE | 2023-01-21 13:36 | Occupational Ther Daily Note ---
OT Current Status-Daily Note Subjective Pt found in room. Pt has no complains, stated she was very pleased with her care so far here during her stay. Pt also stated has no pain when lying in bed, when she gets to moving and walking, pain is 6/10. ADL-Treatment Family training. OT educated family on level of assistance pt needed all ADLs, explained each in detail as far as level of assistance needed for each for when heading home. Family had no concerns or questions about pts care when going home. OT recommended a basket for FWW pt has at home to help with gathering clothes. Family verbalized understanding Therapy Code Descriptions/Definitions Functional [place] Measure: 0=Not Assessed/NA 4=Minimal Assistance 1=Total Assistance 5=Supervision or Setup 2=Maximal Assistance 6=Modified [place] 3=Moderate Assistance 7=Complete IndependenceSCALE: Activities may be completed with or without assistive devices. 0-Fcmrpcpdci-emplmeu completes the activity by him/herself with no assistance from a helper. 5-Set-up or Clean-up Assistance-helper sets up or cleans up; patient completes activity. [place] assists only prior to or following the activity. 4-Supervision or Touching Assistance-helper provides verbal cues and/or touching/steadying and/or contact guard assistance as patient completes activity. Assistance may be provided throughout the activity or intermittently. 3-Partial/Moderate Assistance-helper does LESS THAN HALF the effort. [place] lifts, holds or supports trunk or limbs, but provides less than half the effort. 2-Substantial/Maximal Assistance-helper does MORE THAN HALF the effort. [place] l ifts or holds trunk or limbs and provides more than half the effort. 2-Xvqhuaylx-jgbqtj does ALL the effort. Patient does none of the effort to complete the activity. Or, the assistance of 2 or more helpers is required for the patient to complete the activity. If activity was not attempted, code reason: 7-Patient Refused. 9-Not Applicable-not attempted and the patient did not perform the activity before the current illness, exacerbation or injury. 10-Not Attempted due to Environmental Limitations-(lack of equipment, weather restraints, etc.). 88-Not Attempted due to Medical Conditions or Safety Concerns. Education Teaching Recipient: Patient, Family Teaching Methods: Discussion Response to Teaching: Verbalize Understanding OT Short Term Goals Short Term Goals Time Frame: Jan 22, 2023 Shower/bathe self: 5 Lower body dressin OT Retirement Goals Supervisor Water Softener Service Goals Time Frame: January 29, 2023 Acute change in mental status: 0 Inattention: 0 Disorganized thinkin Altered level of consciousness: 0 Eating (QC): 6 Oral Hygiene (QC): 6 Toileting Hygiene (QC): 6 Shower/Bathe Self (QC): 6 Upper Body Dressing (QC): 6 Lower Body Dressing (QC): 6 On/Off Footwear (QC): 6 Additional Goals: 1-Demonstrate ADL Tasks, 2-Verbalize Understanding, 3- ImproveStrength/[place] 1=Demonstrate adherence to instructed precautions during ADL tasks. 2=Patient will verbalize/demonstrate understanding of assistive devices/modifications for ADL. 3=Patient will improve strength/tolerance for activity to enable patient to perform ADL's. OT Education/Plan Discharge Recommendations Plan/Recommendations: Continue POC Treatment Plan/Plan of Care Patient would benefit from OT for education, treatment and training to promote independence in ADL's, mobility, safety and/or upper extremity function for ADL's. Plan of Care: ADL Retraining, Functional Mobility, Group Exercise/Act as Ind Treatment Duration: January 29, 2023 Frequency: At least 5 of 7 days/Wk (IRF) Estimated Hrs Per Day: 1.5 hours per day Agreement: Yes Rehab Potential: Good Time Start Time: 08:32 Stop Time: 08:52 DATE: Jan 21, 2023 Total Time Billed (hr/min): 20 Billed Treatment Time 1 visit FA 1 (20 min) Michelle Denton COTA Jan 21, 2023 13:36
--- NOTE | 2023-01-21 13:54 | Occupational Ther Daily Note ---
OT Current Status-Daily Note Subjective Pt found sitting in chair in room. Pt agreed to therapy, alert and cooperative. Mental Status/Objective Patient Orientation: Person, Place, Time, Situation ADL-Treatment Pt completed all 5 HEP exercises doing 15 reps 2 sets with red theraband while seated. Pt was able to complete exercises with very minimal recovery breaks in between each set. Pt verbalized needing to use the restroom. So pt sit to stand transfer independently. Pt ambulated with FWW independently to toilet in bathroom. Pt completed toilet transfer and toilet hygiene independently. Pt used FWW to ambulate back to chair in room independently. Pt transferred back into chair in room, independently. Pt was left in room sitting up in chair, call light and phone were within reach and all needs met in room. Therapy Code Descriptions/Definitions Functional [place] Measure: 0=Not Assessed/NA 4=Minimal Assistance 1=Total Assistance 5=Supervision or Setup 2=Maximal Assistance 6=Modified [place] 3=Moderate Assistance 7=Complete IndependenceSCALE: Activities may be completed with or without assistive devices. 0-Vuhzobhuds-gdxuohx completes the activity by him/herself with no assistance from a helper. 5-Set-up or Clean-up Assistance-helper sets up or cleans up; patient completes activity. [place] assists only prior to or following the activity. 4-Supervision or Touching Assistance-helper provides verbal cues and/or touching/steadying and/or contact guard assistance as patient completes activity. Assistance may be provided throughout the activity or intermittently. 3-Partial/Moderate Assistance-helper does LESS THAN HALF the effort. [place] lifts, holds or supports trunk or limbs, but provides less than half the effort. 2-Substantial/Maximal Assistance-helper does MORE THAN HALF the effort. [place] lifts or holds trunk or limbs and provides more than half the effort. 0-Pjzjsxxnj-wluzyy does ALL the effort. Patient does none of the effort to co mplete the activity. Or, the assistance of 2 or more helpers is required for the patient to complete the activity. If activity was not attempted, code reason: 7-Patient Refused. 9-Not Applicable-not attempted and the patient did not perform the activity before the current illness, exacerbation or injury. 10-Not Attempted due to Environmental Limitations-(lack of equipment, weather restraints, etc.). 88-Not Attempted due to Medical Conditions or Safety Concerns. Education OT Patient Education: Exercise program, Home exercise program Teaching Recipient: Patient Teaching Methods: Demonstration, Handout Response to Teaching: Verbalize Understanding OT Short Term Goals Short Term Goals Time Frame: Jan 22, 2023 Shower/bathe self: 5 Lower body dressin OT Long-Term Goals Lineman A Class Goals Time Frame: January 29, 2023 Acute change in mental status: 0 Inattention: 0 Disorganized thinkin Altered level of consciousness: 0 Eating (QC): 6 Oral Hygiene (QC): 6 Toileting Hygiene (QC): 6 Shower/Bathe Self (QC): 6 Upper Body Dressing (QC): 6 Lower Body Dressing (QC): 6 On/Off Footwear (QC): 6 Additional Goals: 1-Demonstrate ADL Tasks, 2-Verbalize Understanding, 3- ImproveStrength/[place] 1=Demonstrate adherence to instructed precautions during ADL tasks. 2=Patient will verbalize/demonstrate understanding of assistive devices/modifications for ADL. 3=Patient will improve strength/tolerance for activity to enable patient to perform ADL's. OT Education/Plan Problem List/Assessment Assessment: Decreased UE Strength Discharge Recommendations Plan/Recommendations: Continue POC Treatment Plan/Plan of Care Patient would benefit from OT for education, treatment and training to promote independence in ADL's, mobility, safety and/or upper extremity function for ADL's. Plan of Care: ADL Retraining, Functional Mobility, Group Exercise/Act as Ind Treatment Duration: January 29, 2023 Frequency: At least 5 of 7 days/Wk (IRF) Estimated Hrs Per Day: 1.5 hours per day Agreement: Yes Rehab Potential: Good Time Start Time: 11:15 Stop Time: 11:45 DATE: Jan 21, 2023 Total Time Billed (hr/min): 30 Billed Treatment Time 1 visit Ex 2 (30 mins) Michelle Denton COTA Jan 21, 2023 13:54
[2023-01-21] MEDS: AtorvaSTATin TABLET 10 MG TABLET PO SCH (19:53)
[2023-01-21] MEDS: eZETimibe 10 MG (ZETIA) TABLET PO SCH (19:54)
[2023-01-21] MEDS: ASPIRIN 81 MG CHEW (CHILDREN'S ASA) PO SCH (19:54)
[2023-01-21 20:00] VITALS: BP 121/60
[2023-01-22] MEDS: HYDROcodone/APAP 5 MG/325 MG (LORTAB) TAB PO PRN ×5 (00:11→20:18)
--- NOTE | 2023-01-22 05:26 | PM&R Progress Note ---
Subjective HPI/CC On Admission Date Seen by Provider: Jan 22, 2023 Time Seen by Provider: 11:45 Subjective/Events-last exam 01/22/2023: Ready for DC tomorrow No pain other than pelvis DC ready 01/21/2023: Much improved DC Sat No falls Improved pain 01/20/2023: Doing wel Updated patient on DC Sat No falls 01/19/2023: Doing better Bone scan results discussed with Dr Dumont No evidence of hip infection Improved pain 01/18/2023: No major issues No pain reported Improved ambulation Checked meds and labs 01/17/2023: No major issues Walking better although slowly Family visiting No falls Pain controlled 01/16/2023: Doing well Pain controlled Bone scan Wednesday No falls BM+ Review of Systems General: Fatigue, Malaise Objective Exam Vital Signs Vital Signs Date Time Temp Pulse Resp B/P (MAP) Pulse Ox O2 Delivery O2 Flow Rate FiO2 01/22/23 20:30 91 Room Air 01/22/23 20:01 36.3 80 16 100/60 (73) Capillary Refill : General Appearance: No Apparent Distress, WD/WN, Chronically ill, Thin HEENT: PERRL/EOMI, Normal ENT Inspection, Pharynx Normal Neck: Full Range of Motion, Normal Inspection, Non Tender, Supple, Carotid Bruit Respiratory: Chest Non Tender, Lungs Clear, Normal Breath Sounds, No Accessory Muscle Use, No Respiratory Distress Cardiovascular: Regular Rate, Rhythm, No Edema, No Gallop, No JVD, Normal Peripheral Pulses, Systolic Murmur Gastrointestinal: Normal Bowel Sounds, No Organomegaly, No Pulsatile Mass, Non Tender, Soft Back: Normal Inspection, No CVA Tenderness, No Vertebral Tenderness Extremity: Normal Capillary Refill, Normal Inspection, Normal Range of Motion, Non Tender, No Calf Tenderness, No Pedal Edema Neurologic/Psychiatric: Alert, Oriented x3, Normal Mood/Affect, citrus picker II-XII Norm as Tested, Abnormal Gait, Motor Weakness (right leg) Skin: Normal Color, Warm/Dry Lymphatic: No Adenopathy Results/Procedures Lab Patient resulted labs reviewed. FIM Transfers Therapy Code Descriptions/Definitions Functional [place] Measure: 0=Not Assessed/NA 4=Minimal Assistance 1=Total Assistance 5=Supervision or Setup 2=Maximal Assistance 6=Modified [place] 3=Moderate Assistance 7=Complete IndependenceSCALE: Activities may be completed with or without assistive devices. 6-Vjnjwmopqm-uthoopy completes the activity by him/herself with no assistance from a helper. 5-Set-up or Clean-up Assistance-helper sets up or cleans up; patient completes activity. [place] assists only prior to or following the activity. 4-Supervision or Touching Assistance-helper provides verbal cues and/or touching/steadying and/or contact guard assistance as patient completes activi ty. Assistance may be provided throughout the activity or intermittently. 3-Partial/Moderate Assistance-helper does LESS THAN HALF the effort. [place] lifts, holds or supports trunk or limbs, but provides less than half the effort. 2-Substantial/Maximal Assistance-helper does MORE THAN HALF the effort. [place] lifts or holds trunk or limbs and provides more than half the effort. 9-Fhwljehip-urskmk does ALL the effort. Patient does none of the effort to complete the activity. Or, the assistance of 2 or more helpers is required for the patient to complete the activity. If activity was not attempted, code reason: 7-Patient Refused. 9-Not Applicable-not attempted and the patient did not perform the activity before the current illness, exacerbation or injury. 10-Not Attempted due to Environmental Limitations-(lack of equipment, weather restraints, etc.). 88-Not Attempted due to Medical Conditions or Safety Concerns. Roll Left to Right (QC): 6 (using bed rail) Sit to Lying (QC): 5 (patient given her leg physical therapist technician) Sit to Stand (QC): 6 Chair/Lxg-et-Nmsox Xfer(QC): 6 (with FWW) Car Transfer (QC): 4 (CGA ) Gait Training Does the Patient Walk?: Yes Walk 10 feet (QC): 5 (SBA with FWW) Walk 50 ft with 2 Turns(QC): 5 (SBA with FWW) Walk 150 ft (QC): 6 (with FWW) Walking 10ft/uneven surface-QC: 4 (CGA with FWW) Gait Assistive Device: FWW Wheelchair Training Does the Pt Use a Wheelchair?: No Wheel 50 ft with 2 turns (QC): 9 Wheel 150 ft (QC): 9 Stair Training #of Steps: 4 (steadying assist and cues to ascend/descend 6" step x 2 with FWW) 1 Step (curb) (QC): 4 (CGA with v.c. for walker placement) 4 Steps (QC): 4 ((I) with 3" steps wiht rails, CGA with 6" steps with rails. No cues needed for sequence. Step to pattern.) 12 Steps (QC): 4 (CGA with (B) rails) Balance Picking up an Object (QC): 5 (SBA with walker and waste water worker) ADL-Treatment Eating (QC): 6 Oral Hygiene (QC): 6 Bathing Location: L Arm, R Arm, L Upper Leg, R Upper Leg, L Lower Leg (including foot), R Lower Leg (including foot), Chest, Abdomen, Buttocks, Perineal Area Shower/Bathe Self (QC): 6 Upper Body Dressing (QC): 6 Lower Body Dressing (QC): 6 On/Off Footwear (QC): 6 (Pt was able to mary socks indepenetly ) Toileting Hygiene (QC): 6 Toilet Transfer (QC): 6 Assessment/Plan Assessment and Plan Assess & Plan/Chief Complaint Assessment: Severe right hip and pelvis pain after fall 1 month ago now unable to ambulate normally but no fracture on Xray or CT or Dr Dumont assessment but he did recommend bone scan right hip and that was negative for infection and ESR CRP normal at [facility] Cognition deficit? UA normal, subtle but noted by family COPD Previous heavy smoker 60+ years cessation 2019 Osteoporosis on [facility] Urinary frequency but negative UA at [facility] on day of admit Pulmonary HTN 90 on ECHO negative USG right leg and negative PE on CT angiogram assessed by Cardiology locally and in [facility] Anxiety Previous assessment: h/o right hip fracture 07/04/20 s/p repair by Dr Chávez then dislocation of hardware 07/09/20 upon arrival to ARU requiring transfer back to [facility] s/p spinal anesthesia but reduction only required h/o acute blood loss anemia s/p 2 units transfused 07/05/20 then again 07/09/20 h/o severe hypotension due to volume depletion requiring aggressive IVF administration at [facility] h/o acute pneumonia upon arrival to [facility] requiring septic w/u which was negative and empiric abx for HAP Plan: ARU protocol PT OT Pain control Bowel regimen Monitor cognition Bone scan Wednesday01/16/2023: No major concerns Improved 01/17/2023: Monitor closely Bone scan Consult Dr Sanders tomorrow 01/18/2023: Improved Bone scan today ECHO? 01/19/2023: Monitor closely 01/20/2023: Monitor closely 01/21/2023: Continue bowel regimen 01/22/2023: DC tomorrow (1) Debility (2) COPD (chronic obstructive pulmonary disease) (3) Transfusion history (4) Frailty (5) Hyperlipemia (6) Anxiety (7) Osteoporosis (8) Pulmonary hypertension AVANI NICOLE DO Jan 22, 2023 05:26
[2023-01-22 08:07] VITALS: BP 136/53
[2023-01-22] MEDS: OXYBUTYNIN (DITROPAN) 5 MG TAB PO SCH ×3 (09:04→20:17)
[2023-01-22] MEDS: MULTIVIT W/MINERALS TAB (THERAGRAN M) PO SCH (09:04)
[2023-01-22] MEDS: ENOXAPARIN INJECTION 30 MG/0.3 ML SYR SQ SCH (09:05)
[2023-01-22] MEDS: SENNA W/DOCUSATE (SENOKOT S) TABLET PO SCH (09:05)
[2023-01-22] MEDS: SERTRALINE 100 MG (ZOLOFT) TAB PO SCH (09:05)
[2023-01-22] MEDS: CALCIUM CARB + VIT D 600 MG (CALCARB + D) TAB PO SCH (09:05)
[2023-01-22] MEDS: VENlafaxine XR 75 MG (EFFEXOR XR) CAP PO SCH (09:05)
[2023-01-22] MEDS: LEVOTHYROXINE 50 MCG (LEVOTHROID) TAB PO SCH (09:05)
[2023-01-22] MEDS: DOCUSATE SODIUM 100 MG (COLACE) CAP PO SCH ×2 (09:05→20:16)
[2023-01-22] MEDS: LACTULOSE SYRUP 10GM/15ML (ENULOSE) 30ML UDC PO SCH ×2 (09:05→20:18)
[2023-01-22] MEDS: polyethylene glycoL POWDER 17 GM (MIRALAX) PACK PO SCH ×2 (09:06→20:18)
--- NOTE | 2023-01-22 09:11 | Physical Therapy Daily Note ---
PT Daily Note-Current Subjective Pt in room sitting EOB upon arrival and wiling for therapy. pt states her pain is her "Normal" 5/10. states it is more of a pulling or aching. pt has received pain Med aprox 1 hr before therapy. Pain Section J - Health Conditions 1. Rarely or not at all 2. Occasionally 3. Frequently 4. Almost constantly 8. Unable to answer Pain Effect on Sleep: 1 Pain Interference with Therapy: 2 Pain Interference w/Day-to-Day: 2 Transfers SCALE: Activities may be completed with or without assistive devices. 9-Dhwqhbmxtx-czwosos completes the activity by him/herself with no assistance from a helper. 5-Set-up or Clean-up Assistance-helper sets up or cleans up; patient completes activity. [place] assists only prior to or following the activity. 4-Supervision or Touching Assistance-helper provides verbal cues and/or touching/steadying and/or contact guard assistance as patient completes activity. Assistance may be provided throughout the activity or intermittently. 3-Partial/Moderate Assistance-helper does LESS THAN HALF the effort. [place] lifts, holds or supports trunk or limbs, but provides less than half the effort. 2-Substantial/Maximal Assistance-helper does MORE THAN HALF the effort. [place] lifts or holds trunk or limbs and provides more than half the effort. 4-Hymoglcri-pibecn does ALL the effort. Patient does none of the effort to complete the activity. Or, the assistance of 2 or more helpers is required for the patient to complete the activity. If activity was not attempted, code reason: 7-Patient Refused. 9-Not Applicable-not attempted and the patient did not perform the activity before the current illness, exacerbation or injury. 10-Not Attempted due to Environmental Limitations-(lack of equipment, weather restraints, etc.). 88-Not Attempted due to Medical Conditions or Safety Concerns. Roll Left & Right (QC): 6 Sit to Lying (QC): 6 Lying to Sitting/Side of Bed(Q: 6 Sit to Stand (QC): 6 Chair/Zac-lm-Enjky Xfer(QC): 6 Toilet Transfer (QC): 6 Car Transfer (QC): 6 Weight Bearing Weight Bearing/Tolerated Weight Bearing/Tolerated Gait Training Walk 10 feet (QC): 6 Walk 50 ft with 2 Turns(QC): 6 Walk 150 ft (QC): 6 Walking 10ft/uneven surface-QC: 6 Wheelchair Training Does the Pt Use a Wheelchair?: No Wheel 50 ft with 2 turns (QC): 6 Wheel 150 ft (QC): 6 Stair Training #of Steps: 6 1 Step (curb) (QC): 6 4 Steps (QC): 6 12 Steps (QC): 6 Balance Picking up an Object (QC): 6 Exercises Standing: Hip Abduction, Heel/toe raises, Marching, Mini squats, Sit to Stand Treatments Pt was assessed for bed mobility, car transfers, walking on uneven surfaces, as well as gait mobility. pt was able to preform all activity with no LOB and no VC for safety. pt did requires small rest in between activity but is able to resume activity after 1-2 min rest. pt preformed sitting and standing ther-ex for 2 reps x 15 each with 1lb ankle weights on for increased resistance. pt is able to preform extra reps from increased BLE strength and stamina. Assessment Current Status: Excellent Progress PT Prison Goals Prison Goals PT Prison Goals Time Frame: January 29, 2023 Roll Left & Right (QC): 6 Sit to Lying (QC): 6 (with leg owner as needed) Lying-Sitting on Side/Bed(QC): 6 (with leg owner as needed) Sit to Stand (QC): 6 Chair/Iae-sb-Nspib Xfer(QC): 6 Toilet Transfer (QC): 6 Car Transfer (QC): 6 Does the Patient Walk: Yes Walk 10 feet (QC): 6 (with walker or cane) Walk 50ft with 2 Turns (QC): 6 (with walker or cane) Walk 150 ft (QC): 6 (with walker or cane) Walking 10ft on Uneven Surface: 6 (with walker or cane) 1 Step (curb) (QC): 6 (with walker or cane and rail) 4 Steps (QC): 6 (with railings) 12 Steps (QC): 6 (with railings) Picking up an Object (QC): 6 (with profile mill operator tape control) Does the Pt use WC or Scooter?: No Wheel 50 feet with 2 turns (QC: 9 Wheel 150 feet: 9 PT Plan Treatment/Plan Treatment Plan: Continue Plan of Care Treatment Plan: Bed Mobility, Education, Functional Activity Latosha, Functional Strength, Group Therapy, Gait, Safety, Therapeutic Exercise, Transfers, Other (Manual therapy for MET for innominate rotation) Treatment Duration: January 29, 2023 Frequency: At least 5 of 7 days/Wk (IRF) Estimated Hrs Per Day: 1.5 hours per day Patient and/or Family Agrees t: Yes Time Time In: 0800 Time Out: 0900 DATE: Jan 22, 2023 Total Billed Treatment Time: 60 Total Billed Treatment 1 EX GT FAx2 pt left in room sitting EOB with call light and all needs met. Malissa Erickson BRIMMING MACHINE OPERATOR Jan 22, 2023 09:11
[2023-01-22] MEDS: ACETAMINOPHEN 325 MG TABLET PO PRN (10:01)
--- NOTE | 2023-01-22 11:15 | Occupational Ther Daily Note ---
OT Current Status-Daily Note Subjective Pt was found in room sitting EOB. Pt stated less pain today, feeling better. Mental Status/Objective Patient Orientation: Person, Place, Time, Situation ADL-Treatment Pt completed all HEP independently with minimal verbal cues, using red theraband,15 reps 2 sets. Pt is Independent with eating. Pt ambulated to bathroom with FWW, independently. Pt ambulated to toilet and completed toilet transfer, as well as toilet hygiene. Pt is independent with both toilet hygiene, and toilet transfers.Pt gathered clothing using basket on FWW, independently. Pt then ambulated to shower bench in bathroom with FWW, independently. Pt showered and bathed self independently. Pt ambulated to chair in bathroom, FWW. Pt completed upper body dressing independently using basket on walker to hold clothes. Pt completed lower body dressing independently. Pt also donned socks and shoes independently. Pt completed oral care and grooming independently while seated at sink. Pt ambulated, back to chair in room with FWW independently. Pt was left sitting in chair in room, with call light and phone within reach. All needs met. Therapy Code Descriptions/Definitions Functional [place] Measure: 0=Not Assessed/NA 4=Minimal Assistance 1=Total Assistance 5=Supervision or Setup 2=Maximal Assistance 6=Modified [place] 3=Moderate Assistance 7=Complete IndependenceSCALE: Activities may be completed with or without assistive devices. 1-Wejbfdbogd-kluucbm completes the activity by him/herself with no assistance from a helper. 5-Set-up or Clean-up Assistance-helper sets up or cleans up; patient completes activity. [place] assists only prior to or following the activity. 4-Supervision or Touching Assistance-helper provides verbal cues and/or touching/steadying and/or contact guard assistance as patient completes activity. Assistance may be provided throughout the activity or intermittently. 3-Partial/Moderate Assistance-helper does LESS THAN HALF the effort. [place] lifts, holds or supports trunk or limbs, but provides less than half the effort. 2-Substantial/Maximal Assistance-helper does MORE THAN HALF the effort. [place] lifts or holds trunk or limbs and provides more than half the effort. 6-Itphfrjoh-itmfdz does ALL the effort. Patient does none of the effort to complete the activity. Or, the assistance of 2 or more helpers is required for the patient to complete the activity. If activity was not attempted, code reason: 7-Patient Refused. 9-Not Applicable-not attempted and the patient did not perform the activity before the current illness, exacerbation or injury. 10-Not Attempted due to Environmental Limitations-(lack of equipment, weather restraints, etc.). 88-Not Attempted due to Medical Conditions or Safety Concerns. Eating (QC): 6 Oral Hygiene (QC): 6 (seated at sink) Bathing Location: L Arm, R Arm, L Upper Leg, R Upper Leg, L Lower Leg (including foot), R Lower Leg (including foot), Chest, Abdomen, Buttocks, Perineal Area Shower/Bathe Self (QC): 6 Upper Body Dressing (QC): 6 Lower Body Dressing (QC): 6 On/Off Footwear: 6 Toileting Hygiene (QC): 6 Toilet Transfer (QC): 6 Education OT Patient Education: Energy conservation, Home exercise program, Progress toward Goal/Update tx plan, Purpose of tx/functional activities Teaching Recipient: Patient Teaching Methods: Demonstration, Handout Response to Teaching: Verbalize Understanding BIMS CAM BIMS Expression of Ideas and Wants: Without Difficulty Understanding Verbal Content: Understands Brief Interview/Mental Status: Yes IRF LAURA BIMS: IRF LAURA BIMS Response (Comments) Value Repitition of Three Words Three 3 Recalls Socks Yes, No Cue Required 2 Recalls Blue Yes, No Cue Required 2 Recalls Bed Yes, No Cue Required 2 Year Correct 3 Month Accurate Within 5 Days 2 Day Correct 1 Total 15 Patient Normally Able to Recal: Current Session, Location of own room, Staff Names and faces, That he/she in a [facility] Should Staff Asses. Mental St.: No Memory/Recall Ability: Current Season, Location of Own Room, Staff Names and Faces, That He/She in [facility] Mental Status Change/Baseline: 0 Inattention: 0 Disorganized thinkin Altered level of consciousness: 0 OT Short Term Goals Short Term Goals Time Frame: Jan 22, 2023 Eatin Oral hygiene: 6 Toileting hygiene: 6 Shower/bathe self: 6 Upper body dressin Lower body dressin Putting on/taking off footwear: 6 OT Environmental Services Floor Tech Goals Environmental Services Floor Tech Goals Time Frame: January 29, 2023 Acute change in mental status: 0 Inattention: 0 Disorganized thinkin Altered level of consciousness: 0 Eating (QC): 6 (met) Oral Hygiene (QC): 6 (met) Toileting Hygiene (QC): 6 (met) Shower/Bathe Self (QC): 6 (met) Upper Body Dressing (QC): 6 (met) Lower Body Dressing (QC): 6 (met) On/Off Footwear (QC): 6 (met) Additional Goals: 1-Demonstrate ADL Tasks, 2-Verbalize Understanding, 3- ImproveStrength/[place] 1=Demonstrate adherence to instructed precautions during ADL tasks. 2=Patient will verbalize/demonstrate understanding of assistive devices/modifications for ADL. 3=Patient will improve strength/tolerance for activity to enable patient to perform ADL's. OT Education/Plan Discharge Recommendations Plan/Recommendations: Continue POC Treatment Plan/Plan of Care Patient would benefit from OT for education, treatment and training to promote independence in ADL's, mobility, safety and/or upper extremity function for ADL's. Plan of Care: ADL Retraining, Functional Mobility, Group Exercise/Act as Ind Treatment Duration: January 29, 2023 Frequency: At least 5 of 7 days/Wk (IRF) Estimated Hrs Per Day: 1.5 hours per day Agreement: Yes Rehab Potential: Good Time Start Time: 09:00 Stop Time: 10:30 DATE: Jan 22, 2023 Total Time Billed (hr/min): 90 Billed Treatment Time 1 visit ADL 4, Ex 2 Michelle Denton COTA Jan 22, 2023 11:15
--- NOTE | 2023-01-22 11:47 | Physical Therapy Daily Note ---
PT Daily Note-Current Subjective Pt in recliner upon entering room and willing for therapy. pt stated her pain is much better this afternoon. Pain Section J - Health Conditions 1. Rarely or not at all 2. Occasionally 3. Frequently 4. Almost constantly 8. Unable to answer Pain Effect on Sleep: 1 Pain Interference with Therapy: 2 Pain Interference w/Day-to-Day: 2 Mental Status Patient Orientation: Person, Place, Time, Situation Transfers SCALE: Activities may be completed with or without assistive devices. 8-Beuxynllqc-jvdaxgv completes the activity by him/herself with no assistance from a helper. 5-Set-up or Clean-up Assistance-helper sets up or cleans up; patient completes activity. [place] assists only prior to or following the activity. 4-Supervision or Touching Assistance-helper provides verbal cues and/or touching/steadying and/or contact guard assistance as patient completes activity. Assistance may be provided throughout the activity or intermittently. 3-Partial/Moderate Assistance-helper does LESS THAN HALF the effort. [place] lifts, holds or supports trunk or limbs, but provides less than half the effort. 2-Substantial/Maximal Assistance-helper does MORE THAN HALF the effort. [place] lifts or holds trunk or limbs and provides more than half the effort. 4-Ibevuupgi-pvbctd does ALL the effort. Patient does none of the effort to complete the activity. Or, the assistance of 2 or more helpers is required for the patient to complete the activity. If activity was not attempted, code reason: 7-Patient Refused. 9-Not Applicable-not attempted and the patient did not perform the activity before the current illness, exacerbation or injury. 10-Not Attempted due to Environmental Limitations-(lack of equipment, weather restraints, etc.). 88-Not Attempted due to Medical Conditions or Safety Concerns. Weight Bearing Weight Bearing/Tolerated Weight Bearing/Tolerated Exercises NuStep Minutes: 20 NuStep Workload: 1 Treatments Pt was able to preform Nu-Step for 20 mins at level 1 showing increased endurance with an increase of 5 more minutes then the previous days therapy session. Assessment Current Status: Excellent Progress PT Copy Clerk Goals Copy Clerk Goals PT Retirement Goals Time Frame: January 29, 2023 Roll Left & Right (QC): 6 Sit to Lying (QC): 6 (with leg water taxi operator as needed) Lying-Sitting on Side/Bed(QC): 6 (with leg water taxi operator as needed) Sit to Stand (QC): 6 Chair/Urz-gu-Ubaxg Xfer(QC): 6 Toilet Transfer (QC): 6 Car Transfer (QC): 6 Does the Patient Walk: Yes Walk 10 feet (QC): 6 (with walker or cane) Walk 50ft with 2 Turns (QC): 6 (with walker or cane) Walk 150 ft (QC): 6 (with walker or cane) Walking 10ft on Uneven Surface: 6 (with walker or cane) 1 Step (curb) (QC): 6 (with walker or cane and rail) 4 Steps (QC): 6 (with railings) 12 Steps (QC): 6 (with railings) Picking up an Object (QC): 6 (with lan specialist) Does the Pt use WC or Scooter?: No Wheel 50 feet with 2 turns (QC: 9 Wheel 150 feet: 9 PT Plan Treatment/Plan Treatment Plan: Continue Plan of Care Treatment Plan: Bed Mobility, Education, Functional Activity Latosha, Functional Strength, Group Therapy, Gait, Safety, Therapeutic Exercise, Transfers, Other (Manual therapy for MET for innominate rotation) Treatment Duration: January 29, 2023 Frequency: At least 5 of 7 days/Wk (IRF) Estimated Hrs Per Day: 1.5 hours per day Patient and/or Family Agrees t: Yes Time Time In: 1100 Time Out: 1130 DATE: Jan 22, 2023 Total Billed Treatment Time: 30 Total Billed Treatment 1 EX FA Pt left in recliner with call light and all need met. Malissa Erickson WAREHOUSE RECEIVING CLERK Jan 22, 2023 11:47
[2023-01-22 20:01] VITALS: BP 100/60
[2023-01-22] MEDS: ASPIRIN 81 MG CHEW (CHILDREN'S ASA) PO SCH (20:16)
[2023-01-22] MEDS: AtorvaSTATin TABLET 10 MG TABLET PO SCH (20:17)
[2023-01-22] MEDS: eZETimibe 10 MG (ZETIA) TABLET PO SCH (20:17)
[2023-01-23] MEDS: HYDROcodone/APAP 5 MG/325 MG (LORTAB) TAB PO PRN ×2 (00:16→08:35)
[2023-01-23] MEDS ORDERED: ACHD5005 PO (06:35)
--- NOTE | 2023-01-23 06:37 | Discharge Summary ---
Diagnosis/Chief Complaint Date of Admission Jan 15, 2023 at 10:44 Date of Discharge Discharge Date: Jan 23, 2023 Discharge Diagnosis Assessment: Severe right hip and pelvis pain after fall 1 month ago now unable to ambulate normally but no fracture on Xray or CT or Dr Dumont assessment but he did recommend bone scan right hip and that was negative for infection and ESR CRP normal at [facility] [place] Cognition deficit? UA normal, subtle but noted by family COPD Previous heavy smoker 60+ years cessation 2019 Osteoporosis on [facility] Urinary frequency but negative UA at [facility] [place] on day of admit Pulmonary HTN 90 on ECHO negative USG right leg and negative PE on CT angiogram assessed by Cardiology locally and in [facility] Anxiety Previous assessment: h/o right hip fracture 07/04/20 s/p repair by Dr Chávez then dislocation of hardware 07/09/20 upon arrival to ARU requiring transfer back to [facility] [place] s/p spinal anesthesia but reduction only required h/o acute blood loss anemia s/p 2 units transfused 07/05/20 then again 07/09/20 h/o severe hypotension due to volume depletion requiring aggressive IVF administration at [facility] [place] h/o acute pneumonia upon arrival to [facility] requiring septic w/u which was negative and empiric abx for HAP Plan: ARU protocol PT OT Pain control Bowel regimen Monitor cognition Bone scan Wednesday01/16/2023: No major concerns Improved 01/17/2023: Monitor closely Bone scan Consult Dr Sanders tomorrow 01/18/2023: Improved Bone scan today ECHO? 01/19/2023: Monitor closely 01/20/2023: Monitor closely 01/21/2023: Continue bowel regimen 01/22/2023: DC tomorrow (1) Debility (2) COPD (chronic obstructive pulmonary disease) (3) Transfusion history (4) Frailty (5) Hyperlipemia (6) Anxiety (7) Osteoporosis (8) Pulmonary hypertension Discharge Summary Discharge Physical Examination Allergies: Coded Allergies: No Known Drug Allergies (Unverified , 07/09/14) Vitals & I&Os Vital Signs Date Time Temp Pulse Resp B/P (MAP) Pulse Ox O2 Delivery O2 Flow Rate FiO2 01/23/23 10:09 37.0 84 18 118/55 91 Room Air General Appearance: Alert, Oriented X3, Cooperative Respiratory: Clear to Auscultation Cardiovascular: Regular Rate Psych/Mental Status: Mental Status NL Hospital Course Was the Problem List Reviewed?: Yes Uneventful course after she was moved from [facility] following a fall with severe pain but xray and CT revealed no fracture and Dr Tim wyattal no fracture so she was moved to ARU and completed aggressive therapy and was able to regain baseline function of ambulation and ADL's and DC home in improved condition. Labs (last 24 hrs) Laboratory Tests 01/16/23 05:30: White Blood Count 4.7, Red Blood Count 3.76L, Hemoglobin 11.7, Hematocrit 36, Mean Corpuscular Volume 96, Mean Corpuscular Hemoglobin 31, Mean Corpuscular Hemoglobin Concent 32, Red Cell Distribution Width 13.2, Platelet Count 195, Mean Platelet Volume 9.5, Immature Granulocyte % (Auto) 0, Neutrophils (%) (Auto) 60, Lymphocytes (%) (Auto) 27, Monocytes (%) (Auto) 9, Eosinophils (%) (Auto) 3, Basophils (%) (Auto) 1, Neutrophils # (Auto) 2.8, Lymphocytes # (Auto) 1.3, Monocytes # (Auto) 0.4, Eosinophils # (Auto) 0.1, Basophils # (Auto) 0.1, Immature Granulocyte # (Auto) 0.0, Sodium Level 141, Potassium Level 3.7, Chloride Level 106, Carbon Dioxide Level 24, Anion Gap 11, Blood Urea Nitrogen 8, Creatinine 0.59L, Estimat Glomerular Filtration Rate 93, BUN/Creatinine Ratio 14, Glucose Level 78, Calcium Level 9.0, Corrected Calcium 9.6, Total Bilirubin 0.2, Aspartate Amino Transf (AST/SGOT) 32, Alanine Aminotransferase (ALT/SGPT) 17, Alkaline Phosphatase 108, Total Protein 6.8, Albumin 3.3 Pending Labs Laboratory Tests 01/16/23 05:30: White Blood Count 4.7, Red Blood Count 3.76, Hemoglobin 11.7, Hematocrit 36, Mean Corpuscular Volume 96, Mean Corpuscular Hemoglobin 31, Mean Corpuscular Hemoglobin Concent 32, Red Cell Distribution Width 13.2, Platelet Count 195, Mean Platelet Volume 9.5, Immature Granulocyte % (Auto) 0, Neutrophils (%) (Auto) 60, Lymphocytes (%) (Auto) 27, Monocytes (%) (Auto) 9, Eosinophils (%) (Auto) 3, Basophils (%) (Auto) 1, Neutrophils # (Auto) 2.8, Lymphocytes # (Auto) 1.3, Monocytes # (Auto) 0.4, Eosinophils # (Auto) 0.1, Basophils # (Auto) 0.1, Immature Granulocyte # (Auto) 0.0, Sodium Level 141, Potassium Level 3.7, Chloride Level 106, Carbon Dioxide Level 24, Anion Gap 11, Blood Urea Nitrogen 8, Creatinine 0.59, Estimat Glomerular Filtration Rate 93, BUN/Creatinine Ratio 14, Glucose Level 78, Calcium Level 9.0, Corrected Calcium 9.6, Total Bilirubin 0.2, Aspartate Amino Transf (AST/SGOT) 32, Alanine Aminotransferase (ALT/SGPT) 17, Alkaline Phosphatase 108, Total Protein 6.8, Albumin 3.3 Discharge Home Medications: Active Scripts Active Hydrocodone-Acetamin 5-325 mg (Hydrocodone/Acetaminophen) 5 Mg-325 Mg Tablet 1 Ea PO Q4H PRN Reported Viactiv 650 mg-12.5 Mcg Chew (Calcium Carb/Vitamin D3/Vit K1) 650 Mg Calcium- 12.5 Mcg-40 Mcg Tab.chew 2 Each PO DAILY Sertraline HCl 50 Mg Tablet 50 Mg PO DAILY TAKES 100MG +50MG TO EQUAL 150MG DAILY Sertraline HCl 100 Mg Tablet 100 Mg PO DAILY TAKES 100MG +50MG TO EQUAL 150MG DAILY Ibandronate Sodium 150 Mg Tablet 150 Mg PO MONTHLY Simvastatin 20 Mg Tablet 20 Mg PO DAILY Ezetimibe 10 Mg Tablet 10 Mg PO DAILY Senna Plus 8.6-50 mg Tablet (Sennosides/Docusate Sodium) 8.6 Mg-50 Mg Tablet 1 Each PO DAILY PRN Oxybutynin Chloride ER (Oxybutynin Chloride) 15 Mg Tab.er.24 15 Mg PO DAILY Multivitamin 1 Each Tablet 1 Each PO DAILY Levothyroxine Sodium 50 Mcg Tablet 50 Mcg PO DAILY Furosemide 20 Mg Tablet 20 Mg PO DAILY PRN Venlafaxine HCl ER (Venlafaxine HCl) 75 Mg Cap.er.24h 75 Mg PO DAILY Colace (Docusate Sodium) 100 Mg Capsule 100 Mg PO BID Aspirin 81 Mg Tab.chew 81 Mg PO DAILY Instructions to patient/family Please see electronic discharge instructions given to patient. Diagnosis/Problems Diagnosis/Problems (1) Debility (2) COPD (chronic obstructive pulmonary disease) (3) Transfusion history (4) Frailty (5) Hyperlipemia (6) Anxiety (7) Osteoporosis (8) Pulmonary hypertension AVANI NICOLE DO Jan 23, 2023 06:37
--- NOTE | 2023-01-23 06:37 | D/C HH Face to Face Order ---
D/C Face to Face Orders Reconcile Patient Problems Problems Reviewed?: Yes Instructions for Patient [facility] Patient Instructions/FollowUp: PCP as scheduled Physician to follow Patient: Jonathon Discharge Diet for Home: No Restrictions Patient Problems: Pelvic pain from fall Patient Data-Allergies,Ht & Wt Patient Allergies: Coded Allergies: No Known Drug Allergies (Unverified , 07/09/14) Height (Feet): 5 Height (Inches): 6.00 Weight (Pounds): 120 Home Health Need/Face to Face Date of Face to Face: Jan 23, 2023 Clinical Findings: Generalized weakness and fatigue, Instability, Muscle weakness I have seen Pt [id number]: Yes Discharged To: Home Diagnosis/Conditions: Debility Patient is Homebound due to: Arin fall risk due to instabilty, Muscle weakness Homebound Status Due to the above stated illness, injury or surgical procedure (medical condition or diagnosis) and associated clinical findings, the patient is homebound because of his/her inability to leave home except with aid of a supportive device and/or person AND leaving the home requires a considerable and taxing effort or is medically contraindicated. Pt req the following assistanc: Walker Home Health Nursing Orders Home Health Services Order: Nursing Services, Model Artists'-Evaluate & Treat, Physical Therapy-Evaluate & Treat Certify Stmt I certify that this patient is under my care and that I, a nurse practitioner or a physician; a business services assistant working with me, had a face to face encounter that - meets the physician face to face encounter requirements with this patient as dated. AVANI NICOLE DO Jan 23, 2023 06:37
[2023-01-23] MEDS: LACTULOSE SYRUP 10GM/15ML (ENULOSE) 30ML UDC PO SCH (08:29)
[2023-01-23] MEDS: polyethylene glycoL POWDER 17 GM (MIRALAX) PACK PO SCH (08:29)
[2023-01-23] MEDS: OXYBUTYNIN (DITROPAN) 5 MG TAB PO SCH (08:34)
[2023-01-23] MEDS: SENNA W/DOCUSATE (SENOKOT S) TABLET PO SCH (08:34)
[2023-01-23] MEDS: MULTIVIT W/MINERALS TAB (THERAGRAN M) PO SCH (08:34)
[2023-01-23] MEDS: ENOXAPARIN INJECTION 30 MG/0.3 ML SYR SQ SCH (08:34)
[2023-01-23] MEDS: VENlafaxine XR 75 MG (EFFEXOR XR) CAP PO SCH (08:34)
[2023-01-23] MEDS: DOCUSATE SODIUM 100 MG (COLACE) CAP PO SCH (08:34)
[2023-01-23] MEDS: CALCIUM CARB + VIT D 600 MG (CALCARB + D) TAB PO SCH (08:34)
[2023-01-23] MEDS: LEVOTHYROXINE 50 MCG (LEVOTHROID) TAB PO SCH (08:34)
[2023-01-23] MEDS: SERTRALINE 100 MG (ZOLOFT) TAB PO SCH (08:34)
[2023-01-23 08:42] VITALS: BP 118/55
[2023-01-23 10:09] VITALS: BP 118/55
[2023-01-23] MEDS ORDERED: LACT20SO2 PO (16:03)
[2023-01-25] MEDS ORDERED: BONIVA 150 MG PO SCH (09:00)
--- NOTE | 2023-01-25 09:46 | Therapy Team Discharge Summary ---
Therapy Discharge Summary Discharge Recommendations Date of Discharge Jan 23, 2023 at 10:14 Physical Therapy Roll Left to Right (QC): 6 Sit to Lying (QC): 6 Lying to Sitting/Side of Bed(Q: 6 Sit to Stand (QC): 6 Chair/Crn-dq-Jeyzk Xfer(QC): 6 Toilet Transfer (QC): 5 Car Transfer (QC): 6 Does the Patient Walk: Yes Mode of Locomotion: Walk Anticipated Mode of Locomotion: Walk Walk 10 feet (QC): 6 Walk 50 ft with 2 Turns(QC): 6 Walk 150 ft (QC): 6 Walking 10ft on uneven surface: 6 Distance: 200'+ Gait Assistive Device: FWW Does the Pt Use a Wheelchair: No Wheel 50 ft with 2 turns (QC): 6 Wheel 150 ft (QC): 6 #of Steps: 6 1 Step (curb) (QC): 6 4 Steps (QC): 6 12 Steps (QC): 6 Balance Sitting Static: Normal Balance Sitting Dynamic: Good Balance-Standing Static: Good Picking up an Object (QC): 6 Occupational Therapy Pt admitted to ARU with debility. At [facility], pt was independent with ADLS and functional mobility using a cane. Upon initial evaluation, pt was independent with eating, required SBA oral care, supervision with showering, LE dressing and toileting and set up with UE dressing and footwear. OT tx focused on increasing BUE Strength and activity tolerance, and increasing safety and independence with ADLS and functional mobility. Pt made good progress towards goals, attaining IND level with all ADLS. Pt discharged home, d/c from OT. Decreased UE Strength Eating (QC): 6 Oral Hygiene (QC): 6 (seated at sink) Shower/Bathe Self (QC): 6 Upper Body Dressing (QC): 6 Lower Body Dressing (QC): 6 On/Off Footwear (QC): 6 Toileting Hygiene (QC): 6 PT Mcc Goals Mcc Goals PT Mcc Goals Time Frame: January 29, 2023 Roll Left to Right (QC): 6 Sit to Lying (QC): 6 (with leg braid maker as needed) Lying-Sitting on Side/Bed(QC): 6 (with leg braid maker as needed) Sit to Stand (QC): 6 Chair/Fmb-vg-Xujed Xfer(QC): 6 Toilet/Commode Transfer (QC): 6 Car Transfer (QC): 6 Does the Patient Walk: Yes Walk 10 feet (QC): 6 (with walker or cane) Walk 10ft-Uneven Surface(QC): 6 (with walker or cane) Walk 50ft with 2 Turns (QC): 6 (with walker or cane) Walk 150 ft (QC): 6 (with walker or cane) Does the Pt use WC or Scooter?: No Wheel 50 feet with 2 turns (QC: 9 Wheel 150 feet: 9 1 Step (curb) (QC): 6 (with walker or cane and rail) 4 Steps (QC): 6 (with railings) 12 Steps (QC): 6 (with railings) Picking up an Object (QC): 6 (with guidance secretary) OT Mcc Goals Tree Care Foreman Goals Time Frame: January 29, 2023 Acute change in mental status: 0 Inattention: 0 Disorganized thinkin Altered level of consciousness: 0 Eating (QC): 6 (met) Oral Hygiene (QC): 6 (met) Toileting Hygiene (QC): 6 (met) Shower/Bathe Self (QC): 6 (met) Upper Body Dressing (QC): 6 (met) Lower Body Dressing (QC): 6 (met) On/Off Footwear (QC): 6 (met) Additional Goals: 1-Demonstrate ADL Tasks, 2-Verbalize Understanding, 3- ImproveStrength/Latosha 1=Demonstrate adherence to instructed precautions during ADL tasks. 2=Patient will verbalize/demonstrate understanding of assistive devices/modifications for ADL. 3=Patient will improve strength/tolerance for activity to enable patient to perform ADL's. ENA CHAVIRA OT January 25, 2023 09:46
--- NOTE | 2023-01-25 09:55 | Therapy Team Discharge Summary ---
Therapy Discharge Summary Discharge Recommendations Date of Discharge Jan 23, 2023 at 10:14 Physical Therapy Admitted to [facility] 01/12/22, then to [facility] for continued rehab on 01/15/23 to address debility. At time of D/C,patient was (I) with all bed mobility and transfers using a FWW. She was able to ambulate 200'+ with FWW (I) without rest. Did continue to have c/o pain in (R) hip/groin/low back with upright gait. Patient D/C as ambulatory patient with a FWW, but was able to demonstrate (I) w/c propulsion early in rehab stay. Mrs. Ornelas also ascended/descended a curb with a FWW and up to 12 steps with (B) rails (I). Patient able to pick an object off the floor with a fire warden (I). Does continue to require short rest breaks with activity. Roll Left to Right (QC): 6 Sit to Lying (QC): 6 Lying to Sitting/Side of Bed(Q: 6 Sit to Stand (QC): 6 Chair/Yqt-ca-Uvpgo Xfer(QC): 6 Toilet Transfer (QC): 5 Car Transfer (QC): 6 Does the Patient Walk: Yes Mode of Locomotion: Walk Anticipated Mode of Locomotion: Walk Walk 10 feet (QC): 6 Walk 50 ft with 2 Turns(QC): 6 Walk 150 ft (QC): 6 Walking 10ft on uneven surface: 6 Distance: 200'+ Gait Assistive Device: FWW Does the Pt Use a Wheelchair: No Wheel 50 ft with 2 turns (QC): 6 Wheel 150 ft (QC): 6 #of Steps: 6 1 Step (curb) (QC): 6 4 Steps (QC): 6 12 Steps (QC): 6 Balance Sitting Static: Normal Balance Sitting Dynamic: Good Balance-Standing Static: Good Picking up an Object (QC): 6 Occupational Therapy Decreased UE Strength Eating (QC): 6 Oral Hygiene (QC): 6 (seated at sink) Shower/Bathe Self (QC): 6 Upper Body Dressing (QC): 6 Lower Body Dressing (QC): 6 On/Off Footwear (QC): 6 Toileting Hygiene (QC): 6 PT Nursing Home Goals Tape Keller Operator Goals PT Tape Keller Operator Goals Time Frame: January 29, 2023 Roll Left to Right (QC): 6 Sit to Lying (QC): 6 (with leg hotbed operator as needed) Lying-Sitting on Side/Bed(QC): 6 (with leg hotbed operator as needed) Sit to Stand (QC): 6 Chair/Rlr-rk-Esflp Xfer(QC): 6 Toilet/Commode Transfer (QC): 6 Car Transfer (QC): 6 Does the Patient Walk: Yes Walk 10 feet (QC): 6 (with walker or cane) Walk 10ft-Uneven Surface(QC): 6 (with walker or cane) Walk 50ft with 2 Turns (QC): 6 (with walker or cane) Walk 150 ft (QC): 6 (with walker or cane) Does the Pt use WC or Scooter?: No Wheel 50 feet with 2 turns (QC: 9 Wheel 150 feet: 9 1 Step (curb) (QC): 6 (with walker or cane and rail) 4 Steps (QC): 6 (with railings) 12 Steps (QC): 6 (with railings) Picking up an Object (QC): 6 (with fire warden) OT Tape Keller Operator Goals Nursing Home Goals Time Frame: January 29, 2023 Acute change in mental status: 0 Inattention: 0 Disorganized thinkin Altered level of consciousness: 0 Eating (QC): 6 (met) Oral Hygiene (QC): 6 (met) Toileting Hygiene (QC): 6 (met) Shower/Bathe Self (QC): 6 (met) Upper Body Dressing (QC): 6 (met) Lower Body Dressing (QC): 6 (met) On/Off Footwear (QC): 6 (met) Additional Goals: 1-Demonstrate ADL Tasks, 2-Verbalize Understanding, 3- ImproveStrength/Latosha 1=Demonstrate adherence to instructed precautions during ADL tasks. 2=Patient will verbalize/demonstrate understanding of assistive devices/modifications for ADL. 3=Patient will improve strength/tolerance for activity to enable patient to perform ADL's. Jeniffer Farias PT January 25, 2023 09:55
== END 2023-01-23 10:14 | disposition home health service (06) | DRG 884 ==
PROVIDERS: ADMIT Internal Medicine; ATTEND Internal Medicine
DX: R54 Age-related physical debility (principal); I42.1 Obstructive hypertrophic cardiomyopathy; M25.551 Pain in right hip; R10.2 Pelvic and perineal pain; R35.0 Frequency of micturition; I27.20 Pulmonary hypertension, unspecified; J44.9 Chronic obstructive pulmonary disease, unspecified; E78.00 Pure hypercholesterolemia, unspecified; K59.00 Constipation, unspecified; M81.0 Age-related osteoporosis without current pathological fracture; M19.90 Unspecified osteoarthritis, unspecified site; H26.9 Unspecified cataract; F41.9 Anxiety disorder, unspecified; F32.A Depression, unspecified; Z91.81 History of falling; Z87.891 Personal history of nicotine dependence; Z79.82 Long term (current) use of aspirin; W19.XXXD Unspecified fall, subsequent encounter; Y92.009 Unspecified place in unspecified non-institutional (private) residence as the place of occurrence of the external cause; Z79.899 Other long term (current) drug therapy; I65.29 Occlusion and stenosis of unspecified carotid artery; I08.1 Rheumatic disorders of both mitral and tricuspid valves
CPT/HCPCS: 36415; 78300; 80053; 85025